=== PATIENT | male | born 1950 | race Caucasian/White ===

== ENCOUNTER 2019-03-16 18:38 | Inpatient (IN) | payer MEDICARE, BC, SELFPAY ==
[2019-03-16 18:40] VITALS: BP 123/69; PULSE 111; RESP 30; TEMP 36.7; O2SAT 93
--- NOTE | 2019-03-16 18:45 | ED_ITS ---
Entered by Genoveva Cancino, acting as scribe for HPI - SOB/Dyspnea General: Chief Complaint: Shortness of Breath/Dyspnea Stated Complaint: SOB Time Seen by Provider: 03/16/19 18:45 Source: patient, family and EMS Mode of arrival: EMS Limitations: no limitations History of Present Illness: MD elicited complaint: shortness of breath Pertinent past history: COPD Onset (ago): hour(s) Timing: constant Severity: moderate Exacerbating factors: exertion and coughing Relieving factors: nothing Associated symptoms: Reports cough and fever(s); Deny abdominal pain, chest pain, nausea, polyuria or vomiting Review of Systems Const: Reports: fever Eyes: Denies: change in vision ENMT: Denies: throat pain or mouth pain Card: Denies: chest pain Resp: Reports: shortness of breath, non-productive cough and wheezing GI: Denies: abdominal pain, nausea, vomiting or diarrhea Musc: Denies: back pain or joint pain Skin/Breast: Denies: rash Neuro: Denies: headache or behavioral changes Psych: Denies: depression Endo: Denies: excessive urination Jonathan/Lymph: Denies: easy bruising All/Imm: Denies: hives Physical Exam Const: COMMON NORMALS: no apparent distress and healthy appearing HENMT: COMMON NORMALS: normocephalic and external nose normal HEAD & SCALP: normocephalic NOSE: external nose normal and no nasal discharge (nasal dischage) Eye: COMMON NORMALS: PERRL PUPIL: Yes PERRL Neck/C-Spine: COMMON NORMALS: full ROM and no lymphadenopathy Chest: COMMONS NORMALS: inspection of chest normal Resp: OTHER: wheezing bilaterally with mild respdistress Cardio: COMMON NORMALS: regular rate and regular rhythm RATE: regular rate RHYTHM: regular rhythm GI: COMMON NORMALS: soft to palpation PALPATION: Yes soft Extremity: COMMON NORMALS: normal to inspection, full ROM and normal capillary refill Psych: COMMON NORMALS: mental status grossly normal and cooperative Skin: COMMON NORMALS: no rashes or lesions noted GENERAL SKIN EXAM: no rashes or lesions noted Course Vital Signs: Vital signs: Vital Signs Temperature 98.1 F 03/16/19 18:40 Pulse Rate 105 H 03/16/19 21:51 Respiratory Rate 16 03/16/19 21:51 Blood Pressure 140/74 03/16/19 21:51 Pulse Oximetry 93 01/08/20 21:51 MDM - SOB/Dyspnea MDM Narrative: Medical decision making narrative: Patient presents here with cough along with wheezing and was found to have pneumonia on his CT of his chest. Patient is requiring oxygen here and I spoke to hospitalist and will giv e antibiotics and admit. Patient has no signs of septic shock and blood pressure here is been normal. Lab Data: Labs: Lab Results 03/16/19 03/16/19 Range/Units 19:20 19:20 WBC 20.5 H (4.0-10.0) 10^3/ uL RBC 5.34 H (4.1-5.3) 10^6/u L Hgb 14.9 (11.7-16.6) g/dL Hct 46.5 (42.0-52.0) % MCV 87.1 (80-94) fL MCH 27.9 L (28.0-34.0) pg MCHC 32.0 (30.0-36.0) g/dL RDW 12.4 (12.1-15.1) % Plt Count 261 (130-400) 10^3/c mm MPV 9.9 (7.4-10.4) fL Neut % (Auto) 78.0 % Lymph % (Auto) 12.3 % [place] % (Auto) 7.8 % Eos % (Auto) 0.7 % Baso % (Auto) 0.6 % Neut # (Auto) 16.0 H (1.8-7.7) 10^3/u L Lymph # (Auto) 2.5 (0.8-4.8) 10^3/u L [place] # (Auto) 1.6 H (0.2-0.9) 10^3/u L Eos # (Auto) 0.2 (0.0-0.8) 10^3/u L Baso # (Auto) 0.1 (0.0-0.1) 10^3/u L Nucleated RBC % (a uto) 0 % Nucleated RBCs # 0.0 /100WBC Sodium 138 (136-145) mmol/L Potassium 3.9 (3.5-5.1) mmol/L Chloride 98 (98-107) mmol/L Carbon Dioxide 26 (22-29) mmol/L Anion Gap 17.9 (5-19) BUN 8 (8-23) mg/dL Creatinine 0.9 (0.7-1.2) mg/dL GFR Calculation 83.4 L (90-130) mL/min Glucose 127 H (74-106) mg/dL Calcium 9.6 (8.8-10.2) mg/Dl Total Bilirubin 0.6 (0.15-1.2) mg/dL AST 20 (0-40) U/L ALT 24 (0-41) U/L Alkaline Phosphata se 110 (40-130) IU/L NT-Pro-B Natriuret Pep 73 (0-125) pg/mL Total Protein 7.8 (6.6-8.7) g/dL Albumin 4.5 (3.5-5.2) g/dL Globulin 3.3 (1.3-4.6) g/dL Imaging Data^: CXR: Radiologist's impression: [place] [address] XRay Report Signed Patient: Cassidy Navarro AMR#: [id number] : 9Acct:[id number] Age/Sex: 78 / FADM Date: 03/16/19 Loc: ER Attending Dr: Ordering Physician: Constantine Cisneros DO Date of Service: 03/16/19 Procedure(s): XR chest 1V portable [id number] Accession Number(s): [id number] Report Number: [id number] WS: [id number] PORTABLE CHEST HISTORY: cough COMPARISON: 02/21/2019 Mild hyperexpansion of the lungs. Opacifications in the lower lung vieira seen on the prior study have slightly improved but not resolved. Persistent interstitial thickening at the medial RIGHT lung base. More focal nodule in the LEFT lower lung field measuring 1.5 cm. This nodule may contain a central cavitation. Overall the opacification in the LEFT lower lung field has slightly improved. No pleural effusion or pneumothorax. Cardiac size: Normal. Mediastinum/Aorta: Mild atherosclerosis aorta. Osteopenia. Prior IVC filter placement. Several vertebroplasties in the lower thoracic vertebral bodies. XR/XR chest 1V portable [id number] IMPRESSION: 1. Slight improvement in opacifications in the lower lung vieira as compared to 02/21/2019. Likely due to improving pneumonia and atelectasis. 2. Appearance of a more focal nodule at the LEFT base measures 1.5 cm. Suggest follow-up chest CT with IV contrast to exclude developing abscess or neoplasm. Dictated By:Florinda Medina DO Signed By:Florinda Medina DOSigned Date/Time:03/16/19 1607 DD/ 1603 EKG Data^: EKG 1: EKG Interpretation Date: 03/16/19 EKG interpretation time: 19:05 Interpretation: sinus tach hr [address] or t wave abnormalities qrs 92 qtc 388 Discharge Plan Discharge Patient Disposition: Admitted As Inpatient Clinical Impression: Acute exacerbation of chronic obstructive airways disease Community acquired pneumonia Qualifiers: Laterality: unspecified laterality Qualified Code(s): J18.9 - Pneumonia, unspecified organism Condition: Stable Coding Level of Care Code ED Rate Supervisor for Chg Fwd Exam Problem Focused The documentation recorded by the Barak martinez Bridget Annette, accurately reflects the service I personally performed and the decisions made by Pat ochoa Korby, MD
--- NOTE | 2019-03-16 18:46 | ECG_ITS ---
Measurements Intervals Wall Rate: 109 P: 68 PA: 157 QRS: 44 QRSD: 92 T: 68 QT: 324 QTc: 438 SINUS TACHYCARDIA ABNORMAL RHYTHM ECG WARNING: DATA QUALITY MAY AFFECT INTERPRETATION No previous ECG available for comparison Electronically Signed On 03-17-2019 13:52:15 GOLD PLATER by Rupal Duenas M.D. [email or web address]
--- NOTE | 2019-03-16 18:46 | XR_ITS ---
WS: [id number] CHEST XRAY TECHNIQUE: Portable chest. CLINICAL INFORMATION: cough COMPARISON: December 09, 2018 FINDINGS: Heart: Normal cardiac silhouette. Lungs: Lungs are clear. No consolidation or pleural effusion. Bones: Normal visualized bony structures. XR/XR chest 1V portable [id number] IMPRESSION: Normal chest
[2019-03-16] MEDS: ipratropium-albuterol 3 mL Neb INHALATION (19:37)
[2019-03-16 19:40] VITALS: PULSE 109; RESP 20; O2SAT 92
[2019-03-16 19:42] VITALS: PULSE 112
[2019-03-16 19:56] LABS: Basophils # 0.1 10^3/uL (0.0-0.1); Basophils % 0.6 %; Eosinophils # 0.2 10^3/uL (0.0-0.8); Eosinophils % 0.7 %; Hematocrit 46.5 % (42.0-52.0); Hemoglobin 14.9 g/dL (11.7-16.6); Lymphocytes # 2.5 10^3/uL (0.8-4.8); Lymphocytes % 12.3 %; Mean Corpuscular Hemoglobin 27.9 pg (28.0-34.0); Mean Corpuscular Volume 87.1 fL (80-94); Mean Platelet Volume 9.9 fL (7.4-10.4); Monocytes # 1.6 10^3/uL (0.2-0.9); Monocytes % 7.8 %; Nucleated Red Blood Cells % 0 %; Platelet Count 261 10^3/cmm (130-400); Red Blood Count 5.34 10^6/uL (4.1-5.3); Red Cell Distribution Width 12.4 % (12.1-15.1); White Blood Count 20.5 10^3/uL (4.0-10.0)
--- NOTE | 2019-03-16 20:03 | CTR_ITS ---
PROCEDURE INFORMATION: Exam: CT Angiography Chest With Contrast Exam date and time: 03/16/2019 8:40 PM Age: 68 years old Clinical indication: Dyspnea TECHNIQUE: Imaging protocol: Computed tomographic angiography of the chest with intravenous contrast. 3D rendering: MIP and/or 3D reconstructed images were created by the technologist. Total DLP: 1181.89 mGy-cm Radiation optimization: All CT scans at this facility use at least one of these dose optimization techniques: automated exposure control; mA and/or kV adjustment per patient size (includes targeted exams where dose is matched to clinical indication); or iterative reconstruction. Contrast material: [id number]; Contrast volume: 95 ml; Contrast route: IV; COMPARISON: CR XR chest 1V portable [id number] 03/16/2019 7:01 PM FINDINGS: Pulmonary arteries: The pulmonary arteries are adequately opacified for evaluation to the subsegmental level. There is no filling defect to suggest embolism. Aorta: There is mild aortic atherosclerotic disease. There is no aortic dissection or aneurysm. Thyroid: mild diffuse enlargement of the thyroid gland. Lungs: There are patchy areas of reticulonodular and tree in bud opacity involving the posterior inferior right upper lobe, and posterior basal segment of the left lower lobe. There is a calcified granuloma in the right lower lobe. Mild scarring in the lingula. Pleural space: Unremarkable. No pneumothorax. No pleural effusion. Heart: There is moderate coronary artery calcification. There is no pericardial effusion. Liver: There is diffuse low-attenuation of the liver relative to the spleen consistent with fatty infiltration. Lymph nodes: There are calcified lymph nodes in the right hilum and subcarinal region. There are no frankly pathologically enlarged lymph nodes. Bones/joints: Unremarkable. No acute fracture. Soft tissues: The extrathoracic soft tissues are unremarkable. CT/CT angio chest PE protcl [id number] IMPRESSION: 1. No pulmonary embolism. 2. Tree in bud opacities in the right upper and left lower lobe suggest infection. 3. Diffuse fatty infiltration of the liver. Radiation Dose CTDIVOL = (mGy): DLP = 1181.89 (mGy-cm)
[2019-03-16 20:28] LABS: Alanine Aminotransferase 24 U/L (0-41); Albumin Level 4.5 g/dL (3.5-5.2); Alkaline Phosphatase 110 IU/L (40-130); Anion Gap 17.9 (5-19); Aspartate Amino Transferase 20 U/L (0-40); Blood Urea Nitrogen 8 mg/dL (8-23); Calcium 9.6 mg/Dl (8.8-10.2); Carbon Dioxide 26 mmol/L (22-29); Chloride 98 mmol/L (98-107); Globulin 3.3 g/dL (1.3-4.6); Glomerular Filtration Rate 83.4 mL/min (90-130); Glucose 127 mg/dL (74-106); NT Pro B Type Natriuretic Pept 73 pg/mL (0-125); Potassium 3.9 mmol/L (3.5-5.1); Sodium 138 mmol/L (136-145); Total Bilirubin 0.6 mg/dL (0.15-1.2); Total Protein 7.8 g/dL (6.6-8.7)
[2019-03-16 20:39] VITALS: BP 106/58; PULSE 115; RESP 18; O2SAT 93
[2019-03-16] MEDS: iohexol 350 mg/mL 100 mL Btl 95 ML IV (20:58)
[2019-03-16] MEDS: cefTRIAXone 1,000 MG in sodium chloride 0.9% (plus) 50 ML 100 MG IV (21:49)
[2019-03-16 21:51] VITALS: BP 140/74; PULSE 105; RESP 16; O2SAT 93
--- NOTE | 2019-03-16 22:32 | PM.HP ---
Providers/Chief Complaint Admitting Physician: Rita Lee MD Primary Care Provider: Cuortney Reich MD Chief Complaint: PNEUMONIA, COPD History of Present Illness CAROL CHE is a 68 year old male who presented to the emergency room with chief complaint of difficulty breathing. Symptoms started a few days ago. The first thing he noticed was not having any energy. He then began to have increasing cough productive of greenish colored sputum. No definite reports of any fevers or chills just general malaise. He denies any hemoptysis. This evening he got up to walk from his couch to the bathroom which was maybe 20 feet and he barely made it. He had to rest quite a bit of time. When he went back to the couch he again barely made it. When his came home told her that he needed to come to the emergency room. He came in by EMS. On arrival here her oxygen saturation was around 92% on increased oxygen flow from baseline. He is usually on 2 L by nasal cannula. Heart rate was in the 110s to 120s and respirations were in the 30s. He received continuous breathing treatment. He initially felt better but breathing has worsened. He was last hospitalized here in December with acute COPD exacerbation. He denies any recent antibiotic or steroid use since then. Chest x-ray showed an infiltrative process. He subsequently had a CTA of the chest. It was negative for evidence of PE but did show tree-in-bud opacities suggestive of an acute infectious process. With increased oxygen requirement and decreased exertional capacity combined with other abnormalities he is being admitted for further care. Review of Systems Const: Reports: fatigue and malaise; Denies: fever or chills Eyes: Denies: change in vision ENMT: Denies: throat pain or dry mouth Card: Reports: palpitations (When trouble breathing) and swelling of feet/ankles (Mild); Denies: chest pain Resp: Reports: shortness of breath, productive cough (Green phlegm), wheezing and chest congestion; Denies: pain on inspiration or coughing up blood GI: Denies: nausea, vomiting, diarrhea or constipation : Reports: urinary frequency, urinary urgency and urinary incontinence Musc: Reports: back pain (chronic) and joint pain (nothing new) Skin/Breast: Denies: rash, itching or sores Neuro: Reports: headache (intermittent) Psych: Denies: anxiety or depression Jonathan/Lymph: Denies: easy bruising or easy bleeding All/Imm: Reports: other (many allergies); Denies: hives, throat swelling, tongue swelling or itchy eyes Medications/Allergies Allergies Allergy/AdvReac Type Severity Reaction Status Date / Time No Known Allergies Allergy Verified 03/16/19 18:51 Additional Medication Information Additional Medication Information: Home medications include breathing treatments, theophylline, inhaled steroids, Flomax, a triptan for migraines when needed and another pill for migraine which will need to be clarified. He gets Xolair injections monthly PFSH Acute PFSH: Statuses (acute, chronic, etc) shown below reflect problem list status as previously entered and may not be historically accurate Medical History (Updated 03/17/19 @ 00:01 by Rita Lee MD) Benign prostatic hyperplasia (Acute) On Flomax, follows with Dr. Torres Chronic low back pain (Acute) Has had nerve ablations and follows at pain clinic in [place] COPD (chronic obstructive pulmonary disease) (Acute) 2 L of oxygen at home, follows with Dr. Putnam in [place] currently, on theophylline Diabetes mellitus type 2, noninsulin dependent (Acute) Januvia History of multiple allergies (Acute) Xolair injections monthly Hx of migraine headaches (Acute) Has a triptan prescription and another medication Peripheral neuropathy (Acute) Primarily involving hands, related to ulnar nerve interventions Surgical History History of cataract surgery (Acute) History of repair of rotator cuff (Acute) Bilateral History of surgery on wrist (Acute) Bilateral ulnar nerve release History of tonsillectomy and adenoidectomy (Acute) Family History Mother Cancer uterine Aneurysm intracranial Father Lung disease asthma with allergies Social History Smoking and tobacco status: current every day smoker cigarettes Number of cigarettes per day: 6-10 Alcohol intake: never Substance/Drug Use: never Household members: spouse Marital status: Vitals/I&O/Wt Last Vital Signs Temp 98.1 F 03/16/19 18:40 Pulse 105 H 03/16/19 21:51 Resp 16 03/16/19 21:51 BP 140/74 03/16/19 21:51 Pulse Ox 93 03/16/19 21:51 Physical Exam Const: COMMON NORMALS: oriented x3 and alert GENERAL APPEARANCE: in distress (mild) NUTRITIONAL APPEARANCE: overweight HENMT: COMMON NORMALS: normocephalic and head/scalp atraumatic NOSE: nasal discharge purulent Purulent nasal discharge laterality: bilateral TEETH & GINGIVA: Yes fair dentition THROAT: posterior oropharynx normal Eye: COMMON NORMALS: PERRL, EOMs intact bilaterally and no scleral icterus Neck/C-Spine: COMMON NORMALS: no lymphadenopathy and supple Resp: EFFORT & INSPECTION: Yes tachypneic, Yes pursed lip breathing and Yes retractions supraclavicular AUSCULTATION: rhonchi left upper and left lower and wheezes throughout Cardio: JUGULAR VENOUS DISTENTION: no JVD RATE: tachycardic RHYTHM: regular rhythm GI: COMMON NORMALS: normal to inspection, nondistended, normoactive bowel sounds, soft to palpation and non-tender Extremity: GENERAL: Yes edema (1-2+ pretibial) Neuro: COMMON NORMALS: moves all extremities, no focal motor deficits and no sensory deficits noted Psych: COMMON NORMALS: cooperative ATTITUDE: Yes calm Skin: COMMON NORMALS: no rashes or lesions noted and no wounds Data Micro: Micro: Microbiology 03/16/19 20:25 Blood Culture - Pr eliminary [place] [facility] [place]16[place]19 20:25 Blood Culture - Pr eliminary [place] [facility] [place]^: CTA Chest: Radiologist's impression: IMPRESSION: 1. No pulmonary embolism. 2. Tree in bud opacities in the right upper and left lower lobe suggest infection. 3. Diffuse fatty infiltration of the liver. Other Data: Other data: Short CBC 03/16/19 03/16/19 Range/Units 19:20 19:20 WBC 20.5 H (4.0-10.0) 10^3/ uL Hgb 14.9 (11.7-16.6) g/dL Hct 46.5 (42.0-52.0) % Plt Count 261 (130-400) 10^3/c mm Neut % (Auto) 78.0 % Sodium 138 (136-145) mmol/L BMP 03/16/19 19:20 Sodium 138 Potassium 3.9 Chloride 98 Carbon Dioxide 26 BUN 8 Creatinine 0.9 Glucose 127 H Calcium 9.6 Liver Function 03/16/19 Range/Units 19:20 Total Bilirubin 0.6 (0.15-1.2) mg/dL AST 20 (0-40) U/L ALT 24 (0-41) U/L Alkaline Phosphata se 110 (40-130) IU/L Albumin 4.5 (3.5-5.2) g/dL A&P Assessment and plan (1) Community acquired pneumonia: Right upper lobe and left lower lobe (multi lobar) in a patient with COPD. Organism currently unknown. Status: Acute Qualifiers: Laterality: unspecified laterality Qualified Code(s): J18.9 - Pneumonia, unspecified organism Code(s): J18.9 - Pneumonia, unspecified organism (2) Acute exacerbation of chronic obstructive airways disease: Secondary to above Status: Acute Code(s): J44.1 - Chronic obstructive pulmonary disease with (acute) exacerbation (3) Diabetes mellitus type 2, noninsulin dependent: On Januvia at home Status: Acute Code(s): E11.9 - Type 2 diabetes mellitus without complications (4) Nicotine dependence, cigarettes, with other nicotine-induced disorders: Educated on the importance of smoking cessation as well as avoiding smoking with oxygen. He recently received a prescription for Chantix and has just started taking this. Has a desire to quit. Status: Acute Code(s): F17.218 - Nicotine dependence, cigarettes, with other nicotine-induced disorders Additional A&P Information Additional A&P Information: Inpatient admission Breathing treatments and inhaled steroids Systemic steroids Antibiotics Continue home theophylline Wean oxygen as able back to baseline 2 L PT evaluate and treat Continue to reinforce smoking cessation Chantix is nonformulary and I am currently holding this but can be resumed at discharge Continue Flomax for BPH Continue Januvia for diabetes, add corrective dose insulin as needed Patient's is bringing medications in so we will be able to confirm medications more specifically Lovenox for DVT prophylaxis Up-to-date on Pneumovax and flu vaccine Supportive care otherwise Full code Plans discussed with patient and his and both were given an opportunity to ask questions Attestations Medical Necessity Statement*: Anticipated stay greater than 2 midnights in a patient with community-acquired pneumonia and associated COPD exacerbation who is requiring higher flow of oxygen and has a white count of 20,000. Coding Level of Care Code Acute Production Officer for Chg Fwd Diagnoses Community acquired pneumonia J18.9 Laterality: unspecified laterality Acute exacerbation of chronic obstructive airways disease J44.1 Diabetes mellitus type 2, noninsulin dependent E11.9 Nicotine dependence, cigarettes, with other nicotine-induced disorders F17.218
[2019-03-16 23:32] VITALS: BP 117/73; PULSE 104; RESP 16; O2SAT 94
[2019-03-17] VITALS (14 sets, daily range): BP systolic 126–149; BP diastolic 65–85; PULSE 84–106; RESP 18–22; TEMP 36.3–36.9; O2SAT 92–97; BMI 36.7
--- NOTE | 2019-03-17 00:20 | PC.NURSE ---
Pt arrived to room via gurney from ER. Introduction of staff and aidet. Assisted to bed, orientation to room, bed, tv and call light systems. Physical assessment at this time.
[2019-03-17] MEDS: sodium chloride 0.9% 1,000 ML 75 ML IV (00:40)
[2019-03-17] MEDS: enoxaparin 40 mg/0.4 mL Syringe SUBCUT (00:47)
[2019-03-17] MEDS: ipratropium-albuterol 3 mL Neb INHALATION ×4 (02:42→20:00)
[2019-03-17] MEDS: azithromycin 500 MG in sodium chloride 0.9% 250 ML 250 MG IV (04:06)
[2019-03-17 07:08] LABS: Glucose Point of Care 172 mg/dL (70-110)
[2019-03-17] MEDS: budesonide 0.5 mg/2 mL Neb INHALATION ×2 (08:03→19:54)
--- NOTE | 2019-03-17 08:51 | PM.PN ---
Subjective Subjective: Interval history: Chart reviewed, labs noted. Had 1430 mL urine output overnight. Patient seen and examined, at bedside, resting in bed, no apparent distress, reports feeling the beginining of a migraine headache and is requesting to have home med resumed for this. Has been working on smoking cessation, down to 3-4 cig/day and using Chantix for this. He is consistently oxygen dependent, 2 L is his baseline requirement. Medications: Reviewed: Yes Medication Review Details: Active Medications Generic Name Dose Route Start Last Admin Trade Name Freq PRN Reason Stop Dose Admin Acetaminophen 650 mg 03/17/19 00:12 Tylenol PO Q6H PRN Mild/Mod Pain Or Temp >/= 101 Albuterol/Ipratrop ium 3 ml 03/17/19 03:00 03/17/19 08:03 Duoneb INHALATION 3 ml Q6H.RESPIRATORY S CH Administration Albuterol/Ipratrop ium 3 ml 03/17/19 00:12 Duoneb INHALATION Q4H PRN SHORTNESS OF NEO TH Azithromycin 250 mg 03/17/19 09:00 Zithromax PO DAILY [facility] Protocol Budesonide 0.5 mg 03/17/19 08:00 03/17/19 08:03 Pulmicort INHALATION 0.5 mg BID.RESPIRATORY S CH Administration Calcium Carbonate 1,000 mg 03/17/19 00:12 Tums PO Q4H PRN DYSPEPSI Docusate Sodium 100 mg 03/17/19 09:00 Colace PO BID [facility] Enoxaparin Sodium 40 mg 03/17/19 00:15 03/17/19 00:47 Lovenox SUBCUT 40 mg Q24H K[facility]IA Administration Sodium Chloride 1,000 mls @ 75 ml s/hr 03/17/19 00:15 03/17/19 04:07 Sodium Chloride 0.9% IV 03/17/19 13:34 0 mls/hr .[id number] K[facility] Infusion Ceftriaxone Sodium 1,000 mg/ 50 mls @ 100 mls/ hr 03/17/19 20:00 Sodium Chloride IV Q24H K[facility] Protocol Ondansetron HCl 4 mg 03/17/19 00:12 Zofran PO Q8H PRN NAUSEA Prednisone 40 mg 03/17/19 09:00 Prednisone PO DAILY [facility] No Known Allergies Allergy (Verified 03/16/19 18:51) Vitals/I&O/Wt Last Vital Signs Temp 98.5 F 03/17/19 07:51 Pulse 87 03/17/19 08:09 Resp 18 03/17/19 08:04 BP 143/72 03/17/19 07:51 Pulse Ox 95 03/17/19 08:04 03/16/19 03/17/19 03/17/19 22:59 06:59 14:59 Intake Total 978.75 / 978.75 240 / 240 Output Total 1430 / 1430 450 / 450 Balance -451.25 / -451.25 -210 / -210 Weight last 48 hrs Weight 112.576 kg Weight 112.945 kg Weight 112.945 kg Physical Exam Const: COMMON NORMALS: no apparent distress and oriented x3 GENERAL APPEARANCE: cooperative and comfortable NUTRITIONAL APPEARANCE: obese morbidly obese ORIENTATION/CONSCIOUSNESS: Yes awake HENMT: COMMON NORMALS: normocephalic, head/scalp atraumatic, hearing grossly normal bilaterally and moist oral mucous membranes HEAD & SCALP: normocephalic and atraumatic Eye: COMMON NORMALS: PERRL, EOMs intact bilaterally and conjunctivae normal CONJUNCTIVA: Yes conjunctivae normal PUPIL: Yes PERRL Neck/C-Spine: COMMON NORMALS: full ROM GENERAL: Yes normal visual inspection and Yes trachea midline Resp: COMMON NORMALS: normal respiratory effort, no retractions and no use of accessory muscles EFFORT & INSPECTION: Yes able to speak in complete sentences, Yes symmetric chest movement and No tachypneic AUSCULTATION: rhonchi throughout, wheezes expiratory wheezes and diminished lung sounds bilateral Cardio: COMMON NORMALS: regular rate, regular rhythm, S1 normal heart sound, S2 normal heart sound and no murmurs RATE: regular rate RHYTHM: regular rhythm HEART SOUNDS: S1 normal and S2 normal GI: COMMON NORMALS: normal to inspection, nondistended, normoactive bowel sounds, soft to palpation and non-tender INSPECTION: Yes central obesity PALPATION: Yes soft Extremity: COMMON NORMALS: normal to inspection, full ROM and no clubbing, cyanosis or edema; negative for no pedal edema Neuro: COMMON NORMALS: oriented x3, moves all extremities, no focal motor deficits, no sensory deficits noted and gait normal Psych: COMMON NORMALS: mental status grossly normal, thought process normal, cooperative, affect normal and speech normal SPEECH: Yes normal speech THOUGHT PROCESS: normal thought process Skin: COMMON NORMALS: no rashes or lesions noted, no jaundice, no petechiae and no mottling GENERAL SKIN EXAM: no rashes or lesions noted Data Micro: Micro: Microbiology 03/16/19 20:25 Blood Culture - Pr eliminary Blood SPECIMEN [facility] 03/16/19 20:25 Blood Culture - Pr eliminary Blood SPECIMEN [facility] A&P Assessment and plan (1) Community acquired pneumonia: -noted evidence of acute infection on CT chest -noted leukocytosis, currently afebrile, normotensive; continue to trend WBC, monitor vital signs -continue to monitor respiratory status -supplemental oxygen as needed, wean to baseline requirement if possible -continue antibiotics Status: Acute Qualifiers: Laterality: unspecified laterality Qualified Code(s): J18.9 - Pneumonia, unspecified organism Code(s): J18.9 - Pneumonia, unspecified organism (2) Acute exacerbation of chronic obstructive airways disease: -has hx of oxygen-dependent COPD, 2 L baseline oxygen requirement, now with acute exacerbation -on empiric antibiotics as noted above -continue Neb treatments, oral steroids -continue to monitor respiratory status -supplemental oxygen as needed, wean to baseline requirement if possible -follows up with lint cleaner Dr. Putnam in [place], on theophylline. Receives monthly Xolair injections for allergies -updated flu and pneumonia vaccines Status: Acute Code(s): J44.1 - Chronic obstructive pulmonary disease with (acute) exacerbation Additional A&P Information Additional A&P Information: -Chronic smoker; smoking cessation encouraged and has been on Chantix for this -Morbid obesity: BMI: 37 kg/m2 -NIDDM type II; on Januvia; with associated peripheral neuropathy. Accuchecks, anticipate increased hyperglycemia with steroid use. Diabetic diet. ISS. A1c at goal (6.6) in 01/2019 -BPH -Depression -migraine headaches -GI ppx with PPI -DVT ppx with Lovenox -encourage ambulation, PT evaluation appreciated -Dispo: home -Code status: FULL code Attestations Medical Necessity Statement*: Patient requires hospitalization for continued management of pneumonia and acute COPD exacerbation, needs continued close monitoring of respiratory status. Time Spent in Patient Care: Greater than 35 minutes (>than 50% of time spent in counselling and/or direct pt care on unit). 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
[2019-03-17] MEDS: docusate sodium 100 mg Capsule PO ×2 (09:01→17:02)
[2019-03-17] MEDS: predniSONE 20 mg Tablet 40 MG PO (09:01)
[2019-03-17] MEDS: azithromycin 250 mg Tablet PO (09:01)
[2019-03-17] MEDS: pantoprazole DR 40 mg Tablet PO (09:04)
[2019-03-17 11:35] LABS: Glucose Point of Care 179 mg/dL (70-110)
[2019-03-17] MEDS: SUMAtriptan 25 mg Tablet 50 MG PO (13:21)
[2019-03-17] MEDS: nicotine 7 mg Patch 1 PATCH TRANSDERMA (13:21)
--- NOTE | 2019-03-17 14:58 | PC.CHAP ---
Pastoral Care Encounter/Spiritual Assessment Type of Contact [] Declined tuckpointer visit [] Patient/Family/Request visit [] Outpatient visit [] Follow-up visit [] Physician referral [] Code/Alert [x] Routine visit [] Staff referral [] Actively dying [] Patient sleeping [] Family support [] [] Out of room [] Palliative care [] [] Receiving care in room [] Pre-surgical visit [] Trauma [] Long length of stay [] ICU visit [] Other: Relational/Emotional Strength [] Patient feels connected with others/family/visitors/staff [] Distress [x] Loneliness/isolation [] Abandonment Spirituality of Patient [x] Person of Julia [x] Attends Church of their Julia [x] Believes in Prayer [x] Reads Bible or Episcopal materials [] There are Spiritual issues to be addressed [employer]ation [employer] Supervisor Interventions [x] Prayer [x] Active listening [x] Non-anxious presence [x] Spiritual/emotional support [] Crisis/trauma care [x] Spiritual counseling [] Bereavement support [] Provided bereavement packet [] Provided Bible/devotional materials [] Provided toy/stuffed animal, coloring book to patient or family member [x] Completed spiritual assessment [] Provided Communion [] Anointing/Hope [] Salvation [] Other: Impact on Illness or Injury [] Angry [] Fearful [] Anxious [] Often cries [] Exhaustion [] Unable to work [] Unable to attend pentecostalism [] Unable to walk/stand [] Unable to read [] Unable to drive [] Unable to eat/drink [] Unable to sleep [] Unable to be with family [] Other: Summary good visit patient loves the Lord. Time spent with patient
[2019-03-17 16:21] LABS: Glucose Point of Care 176 mg/dL (70-110)
[2019-03-17] MEDS: acetaminophen 325 mg Tablet 650 MG PO (17:04)
[2019-03-17 21:21] LABS: Glucose Point of Care 170 mg/dL (70-110)
[2019-03-17] MEDS: cefTRIAXone 1,000 MG in sodium chloride 0.9% (plus) 50 ML 100 MG IV (21:23)
[2019-03-17] MEDS: venlafaxine ER (24HR) 150 mg Capsule PO (21:24)
[2019-03-18] VITALS (15 sets, daily range): BP systolic 121–150; BP diastolic 67–74; PULSE 78–91; RESP 18–28; TEMP 36.4–36.8; O2SAT 92–98
[2019-03-18] MEDS: enoxaparin 40 mg/0.4 mL Syringe SUBCUT (00:33)
[2019-03-18] MEDS: ipratropium-albuterol 3 mL Neb INHALATION ×4 (02:47→21:22)
[2019-03-18 05:22] LABS: Basophils % 0.2 %; Eosinophils % 0.1 %; Hematocrit 43.4 % (42.0-52.0); Hemoglobin 13.6 g/dL (11.7-16.6); Lymphocytes # 2.6 10^3/uL (0.8-4.8); Lymphocytes % 12.5 %; Mean Corpuscular HGB Conc 31.3 g/dL (30.0-36.0); Mean Corpuscular Hemoglobin 27.7 pg (28.0-34.0); Mean Corpuscular Volume 88.4 fL (80-94); Mean Platelet Volume 9.8 fL (7.4-10.4); Monocytes # 1.5 10^3/uL (0.2-0.9); Neutrophils # 16.5 10^3/uL (1.8-7.7); Neutrophils % 79.5 %; Nucleated Red Blood Cells % 0 %; Platelet Count 266 10^3/cmm (130-400); Red Blood Count 4.91 10^6/uL (4.1-5.3); Red Cell Distribution Width 12.7 % (12.1-15.1); White Blood Count 20.7 10^3/uL (4.0-10.0)
[2019-03-18 06:36] LABS: Glucose Point of Care 128 mg/dL (70-110)
[2019-03-18] MEDS: azithromycin 250 mg Tablet PO (08:03)
[2019-03-18] MEDS: predniSONE 20 mg Tablet 40 MG PO (08:26)
[2019-03-18] MEDS: docusate sodium 100 mg Capsule PO ×2 (08:27→17:48)
[2019-03-18] MEDS: pantoprazole DR 40 mg Tablet PO (08:28)
[2019-03-18] MEDS: budesonide 0.5 mg/2 mL Neb INHALATION ×2 (08:35→21:21)
[2019-03-18] MEDS: nicotine 7 mg Patch 1 PATCH TRANSDERMA (11:15)
[2019-03-18 11:47] LABS: Glucose Point of Care 183 mg/dL (70-110)
--- NOTE | 2019-03-18 12:52 | P.PN_ITS ---
Subjective Subjective: Interval history: AM labs noted, patient seen and examined, resting in bed, at bedside, slight improvement in breathing, continues to get quite dyspneic with exertion which at this point is limited to going to/from bathroom. Remains on 2 L NC. Medications: Reviewed: Yes Medication Review Details: Active Medications Generic Name Dose Route Start Last Admin Trade Name Freq PRN Reason Stop Dose Admin Acetaminophen 650 mg 03/17/19 00:12 03/17/19 17:04 Tylenol PO 650 mg Q6H PRN Administration Mild/Mod Pain Or Temp >/= 101 Albuterol/Ipratrop ium 3 ml 03/17/19 03:00 03/18/19 08:35 Duoneb INHALATION 3 ml Q6H.RESPIRATORY S CH Administration Albuterol/Ipratrop ium 3 ml 03/17/19 00:12 Duoneb INHALATION Q4H PRN SHORTNESS OF NEO TH Azithromycin 250 mg 03/17/19 09:00 03/18/19 08:03 Zithromax PO 250 mg DAILY [facility] Administration Protocol Budesonide 0.5 mg 03/17/19 08:00 03/18/19 08:35 Pulmicort INHALATION 0.5 mg BID.RESPIRATORY S CH Administration Calcium Carbonate 1,000 mg 03/17/19 00:12 Tums PO Q4H PRN DYSPEPSI Dextrose 25 ml 03/17/19 08:58 D50w IVP ONCE PRN hypoglycemia prot ocol Protocol Dextrose 50 ml 03/17/19 08:58 D50w IVP PRN PRN hypoglycemia prot ocol Protocol Docusate Sodium 100 mg 03/17/19 09:00 03/18/19 08:27 Colace PO 100 mg BID [facility] Administration Enoxaparin Sodium 40 mg 03/17/19 00:15 03/18/19 00:33 Lovenox SUBCUT 40 mg Q24H [facility] Administration Glucagon 1 mg 03/17/19 08:58 Glucagen IM ONCE PRN Adult Acute Hypog lycemia Prot. Protocol Ceftriaxone Sodium 1,000 mg/ 50 mls @ 100 mls/ hr 03/17/19 20:00 03/17/19 21:23 Sodium Chloride IV 100 mls/hr Q24H [facility] Administration Protocol Dextrose 500 mls @ 100 mls /hr 03/17/19 08:58 D5w IV ONCE PRN Adult Acute Hypog lycemia Prot Protocol Insulin Aspart 0 unit 03/17/19 12:00 03/18/19 12:49 Novolog SUBCUT 4 unit WM&BEDTIME [facility] Administration Protocol Neomycin/Polymyxin /Bacitracin 1 applic 03/18/19 09:00 03/18/19 10:32 Neosporin Oint T ube TOPICAL Not Given DAILY [facility] Nicotine 1 patch 03/17/19 13:15 03/18/19 11:15 Nicoderm 7 Mg Pa tch TRANSDERMA 1 patch DAILY [facility] Administration Ondansetron HCl 4 mg 03/17/19 00:12 Zofran PO Q8H PRN NAUSEA Pantoprazole Sodiu m 40 mg 03/17/19 09:00 03/18/19 08:28 Protonix PO 40 mg DAILY [facility] Administration Prednisone 40 mg 03/17/19 09:00 03/18/19 08:26 Prednisone PO 40 mg DAILY [facility] Administration Venlafaxine HCl 150 mg 03/17/19 21:00 03/17/19 21:24 Effexor Xr PO 150 mg BEDTIME [facility] Administration No Known Allergies Allergy (Verified 03/16/19 18:51) Vitals/I&O/Wt Last Vital Signs Temp 97.8 F 03/18/19 11:05 Pulse 86 03/18/19 11:05 Resp 20 H 03/18/19 11:05 BP 135/70 03/18/19 11:05 Pulse Ox 94 03/18/19 11:05 03/17/19 03/18/19 03/18/19 22:59 06:59 14:59 Intake Total 730 / 1570 236 / 236 Output Total 875 / 1675 Balance -145 / -105 236 / 236 Weight last 48 hrs Weight 117.254 kg Weight 116.346 kg Weight 115.802 kg Weight 112.576 kg Weight 112.945 kg Weight 112.945 kg Physical Exam Const: COMMON NORMALS: no apparent distress and oriented x3 GENERAL APPEARANCE: cooperative and comfortable NUTRITIONAL APPEARANCE: obese morbidly obese ORIENTATION/CONSCIOUSNESS: Yes awake HENMT: COMMON NORMALS: normocephalic, head/scalp atraumatic, hearing grossly normal bilaterally and moist oral mucous membranes HEAD & SCALP: normocephalic and atraumatic Eye: COMMON NORMALS: PERRL, EOMs intact bilaterally and conjunctivae normal CONJUNCTIVA: Yes conjunctivae normal PUPIL: Yes PERRL Neck/C-Spine: COMMON NORMALS: full ROM GENERAL: Yes normal visual inspection and Yes trachea midline Resp: COMMON NORMALS: normal respiratory effort, no retractions and no use of accessory muscles EFFORT & INSPECTION: Yes able to speak in complete sentences, Yes symmetric chest movement and No tachypneic AUSCULTATION: rhonchi throughout, wheezes expiratory wheezes and diminished lung sounds bilateral OTHER: -overall, sounds mildly less congested, less rhonchi and less end-expiratory wheezing appreciated on examination. Cardio: COMMON NORMALS: regular rate, regular rhythm, S1 normal heart sound, S2 normal heart sound and no murmurs RATE: regular rate RHYTHM: regular rhythm HEART SOUNDS: S1 normal and S2 normal GI: COMMON NORMALS: normal to inspection, nondistended, normoactive bowel sounds, soft to palpation and non-tender INSPECTION: Yes central obesity PALPATION: Yes soft Extremity: COMMON NORMALS: normal to inspection, full ROM and no clubbing, cyanosis or edema; negative for no pedal edema Neuro: COMMON NORMALS: oriented x3, moves all extremities, no focal motor deficits, no sensory deficits noted and gait normal Psych: COMMON NORMALS: mental status grossly normal, thought process normal, cooperative, affect normal and speech normal SPEECH: Yes normal speech THOUGHT PROCESS: normal thought process Skin: COMMON NORMALS: no rashes or lesions noted, no jaundice, no petechiae and no mottling GENERAL SKIN EXAM: no rashes or lesions noted Data Micro: Micro: Microbiology 03/16/19 20:25 Blood Culture - Pr eliminary Blood NEGATIVE TO JUVENTINO E 03/16/19 20:25 Blood Culture - Pr eliminary Blood NEGATIVE TO JUVENTINO E A&P Assessment and plan (1) Community acquired pneumonia: -noted evidence of acute infection on CT chest -noted leukocytosis, currently afebrile, normotensive; continue to trend WBC, monitor vital signs -continue to monitor respiratory status -supplemental oxygen as needed, wean to baseline requirement if possible -continue antibiotics Status: Acute Qualifiers: Laterality: unspecified laterality Qualified Code(s): J18.9 - Pneumonia, unspecified organism Code(s): J18.9 - Pneumonia, unspecified organism (2) Acute exacerbation of chronic obstructive airways disease: -has hx of oxygen-dependent COPD, 2 L baseline oxygen requirement, now with acute exacerbation -on empiric antibiotics as noted above -continue Neb treatments, oral steroids -continue to monitor respiratory status -supplemental oxygen as needed, wean to baseline requirement if possible -follows up with javascript engineer Dr. Putnam in [place], on theophylline. Receives monthly Xolair injections for allergies -updated flu and pneumonia vaccines Status: Acute Code(s): J44.1 - Chronic obstructive pulmonary disease with (acute) exacerbation Additional A&P Information Additional A&P Information: -Chronic smoker; smoking cessation encouraged and has been on Chantix for this -Morbid obesity: BMI: 38 kg/m2 -NIDDM type II; on Januvia; with associated peripheral neuropathy. Accuchecks, anticipate increased hyperglycemia with steroid use. Diabetic diet. ISS. A1c at goal (6.6) in 01/2019 -BPH -Depression -Migraine headaches -GI ppx with PPI -DVT ppx with Lovenox -encourage ambulation, PT evaluation appreciated -Dispo: home -Code status: FULL code Attestations Medical Necessity Statement*: Patient requires hospitalization for continued management of acute COPD exacerbation and pneumonia. Time Spent in Patient Care: Greater than 35 minutes (>than 50% of time spent in counselling and/or direct pt care on unit) . 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
--- NOTE | 2019-03-18 13:44 | PC.PT ---
PT goals achieved ;Discharge PT
--- NOTE | 2019-03-18 16:55 | PC.RESP ---
Patient given information on Smoking Cessation and Pulmonary Rehab.
[2019-03-18 17:04] LABS: Glucose Point of Care 150 mg/dL (70-110)
[2019-03-18] MEDS: venlafaxine ER (24HR) 150 mg Capsule PO (20:40)
[2019-03-18] MEDS: cefTRIAXone 1,000 MG in sodium chloride 0.9% (plus) 50 ML 50 MG IV (20:41)
[2019-03-18 21:37] LABS: Glucose Point of Care 349 mg/dL (70-110)
[2019-03-18 21:37] LABS: Glucose Point of Care 154 mg/dL (70-110)
[2019-03-19] VITALS (13 sets, daily range): BP systolic 128–150; BP diastolic 66–92; PULSE 70–94; RESP 16–24; TEMP 36.4–36.9; O2SAT 92–99
[2019-03-19] MEDS: enoxaparin 40 mg/0.4 mL Syringe SUBCUT (00:22)
[2019-03-19] MEDS: ipratropium-albuterol 3 mL Neb INHALATION ×4 (02:29→20:18)
[2019-03-19 06:42] LABS: Glucose Point of Care 81 mg/dL (70-110)
[2019-03-19] MEDS: docusate sodium 100 mg Capsule PO ×2 (08:07→17:05)
[2019-03-19] MEDS: pantoprazole DR 40 mg Tablet PO (08:07)
[2019-03-19] MEDS: azithromycin 250 mg Tablet PO (08:07)
[2019-03-19] MEDS: nicotine 7 mg Patch 1 PATCH TRANSDERMA (08:07)
[2019-03-19] MEDS: acetaminophen 325 mg Tablet 650 MG PO ×2 (08:08→19:31)
[2019-03-19] MEDS: predniSONE 20 mg Tablet 40 MG PO (08:08)
[2019-03-19] MEDS: budesonide 0.5 mg/2 mL Neb INHALATION ×2 (08:14→20:18)
--- NOTE | 2019-03-19 08:36 | P.PN_ITS ---
Subjective Subjective: Interval history: Now requiring 3 L NC. Patient seen and examined, at bedside, complains of migraine headache, bright light is on and TV is quite loud which may be aggravating his headache. Continues to have some sputum production, still able to ambulate to and from the bathroom though with continued dyspnea. Medications: Reviewed: Yes Medication Review Details: Active Medications Generic Name Dose Route Start Last Admin Trade Name Freq PRN Reason Stop Dose Admin Acetaminophen 650 mg 03/17/19 00:12 03/19/19 08:08 Tylenol PO 650 mg Q6H PRN Administration Mild/Mod Pain Or Temp >/= 101 Albuterol/Ipratrop ium 3 ml 03/17/19 03:00 03/19/19 08:14 Duoneb INHALATION 3 ml Q6H.RESPIRATORY S CH Administration Albuterol/Ipratrop ium 3 ml 03/17/19 00:12 Duoneb INHALATION Q4H PRN SHORTNESS OF NEO TH Azithromycin 250 mg 03/17/19 09:00 03/19/19 08:07 Zithromax PO 250 mg DAILY [facility] Administration Protocol Budesonide 0.5 mg 03/17/19 08:00 03/19/19 08:14 Pulmicort INHALATION 0.5 mg BID.RESPIRATORY S CH Administration Calcium Carbonate 1,000 mg 03/17/19 00:12 Tums PO Q4H PRN DYSPEPSI Dextrose 25 ml 03/17/19 08:58 D50w IVP ONCE PRN hypoglycemia prot ocol Protocol Dextrose 50 ml 03/17/19 08:58 D50w IVP PRN PRN hypoglycemia prot ocol Protocol Docusate Sodium 100 mg 03/17/19 09:00 03/19/19 08:07 Colace PO 100 mg BID [facility] Administration Enoxaparin Sodium 40 mg 03/17/19 00:15 03/19/19 00:22 Lovenox SUBCUT 40 mg Q24H [facility] Administration Glucagon 1 mg 03/17/19 08:58 Glucagen IM ONCE PRN Adult Acute Hypog lycemia Prot. Protocol Ceftriaxone Sodium 1,000 mg/ 50 mls @ 100 mls/ hr 03/17/19 20:00 03/19/19 02:32 Sodium Chloride IV Infused Q24H [facility] Infusion Protocol Dextrose 500 mls @ 100 mls /hr 03/17/19 08:58 D5w IV ONCE PRN Adult Acute Hypog lycemia Prot Protocol Insulin Aspart 0 unit 03/17/19 12:00 03/19/19 07:28 Novolog SUBCUT Not Given WM&BEDTIME [facility] Protocol Neomycin/Polymyxin /Bacitracin 1 applic 03/18/19 09:00 03/18/19 10:32 Neosporin Oint T ube TOPICAL Not Given DAILY [facility] Nicotine 1 patch 03/17/19 13:15 03/19/19 08:07 Nicoderm 7 Mg Pa tch TRANSDERMA 1 patch DAILY [facility] Administration Ondansetron HCl 4 mg 03/17/19 00:12 Zofran PO Q8H PRN NAUSEA Pantoprazole Sodiu m 40 mg 03/17/19 09:00 03/19/19 08:07 Protonix PO 40 mg DAILY [facility] Administration Prednisone 40 mg 03/17/19 09:00 03/19/19 08:08 Prednisone PO 40 mg DAILY [facility] Administration Venlafaxine HCl 150 mg 03/17/19 21:00 03/18/19 20:40 Effexor Xr PO 150 mg BEDTIME [facility] Administration No Known Allergies Allergy (Verified 03/16/19 18:51) Vitals/I&O/Wt Last Vital Signs Temp 97.6 F 03/19/19 07:12 Pulse 85 03/19/19 08:23 Resp 20 H 03/19/19 08:23 BP 136/81 03/19/19 07:12 Pulse Ox 98 03/19/19 08:23 03/18/19 03/19/19 03/19/19 22:59 06:59 14:59 Intake Total 530 / 766 800 / 1566 Output Total 350 / 350 Balance 530 / 766 450 / 1216 Weight last 48 hrs Weight 116.619 kg Weight 117.254 kg Weight 116.346 kg Weight 115.802 kg Physical Exam Const: COMMON NORMALS: no apparent distress and oriented x3 GENERAL APPEARANCE: cooperative and comfortable NUTRITIONAL APPEARANCE: obese morbidly obese ORIENTATION/CONSCIOUSNESS: Yes awake HENMT: COMMON NORMALS: normocephalic, head/scalp atraumatic, hearing grossly normal bilaterally and moist oral mucous membranes HEAD & SCALP: normocephalic and atraumatic Eye: COMMON NORMALS: PERRL, EOMs intact bilaterally and conjunctivae normal CONJUNCTIVA: Yes conjunctivae normal PUPIL: Yes PERRL Neck/C-Spine: COMMON NORMALS: full ROM GENERAL: Yes normal visual inspection and Yes trachea midline Resp: COMMON NORMALS: normal respiratory effort, no retractions and no use of accessory muscles EFFORT & INSPECTION: Yes able to speak in complete sentences, Yes symmetric chest movement and No tachypneic AUSCULTATION: rhonchi (Decreased today) throughout, wheezes expiratory wheezes and diminished lung sounds bilateral OTHER: -overall, sounds mildly less congested, less rhonchi and less end-expiratory wheezing appreciated on examination. Cardio: COMMON NORMALS: regular rate, regular rhythm, S1 normal heart sound, S2 normal heart sound and no murmurs RATE: regular rate RHYTHM: regular rhythm HEART SOUNDS: S1 normal and S2 normal GI: COMMON NORMALS: normal to inspection, nondistended, normoactive bowel sounds, soft to palpation and non-tender INSPECTION: Yes central obesity PALPATION: Yes soft Extremity: COMMON NORMALS: normal to inspection, full ROM and no clubbing, cyanosis or edema; negative for no pedal edema Neuro: COMMON NORMALS: oriented x3, moves all extremities, no focal motor deficits, no sensory deficits noted and gait normal Psych: COMMON NORMALS: mental status grossly normal, thought process normal, cooperative, affect normal and speech normal SPEECH: Yes normal speech THOUGHT PROCESS: normal thought process Skin: COMMON NORMALS: no rashes or lesions noted, no jaundice, no petechiae and no mottling GENERAL SKIN EXAM: no rashes or lesions noted A&P Assessment and plan (1) Community acquired pneumonia: -noted evidence of acute infection on CT chest -noted leukocytosis, currently afebrile, normotensive; continue to trend WBC, monitor vital signs -continue to monitor respiratory status -supplemental oxygen as needed, wean to baseline requirement if possible -continue antibiotics Status: Acute Qualifiers: Laterality: unspecified laterality Qualified Code(s): J18.9 - Pneumonia, unspecified organism Code(s): J18.9 - Pneumonia, unspecified organism (2) Acute exacerbation of chronic obstructive airways disease: -has hx of oxygen-dependent COPD, 2 L baseline oxygen requirement, now wit h acute exacerbation -on empiric antibiotics as noted above -continue Neb treatments, oral steroids -continue to monitor respiratory status -supplemental oxygen as needed, wean to baseline requirement if possible -follows up with wrapper selector Dr. Putnam in [place], on theophylline. Receives monthly Xolair injections for allergies -updated flu and pneumonia vaccines Status: Acute Code(s): J44.1 - Chronic obstructive pulmonary disease with (acute) exacerbation Additional A&P Information Additional A&P Information: -Chronic smoker; smoking cessation encouraged and has been on Chantix for this -Morbid obesity: BMI: 38 kg/m2 -NIDDM type II; on Januvia; with associated peripheral neuropathy. Accuchecks, anticipate increased hyperglycemia with steroid use. Diabetic diet. ISS. A1c at goal (6.6) in 01/2019 -BPH -Depression -Migraine headaches: Resumed venlafaxine; add sumatriptan -GI ppx with PPI -DVT ppx with Lovenox -encourage ambulation, PT evaluation appreciated -Dispo: home -Code status: FULL code Attestations Medical Necessity Statement*: Patient requires hospitalization for continued management of pneumonia, acute COPD exacerbation, on higher than baseline oxygen requirement, needs close monitoring of respiratory status. 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
--- NOTE | 2019-03-19 10:04 | PC.NURSE ---
Notified Dr Velasquez at this time R/T patient c/o impending migraine with pain continuing to worsen.
[2019-03-19] MEDS: SUMAtriptan 25 mg Tablet 50 MG PO ×2 (10:16→13:08)
[2019-03-19 12:04] LABS: Glucose Point of Care 149 mg/dL (70-110)
--- NOTE | 2019-03-19 13:10 | PC.NURSE ---
Pt resting in bed with eyes open watching television with at bedside. Pt c/o headache 07/16.
--- NOTE | 2019-03-19 17:01 | PC.SOCIAL ---
Pg 2 IMM Explained to pt Pg 2 IMM. Pt verbally understands & signed. Provided a copy to pt. Signed, dated, & timed, then placed in chart.
[2019-03-19 17:15] LABS: Glucose Point of Care 209 mg/dL (70-110)
[2019-03-19] MEDS: cefTRIAXone 1,000 MG in sodium chloride 0.9% (plus) 50 ML 100 MG IV (19:32)
[2019-03-19 21:42] LABS: Glucose Point of Care 148 mg/dL (70-110)
[2019-03-19] MEDS: venlafaxine ER (24HR) 150 mg Capsule PO (22:09)
[2019-03-20] VITALS (14 sets, daily range): BP systolic 122–158; BP diastolic 58–77; PULSE 67–86; RESP 16–22; TEMP 36.5–37; O2SAT 92–98
[2019-03-20] MEDS: enoxaparin 40 mg/0.4 mL Syringe SUBCUT (00:40)
[2019-03-20] MEDS: ipratropium-albuterol 3 mL Neb INHALATION ×4 (02:34→20:14)
[2019-03-20 07:00] LABS: Glucose Point of Care 92 mg/dL (70-110)
[2019-03-20] MEDS: predniSONE 20 mg Tablet 40 MG PO (08:40)
[2019-03-20] MEDS: azithromycin 250 mg Tablet PO (08:40)
[2019-03-20] MEDS: pantoprazole DR 40 mg Tablet PO (08:40)
[2019-03-20] MEDS: docusate sodium 100 mg Capsule PO ×2 (08:40→17:15)
[2019-03-20] MEDS: nicotine 7 mg Patch 1 PATCH TRANSDERMA (08:43)
[2019-03-20] MEDS: budesonide 0.5 mg/2 mL Neb INHALATION ×2 (08:52→20:14)
--- NOTE | 2019-03-20 11:43 | PM.PN ---
Subjective Subjective: Interval history: Down to baseline oxygen requirement of 2 L NC. Seems to be very gradually improving. Has had some issues with emptying his bladder so is requesting to have his Flomax and finasteride resumed. Repeat chest x-ray done, unremarkable. Seems to be wheezing more and a little bit more short of breath particularly with exertion so we will give a one-time dose of IV steroids. He is also requesting to have an appointment with Dr. Royal arranged prior to discharge. Medications: Reviewed: Yes Medication Review Details: Active Medications Generic Name Dose Route Start Last Admin Trade Name Freq PRN Reason Stop Dose Admin Acetaminophen 650 mg 03/17/19 00:12 03/19/19 19:31 Tylenol PO 650 mg Q6H PRN Administration Mild/Mod Pain Or Temp >/= 101 Albuterol/Ipratrop ium 3 ml 03/17/19 03:00 03/20/19 08:52 Duoneb INHALATION 3 ml Q6H.RESPIRATORY S CH Administration Albuterol/Ipratrop ium 3 ml 03/17/19 00:12 Duoneb INHALATION Q4H PRN SHORTNESS OF NEO TH Azithromycin 250 mg 03/17/19 09:00 03/20/19 08:40 Zithromax PO 250 mg DAILY KALIA Administration Protocol Budesonide 0.5 mg 03/17/19 08:00 03/20/19 08:52 Pulmicort INHALATION 0.5 mg BID.RESPIRATORY S CH Administration Calcium Carbonate 1,000 mg 03/17/19 00:12 Tums PO Q4H PRN DYSPEPSI Dextrose 25 ml 03/17/19 08:58 D50w IVP ONCE PRN hypoglycemia prot ocol Protocol Dextrose 50 ml 03/17/19 08:58 D50w IVP PRN PRN hypoglycemia prot ocol Protocol Docusate Sodium 100 mg 03/17/19 09:00 03/20/19 08:40 Colace PO 100 mg BID KALIA Administration Enoxaparin Sodium 40 mg 03/17/19 00:15 03/20/19 00:40 Lovenox SUBCUT 40 mg Q24H KALIA Administration Glucagon 1 mg 03/17/19 08:58 Glucagen IM ONCE PRN Adult Acute Hypog lycemia Prot. Protocol Ceftriaxone Sodium 1,000 mg/ 50 mls @ 100 mls/ hr 03/17/19 20:00 03/19/19 19:32 Sodium Chloride IV 100 mls/hr Q24H KALIA Administration Protocol Dextrose 500 mls @ 100 mls /hr 03/17/19 08:58 D5w IV ONCE PRN Adult Acute Hypog lycemia Prot Protocol Insulin Aspart 0 unit 03/17/19 12:00 03/20/19 07:46 Novolog SUBCUT Not Given WM&BEDTIME KALIA Protocol Nicotine 1 patch 03/17/19 13:15 03/20/19 08:43 Nicoderm 7 Mg Pa tch TRANSDERMA 1 patch DAILY KALIA Administration Ondansetron HCl 4 mg 03/17/19 00:12 Zofran PO Q8H PRN NAUSEA Pantoprazole Sodiu m 40 mg 03/17/19 09:00 03/20/19 08:40 Protonix PO 40 mg DAILY KALIA Administration Prednisone 40 mg 03/17/19 09:00 03/20/19 08:40 Prednisone PO 40 mg DAILY KALIA Administration Venlafaxine HCl 150 mg 03/17/19 21:00 03/19/19 22:09 Effexor Xr PO 150 mg BEDTIME KALIA Administration No Known Allergies Allergy (Verified 03/16/19 18:51) Vitals/I&O/Wt Last Vital Signs Temp 97.7 F 03/20/19 07:08 Pulse 83 03/20/19 09:02 Resp 18 03/20/19 09:02 BP 144/76 03/20/19 07:08 Pulse Ox 92 03/20/19 09:02 03/19/19 03/20/19 03/20/19 22:59 06:59 14:59 Intake Total 440 / 1156 700 / 1856 360 / 360 Output Total 4 / 4 Balance 440 / 1156 696 / 1852 360 / 360 Weight last 48 hrs Weight 116.687 kg Weight 117.225 kg Weight 116.619 kg Physical Exam Const: COMMON NORMALS: no apparent distress and oriented x3 GENERAL APPEARANCE: cooperative and comfortable NUTRITIONAL APPEARANCE: obese morbidly obese ORIENTATION/CONSCIOUSNESS: Yes awake HENMT: COMMON NORMALS: normocephalic, head/scalp atraumatic, hearing grossly normal bilaterally and moist oral mucous membranes HEAD & SCALP: normocephalic and atraumatic Eye: COMMON NORMALS: PERRL, EOMs intact bilaterally and conjunctivae normal CONJUNCTIVA: Yes conjunctivae normal PUPIL: Yes PERRL Neck/C-Spine: COMMON NORMALS: full ROM GENERAL: Yes normal visual inspection and Yes trachea midline Resp: COMMON NORMALS: normal respiratory effort, no retractions and no use of accessory muscles EFFORT & INSPECTION: Yes able to speak in complete sentences, Yes symmetric chest movement and No tachypneic AUSCULTATION: rhonchi (Decreased today) throughout, wheezes (More evident expiratory wheezing diffusely) expiratory wheezes and diminished lung sounds bilateral Cardio: COMMON NORMALS: regular rate, regular rhythm, S1 normal heart sound, S2 normal heart sound and no murmurs RATE: regular rate RHYTHM: regular rhythm HEART SOUNDS: S1 normal and S2 normal GI: COMMON NORMALS: normal to inspection, nondistended, normoactive bowel sounds, soft to palpation and non-tender INSPECTION: Yes central obesity PALPATION: Yes soft Extremity: COMMON NORMALS: normal to inspection, full ROM and no clubbing, cyanosis or edema; negative for no pedal edema Neuro: COMMON NORMALS: oriented x3, moves all extremities, no focal motor deficits, no sensory deficits noted and gait normal Psych: COMMON NORMALS: mental status grossly normal, thought process normal, cooperative, affect normal and speech normal SPEECH: Yes normal speech THOUGHT PROCESS: normal thought process Skin: COMMON NORMALS: no rashes or lesions noted, no jaundice, no petechiae and no mottling GENERAL SKIN EXAM: no rashes or lesions noted A&P Assessment and plan (1) Community acquired pneumonia: -noted evidence of acute infection on CT chest -noted stable leukocytosis, afebrile, normotensive; continue to monitor vital signs -continue to monitor respiratory status -supplemental oxygen as needed, wean to baseline requirement if possible -continue antibiotics Status: Acute Qualifiers: Laterality: unspecified laterality Qualified Code(s): J18.9 - Pneumonia, unspecified organism Code(s): J18.9 - Pneumonia, unspecified organism (2) Acute exacerbation of chronic obstructive airways disease: -has hx of oxygen-dependent COPD, 2 L baseline oxygen requirement, now with acute exacerbation -on empiric antibiotics as noted above -continue Neb treatments, oral steroids -continue to monitor respiratory status -supplemental oxygen as needed, wean to baseline requirement if possible -follows up with manager of selection and assessment Dr. Putnam in [place], on theophylline. Receives monthly Xolair injections for allergies. He would like to establish care with Dr. Royal locally -updated flu and pneumonia vaccines Status: Acute Code(s): J44.1 - Chronic obstructive pulmonary disease with (acute) exacerbation Additional A&P Information Additional A&P Information: -Chronic smoker; smoking cessation encouraged and has been on Chantix for this -Morbid obesity: BMI: 38 kg/m2 -NIDDM type II; on Januvia; with associated peripheral neuropathy. Accuchecks, anticipate increased hyperglycemia with steroid use. Diabetic diet. ISS. A1c at goal (6.6) in 01/2019 -BPH -Depression -Migraine headaches: Resumed venlafaxine; add sumatriptan -GI ppx with PPI -DVT ppx with Lovenox -encourage ambulation, PT evaluation appreciated -Dispo: home -Code status: FULL code Attestations Medical Necessity Statement*: Patient requires hospitalization for continued management of acute COPD exacerbation, pneumonia, requiring continued close monitoring of his respiratory status, steroids, antibiotics. Coding Level of Care Code Acute Bench Worker Apprentice for Owen Fwronaldo Exam Problem Focused Diagnoses Community acquired pneumonia J18.9 Laterality: unspecified laterality Acute exacerbation of chronic obstructive airways disease J44.1
--- NOTE | 2019-03-20 11:56 | XRR_ITS ---
PROCEDURE INFORMATION: Exam: XR Chest, 1 View Exam date and time: 03/20/2019 12:55 PM Age: 68 years old Clinical indication: Other: Pneumonia; Additional info: Progression of pneumonia TECHNIQUE: Imaging protocol: XR of the chest Views: Frontal portable upright view of the chest. COMPARISON: CR XR chest 1V portable [id number] 03/16/2019 7:01 PM FINDINGS: Lungs: The lungs are clear bilaterally. The pulmonary vasculature is normal. Pleural space: No pleural effusion. No pneumothorax. Heart/Mediastinum: The heart is normal in size and contour. Mediastinum: Stable. Bones/joints: Stable. XR/XR chest 1V portable [id number] IMPRESSION: No acute cardiopulmonary abnormality identified.
[2019-03-20 11:58] LABS: Glucose Point of Care 137 mg/dL (70-110)
[2019-03-20] MEDS: tamsulosin 0.4 mg Capsule 0.8 MG PO (14:18)
[2019-03-20] MEDS: finasteride 5 mg Tablet PO (14:18)
[2019-03-20 16:44] LABS: Glucose Point of Care 224 mg/dL (70-110)
--- NOTE | 2019-03-20 19:11 | PC.NURSE ---
Introduction of staff and report received, aidet.
[2019-03-20] MEDS: cefTRIAXone 1,000 MG in sodium chloride 0.9% (plus) 50 ML 100 MG IV (20:17)
[2019-03-20 22:04] LABS: Glucose Point of Care 170 mg/dL (70-110)
[2019-03-20] MEDS: venlafaxine ER (24HR) 150 mg Capsule PO (22:09)
[2019-03-21] VITALS (11 sets, daily range): BP systolic 113–146; BP diastolic 68–73; PULSE 72–89; RESP 16–20; TEMP 36.3–36.9; O2SAT 88–97
[2019-03-21] MEDS: enoxaparin 40 mg/0.4 mL Syringe SUBCUT (01:56)
[2019-03-21] MEDS: ipratropium-albuterol 3 mL Neb INHALATION ×2 (02:04→08:16)
[2019-03-21 05:19] LABS: Basophils % 0.2 %; Eosinophils % 0.1 %; Hematocrit 44.6 % (42.0-52.0); Hemoglobin 14.4 g/dL (11.7-16.6); Lymphocytes # 2.5 10^3/uL (0.8-4.8); Lymphocytes % 18.4 %; Mean Corpuscular HGB Conc 32.3 g/dL (30.0-36.0); Mean Corpuscular Hemoglobin 28.1 pg (28.0-34.0); Mean Corpuscular Volume 86.9 fL (80-94); Mean Platelet Volume 9.4 fL (7.4-10.4); Monocytes # 0.9 10^3/uL (0.2-0.9); Monocytes % 6.3 %; Neutrophils # 10.2 10^3/uL (1.8-7.7); Neutrophils % 74.4 %; Nucleated Red Blood Cells % 0 %; Platelet Count 300 10^3/cmm (130-400); Red Blood Count 5.13 10^6/uL (4.1-5.3); White Blood Count 13.8 10^3/uL (4.0-10.0)
[2019-03-21 07:08] LABS: Glucose Point of Care 99 mg/dL (70-110)
[2019-03-21] MEDS: budesonide 0.5 mg/2 mL Neb INHALATION (08:16)
[2019-03-21] MEDS: predniSONE 20 mg Tablet 40 MG PO (08:46)
[2019-03-21] MEDS: tamsulosin 0.4 mg Capsule 0.8 MG PO (08:46)
[2019-03-21] MEDS: finasteride 5 mg Tablet PO (08:47)
[2019-03-21] MEDS: pantoprazole DR 40 mg Tablet PO (08:47)
[2019-03-21] MEDS: azithromycin 250 mg Tablet PO (08:47)
[2019-03-21] MEDS: docusate sodium 100 mg Capsule PO (08:47)
[2019-03-21] MEDS: nicotine 7 mg Patch 1 PATCH TRANSDERMA (08:51)
--- NOTE | 2019-03-21 11:27 | P.DS_ITS ---
Discharge Providers Date of Admission: 03/16/19 22:43 Date of Discharge: 03/21/19 Attending Provider at Admission: Rita Lee MD Attending Provider at Discharge: Jace Contreras Diagnoses at Discharge Discharge Diagnosis (1) Community acquired pneumonia: Status: Acute Qualifiers: Laterality: unspecified laterality Qualified Code(s): J18.9 - Pneumonia , unspecified organism (2) Acute exacerbation of chronic obstructive airways disease: Status: Acute Reason for Visit Reason for Visit: Reason For Visit: PNEUMONIA, COPD Hospital Course Hospital Course: 68-year-old gentleman with history of COPD, on chronic 2 L nasal cannula oxygen, 3 L with exertion, was admitted after presenting with difficulty breathing, found to have pneumonia and COPD ulceration. No PE noted on CTA chest. He was treated with antibiotics. He initially received IV steroids, subsequently switched to oral due to diabetes. Blood cultures have been negative. Follow-up chest x-ray 03/20 without acute findings. He has been doing well on 2 L nasal cannula. He is otherwise doing well. He is little bit anxious about returning home fearful that he does not get worse. He is afe brile, with improvement in leukocytosis down to 13.8, although may be expected to have some persistence due to steroids. Without tachycardia. Mild wheezing on examination. We discussed with him that he may appeal his discharge, although he declined. He is agreeable to complete a steroid taper at home, completed course of antibiotic. He says he has a nebulizer and has a sufficient supply of albuterol solution. He has oxygen at home. He is agreeable for predischarge home oxygen evaluation. He follows with a die sinker apprentice in [place], but is requesting to switch to a die sinker apprentice here in [facility]. Discussed with him we will request for him to have an appointment made with Dr. Royal. Physical Exam Const: COMMON NORMALS: no apparent distress and oriented x3 HENMT: COMMON NORMALS: oropharynx normal Neck/C-Spine: COMMON NORMALS: no JVD Resp: COMMON NORMALS: normal respiratory effort AUSCULTATION: no crackles, no rhonchi and wheezes (mild, much of the wheeze coming from upper respiratory tract) Cardio: COMMON NORMALS: no JVD, regular rhythm, S1 normal heart sound, S2 normal heart sound and no murmurs RHYTHM: regular rhythm HEART SOUNDS: S1 normal and S2 normal GI: COMMON NORMALS: normal to inspection, nondistended, normoactive bowel sounds, soft to palpation and non-tender PALPATION: Yes soft Extremity: COMMON NORMALS: no joint enlargement and no pedal edema Neuro: COMMON NORMALS: oriented x3 and moves all extremities Skin: COMMON NORMALS: no rashes or lesions noted GENERAL SKIN EXAM: no rashes or lesions noted Discharge Data Data Completed and Pending: Completed Studies During Hospitalization Category Date Time Status CT angio chest PE protcl [id number] Urge nt Cat Scan 03/16/19 20:03 Completed XR chest 1V nicholas ble [id number] Routine Exams 03/20/19 11:56 Completed XR chest 1V nicholas ble [id number] Urgent Exams 03/16/19 18:46 Completed Pending at discharge Category Date Time Status Blood Culture Sta t Lab 03/16/19 20:25 Results Labs from last 24 hours 03/21/19 03/21/19 03/20/19 07:01 04:34 21:11 WBC 13.8 H RBC 5.13 Hgb 14.4 Hct 44.6 MCV 86.9 MCH 28.1 MCHC 32.3 RDW 12.0 L Plt Count 300 MPV 9.4 Neut % (Auto) 74.4 Lymph % (Auto) 18.4 Dale % (Auto) 6.3 Eos % (Auto) 0.1 Baso % (Auto) 0.2 Neut # (Auto) 10.2 H Lymph # (Auto) 2.5 Dale # (Auto) 0.9 Eos # (Auto) 0.0 Baso # (Auto) 0.0 Nucleated RBC % (a uto) 0 Nucleated RBCs # 0.0 POC Glucose 99 170 03/20/19 03/20/19 16:27 11:02 WBC RBC Hgb Hct MCV MCH MCHC RDW Plt Count MPV Neut % (Auto) Lymph % (Auto) Dale % (Auto) Eos % (Auto) Baso % (Auto) Neut # (Auto) Lymph # (Auto) Dale # (Auto) Eos # (Auto) Baso # (Auto) Nucleated RBC % (a uto) Nucleated RBCs # POC Glucose 224 137 Vitals: Last Vital Signs Temp 97.8 F 03/21/19 11:01 Pulse 78 03/21/19 11:01 Resp 18 03/21/19 11:01 BP 121/68 01/13/20 11:01 Pulse Ox 97 03/21/19 11:01 Discharge Plan Discharge Patient Disposition: Home, Self-Care Condition: Stable Prescriptions: New prednisone 20 mg Tablet 20 mg PO DAILY 12 Days Qty: 20 RF: 0 levofloxacin [Levaquin] 750 mg tablet 750 mg PO DAILY 5 Days Qty: 5 RF: 0 Continued hydrocodone-acetaminophen 5-325 mg Tablet 1 - 2 tab PO Q8H PRN (Reason: Pain) RF: 0 venlafaxine 150 mg Capsule,Extended Release 24hr 150 mg PO QPM RF: 0 Flomax 0.4 mg Capsule 0.8 mg PO DAILY RF: 0 finasteride 5 mg Tablet 5 mg PO DAILY RF: 0 Spiriva with HandiHaler 18 mcg Capsule, W/Inhalation Device 1 cap INHALATION DAILY RF: 0 Chantix 1 mg Tablet 1 mg PO BID RF: 0 Januvia 100 mg Tablet 100 mg PO DAILY RF: 0 Fioricet 50-300-40 mg Capsule 2 cap PO Q4H PRN (Reason: Pain or Headache) RF: 0 Vitamin B-6 100 mg PO DAILY RF: 0 theophylline 300 mg Tablet Extended Release 12 Hr 300 mg PO Q12H RF: 0 Discharge Orders: Discharge Order (Routine); Ordered 03/21/19 Ordered By: Jace Contreras Referrals: [facility] [Outside] - 1-3 days Courtney Reich DO [Physician] - 4-7 days Magalis Royal MD [Physician] - 2 weeks Discharge Diet: Diabetic Discharge Activity: Increase activity as tolerated Activity Restrictions/Additional Instructions: Please stop smoking as continued smoking will negatively affect your breathing. Please never smoke with or around oxygen due to severe fire hazard. Continue oxygen as recommended by home oxygen evaluation. Discharge Attestations Time Spent in Discharge Care*: greater than 30 min Quality Metrics Clinical Quality Measures During this hospital stay, did patient experience: None Coding Level of Care Code Acute Industrial/Organizational Psychologist for Mahig Fwd Diagnoses Community acquired pneumonia J18.9 Laterality: unspecified laterality Acute exacerbation of chronic obstructive airways disease J44.1
[2019-03-21 11:57] LABS: Glucose Point of Care 125 mg/dL (70-110)
--- NOTE | 2019-03-21 12:22 | DCPLANNER ---
Patient received The important message from [employer]. Signed and placed in the chart. Patient now has a copy.
== END 2019-03-21 17:28 | disposition home or self-care (01) | DRG 190 ==
LOC: ER 22:43 → MEDSURG 22:44
PROVIDERS: Family Medicine; Admitting Provider Hospitalist; Emergency Provider Emergency Medicine; Visit Provider Internal Medicine
DX: J44.1 Chronic obstructive pulmonary disease with (acute) exacerbation (principal); J18.1 Lobar pneumonia, unspecified organism; J44.0 Chronic obstructive pulmonary disease with (acute) lower respiratory infection; G89.29 Other chronic pain; M54.5 Low back pain; F32.9 Major depressive disorder, single episode, unspecified; N40.0 Benign prostatic hyperplasia without lower urinary tract symptoms; E11.42 Type 2 diabetes mellitus with diabetic polyneuropathy; F17.210 Nicotine dependence, cigarettes, uncomplicated
CPT/HCPCS: 12345; 36415; 36416; 71045; 71275; 80053; 82962; 83880; 85025; 87040; 93005; 94640; 96372; 96375; 97116; 97161; 97530; 99282; J0456; J0696; J1650; J1815; J2930; J7030; J7050; J7512; J7611; J7626; Q0144; Q9967

== ENCOUNTER → 2019-04-26 07:48 | Outpatient (BNVA) | payer MEDICARE, BC, SELFPAY | PROVIDERS: Family Provider Family Medicine; PCP Family Medicine; Visit Provider Specialist | DX: G43.709 Chronic migraine without aura, not intractable, without status migrainosus (principal); F17.210 Nicotine dependence, cigarettes, uncomplicated | CPT/HCPCS: 99213 ==

== ENCOUNTER 2019-04-27 08:13 | Outpatient (CLI) | payer MEDICARE, BC, SELFPAY ==
--- NOTE | 2019-04-27 08:20 | FL_ITS ---
WS: [id number] FL barium swallow [id number] REASON FOR EXAM: ASPIRATION INTO LOWER RESPIRATORY TRACT FLUOROSCOPY TIME: 1.4 minutes FINDINGS: At fluoroscopy the esophagus was found to be patent no evidence of obstructing lesion no ma sses. The distal esophagus is patent with good flow into the stomach. Thin and thick barium were utilized for the exam. There was no evidence of aspiration changes. The stomach duodenum and small bowel were all normal. FL/FL barium swallow [id number] IMPRESSION: Normal appearance of the esophagus Normal appearance of the stomach duodenum and proximal small bowel.
--- NOTE | 2019-04-27 09:30 | USCV_ITS ---
Hernan Beckman Age: 68 Gender: M : 1950 Exam Date: 04/27/2019 09:01 Ordering Phys: Magalis Royal MD Technologist: KRISHNA JAIN Exam Location: [facility] [place] Indication: BILATERAL LOWER EXTREMITY SWELLING BP: 123 / 66 HR: 91 Rhythm: Sinus Technical Quality: Very technically difficult study MEASUREMENTS (Male / Female) Normal Values 2D ECHO LV Ejection Fraction MOD 2C 31.7 % LV Ejection Fraction 2C AL 33.7 % LA Width 3.1 cm LA Height 4.2 cm RA Width 2.9 cm RA Height 3.8 cm DOPPLER AV Peak Velocity 111.0 cm/s LVOT Peak Velocity 67.0 cm/s MV Area PHT 4.8 cm squared Mitral E to A Ratio 0.7 MV E' Velocity 7.0 cm/s Mitral E to MV E' Ratio 9.7 Mitral E to LV E' Lateral Ratio 8.9 Mitral E to LV E' Septal Ratio 10.5 Right Atrial Pressure 8.0 mmHg FINDINGS Left Ventricle Normal left ventricular cavity size. Mildly decreased left ventricular systolic function. Left ventricular ejection fraction is estimated at 50 %. Grade I/IV diastolic dysfunction (abnormal relaxation filling pattern), normal to mildly elevated filling pressures. Right Ventricle Normal right ventricular size. RVSP could not be calculated due to incomplete tricuspid regurgitation velocity profile. Right Atrium The right atrium is normal in size. Left Atrium The left atrium is normal in size. Mitral Valve Moderately thickened mitral valve. No mitral valve stenosis. No mitral valve regurgitation. Aortic Valve Mild aortic valve calcification. No aortic valve stenosis. No aortic valve regurgitation. Tricuspid Valve Structurally normal tricuspid valve without significant stenosis or regurgitation. Pulmonary artery systolic pressure is normal. Pulmonic Valve Pulmonic valve not well visualized. Pericardium Normal pericardium without effusion. Aorta Normal ascending aorta dimension. CONCLUSIONS Please note that this is a technically difficult study therefore detailed interpretation of study may not be possible. If clinically relevant request for contrast echocardiographic to assess LV function accurately. 1-Normal left ventricular cavity size. Mildly decreased left ventricular systolic function. Left ventricular ejection fraction is estimated at 50 %. Grade I/IV diastolic dysfunction (abnormal relaxation filling pattern), normal to mildly elevated filling pressures. 2-Normal right ventricular size. RVSP could not be calculated due to incomplete tricuspid regurgitation velocity profile. 3-Moderately thickened mitral valve. No mitral valve stenosis. No mitral valve regurgitation. 4-Mild aortic valve calcification. No aortic valve stenosis. No aortic valve regurgitation. 5-Pulmonic valve not well visualized. 6-There is no pericardial effusion. 7-Right atrial pressure is around 5 mm of mercury. 8-There are no prior echocardiogram studies to compare. Shira Osborne MD (Electronically Signed) Final Date: 27 April 2019 20:48 S
== END 2019-04-27 08:14 | disposition home or self-care (01) ==
PROVIDERS: Family Provider Family Medicine; PCP Family Medicine; Visit Provider Internal Medicine Critical Care Medicine
DX: I27.81 Cor pulmonale (chronic) (principal); I05.9 Rheumatic mitral valve disease, unspecified; I70.0 Atherosclerosis of aorta; T17.800A Unspecified foreign body in other parts of respiratory tract causing asphyxiation, initial encounter; X58.XXXA Exposure to other specified factors, initial encounter
CPT/HCPCS: 74220; 93306

== ENCOUNTER 2019-05-05 14:26 | Outpatient (CLI) | payer MEDICARE, BC, SELFPAY ==
--- NOTE | 2019-05-05 15:15 | CT_ITS ---
WS: [id number] CT LUNG CANCER SCREENING DLP: 88.7 mGy-cm. DIvol: 2.8 mGy-cm. CLINICAL INFORMATION SCREENING VISIT: Baseline COMPARISON: 03/16/2019 FINDINGS Diagnostic quality: Satisfactory Comments: None. Lung Nodules: Calcified RIGHT lower lobe granuloma. No solid nodules or groundglass attenuation. Lungs: Mild interstitial thickening at the LEFT lung base. Subsegmental atelectasis at the lingula an d at the lung bases. No pleural effusion. Heart: Heart is normal size. Focal calcifications in the LEFT anterior descending and LEFT circumflex coronaries. Other findings: Mild atherosclerosis aorta. LEFT thyroid extends substernal similar to prior studies. Benign RIGHT hilar calcified lymph nodes. Mild increase in thoracic kyphosis with spondylosis in the thoracic spine. No osteoblastic or osteolytic bone disease. CT/CT lung screening [id number] IMPRESSION: LUNG-RADS: 1-Negative FOLLOW UP: 12 Month: Continue annual screening with LDCT 1. Benign granuloma RIGHT lower lobe. 2. Mild coronary artery atherosclerosis.
== END 2019-05-05 14:27 | disposition home or self-care (01) ==
LOC: CT 14:27
PROVIDERS: Family Provider Family Medicine; PCP Family Medicine; Visit Provider Family Medicine
DX: Z12.2 Encounter for screening for malignant neoplasm of respiratory organs (principal); F17.210 Nicotine dependence, cigarettes, uncomplicated
CPT/HCPCS: G0297

== ENCOUNTER 2019-05-16 09:27 | Outpatient (CLI) | payer MEDICARE, BC, SELFPAY ==
[2019-05-16 10:35] LABS: ABG PCO2 45.4 mmHg (35-45); ABG PH Result 7.41 (7.35-7.45); Alveolar-Arterial Oxygen Gradi 18.4 mmHg (5-10); Arterial Blood Gas Hematocrit 47.6 % (42-52); Base Excess ABG 2.9 mmol/L (-2.0-2.0); Blood Gas Allen Test Pos; Blood Gas Sample Site Radial, right; Blood Gas Sample Type Arterial; Carboxyhemoglobin 2.1 %THgb (0.4-20.1); HCO3 ABG 28.4 mmol/L (22-26); HGB O2 Sat 93.3 % (95-100); Ionized Calcium Level - ABG 1.2 mmol/L (1.1-1.4); Methemoglobin 0.9 % (0.4-1.5); Oxygen Device NC; Oxygen Saturation ABG 96.2; PO2 ABG 75.6 mmHg (80.0-100.0); Potassium Level - ABG 3.9 mmol/L (3.5-5.0); Total Hemoglobin 15.5 g/dL (14-18)
--- NOTE | 2019-05-16 10:57 | PFTS_ITS ---
Date of Study:05/16/2019 Date of Dictation: MECHANICS: Forced vital capacity (FVC) is reduced. Forced expiratory volume in one second (FEV1) is reduced. FEV1/FVC is . FLOW VOLUME LOOP: Reduced flow at all lung volumes with significant scooping. LUNG VOLUMES: Total lung capacity (TLC) is normal. Residual volume (RV) is increased. DIFFUSING CAPACITY FOR CARBON MONOXIDE: Moderately reduced. INTERPRETATION: The pulmonary function tests are consistent with very severe airflow obstruction. There is significant postbronchodilator response evidenced by a 13% change in forced vital capacity. There is evidence of air trapping. Gas exchange (DLCO) is moderately decreased. MTDD
== END 2019-05-16 09:28 | disposition home or self-care (01) ==
LOC: RT 09:28
PROVIDERS: Family Provider Family Medicine; PCP Family Medicine; Visit Provider Internal Medicine Critical Care Medicine
DX: J44.9 Chronic obstructive pulmonary disease, unspecified (principal); F17.210 Nicotine dependence, cigarettes, uncomplicated
CPT/HCPCS: 36600; 80051; 82810; 83986; 94060; 94726; 94729; J7611

== ENCOUNTER → 2019-05-26 07:57 | Outpatient (BNVA) | payer MEDICARE, BC, SELFPAY | PROVIDERS: Family Provider Family Medicine; PCP Family Medicine; Visit Provider Specialist | DX: G43.709 Chronic migraine without aura, not intractable, without status migrainosus (principal); F17.210 Nicotine dependence, cigarettes, uncomplicated | CPT/HCPCS: 64615; J0585 ==

== ENCOUNTER → 2019-06-24 13:55 | Outpatient (BNVA) | payer MEDICARE, BC, SELFPAY | PROVIDERS: Family Provider Family Medicine; PCP Family Medicine; Referring Provider Urology; Visit Provider Urology | DX: Z79.899 Other long term (current) drug therapy (principal) | CPT/HCPCS: 84153 ==

== ENCOUNTER 2019-07-21 08:48 | Day surgery (SDC) | payer MEDICARE, BC, SELFPAY ==
[2019-07-19 14:06] VITALS: BMI 36.9
[2019-07-21 09:25] VITALS: BP 144/76; PULSE 97; RESP 18; TEMP 36.4; O2SAT 93
[2019-07-21] MEDS: sodium chloride 0.9% 1,000 ML 30 ML IV (09:25)
[2019-07-21 09:38] LABS: Glucose Point of Care 118 mg/dL (70-110)
--- NOTE | 2019-07-21 10:04 | ANES.PREANE2 ---
Pre-Anesthetic Assessment Pre-Anesthetic Assessment: Height/Weight: Height 1.75 m Weight 113.398 kg Temp Pulse Resp BP Pulse Ox 97.6 F 97 18 144/76 93 07/21/19 09:25 07/21/19 09:25 07/21/19 09:25 07/21/19 09:25 07/21/19 09:25 Preop Diagnosis: Screening Proposed Procedure: Operation Date: 07/21/19 10:40 Proposed Procedures p Colonoscopy 53786 Z12.11(Not Applicable) - Misha Webb MD Last intake: Intake Last Liquid Date 07/21/19 Last Liquid Time 14:00 Last Solid Date 07/21/19 Last Solid Time 14:00 Social: Social History: Tobacco and No alcohol Exam: Pre-Anes Outpt Exam: alert, oriented x 3, clear to auscultation bilaterally and regular rate & rhythm Airway: Submandibular: WNL Cervical ROM: WNL MP: 2 Dentition: Other (very poor) History/ROS: No significant history except as noted Pulmonary: Pulmonary: COPD and FAUSTIN (O2 dep) CV/HEM: CV/HEM: None reported : : None reported Hepatic: Hepatic: None reported GI: GI: None reported Metabolic: Metabolic: DM and Morbid obesity Musc/skel: Musc/skel: OA/DJD Neuropsych: Neuropsych: Neuropathy (left hand) Anesthetic Plan: ASA status: 3 Anesthesia: Anesthesia Evaluation and MAC Risk of > 500 ml blood loss (7ml/kg in children): No PFSH Anesthesia PFSH: Medical History Benign prostatic hyperplasia On Flomax, follows with Dr. Torres Chronic low back pain Has had nerve ablations and follows at pain clinic in [place] Chronic migraine Controlled diabetes mellitus without long-term current use of insulin COPD (chronic obstructive pulmonary disease) 2 L of oxygen at home, follows with Dr. Putnam in [place] currently, on theophylline Depression, controlled Diabetes mellitus type 2, noninsulin dependent Januvia Elevated prostate specific antigen [PSA] Enrolled in chronic care management History of multiple allergies Xolair injections monthly Hx of migraine headaches Has a triptan prescription and another medication Peripheral neuropathy Primarily involving hands, related to ulnar nerve interventions Surgical History H/O decompression of ulnar nerve bilateral H/O elbow surgery bilateral H/O rotator cuff surgery bilateral H/O total knee replacement right History of cataract surgery History of repair of rotator cuff Bilateral History of surgery on wrist Bilateral ulnar nerve release History of tonsillectomy and adenoidectomy Status post colonoscopy Family History Mother Cancer uterine Aneurysm intracranial Father , at age 76 Lung disease asthma with allergies Asthma Mother , at age 63 Uterine cancer Other CAD (coronary artery disease) Social History Smoking and tobacco status: current every day smoker cigarettes Years cigarettes smoked: 50 [ Other cigarette details: Recently started Chantix as of 03/16/19 ] Quit status (tobacco): considering quitting Smoking risk assessment/counseling performed?: Yes Alcohol intake: never Lives independently: Yes Household members: spouse Marital status: Current occupational status: retired History of recent travel: No Current gender identity: Male Data Anesthesia Other Labs: Laboratory Results - last 48 hr 07/21/19 09:36 POC Glucose 118 Cardiac Studies: No Data to Display
--- NOTE | 2019-07-21 11:12 | P.HP_ITS ---
Same Day Surgery H&P Indication for Procedure/HPI DATE OF PROCEDURE: July 21, 2019 CHIEF COMPLAINT/INDICATIONFOR SURGICAL PROCEDURE: colonoscopy PREOP DIAGNOSIS: Screening PLANNED PROCEDRUE: Operation Date: 07/21/19 10:40 Proposed Procedures p Colonoscopy 88512 Z12.11(Not Applicable) - Misha Webb MD Medications/Allergies* Home Medications Medication Instructions Recorded Confirmed Type Chantix 1 mg PO BID 03/17/19 07/21/19 History Vitamin B-6 100 mg PO DAILY 03/17/19 06/29/19 History hydrocodone-acetaminophen 1 - 2 tab PO Q8H PRN 03/17/19 07/21/19 History theophylline 300 mg PO Q12H 03/17/19 07/21/19 History acetaminophen 500 mg tablet 500 mg PO Q4H PRN 03/24/19 07/21/19 History epinephrine 0.3 mg/0.3 mL 0.3 mg IM ONCE 03/24/19 07/21/19 History injection, auto-injector sumatriptan succinate 4 mg/0.5 mL 4 mg SUBCUT ONCE 03/24/19 07/21/19 History subcutaneous cartridge (refill) albuterol sulfate 2.5 mg INHALATION BID ml 04/05/19 07/21/19 History coenzyme Q10 400 mg capsule 400 mg PO DAILY 06/29/19 07/21/19 History omalizumab 150 mg subcutaneous 150 mg SUBCUT ONCE 06/29/19 07/21/19 History solution onabotulinumtoxinA 200 unit 200 unit SUBCUT ONCE 06/29/19 07/21/19 History solution for injection Allergies/Adverse Reactions Allergy/AdvReac Type Severity Reaction Status Date / Time No Known Allergies Allergy Verified 07/21/19 09:17 Pertinent History/Comorbid Conditions* Medical History (Updated 05/13/19 @ 16:57 by Misha Webb MD) Benign prostatic hyperplasia On Flomax, follows with Dr. Torres Chronic low back pain Has had nerve ablations and follows at pain clinic in [place] Chronic migraine Controlled diabetes mellitus without long-term current use of insulin COPD (chronic obstructive pulmonary disease) 2 L of oxygen at home, follows with Dr. Putnam in [place] currently, on theophylline Depression, controlled Diabetes mellitus type 2, noninsulin dependent Januvia Elevated prostate specific antigen [PSA] Enrolled in chronic care management History of multiple allergies Xolair injections monthly Hx of migraine headaches Has a triptan prescription and another medication Peripheral neuropathy Primarily involving hands, related to ulnar nerve interventions Surgical History (Updated 05/13/19 @ 09:59 by Misha Webb MD) H/O decompression of ulnar nerve bilateral H/O elbow surgery bilateral H/O rotator cuff surgery bilateral H/O total knee replacement right History of cataract surgery History of repair of rotator cuff Bilateral History of surgery on wrist Bilateral ulnar nerve release History of tonsillectomy and adenoidectomy Status post colonoscopy Family History (Updated 04/21/19 @ 09:06 by Bree Christian LPN) Father, at age 76 Mother, at age 63 CAD (coronary artery disease) Aneurysm Mother intracranial Lung disease Father asthma with allergies Cancer Mother uterine Uterine cancer Mother Asthma Father Social History Smoking and tobacco status: current every day smoker cigarettes Years cigarettes smoked: 50 [ Other cigarette details: Recently started Chantix as of 03/16/19 ] Quit status (tobacco): considering quitting Smoking risk assessment/counseling performed?: Yes Alcohol intake: never Lives independently: Yes Household members: spouse Marital status: Current occupational status: retired History of recent travel: No Current gender identity: Male Pertinent Exam Findings alert, oriented x 3 and regular rate & rhythm Recommendations Surgery/Procedure today Coding Level of Care Code Acute 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
[2019-07-21 11:47] VITALS: BP 114/65; PULSE 88; RESP 16; TEMP 36.7; O2SAT 94
== END 2019-07-21 12:19 | disposition home or self-care (01) ==
PROVIDERS: PCP Family Medicine; Visit Provider Surgery
PROC: 0DJD8ZZ Inspection of Lower Intestinal Tract, Via Natural or Artificial Opening Endoscopic (ICD-10-PCS; CPT 45378; principal; 2019-07-21 10:35)
DX: Z12.11 Encounter for screening for malignant neoplasm of colon (principal); N40.0 Benign prostatic hyperplasia without lower urinary tract symptoms; J44.9 Chronic obstructive pulmonary disease, unspecified; Z99.81 Dependence on supplemental oxygen; Z79.4 Long term (current) use of insulin; E11.42 Type 2 diabetes mellitus with diabetic polyneuropathy; Z82.49 Family history of ischemic heart disease and other diseases of the circulatory system; F17.210 Nicotine dependence, cigarettes, uncomplicated; E66.01 Morbid (severe) obesity due to excess calories; Z68.36 Body mass index [BMI] 36.0-36.9, adult
CPT/HCPCS: 12345; 36416; 45378; 82962; G0121; J2704; J7030

== ENCOUNTER → 2019-07-29 10:36 | Outpatient (BNVA) | payer MEDICARE, BC, SELFPAY | PROVIDERS: PCP Family Medicine; Visit Provider Family Medicine | DX: E11.9 Type 2 diabetes mellitus without complications (principal) | CPT/HCPCS: 80053; 83036 ==

== ENCOUNTER → 2019-08-18 07:48 | Outpatient (BNVA) | payer MEDICARE, BC, SELFPAY | PROVIDERS: PCP Family Medicine; Visit Provider Specialist | DX: G43.711 Chronic migraine without aura, intractable, with status migrainosus (principal); Z87.891 Personal history of nicotine dependence | CPT/HCPCS: 64615; J0585 ==

== ENCOUNTER 2019-09-22 08:48 | Outpatient (RCR) | payer MEDICARE, BC, SELFPAY | END 2019-10-07 23:59 | disposition home or self-care (01) | LOC: PULRHB 08:48 | PROVIDERS: PCP Family Medicine; Visit Provider Internal Medicine Critical Care Medicine | DX: J44.9 Chronic obstructive pulmonary disease, unspecified (principal) | CPT/HCPCS: 94618; G0424 ==

== ENCOUNTER 2019-10-08 06:00 | Outpatient (RCR) | payer MEDICARE, BC, SELFPAY | END 2019-11-07 23:59 | disposition home or self-care (01) | LOC: PULRHB 06:00 | PROVIDERS: PCP Family Medicine; Visit Provider Internal Medicine Critical Care Medicine | DX: J44.9 Chronic obstructive pulmonary disease, unspecified (principal) | CPT/HCPCS: G0424 ==

== ENCOUNTER → 2019-11-02 10:09 | Outpatient (BNVA) | payer MEDICARE, BC, SELFPAY | PROVIDERS: PCP Family Medicine; Visit Provider Family Medicine | DX: E11.9 Type 2 diabetes mellitus without complications (principal); N62 Hypertrophy of breast | CPT/HCPCS: 80053; 80061; 83036 ==

== ENCOUNTER 2019-11-29 13:16 | Outpatient (CLI) | payer MEDICARE, BC, SELFPAY ==
--- NOTE | 2019-11-29 14:00 | MM_ITS ---
WS: [id number] BILATERAL DIGITAL DIAGNOSTIC MAMMOGRAM MAMMOGRAPHY WITH CAD CLINICAL INFORMATION: bilateral breast enlargement COMPARISON: None. TECHNIQUE: Bilateral CC, MLO, and ML views. FINDINGS: Fatty replaced breasts bilaterally. Parenchymal tissue deep to the right nipple. This is more promine nt compared to the left. Small 5 mm lymph node right axillary tail. Incidental clustered calcificatio ns left breast. A few punctate calcifications both breasts. ULTRASOUND BREAST LEFT TECHNIQUE: Ultrasound bilateral breast focused area of concern. CLINICAL INFORMATION: bilateral breast enlargement COMPARISON: Bilateral FINDINGS: Ultrasound both breasts with attention to the subareolar region. Shadowing parenchymal tissue deep to the right nipple. Similar-appearing but less prominent shadowing tissue deep to the left nipple. Fin dings are most compatible with gynecomastia right greater than left. No well-circumscribed mass or le blanche to target for biopsy. MM/[place] [id number] IMPRESSION: BI-RADS: 2-Benign FOLLOW UP: See Report Additional management of the palpable abnormality should be based on clinical g rounds.
--- NOTE | 2019-11-29 15:00 | US_ITS ---
WS: [id number] BILATERAL DIGITAL DIAGNOSTIC MAMMOGRAM MAMMOGRAPHY WITH CAD CLINICAL INFORMATION: bilateral breast enlargement COMPARISON: None. TECHNIQUE: Bilateral CC, MLO, and ML views. FINDINGS: Fatty replaced breasts bilaterally. Parenchymal tissue deep to the right nipple. This is more promine nt compared to the left. Small 5 mm lymph node right axillary tail. Incidental clustered calcificatio ns left breast. A few punctate calcifications both breasts. ULTRASOUND BREAST LEFT TECHNIQUE: Ultrasound bilateral breast focused area of concern. CLINICAL INFORMATION: bilateral breast enlargement COMPARISON: Bilateral FINDINGS: Ultrasound both breasts with attention to the subareolar region. Shadowing parenchymal tissue deep to the right nipple. Similar-appearing but less prominent shadowing tissue deep to the left nipple. Fin dings are most compatible with gynecomastia right greater than left. No well-circumscribed mass or le blanche to target for biopsy. US/US breast BI limited* [id number] IMPRESSION: BI-RADS: 2-Benign FOLLOW UP: See Report Additional management of the palpable abnormality should be based on clinical g rounds.
== END 2019-11-29 13:17 | disposition home or self-care (01) ==
LOC: RADSHAW 13:21
PROVIDERS: PCP Family Medicine; Visit Provider Family Medicine
DX: N62 Hypertrophy of breast (principal)
CPT/HCPCS: 76642; 77066

== ENCOUNTER → 2019-12-05 08:12 | Outpatient (BNVA) | payer MEDICARE, BC, SELFPAY | PROVIDERS: PCP Family Medicine; Visit Provider Family Medicine | DX: N62 Hypertrophy of breast (principal) | CPT/HCPCS: 83001; 83002; 84146; 84403; 84450 ==

== ENCOUNTER → 2019-12-14 08:59 | Outpatient (BNVA) | payer MEDICARE, BC, SELFPAY | PROVIDERS: PCP Family Medicine; Referring Provider Family Medicine; Visit Provider Internal Medicine | DX: N62 Hypertrophy of breast (principal); N64.4 Mastodynia; R63.5 Abnormal weight gain | CPT/HCPCS: 99204 ==

== ENCOUNTER 2019-12-19 08:52 | Outpatient (CLI) | payer MEDICARE, BC, SELFPAY ==
[2019-12-19 10:24] LABS: Free T4 Free Thyroxine 1.05 ng/dL (0.82-1.77); Thyroid Stimulating Hormone 1.03 uIU/mL (0.27-4.20)
[2019-12-19 11:14] LABS: HCG Tumor Marker 1 mIU/mL (0-3)
== END 2019-12-19 08:53 | disposition home or self-care (01) ==
LOC: LAB 08:58
PROVIDERS: PCP Family Medicine; Visit Provider Internal Medicine
DX: N62 Hypertrophy of breast (principal); R63.5 Abnormal weight gain
CPT/HCPCS: 36415; 84439; 84443; 84702

== ENCOUNTER → 2020-02-27 08:51 | Outpatient (BNVA) | payer MEDICARE, BC, SELFPAY | PROVIDERS: PCP Family Medicine; Visit Provider Internal Medicine | DX: N62 Hypertrophy of breast (principal); N64.4 Mastodynia; R63.5 Abnormal weight gain | CPT/HCPCS: 99213 ==

== ENCOUNTER 2020-04-06 09:16 | Outpatient (CLI) | payer MEDICARE, BC, SELFPAY ==
--- NOTE | 2020-04-06 09:24 | CT_ITS ---
WS: [id number] LDCT LUNG CANCER SCREENING TECHNIQUE: Noncontrast CT of the chest with coronal and sagittal reformatted images. CLINICAL INFORMATION: NICOTINE DEPENDENCE,CIGARETTES COMPARISON: 2019 DLP: 58.15 mGy.cm DIvol: 1.[address] scans at [facility] use at least one of these dose optimization techniques: automat ed exposure control; mA and/or kV adjustment per patient size (includes targeted exams where dose is matched to clinical indication); or iterative reconstruction. FINDINGS: No acute pulmonary infiltrates. Lungs well aerated. No suspicious pulmonary parenchymal opacities. No mediastinal or hilar lymphadenopathy. Aortic calcification. Coronary calcification. Calcified right hilar and subcarinal lymph nodes. Hypertrophic changes thoracic spine. Tree-in-bud opacities more pro minent left lower lobe likely inflammatory unchanged from previous. CT/CT lung screening [id number] IMPRESSION: LUNG-RADS: 1-Negative FOLLOW UP: 12 Month: Continue annual screening with LDCT
== END 2020-04-06 09:17 | disposition home or self-care (01) ==
LOC: RAD 09:20
PROVIDERS: PCP Family Medicine; Visit Provider Internal Medicine Critical Care Medicine
DX: Z12.2 Encounter for screening for malignant neoplasm of respiratory organs (principal); F17.210 Nicotine dependence, cigarettes, uncomplicated
CPT/HCPCS: 71271

== ENCOUNTER → 2020-05-17 13:07 | Outpatient (BNVA) | payer MEDICARE, BC, SELFPAY | PROVIDERS: PCP Family Medicine; Visit Provider Specialist | DX: G43.711 Chronic migraine without aura, intractable, with status migrainosus (principal); F17.210 Nicotine dependence, cigarettes, uncomplicated | CPT/HCPCS: 64615; J0585 ==

== ENCOUNTER 2020-06-17 17:31 | Emergency (ER) | payer MEDICARE, BC, SELFPAY ==
[2020-06-17 18:01] VITALS: BP 145/74; PULSE 95; RESP 20; TEMP 36.6; O2SAT 93; BMI 36.9
[2020-06-17 19:36] VITALS: BP 152/68; PULSE 94; RESP 20; O2SAT 96
--- NOTE | 2020-06-17 19:45 | XRR_ITS ---
PROCEDURE INFORMATION: Exam: XR Chest Exam date and time: 06/17/2020 7:53 PM Age: 69 years old Clinical indication: Shortness of breath; Patient HX: SOB, weakness, lethargic TECHNIQUE: Imaging protocol: XR of the chest. Views: 1 view. COMPARISON: CR XR chest 1V portable [id number] 03/20/2019 12:44 PM FINDINGS: Lungs: Mild patchy airspace opacities (atelectasis and/or consolidation) at bilateral lung bases, similar to prior study. Pulmonary vasculature within normal limits. Pleural spaces: No visible pneumothorax or pleural effusion. Heart/Mediastinum: Heart size within normal limits. Heart size within normal limits. Bones/joints: No emergent findings identified. XR/XR chest 1V portable [id number] IMPRESSION: 1. Mild patchy airspace opacities (atelectasis and/or consolidation) at bilateral lung bases, similar to prior study.
--- NOTE | 2020-06-17 19:46 | ECG_ITS ---
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 Measurements Intervals [place] Rate: 84 P: 65 UT: 170 QRS: 22 QRSD: 92 T: 69 QT: 359 QTc: 425 Interpretive Statements SINUS RHYTHM WITH SINUS ARRHYTHMIA Compared to ECG 12/10/2018 03:15:05 Sinus tachycardia no longer present Electronically Signed On 06-18-2020 20:12:38 CDT by Scott Huddleston M.D. [email or web address] hospital[facility].[employer]/store/NU/[id number] f
[2020-06-17] MEDS: ipratropium-albuterol 3 mL Neb INHALATION (20:02)
[2020-06-17 20:03] VITALS: PULSE 90; RESP 18; O2SAT 94
[2020-06-17 20:07] VITALS: PULSE 97
[2020-06-17 20:09] VITALS: BP 132/62; PULSE 87; RESP 22; O2SAT 95
[2020-06-17 20:10] LABS: Basophils # 0.1 10^3/uL (0.0-0.1); Eosinophils # 0.5 10^3/uL (0.0-0.8); Eosinophils % 3.8 %; Hematocrit 47.4 % (42.0-52.0); Hemoglobin 14.8 g/dL (11.7-16.6); Lymphocytes # 2.9 10^3/uL (0.8-4.8); Lymphocytes % 21.4 %; Mean Corpuscular HGB Conc 31.2 g/dL (30.0-36.0); Mean Corpuscular Hemoglobin 28.6 pg (28.0-34.0); Mean Corpuscular Volume 91.5 fL (80-94); Mean Platelet Volume 9.1 fL (7.4-10.4); Monocytes # 1.1 10^3/uL (0.2-0.9); Monocytes % 8.1 %; Neutrophils # 8.81 10^3/uL (1.8-7.7); Neutrophils % 65.2 %; Nucleated Red Blood Cells % 0 %; Platelet Count 243 10^3/cmm (130-400); Red Blood Count 5.18 10^6/uL (4.1-5.3); Red Cell Distribution Width 12.1 % (12.1-15.1); White Blood Count 13.5 10^3/uL (4.0-10.0)
[2020-06-17 20:11] LABS: ABG PCO2 54.5 mmHg (35-45); ABG PH Result 7.41 (7.35-7.45); Arterial Blood Gas Hematocrit 45.9 % (42-52); Base Excess ABG 7.7 mmol/L (-2.0-2.0); Blood Gas Allen Test Pos; Blood Gas Sample Site Radial, right; Blood Gas Sample Type Arterial; HCO3 ABG 34.3 mmol/L (22-26); Oxygen Device NC; PO2 ABG 58.2 mmHg (80.0-100.0)
[2020-06-17 20:32] LABS: Lactic Sepsis W/Reflex 0.8 mmol/L (0.5-2.2)
[2020-06-17 20:35] LABS: Troponin(5th) Baseline 14 ng/L (0-15)
[2020-06-17 20:56] LABS: Alanine Aminotransferase 25 U/L (0-41); Albumin Level 3.7 g/dL (3.5-5.2); Alkaline Phosphatase 85 IU/L (40-130); Blood Urea Nitrogen 10 mg/dL (8-23); Calcium 8.4 mg/dL (8.5-10.5); Carbon Dioxide 29 mmol/L (22-29); Chloride 98 mmol/L (98-107); Glucose 109 mg/dL (65-115); NT Pro B Type Natriuretic Pept 133 pg/mL (0-125); Osmolality Calculated 282 mOsm/kg (285-295); Sodium 136 mmol/L (136-145); Total Bilirubin 0.2 mg/dL (0.15-1.2); Total Protein 6.7 g/dL (6.6-8.7)
[2020-06-17 20:57] LABS: Anion Gap 13.4 (5-19); Aspartate Amino Transferase 26 U/L (0-40); Potassium 4.4 mmol/L (3.5-5.1)
--- NOTE | 2020-06-17 21:30 | W.ED.SOB ---
HPI - SOB/Dyspnea General: Chief Complaint: Shortness of Breath/Dyspnea Stated Complaint: SOB, WEAKNESS, LETHARGIC Time Seen by Provider: 06/17/20 19:38 Source: patient and family () Mode of arrival: ambulatory Limitations: no limitations History of Present Illness: HPI Narrative: 69-year-old male with a history of COPD who presents to the emergency department with shortness of breath today. Symptoms started shortly after he was at [facility], had increasing shortness of breath and increase his oxygen to 3 L/min. He normally wears oxygen at 2 L/min. He denies fever, always has cough, denies any chest pain. He is here to be evaluated. MD elicited complaint: shortness of breath Pertinent past history: COPD Onset (ago): hour(s) Timing: constant Severity: severe Exacerbating factors: nothing Relieving factors: nothing Known history of: COPD Associated symptoms: Reports cough; Deny abdominal pain, chest congestion, chest pain, diaphoresis, dizziness, extremity pain, fever(s), hemoptysis, lightheadedness, myalgias, nausea, orthopnea, palpitations, paresthesias, polydipsia, polyuria, rash, sense of impending doom, syncope or vomiting Review of Systems General: Reports: 10 or more systems reviewed and unremarkable except in HPI and below Const: Denies: fever(s) or diaphoresis Card: Denies: chest pain, palpitations, lightheadedness, syncope or orthopnea Resp: Denies: hemoptysis or chest congestion GI: Denies: abdominal pain, nausea or vomiting Musc: Denies: extremity pain Neuro: Denies: dizziness Endo: Denies: polyuria or polydipsia [facility] ED PFSH: Medical History (Reviewed 06/18/20 @ 00:04 by Jessica Malloy [place], [facility] [place] Benign prostatic hyperplasia On Flomax, follows with Dr. Torres Chronic low back pain Has had nerve ablations and follows at pain clinic in [place] Chronic migraine Controlled diabetes mellitus without long-term current use of insulin COPD (chronic obstructive pulmonary disease) 2 L of oxygen at home, follows with Dr. Putnam in [place] currently, on theophylline Depression, controlled Diabetes mellitus type 2, noninsulin dependent Elevated prostate specific antigen [PSA] Enrolled in chronic care management History of multiple allergies Xolair injections monthly Hx of migraine headaches Has a triptan prescription and another medication Peripheral neuropathy Primarily involving hands, related to ulnar nerve interventions Surgical History (Reviewed 06/18/20 @ 00:04 by Jessica Malloy MD, [facility] [place] H/O decompression of ulnar nerve bilateral H/O elbow surgery bilateral H/O rotator cuff surgery bilateral H/O total knee replacement right History of cataract surgery History of repair of rotator cuff Bilateral History of surgery on wrist Bilateral ulnar nerve release History of tonsillectomy and adenoidectomy Status post colonoscopy (07/21/19) normal , poor prep, repeat in 5 years Family History (Reviewed 06/18/20 @ 00:04 by Jessica Malloy MD, [facility] [place] Mother Cancer uterine Aneurysm intracranial Father , at age 76 Lung disease asthma with allergies Asthma Mother , at age 63 Uterine cancer Other CAD (coronary artery disease) Social History (Reviewed 06/18/20 @ 00:04 by Jessica Malloy MD, [facility] [place] Smoking and tobacco status: current every day smoker cigarettes Packs smoked per day: 0.25 Years cigarettes smoked: 60 [ Other cigarette details: Hx of 3PPD x 20 Years ] Smoking risk assessment/counseling performed?: Yes Alcohol intake: never Lives independently: Yes Household members: spouse Marital status: Current occupational status: retired History of recent travel: No Current gender identity: Male Physical Exam Const: COMMON NORMALS: no acute distress, average body habitus, patient oriented x3, no limitations, healthy appearing, alert and well nourished HENMT: COMMON NORMALS: normocephalic, atraumatic and moist oral mucous membranes HEAD & SCALP: normocephalic and atraumatic Neck/C-Spine: COMMON NORMALS: no JVD Resp: COMMON NORMALS: normal respiratory effort, No retractions, No use of accessory muscles and percussion normal AUSCULTATION: wheezes expiratory wheezes and throughout and diminished lung sounds PERCUSSION: percussion normal Cardio: COMMON NORMALS: no JVD, regular rate, regular rhythm, S1 normal heart sound present, S2 normal heart sound present, No gallops present (Cardio), No clicks present (Cardio), No murmurs present (Cardio), No rub (Cardio) and Peripheral pulses 2+ throughout RATE: regular rate RHYTHM: regular rhythm HEART SOUNDS: S1 normal heart sound present and S2 normal heart sound present PERIPHERAL PULSES: Peripheral pulses 2+ throughout GI: COMMON NORMALS: Normal to inspection, nondistended, normoactive bowel sounds present, Soft to palpation, non-tender, No hepatosplenomegaly present, no masses and no bruits PALPATION: Yes Soft to palpation and Yes No hepatosplenomegaly present Extremity: COMMON NORMALS: normal to inspection, full ROM, capillary refill normal, no calf tenderness and no pedal edema Neuro: COMMON NORMALS: patient oriented x3 SENSORIUM/ORIENTATION: Yes alert Course Reevaluation(s): Reevaluation #1: Discussed his lab and imaging findings with him. Explained that I believe he has a COPD exacerbation. He believes the breathing treatment has helped his breathing is much improved. On examination he still has a few expiratory wheezes. Advised hospital admission for pulmonary toilet and other management but the patient declined hospital admission. He states that he wants to go home but will return if he gets any worsening. Time: 21:30 Vital Signs: Vital signs: Vital Signs Temperature 97.9 F 06/17/20 18:01 Pulse Rate 92 06/17/20 21:40 Respiratory Rate 18 06/17/20 21:40 Blood Pressure 148/70 06/17/20 21:40 Pulse Oximetry 95 06/17/20 21:40 MDM - SOB/Dyspnea MDM Narrative: Medical decision making narrative: 69-year-old male with clinical features consistent with a COPD exacerbation. He had diffuse expiratory wheezes that improved following breathing treatments and intravenous corticosteroids. Patient declined hospital admission but is discharged home on oral prednisone and azithromycin. He has albuterol Nebules at home. Medical Records: Attestation: I reviewed the patient's medical records. Lab Data: Attestation: I reviewed the patient's lab results. Labs: Lab Results 06/17/20 06/17/20 06/17/20 Range/Units 20:00 20:01 20:01 WBC 13.5 H (4.0-10.0) 10^3/ uL RBC 5.18 (4.1-5.3) 10^6/u L Hgb 14.8 (11.7-16.6) g/dL Hct 47.4 (42.0-52.0) % MCV 91.5 (80-94) fL MCH 28.6 (28.0-34.0) pg MCHC 31.2 (30.0-36.0) g/dL RDW 12.1 (12.1-15.1) % Plt Count 243 (130-400) 10^3/c mm MPV 9.1 (7.4-10.4) fL Neut % (Auto) 65.2 % Lymph % (Auto) 21.4 % [place] % (Auto) 8.1 % Eos % (Auto) 3.8 % Baso % (Auto) 1.0 % Neut # (Auto) 8.81 H (1.8-7.7) 10^3/u L Lymph # (Auto) 2.9 (0.8-4.8) 10^3/u L [place] # (Auto) 1.1 H (0.2-0.9) 10^3/u L Eos # (Auto) 0.5 (0.0-0.8) 10^3/u L Baso # (Auto) 0.1 (0.0-0.1) 10^3/u L Nucleated RBC % (a uto) 0 % Nucleated RBCs # 0.0 /100WBC Specimen Type Arterial Sample Site Radial, right ABG pH 7.41 (7.35-7.45) ABG pCO2 54.5 H (35-45) mmHg ABG pO2 58.2 L (80.0-100.0) mmH g ABG HCO3 34.3 H (22-26) mmol/L ABG Base Excess 7.7 H (-2.0-2.0) mmol/ L Luis Fernando Test Pos Hematocrit 45.9 (42-52) % O2 Delivery Device Nc O2 Liters/Min 2.0 % Plater Helper ID ellpe Sodium 136 (136-145) mmol/L Potassium 4.4 (3.5-5.1) mmol/L Chloride 98 (98-107) mmol/L Carbon Dioxide 29 (22-29) mmol/L Anion Gap 13.4 (5-19) BUN 10 (8-23) mg/dL Creatinine 0.6 L (0.7-1.2) mg/dL GFR Calculation Not Reportable Glucose 109 (65-115) mg/dL Calculated Osmolal ity 282 L (285-295) mOsm/k g Lactic Acid (0.5-2.2) mmol/L Calcium 8.4 L (8.5-10.5) mg/dL Total Bilirubin 0.2 (0.15-1.2) mg/dL AST 26 (0-40) U/L ALT 25 (0-41) U/L Alkaline Phosphata se 85 (40-130) IU/L Troponin T Baselin e (0-15) ng/L NT-Pro-B Natriuret Pep 133 H (0-125) pg/mL Total Protein 6.7 (6.6-8.7) g/dL Albumin 3.7 (3.5-5.2) g/dL Globulin 3.0 (1.3-4.6) g/dL 06/17/20 06/17/20 Range/Units 20:01 20:01 WBC (4.0-10.0) 10^3/ uL RBC (4.1-5.3) 10^6/u L Hgb (11.7-16.6) g/dL Hct (42.0-52.0) % MCV (80-94) fL MCH (28.0-34.0) pg MCHC (30.0-36.0) g/dL RDW (12.1-15.1) % Plt Count (130-400) 10^3/c mm MPV (7.4-10.4) fL Neut % (Auto) % Lymph % (Auto) % [place] % (Auto) % Eos % (Auto) % Baso % (Auto) % Neut # (Auto) (1.8-7.7) 10^3/u L Lymph # (Auto) (0.8-4.8) 10^3/u L [place] # (Auto) (0.2-0.9) 10^3/u L Eos # (Auto) (0.0-0.8) 10^3/u L Baso # (Auto) (0.0-0.1) 10^3/u L Nucleated RBC % (a uto) % Nucleated RBCs # /100WBC Specimen Type Sample Site ABG pH (7.35-7.45) ABG pCO2 (35-45) mmHg ABG pO2 (80.0-100.0) mmH g ABG HCO3 (22-26) mmol/L ABG Base Excess (-2.0-2.0) mmol/ L Luis Fernando Test Hematocrit (42-52) % O2 Delivery Device O2 Liters/Min % Plater Helper ID Sodium (136-145) mmol/L Potassium (3.5-5.1) mmol/L Chloride (98-107) mmol/L Carbon Dioxide (22-29) mmol/L Anion Gap (5-19) BUN (8-23) mg/dL Creatinine (0.7-1.2) mg/dL GFR Calculation Glucose (65-115) mg/dL Calculated Osmolal ity (285-295) mOsm/k g Lactic Acid 0.8 (0.5-2.2) mmol/L Calcium (8.5-10.5) mg/dL Total Bilirubin (0.15-1.2) mg/dL AST (0-40) U/L ALT (0-41) U/L Alkaline Phosphata se (40-130) IU/L Troponin T Baselin e 14 (0-15) ng/L NT-Pro-B Natriuret Pep (0-125) pg/mL Total Protein (6.6-8.7) g/dL Albumin (3.5-5.2) g/dL Globulin (1.3-4.6) g/dL EKG Data^: EKG 1: Attestation: I personally reviewed and interpreted this EKG as follows: EKG Interpretation Date: 06/17/20 EKG interpretation time: 20:16 Prior EKG tracings: not available for review Interpretation: Sinus rhythm with sinus arrhythmia. Heart rate 84 bpm. Normal axis. No ST changes. Discharge Plan Discharge Patient Disposition: Home Clinical Impression: Acute exacerbation of chronic obstructive airways disease Condition: Stable Prescriptions: New prednisone 20 mg tablet 60 mg PO DAILY Qty: 15 RF: 0 azithromycin 250 mg tablet See Rx Instructions .ROUTE .COMPLEX Qty: 6 RF: 0 Continued acetaminophen [Tylenol Extra Strength] 500 mg tablet 500 mg PO Q4H PRN (Reason: Pain) RF: 0 epinephrine 0.3 mg/0.3 mL auto-injector 0.3 mg IM ONCE RF: 0 (DME) Four wheeled walker with a seat Qty: 1 RF: 0 azithromycin 250 mg tablet 250 mg PO .COMPLEX 90 Days Qty: 45 RF: 1 coenzyme Q10 [Co Q-10] 400 mg capsule 400 mg PO DAILY RF: 0 Botox 200 unit recon soln 200 unit SUBCUT ONCE RF: 0 Xolair 150 mg recon soln 150 mg SUBCUT ONCE RF: 0 albuterol sulfate 2.5 mg /3 mL (0.083 %) solution for nebulization 2.5 mg INHALATION BID RF: 0 Perforomist 20 mcg/2 mL solution for nebulization 2 ml INHALATION Q12H 90 Days Qty: 120 RF: 3 fluticasone propionate [Flonase Allergy Relief] 50 mcg/actuation spray,suspension 1 spray INTRANASAL Q12H 90 Days Qty: 54.6 RF: 3 budesonide [Pulmicort] 0.5 mg/2 mL suspension for nebulization 0.5 mg INHALATION BID Qty: 120 RF: 3 venlafaxine 150 mg capsule,extended release 24hr See Rx Instructions .ROUTE .COMPLEX Qty: 30 RF: 4 finasteride 5 mg tablet 5 mg PO DAILY Qty: 90 RF: 1 Januvia 100 mg tablet 100 mg PO DAILY Qty: 90 RF: 1 revefenacin [Yupelri] 175 mcg/3 mL solution for nebulization See Rx Instructions .ROUTE .COMPLEX Qty: 90 RF: 3 Flomax 0.4 mg capsule 0.8 mg PO DAILY Qty: 60 RF: 0 amitriptyline 25 mg tablet 25 mg PO DAILY 30 Days Qty: 30 RF: 2 albuterol sulfate 90 mcg/actuation HFA aerosol inhaler See Rx Instructions .ROUTE .COMPLEX Qty: 18 RF: 6 hydrocodone-acetaminophen 5-325 mg Tablet 1 - 2 tab PO Q8H PRN (Reason: Pain) RF: 0 theophylline 300 mg Tablet Extended Release 12 Hr 300 mg PO Q12H RF: 0 Discharge Orders: Discharge ED (Routine); Ordered 06/17/20 Ordered By: Jessica Malloy Referrals: Courtney Reich DO [Primary Care Provider] - 1-3 days Patient Instructions: Chronic Obstructive Pulmonary Disease (ED) Activity Restrictions/Additional Instructions: Return for any new or worsening symptoms. Follow-up with your primary care provider within 3 days. Take medications as prescribed. Use your breathing treatments every 4 hours for the next 2 days then as needed thereafter. 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
[2020-06-17 21:40] VITALS: BP 148/70; PULSE 92; RESP 18; O2SAT 95
== END 2020-06-17 21:50 | disposition home or self-care (01) ==
PROVIDERS: Emergency Provider Family Medicine; PCP Family Medicine
DX: J44.1 Chronic obstructive pulmonary disease with (acute) exacerbation (principal); Z99.81 Dependence on supplemental oxygen; E11.42 Type 2 diabetes mellitus with diabetic polyneuropathy; F17.210 Nicotine dependence, cigarettes, uncomplicated
CPT/HCPCS: 36600; 71045; 80053; 82803; 83605; 83880; 84484; 85025; 93005; 94640; 96374; 99284; J2930

== ENCOUNTER → 2020-08-09 10:33 | Outpatient (BNVA) | payer MEDICARE, BC, SELFPAY | PROVIDERS: PCP Family Medicine; Visit Provider Specialist | DX: G43.711 Chronic migraine without aura, intractable, with status migrainosus (principal); Z87.891 Personal history of nicotine dependence | CPT/HCPCS: 64615; J0585 ==

== ENCOUNTER → 2020-08-14 14:23 | Outpatient (BNVA) | payer MEDICARE, BC, SELFPAY | PROVIDERS: PCP Family Medicine; Visit Provider Family Medicine | DX: E11.9 Type 2 diabetes mellitus without complications (principal) | CPT/HCPCS: 80061; 82043; 83036 ==

== ENCOUNTER → 2020-10-03 08:40 | Outpatient (BNVA) | payer MEDICARE, BC, SELFPAY | PROVIDERS: PCP Family Medicine; Visit Provider Urology | DX: Z12.5 Encounter for screening for malignant neoplasm of prostate; R82.81 Pyuria; N40.1 Benign prostatic hyperplasia with lower urinary tract symptoms; R39.15 Urgency of urination; R97.20 Elevated prostate specific antigen [PSA]; R35.8 Other polyuria | CPT/HCPCS: 81003; 87086; G0103 ==

== ENCOUNTER → 2020-11-08 08:38 | Outpatient (BNVA) | payer MEDICARE, BC, SELFPAY | PROVIDERS: PCP Family Medicine; Visit Provider Specialist | DX: G43.709 Chronic migraine without aura, not intractable, without status migrainosus (principal) | CPT/HCPCS: 64615; J0585 ==

== ENCOUNTER → 2021-01-03 08:15 | Outpatient (BNVA) | payer MEDICARE, BC, SELFPAY | PROVIDERS: PCP Family Medicine; Visit Provider Urology | DX: N40.1 Benign prostatic hyperplasia with lower urinary tract symptoms (principal); R97.20 Elevated prostate specific antigen [PSA]; R39.15 Urgency of urination | CPT/HCPCS: 81003 ==

== ENCOUNTER → 2021-02-12 14:18 | Outpatient (BNVA) | payer MEDICARE, BC, SELFPAY | PROVIDERS: PCP Family Medicine; Visit Provider Family Medicine | DX: E11.9 Type 2 diabetes mellitus without complications (principal); N40.0 Benign prostatic hyperplasia without lower urinary tract symptoms | CPT/HCPCS: 80053; 85025 ==

== ENCOUNTER → 2021-02-14 08:48 | Outpatient (BNVA) | payer MEDICARE, BC, SELFPAY | PROVIDERS: PCP Family Medicine; Visit Provider Specialist | DX: G43.709 Chronic migraine without aura, not intractable, without status migrainosus (principal); Z87.891 Personal history of nicotine dependence | CPT/HCPCS: 64615; 96372; J0585; J1885 ==

== ENCOUNTER → 2021-02-15 11:19 | Outpatient (BNVA) | payer MEDICARE, BC, SELFPAY | PROVIDERS: PCP Family Medicine; Referring Provider Family Medicine; Visit Provider Family Medicine | DX: E11.9 Type 2 diabetes mellitus without complications (principal) | CPT/HCPCS: 83036; 85025 ==

== ENCOUNTER 2021-03-14 09:28 | Emergency (ER) | payer MEDICARE, BC, SELFPAY ==
[2021-03-14 09:36] VITALS: BP 124/58; PULSE 100; RESP 20; TEMP 36.8; O2SAT 88; BMI 37.7
--- NOTE | 2021-03-14 09:47 | ECG_ITS ---
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 Measurements Intervals [place] Rate: 88 P: 62 IN: 171 QRS: 33 QRSD: 91 T: 93 QT: 326 QTc: 395 Interpretive Statements SINUS RHYTHM NONSPECIFIC T-WAVE ABNORMALITY Compared to ECG 06/17/2020 20:15:55 T-wave abnormality now present Sinus arrhythmia no longer present Electronically Signed On 03-14-2021 20:29:38 SHORER by Rupal Duenas M.D. [email or web address].[employer]/store/[id number] f
--- NOTE | 2021-03-14 09:47 | XR_ITS ---
WS: [id number] Portable AP upright chest, 03/14/2021 Clinical Data: dyspnea/cough Comparison: Portable chest, 06/17/2020. Findings: No nodules, masses or effusions are seen. The heart is normal. The pulmonary vascularity is not increased. No pneumothorax is seen. There is a patchy opacity in the left lower lobe overlying t he left diaphragm which could represent acute pneumonia and/or atelectasis. There is minimal patchy o pacity overlying the right diaphragm unchanged from before. Monitor leads are on the chest wall. XR/XR chest 1V portable [id number] Impression: 1. Patchy opacity in the left lower lobe which could represent acute pneumonia and/or atelectasis. 2. Minimal opacity in the right lower lobe unchanged from before.
--- NOTE | 2021-03-14 09:57 | ED_ITS ---
HPI - SOB/Dyspnea General: Chief Complaint: Shortness of Breath/Dyspnea Stated Complaint: Weakness and diffculty breathing and hurts Time Seen by Provider: 03/14/21 09:44 History of Present Illness: HPI Narrative: 70-year-old male presents emergency room complaining difficulty breathing and generalized weakness myalgias. Patient has had symptoms for the last several days slight increase in his baseline cough character the sputum has not changed much but the volume has. He has previously been vaccinated for COVID. There is no vomiting or diarrhea. He has not had any anosmia. He denies any chest pain. He does have significant COPD and is chronically on oxygen at home usually uses 2-3 L/min is documented at 2 L/min being 88% when I see the patient he was up to 3 it was normal. MD elicited complaint: shortness of breath and cough Pertinent past history: COPD Onset (ago): day(s) Timing: constant Severity: moderate Exacerbating factors: exertion and coughing Relieving factors: nothing Known history of: COPD Associated symptoms: Reports chest congestion, cough, lightheadedness and myalgias; Deny abdominal pain, chest pain, diaphoresis, dizziness, extremity pain, fever(s), hemoptysis, nausea, orthopnea, palpitations, paresthesias, polydipsia, polyuria, rash, sense of impending doom, syncope or vomiting Treatment prior to arrival: oxygen Review of Systems Const: Denies: fever(s) or diaphoresis Card: Reports: lightheadedness; Denies: chest pain, palpitations, syncope or orthopnea Resp: Reports: chest congestion; Denies: hemoptysis GI: Denies: abdominal pain, nausea or vomiting Musc: Denies: extremity pain Neuro: Denies: dizziness Endo: Denies: polyuria or polydipsia PFS ED PFSH: Medical History BPH loc w urin obs/LUTS Chronic low back pain Has had nerve ablations and follows at pain clinic in [place] Chronic migraine Controlled diabetes mellitus without long-term current use of insulin COPD (chronic obstructive pulmonary disease) 2 L of oxygen at home, follows with Dr. Putnam in [place] currently, on theophylline Depression, controlled Diabetes mellitus type 2, noninsulin dependent Elevated prostate specific antigen [PSA] Enrolled in chronic care management History of multiple allergies Xolair injections monthly Hx of migraine headaches Has a triptan prescription and another medication Peripheral neuropathy Primarily involving hands, related to ulnar nerve interventions Surgical History H/O decompression of ulnar nerve bilateral H/O elbow surgery bilateral H/O rotator cuff surgery bilateral H/O total knee replacement right History of cataract surgery History of repair of rotator cuff Bilateral History of surgery on wrist Bilateral ulnar nerve release History of tonsillectomy and adenoidectomy Status post colonoscopy (07/21/19) normal , poor prep, repeat in 5 years Family History Mother , at age 66 Cancer uterine Aneurysm intracranial Father , at age 76 Lung disease asthma with allergies Asthma Other CAD (coronary artery disease) Social History Second hand smoke exposure: Yes Smoking risk assessment/counseling performed?: Yes Alcohol intake: former Counseling given: No Counseling given: No Lives independently: Yes Household members: spouse Marital status: service: Yes Current occupational status: retired History of recent travel: No Current gender identity: Male Physical Exam Const: GENERAL APPEARANCE: cooperative and comfortable ORIENTATION/CONSCIOUSNESS: Yes awake, Yes oriented to person, Yes oriented to place and Yes oriented to time HENMT: COMMON NORMALS: normocephalic, atraumatic and hearing grossly normal bilaterally HEAD & SCALP: normocephalic and atraumatic Neck/C-Spine: COMMON NORMALS: no JVD Resp: COMMON NORMALS: normal respiratory effort, No retractions and No use of accessory muscles AUSCULTATION: rhonchi and wheezes Cardio: COMMON NORMALS: no JVD, regular rate, regular rhythm and No murmurs present (Cardio) RATE: regular rate RHYTHM: regular rhythm GI: COMMON NORMALS: Soft to palpation and No hepatosplenomegaly present AUSCULTATION: Yes normoactive bowel sounds PALPATION: Yes Soft to palpation, No Tenderness to palpation present (GI), No Guarding due to palpation present (GI) and Yes No hepatosplenomegaly present Extremity: COMMON NORMALS: normal to inspection, capillary refill normal, no clubbing, cyanosis or edema, no calf tenderness and no pedal edema Neuro: SENSORIUM/ORIENTATION: Yes oriented to person, Yes oriented to place and Yes oriented to time Skin: COMMON NORMALS: no rashes or lesions noted GENERAL SKIN EXAM: no rashes or lesions noted Course Vital Signs: Vital signs: Vital Signs Temperature 98.3 F 03/14/21 09:36 Pulse Rate 84 03/14/21 13:42 Respiratory Rate 26 H 03/14/21 13:42 Blood Pressure 164/76 03/14/21 13:42 Pulse Oximetry 95 03/14/21 13:42 MDM - SOB/Dyspnea MDM Narrative: Medical decision making narrative: Labs, imaging and EKG reviewe on the chart. COVID-negative, human pneumo Tony virus was positive. Start a Medrol Dosepak use albuterol aggressively discharged home on his regular oxygen level follow-up as needed Lab Data: Labs: Lab Results 03/14/21 03/14/21 03/14/21 09:45 09:45 09:45 WBC 11.8 10^3/uL H 10 ^3/uL (4.0-10.0) RBC 4.74 10^6/uL 10^6 /uL (4.1-5.3) Hgb 13.7 g/dL g/dL (11.7-16.6) Hct 42.1 % % (42.0-52.0) MCV 88.8 fl fl (80-94) MCH 28.9 pg pg (28.0-34.0) MCHC 32.5 g/dL g/dL (30.0-36.0) RDW 12.1 % % (12.1-15.1) Plt Count 206 10^3/cmm 10^3 /cmm (130-400) MPV 9.3 fL fL (7.4-10.4) Neut % (Auto) 70.1 % % Lymph % (Auto) 16.6 % % [place] % (Auto) 11.7 % % Eos % (Auto) 0.4 % % Baso % (Auto) 0.5 % % Neut # (Auto) 8.30 10^3/uL H 10 ^3/uL (1.8-7.7) Lymph # (Auto) 2.0 10^3/uL 10^3/ uL (0.8-4.8) [place] # (Auto) 1.4 10^3/uL H 10^ 3/uL (0.2-0.9) Eos # (Auto) 0.1 10^3/uL 10^3/ uL (0.0-0.8) Baso # (Auto) 0.1 10^3/uL 10^3/ uL (0.0-0.1) Nucleated RBC % (a uto) 0 % % Nucleated RBCs # 0.0 /100WBC /100W BC Sodium 134 mmol/L L mmol /L (136-145) Potassium 4.4 mmol/L mmol/L (3.5-5.1) Chloride 96 mmol/L L mmol/ L (98-107) Carbon Dioxide 24 mmol/L mmol/L (22-29) Anion Gap 18.4 (5-19) BUN 9 mg/dL mg/dL (8-23) Creatinine 0.6 mg/dL L mg/dL (0.7-1.2) GFR Calculation Not Reportable Glucose 105 mg/dL mg/dL (65-115) Calculated Osmolal ity 277 mOsm/kg L mOs m/kg (285-295) Lactic Acid 1.0 mmol/L mmol/L (0.5-2.2) Calcium 8.7 mg/dL mg/dL (8.5-10.5) Total Bilirubin 0.3 mg/dL mg/dL (0.15-1.2) AST 18 U/L U/L (0-40) ALT 19 U/L U/L (0-41) Alkaline Phosphata se 88 IU/L IU/L (40-130) Troponin T Baselin e Troponin T 120 Min [place] Troponin T Total Protein 6.1 g/dL L g/dL (6.6-8.7) Albumin 3.9 g/dL g/dL (3.5-5.2) Globulin 2.2 g/dL g/dL (1.3-4.6) Coronavirus 229E ( PCR) Human Metapneumovi r PCR Entero/Rhino (PCR) SARS-CoV-2 (PCR) 03/14/21 03/14/21 03/14/21 09:45 10:15 12:01 WBC RBC Hgb Hct MCV MCH MCHC RDW Plt Count MPV Neut % (Auto) Lymph % (Auto) [place] % (Auto) Eos % (Auto) Baso % (Auto) Neut # (Auto) Lymph # (Auto) [place] # (Auto) Eos # (Auto) Baso # (Auto) Nucleated RBC % (a uto) Nucleated RBCs # Sodium Potassium Chloride Carbon Dioxide Anion Gap BUN Creatinine GFR Calculation Glucose Calculated Osmolal ity Lactic Acid Calcium Total Bilirubin AST ALT Alkaline Phosphata se Troponin T Baselin e 13 ng/L ng/L (0-15) Troponin T 120 Min [place] 11.38 ng/L ng/L (0-15) Delta Troponin T -1.62 ABS# L ABS# (0-10) Total Protein Albumin Globulin Coronavirus 229E ( PCR) Not detected (NOT DETECT) Human Metapneumovi r PCR Entero/Rhino (PCR) SARS-CoV-2 (PCR) Not detected (NOT DETECT) 03/14/21 12:28 WBC RBC Hgb Hct MCV MCH MCHC RDW Plt Count MPV Neut % (Auto) Lymph % (Auto) [place] % (Auto) Eos % (Auto) Baso % (Auto) Neut # (Auto) Lymph # (Auto) [place] # (Auto) Eos # (Auto) Baso # (Auto) Nucleated RBC % (a uto) Nucleated RBCs # Sodium Potassium Chloride Carbon Dioxide Anion Gap BUN Creatinine GFR Calculation Glucose Calculated Osmolal ity Lactic Acid Calcium Total Bilirubin AST ALT Alkaline Phosphata se Troponin T Baselin e Troponin T 120 Min [place] Troponin T Total Protein Albumin Globulin Coronavirus 229E ( PCR) Human Metapneumovi r PCR Detected A (NOT DETECT) Entero/Rhino (PCR) Not detected (NOT DETECT) SARS-CoV-2 (PCR) Discharge Plan Discharge Patient Disposition: Home Clinical Impression: Viral pneumonia, Diabetes mellitus type 2, noninsulin dependent, Acute exacerbation of chronic obstructive airways disease Condition: Stable Prescriptions: New Medrol ([place]udwig) 4 mg tablets,dose pack See Rx Instructions .ROUTE .COMPLEX Qty: 21 RF: 0 albuterol sulfate 90 mcg/actuation HFA aerosol inhaler 2 inh INHALATION Q4H PRN (Reason: shortness of breath or wheezing) Qty: 18 RF: 0 No Action acetaminophen [Tylenol Extra Strength] 500 mg tablet 500 mg PO Q4H PRN (Reason: Pain) RF: 0 epinephrine 0.3 mg/0.3 mL auto-injector 0.3 mg IM ONCE RF: 0 (DME) Four wheeled walker with a seat Qty: 1 RF: 0 azithromycin 250 mg tablet 250 mg PO .COMPLEX 90 Days Qty: 45 RF: 3 Botox 200 unit recon soln 200 unit SUBCUT ONCE RF: 0 Xolair 150 mg recon soln 150 mg SUBCUT ONCE RF: 0 albuterol sulfate 2.5 mg /3 mL (0.083 %) solution for nebulization 2.5 mg INHALATION BID RF: 0 Perforomist 20 mcg/2 mL solution for nebulization 2 ml INHALATION Q12H 90 Days Qty: 120 RF: 3 tramadol 50 mg tablet 50 mg PO TID PRNRF: 0 Januvia 100 mg tablet 100 mg PO DAILY Qty: 90 RF: 1 Flomax 0.4 mg capsule 0.8 mg PO DAILY Qty: 180 RF: 1 fluticasone propionate [Flonase Allergy Relief] 50 mcg/actuation spray,suspension 1 spray INTRANASAL Q12H 90 Days Qty: 54.6 RF: 3 budesonide [Pulmicort] 0.5 mg/2 mL suspension for nebulization 0.5 mg INHALATION BID Qty: 120 RF: 3 albuterol sulfate 90 mcg/actuation HFA aerosol inhaler See Rx Instructions .ROUTE .COMPLEX Qty: 18 RF: 6 prednisone 5 mg tablet 5 mg PO DAILY 90 Days Qty: 90 RF: 3 finasteride 5 mg tablet See Rx Instructions .ROUTE .COMPLEX Qty: 90 RF: 3 atorvastatin 20 mg tablet 20 mg PO .QHS Qty: 90 RF: 1 Yupelri 175 mcg/3 mL solution for nebulization See Rx Instructions .ROUTE .COMPLEX Qty: 90 RF: 3 venlafaxine 150 mg capsule,extended release 24hr See Rx Instructions .ROUTE .COMPLEX Qty: 90 RF: 1 amitriptyline 25 mg tablet 25 mg PO DAILY 30 Days Qty: 90 RF: 1 Discharge Orders: Discharge ED (Routine); Ordered 03/14/21 Ordered By: Constantine Cisneros Referrals: Courtney Reich DO [Primary Care Provider] - Discharge Diet: Usual diet Discharge Activity: Resume usual activity Patient Instructions: Opioid Safety Activity Restrictions/Additional Instructions: Use albuterol regularly for shortness of breath and cough. Start prednisone taper you are given today if you have any worsening or change symptoms return follow-up with your primary care doctor within the next 4 days to recheck. Coding Level of Care Code ED Grounds Foreman for Chg Fwd Exam Comprehensive
[2021-03-14 10:07] LABS: Basophils # 0.1 10^3/uL (0.0-0.1); Basophils % 0.5 %; Eosinophils # 0.1 10^3/uL (0.0-0.8); Eosinophils % 0.4 %; Hematocrit 42.1 % (42.0-52.0); Hemoglobin 13.7 g/dL (11.7-16.6); Lymphocytes % 16.6 %; Mean Corpuscular HGB Conc 32.5 g/dL (30.0-36.0); Mean Corpuscular Hemoglobin 28.9 pg (28.0-34.0); Mean Corpuscular Volume 88.8 fl (80-94); Mean Platelet Volume 9.3 fL (7.4-10.4); Monocytes # 1.4 10^3/uL (0.2-0.9); Monocytes % 11.7 %; Neutrophils % 70.1 %; Nucleated Red Blood Cells % 0 %; Platelet Count 206 10^3/cmm (130-400); Red Blood Count 4.74 10^6/uL (4.1-5.3); Red Cell Distribution Width 12.1 % (12.1-15.1); White Blood Count 11.8 10^3/uL (4.0-10.0)
[2021-03-14 10:16] LABS: Alanine Aminotransferase 19 U/L (0-41); Albumin Level 3.9 g/dL (3.5-5.2); Alkaline Phosphatase 88 IU/L (40-130); Anion Gap 18.4 (5-19); Aspartate Amino Transferase 18 U/L (0-40); Blood Urea Nitrogen 9 mg/dL (8-23); Calcium 8.7 mg/dL (8.5-10.5); Carbon Dioxide 24 mmol/L (22-29); Chloride 96 mmol/L (98-107); Globulin 2.2 g/dL (1.3-4.6); Glucose 105 mg/dL (65-115); Osmolality Calculated 277 mOsm/kg (285-295); Potassium 4.4 mmol/L (3.5-5.1); Sodium 134 mmol/L (136-145); Total Bilirubin 0.3 mg/dL (0.15-1.2); Total Protein 6.1 g/dL (6.6-8.7)
[2021-03-14 10:17] LABS: Troponin(5th) Baseline 13 ng/L (0-15)
[2021-03-14 10:29] VITALS: BP 124/58; PULSE 87; PULSE 88; RESP 30; O2SAT 95
[2021-03-14 12:18] LABS: Adenovirus Not Detected (NOT DETECT); Chlamydia Pneumoniae Not Detected (NOT DETECT); Coronavirus 229E,HKU1,NL63,OC4 Not Detected (NOT DETECT); Human Metapneumovirus Detected (NOT DETECT); Human Rhinovirus/Enterovirus Not Detected (NOT DETECT); Influenza A Not Detected (NOT DETECT); Influenza A H1 Not Detected (NOT DETECT); Influenza A H1-2009 Not Detected (NOT DETECT); Influenza A H3 Not Detected (NOT DETECT); Influenza B Not Detected (NOT DETECT); Mycoplasma Pneumoniae Not Detected (NOT DETECT); Parainfluenza Virus Type 1 Not Detected (NOT DETECT); Parainfluenza Virus Type 2 Not Detected (NOT DETECT); Parainfluenza Virus Type 3 Not Detected (NOT DETECT); Parainfluenza Virus Type 4 Not Detected (NOT DETECT); Respiratory Syncytial Virus A Not Detected (NOT DETECT); Respiratory Syncytial Virus B Not Detected (NOT DETECT); SARS-COV-2 Not Detected (NOT DETECT)
[2021-03-14 12:23] LABS: Troponin 5 2HR 11.38 ng/L (0-15)
[2021-03-14 12:28] LABS: Troponin 5 2HR Delta -1.62 ABS# (0-10)
[2021-03-14 12:29] VITALS: BP 164/76; PULSE 84; RESP 26; O2SAT 95
[2021-03-14 12:29] LABS: Human Metapneumovirus Detected (NOT DETECT); Human Rhinovirus/Enterovirus Not Detected (NOT DETECT); Results from Genmark
[2021-03-14 13:42] VITALS: BP 164/76; PULSE 84; RESP 26; O2SAT 95
== END 2021-03-14 13:47 | disposition home or self-care (01) ==
PROVIDERS: Emergency Provider Family Medicine; PCP Family Medicine
DX: J44.0 Chronic obstructive pulmonary disease with (acute) lower respiratory infection (principal); J12.9 Viral pneumonia, unspecified; J44.1 Chronic obstructive pulmonary disease with (acute) exacerbation; E11.9 Type 2 diabetes mellitus without complications; Z99.81 Dependence on supplemental oxygen; Z77.22 Contact with and (suspected) exposure to environmental tobacco smoke (acute) (chronic); Z20.822 Contact with and (suspected) exposure to COVID-19
CPT/HCPCS: 71045; 80053; 83605; 84484; 85025; 87040; 87635; 87801; 93005; 99284

== ENCOUNTER → 2021-05-09 09:54 | Outpatient (BNVA) | payer MEDICARE, BC, SELFPAY | PROVIDERS: PCP Family Medicine; Visit Provider Specialist | DX: G43.711 Chronic migraine without aura, intractable, with status migrainosus (principal); F17.210 Nicotine dependence, cigarettes, uncomplicated | CPT/HCPCS: 64615; J0585 ==

== ENCOUNTER → 2021-06-25 09:44 | Outpatient (BNVA) | payer MEDICARE, BC, SELFPAY | PROVIDERS: PCP Family Medicine; Visit Provider Urology | DX: R97.20 Elevated prostate specific antigen [PSA] (principal); N40.1 Benign prostatic hyperplasia with lower urinary tract symptoms | CPT/HCPCS: 81003; 84153 ==

== ENCOUNTER → 2021-08-01 10:34 | Outpatient (BNVA) | payer MEDICARE, BC, SELFPAY | PROVIDERS: PCP Family Medicine; Visit Provider Specialist | DX: G43.709 Chronic migraine without aura, not intractable, without status migrainosus (principal) | CPT/HCPCS: 64615; J0585 ==

== ENCOUNTER → 2021-08-15 09:42 | Outpatient (BNVA) | payer MEDICARE, BC, SELFPAY | PROVIDERS: PCP Family Medicine; Visit Provider Family Medicine | DX: E11.9 Type 2 diabetes mellitus without complications (principal) | CPT/HCPCS: 80053; 80061; 82043; 83036; 85025 ==

== ENCOUNTER → 2021-10-24 09:52 | Outpatient (BNVA) | payer MEDICARE, BC, SELFPAY | PROVIDERS: PCP Family Medicine; Visit Provider Specialist | DX: G43.711 Chronic migraine without aura, intractable, with status migrainosus (principal) | CPT/HCPCS: 64615 ==

== ENCOUNTER → 2022-02-13 08:37 | Outpatient (BNVA) | payer MEDICARE, BC, SELFPAY | PROVIDERS: PCP Family Medicine; Visit Provider Family Medicine | DX: E11.9 Type 2 diabetes mellitus without complications (principal); Z23 Encounter for immunization; J43.1 Panlobular emphysema; E78.5 Hyperlipidemia, unspecified | CPT/HCPCS: 80053; 83036 ==

== ENCOUNTER → 2022-02-27 09:53 | Outpatient (BNVA) | payer MEDICARE, BC, SELFPAY | PROVIDERS: PCP Family Medicine; Visit Provider Specialist | DX: G43.711 Chronic migraine without aura, intractable, with status migrainosus (principal) | CPT/HCPCS: 64615; 95911; J0585 ==

== ENCOUNTER 2022-03-02 04:07 | Inpatient (IN) | payer MEDICARE, BC, SELFPAY ==
[2022-03-02] VITALS (54 sets, daily range): BP systolic 77–145; BP diastolic 50–89; PULSE 88–120; RESP 12–46; TEMP 36.5–39; O2SAT 91–98; BMI 38.0
--- NOTE | 2022-03-02 04:15 | XRR_ITS ---
PROCEDURE INFORMATION: Exam: XR Chest Exam date and time: 03/02/2022 4:22 AM Age: 71 years old Clinical indication: Shortness of breath; Additional info: SOB TECHNIQUE: Imaging protocol: Radiologic exam of the chest. Views: 1 view. COMPARISON: CR XR chest 1V portable [id number] 03/14/2021 9:59 AM FINDINGS: Lungs: There patchy opacities present in the left lung base similar to those seen on 11/12/2021 possibly representing chronic scarring atelectasis although a left basilar infiltrate and pneumonia cannot be entirely excluded. Pleural spaces: Unremarkable. No pleural effusion. No pneumothorax. Heart/Mediastinum: Unremarkable. No cardiomegaly. Bones/joints: Unremarkable. XR/XR chest 1V portable [id number] IMPRESSION: There are patchy opacity seen in the left lung base similar to that present on 03/14/2021, findings suggesting chronic parenchymal scarring or atelectasis. A recurrent left basilar pneumonia cannot be entirely excluded.
--- NOTE | 2022-03-02 04:16 | ECG_ITS ---
[facility] Test Date: 2022-03-02 Pat Name: Hernan Beckman Department: Room: EDIP Gender: Male Campus Receptionist: : 1950 Requested By: Sam Veliz Order Number: [id number] Xochitl MD: Rupal Duenas M.D. 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 [email or web address] by LED/store/[id number] f
[2022-03-02 04:25] LABS: Basophils # 0.1 10^3/uL (0.0-0.1); Basophils % 0.5 %; Eosinophils % 0.1 %; Hematocrit 43.3 % (42.0-52.0); Hemoglobin 13.9 g/dL (11.7-16.6); Lymphocytes # 6.4 10^3/uL (0.8-4.8); Lymphocytes % 25.3 %; Mean Corpuscular HGB Conc 32.1 g/dL (30.0-36.0); Mean Corpuscular Hemoglobin 28.7 pg (28.0-34.0); Mean Corpuscular Volume 89.5 fl (80-94); Mean Platelet Volume 8.9 fL (7.4-10.4); Monocytes # 2.4 10^3/uL (0.2-0.9); Monocytes % 9.5 %; Neutrophils # 16.23 10^3/uL (1.8-7.7); Neutrophils % 63.9 %; Nucleated Red Blood Cells % 0 %; Platelet Count 233 10^3/cmm (130-400); Red Blood Count 4.84 10^6/uL (4.1-5.3); Red Cell Distribution Width 12.5 % (12.1-15.1); White Blood Count 25.5 10^3/uL (4.0-10.0)
[2022-03-02 04:34] LABS: ABG PCO2 57.8 mmHg (35-45); ABG PH Result 7.37 (7.35-7.45); Arterial Blood Gas Hematocrit 45.2 % (42-52); Base Excess ABG 6.5 mmol/L (-2.0-2.0); Blood Gas Allen Test Pos; Blood Gas Sample Site Radial, right; Blood Gas Sample Type Arterial; Carboxyhemoglobin 1.7 %THgb (0.4-20.1); HCO3 ABG 33.7 mmol/L (22-26); Methemoglobin 0.8 % (0.4-1.5); Oxygen Device BIPAP; PO2 ABG 68.4 mmHg (80.0-100.0); Total Hemoglobin 14.7 g/dL (14-18)
[2022-03-02 04:39] LABS: D Dimer 0.83 ug/mIFEU (0-0.59)
--- NOTE | 2022-03-02 04:40 | ED_ITS ---
HPI - SOB/Dyspnea General: Chief Complaint: Shortness of Breath/Dyspnea Stated Complaint: SOB Time Seen by Provider: 03/02/22 04:10 Source: patient and EMS History of Present Illness: HPI Narrative: 71-year-old male with a history of COPD. He presents with acute onset of shortness of breath. He has had a cough. No significant sputum production. No fever. No leg swelling. No significant chest pain. He wears oxygen at home. He was found by EMS to be hypoxic on his home O2 settings, with respirations over 50. He was placed on oxygen and given a DuoNeb treatment +2 more albuterol treatments in route. The patient's also had 125 mg of Solu-Medrol and 2 g of magnesium sulfate in route. He is still tachypneic and having trouble breathing. MD elicited complaint: shortness of breath and cough Pertinent past history: COPD Onset (ago): hour(s) Timing: constant and progressively worsening Severity: severe Exacerbating factors: lying flat and exertion Known history of: COPD Associated symptoms: Reports cough, diaphoresis, nausea and orthopnea; Deny abdominal pain, chest pain, extremity pain, fever(s) or vomiting Treatment prior to arrival: oxygen, bronchodilator and other (MgSO4 2g) Review of Systems Const: Reports: diaphoresis; Denies: fever(s) ENMT: Denies: throat pain Card: Reports: orthopnea; Denies: chest pain Resp: Reports: dyspnea and non-productive cough GI: Reports: nausea; Denies: abdominal pain or vomiting : Denies: flank pain Musc: Denies: extremity pain Psych: Reports: anxiety PFSH ED PFSH: Medical History BPH loc w urin obs/LUTS Chronic low back pain Has had nerve ablations and follows at pain clinic in [place] Chronic migraine Controlled diabetes mellitus without long-term current use of insulin COPD (chronic obstructive pulmonary disease) 2 L of oxygen at home, follows with Dr. Putnam in [place] currently, on theophylline Depression, controlled Diabetes mellitus type 2, noninsulin dependent Elevated prostate specific antigen [PSA] Enrolled in chronic care management History of multiple allergies Xolair injections monthly Hx of migraine headaches Has a triptan prescription and another medication Peripheral neuropathy Primarily involving hands, related to ulnar nerve interventions Surgical History H/O decompression of ulnar nerve bilateral H/O elbow surgery bilateral H/O rotator cuff surgery bilateral H/O total knee replacement right History of cataract surgery History of repair of rotator cuff Bilateral History of surgery on wrist Bilateral ulnar nerve release History of tonsillectomy and adenoidectomy Status post colonoscopy (07/21/19) normal , poor prep, repeat in 5 years Family History Mother , at age 66 Cancer uterine Aneurysm intracranial Father , at age 76 Lung disease asthma with allergies Asthma Other CAD (coronary artery disease) Social History Smoking and tobacco status: current every day smoker cigarettes Packs smoked per day: 0.5 Years cigarettes smoked: 60 Second hand smoke exposure: Yes Smoking risk assessment/counseling performed?: Yes Alcohol intake: former Counseling given: No Counseling given: No Lives independently: Yes Household members: spouse Marital status: service: Yes Current occupational status: retired History of recent travel: No Current gender identity: Male Physical Exam Const: GENERAL APPEARANCE: cooperative, in distress and ill appearing NUTRITIONAL APPEARANCE: obese ORIENTATION/CONSCIOUSNESS: Yes awake, Yes oriented to person and Yes oriented to place; not oriented to time HENMT: COMMON NORMALS: normocephalic, atraumatic and Normal external nose present HEAD & SCALP: normocephalic and atraumatic FACE & SINUS: normal facial exam NOSE: Normal external nose present Eye: COMMON NORMALS: Equal, round and reactive pupils present and EOMs intact bilaterally PUPIL: Yes Equal, round and reactive pupils present Neck/C-Spine: GENERAL: Yes trachea midline Chest: CHEST: Yes Symmetrical chest wall rise Resp: EFFORT & INSPECTION: No able to speak in complete sentences, Yes tachypneic, Yes respiratory distress and Yes labored AUSCULTATION: wheezes Cardio: COMMON NORMALS: regular rhythm RATE: tachycardic RHYTHM: regular rhythm GI: COMMON NORMALS: Normal to inspection, nondistended, normoactive bowel sounds present, Soft to palpation and non-tender PALPATION: Yes Soft to palpation Extremity: COMMON NORMALS: no pedal edema Neuro: SENSORIUM/ORIENTATION: Yes oriented to person, Yes oriented to place and No oriented to time Psych: COMMON NORMALS: cooperative Course Consultations: Consultation #1: armani Time: 05:12 Vital Signs: Vital signs: Vital Signs Pulse Rate 114 H 03/02/22 05:00 Respiratory Rate 46 H 03/02/22 04:32 Blood Pressure 128/61 03/02/22 05:00 Pulse Oximetry 94 03/02/22 05:00 Oxygen Delivery Me thod 03/02/22 04:25 Oxygen Flow Rate 3 03/02/22 04:10 Fraction of Inspir ed Oxygen 45 03/02/22 04:25 MDM - SOB/Dyspnea Medical Decision Making Patient is placed on BiPAP on arrival. Initial blood gas shows a pH of 7.37 with a PCO2 of 58, and a PO2 of 68 on 40% FiO2. These results reflect status prior to placement of BiPAP, as he had just been placed on the BiPAP when the ABG was drawn. He is awake and talking. His D-dimer is 0.83 which is not significant. He does not seem to have peripheral edema. He is wheezing on exam. Heart rate 115, blood pressure 128/61, saturations 94% on BiPAP. His breathing has calmed to some degree. White blood cell count is 25. Lactic acid is normal. Patient is already received Solu-Medrol and breathing treatments. Will be time for another DuoNeb treatment soon. He also received magnesium sulfate. He will be admitted. Hospitalist is notified Lab Data 03/02/22 04:18 03/02/22 04:18 Labs/Radiology: Radiology Impressions Chest X-Ray 03/02/22 04:15 IMPRESSION: There are patchy opacity seen in the left lung base similar to that present on 03/14/2021, findings suggesting chronic parenchymal scarring or atelectasis. A recurrent left basilar pneumonia cannot be entirely excluded. Laboratory Results WBC 25.5 10^3/uL (4.0-10.0) H 03/02/22 04:18 RBC 4.84 10^6/uL (4.1-5.3) 03/02/22 04:18 Hgb 13.9 g/dL (11.7-16.6) 03/02/22 04:18 Hct 43.3 % (42.0-52.0) 03/02/22 04:18 MCV 89.5 fl (80-94) 03/02/22 04:18 MCH 28.7 pg (28.0-34.0) 03/02/22 04:18 MCHC 32.1 g/dL (30.0-36.0) 03/02/22 04:18 RDW 12.5 % (12.1-15.1) 03/02/22 04:18 Plt Count 233 10^3/cmm (130-400) 03/02/22 04:18 MPV 8.9 fL (7.4-10.4) 03/02/22 04:18 Neut % (Auto) 63.9 % 03/02/22 04:18 Lymph % (Auto) 25.3 % 03/02/22 04:18 [place] % (Auto) 9.5 % 03/02/22 04:18 Eos % (Auto) 0.1 % 03/02/22 04:18 Baso % (Auto) 0.5 % 03/02/22 04:18 Neut # (Auto) 16.23 10^3/uL (1.8-7.7) H 03/02/22 04:18 Lymph # (Auto) 6.4 10^3/uL (0.8-4.8) H 03/02/22 04:18 [place] # (Auto) 2.4 10^3/uL (0.2-0.9) H 03/02/22 04:18 Eos # (Auto) 0.0 10^3/uL (0.0-0.8) 03/02/22 04:18 Baso # (Auto) 0.1 10^3/uL (0.0-0.1) 03/02/22 04:18 Nucleated RBC % (auto) 0 % 03/02/22 04:18 Nucleated RBCs # 0.0 /100WBC 03/02/22 04:18 D-Dimer 0.83 ug/mIFEU (0-0.59) H 03/02/22 04:18 Specimen Type Arterial 03/02/22 04:30 Sample Site Radial, right 03/02/22 04:30 ABG pH 7.37 (7.35-7.45) 03/02/22 04:30 ABG pCO2 57.8 mmHg (35-45) H 03/02/22 04:30 ABG pO2 68.4 mmHg (80.0-100.0) L 03/02/22 04:30 ABG HCO3 33.7 mmol/L (22-26) H 03/02/22 04:30 ABG Base Excess 6.5 mmol/L (-2.0-2.0) H 03/02/22 04:30 Luis Fernando Test Pos 03/02/22 04:30 Hematocrit 45.2 % (42-52) 03/02/22 04:30 Hgb O2 Saturation 93.0 % (95-100) L 03/02/22 04:30 Carboxyhemoglobin 1.7 %THgb (0.4-20.1) 03/02/22 04:30 Methemoglobin 0.8 % (0.4-1.5) 03/02/22 04:30 Total Hemoglobin 14.7 g/dL (14-18) 03/02/22 04:30 O2 Delivery Device Bipap 03/02/22 04:30 FiO2 40.0 % 03/02/22 04:30 Steam And Power Superintendent ID Droch 03/02/22 04:30 Sodium 133 mmol/L (136-145) L 03/02/22 04:18 Potassium 4.5 mmol/L (3.5-5.1) 03/02/22 04:18 Chloride 93 mmol/L (98-107) L 03/02/22 04:18 Carbon Dioxide 30 mmol/L (22-29) H 03/02/22 04:18 Anion Gap 14.5 (5-19) 03/02/22 04:18 BUN 9 mg/dL (8-23) 03/02/22 04:18 Creatinine 0.7 mg/dL (0.7-1.2) 03/02/22 04:18 GFR Calculation Not Reportable 03/02/22 04:18 Glucose 212 mg/dL (65-115) H 03/02/22 04:18 Calculated Osmolality 281 mOsm/kg (285-295) L 03/02/22 04:18 Lactic Acid 1.1 mmol/L (0.5-2.2) 03/02/22 04:18 Calcium 8.6 mg/dL (8.5-10.5) 03/02/22 04:18 Total Bilirubin 0.6 mg/dL (0.15-1.2) 03/02/22 04:18 AST 17 U/L (0-40) 03/02/22 04:18 ALT 18 U/L (0-41) 03/02/22 04:18 Alkaline Phosphatase 86 U/L (40-130) 03/02/22 04:18 Troponin T Baseline 19 ng/L (0-15) H 03/02/22 04:18 NT-Pro-B Natriuret Pep 345 pg/mL (0-125) H 03/02/22 04:18 Total Protein 6.3 g/dL (6.6-8.7) L 03/02/22 04:18 Albumin 3.6 g/dL (3.5-5.2) 03/02/22 04:18 Globulin 2.7 g/dL (1.3-4.6) 03/02/22 04:18 Critical Care Time Critical Care Time: Critical Care Time: Yes Total Critical Care Time: 35 Attestation: This case had a high probability of a clinically significant, sudden, or life t hreatening deterioration of this patient's condition which required my full and direct attention, intervention and personal management. Time is independent of any procedures performed. Discharge Plan Discharge Patient Disposition: Admitted As Inpatient Clinical Impression: Respiratory failure with hypoxia and hypercapnia, Acute exacerbation of chronic obstructive pulmonary disease Condition: Serious Coding Level of Care Code ED Collaborating Supervising Physician for Owen Rico Exam Comprehensive
[2022-03-02 04:41] LABS: Lactic Sepsis W/Reflex 1.1 mmol/L (0.5-2.2)
[2022-03-02 04:44] LABS: Troponin(5th) Baseline 19 ng/L (0-15)
[2022-03-02 04:53] LABS: Alanine Aminotransferase 18 U/L (0-41); Albumin Level 3.6 g/dL (3.5-5.2); Alkaline Phosphatase 86 U/L (40-130); Anion Gap 14.5 (5-19); Aspartate Amino Transferase 17 U/L (0-40); Blood Urea Nitrogen 9 mg/dL (8-23); Calcium 8.6 mg/dL (8.5-10.5); Carbon Dioxide 30 mmol/L (22-29); Chloride 93 mmol/L (98-107); Globulin 2.7 g/dL (1.3-4.6); Glucose 212 mg/dL (65-115); NT Pro B Type Natriuretic Pept 345 pg/mL (0-125); Osmolality Calculated 281 mOsm/kg (285-295); Potassium 4.5 mmol/L (3.5-5.1); Sodium 133 mmol/L (136-145); Total Bilirubin 0.6 mg/dL (0.15-1.2); Total Protein 6.3 g/dL (6.6-8.7)
[2022-03-02 05:01] LABS: Slide Review Slide Review Perform
[2022-03-02] MEDS: cefTRIAXone 1,000 MG in sodium chloride 0.9% (plus) 50 ML 100 MG IV (05:18)
[2022-03-02] MEDS: azithromycin 500 MG in sodium chloride 0.9% 250 ML 250 MG IV (05:18)
[2022-03-02] MEDS: acetaminophen 500 mg Tablet 1000 MG PO (05:43)
--- NOTE | 2022-03-02 06:08 | P.HP_ITS ---
Providers/Chief Complaint Admitting Physician: Shira Jorge MD Primary Care Provider: Courtney Reich DO Chief Complaint: SOB History of Present Illness Hernan Beckman JR is a 71 year old male with history of end-stage COPD, uses 2 L of oxygen along CPAP at night, active smoker, presented with chief complaint of worsening shortness of breath. Patient is stating that he has been experiencing productive cough, green sputum for last 3 to 4 days, he has noticed fever 100.0, last night he woke up around midnight with extreme shortness of breath that prompted his visit to the ER. In the ER he has been diagnosed with sepsis related to pneumonia. I requested a lactic acid, gave him 2 L of bolus, he has received antibiotics, I have requested cultures and CT scan of chest to rule out postobstructive pneumonia because in March he had pneumonia on the same side as well. Patient has been put on BiPAP EMT gave him mag sulfate, albuterol, IV steroids. Patient uses 2 L of oxygen and CPAP at night, smoking half a pack a day. Review of Systems Const: Reports: fever(s), chills, body aches and fatigue Eyes: Denies: change in vision ENMT: Denies: throat pain Card: Reports: dyspnea on exertion Resp: Reports: dyspnea and productive cough GI: Denies: abdominal pain : Denies: flank pain Musc: Denies: neck pain Skin/Breast: Denies: rash Neuro: Denies: headache(s) Psych: Reports: anxiety Endo: Denies: polyuria Jonathan/Lymph: Denies: easy bruising All/Imm: Denies: urticaria Medications/Allergies Home Medications Medication Instructions Recorded Confirmed Last Taken Type Four wheeled walker with a seat #1 ea 03/24/19 02/27/22 Unknown Rx acetaminophen 500 mg tablet 500 mg PO Q4H PRN Pain 03/24/19 02/27/22 07/18/19 History (Tylenol Extra Strength) epinephrine 0.3 mg/0.3 mL 0.3 mg IM ONCE 03/24/19 02/27/22 Unknown History injection, auto-injector albuterol sulfate 2.5 mg/3 mL 2.5 mg inhalation BID 04/05/19 02/27/22 07/21/19 History (0.083 %) solution for nebulization fluticasone propionate 50 1 spray intranasal Q12H 90 days 05/19/19 02/27/22 07/20/19 Rx mcg/actuation nasal #54.6 mL spray,suspension (Flonase Allergy Relief) omalizumab 150 mg subcutaneous 150 mg SUBCUT ONCE 06/29/19 02/27/22 06/20/19 History solution (Xolair) onabotulinumtoxinA 200 unit 200 unit SUBCUT ONCE 06/29/19 02/27/22 05/10/19 History solution for injection (Botox) albuterol sulfate 90 mcg/actuation 2 inh inhalation Q4H PRN shortness 03/14/21 02/27/22 Unknown Rx aerosol inhaler of breath or wheezing #18 grams tramadol 50 mg tablet 50 mg PO TID PRN pain #90 tabs 08/15/21 02/27/22 Unknown Rx amitriptyline 25 mg tablet See Rx Instructions .Route 09/12/21 02/27/22 Unknown Rx .COMPLEX #30 tabs venlafaxine 150 mg See Rx Instructions .Route 09/12/21 02/27/22 Unknown Rx capsule,extended release 24 hr .COMPLEX #30 caps tamsulosin 0.4 mg capsule (Flomax) 0.8 mg PO DAILY #180 caps 11/27/21 02/27/22 Unknown Rx azithromycin 250 mg tablet 250 mg PO .every other day #45 tabs 12/25/21 02/27/22 Unknown Rx albuterol sulfate 90 mcg/actuation 2 inh inhalation Q6H PRN shortness 01/10/22 02/27/22 Unknown Rx aerosol inhaler of breath or wheezing #18 grams budesonide 0.5 mg/2 mL suspension 0.5 mg (2 mL) inhalation BID #120 01/10/22 02/27/22 Unknown Rx for nebulization (Pulmicort) mL formoterol fumarate 20 mcg/2 mL 2 ml inhalation Q12H 90 days #120 01/10/22 02/27/22 Unknown Rx solution for nebulization mL (Perforomist) revefenacin 175 mcg/3 mL solution 175 mcg (3 mL) inhalation DAILY 01/10/22 02/27/22 Unknown Rx for nebulization (Yupelri) #90 mL atorvastatin 20 mg tablet 20 mg PO .QHS #90 tabs 02/13/22 02/27/22 Unknown Rx prednisone 5 mg tablet 5 mg PO DAILY 90 days #90 tabs 02/13/22 02/27/22 Unknown Rx sitagliptin 100 mg tablet (Januvia) 100 mg PO DAILY #90 tabs 02/14/22 02/27/22 Unknown Rx Allergies Allergy/AdvReac Type Severity Reaction Status Date / Time No Known Allergies Allergy Verified 02/27/22 09:56 PFSH Acute PFSH: Medical History BPH loc w urin obs/LUTS Chronic low back pain Has had nerve ablations and follows at pain clinic in [place] Chronic migraine Controlled diabetes mellitus without long-term current use of insulin COPD (chronic obstructive pulmonary disease) 2 L of oxygen at home, follows with Dr. Putnam in [place] currently, on theophylline Depression, controlled Diabetes mellitus type 2, noninsulin dependent Elevated prostate specific antigen [PSA] Enrolled in chronic care management History of multiple allergies Xolair injections monthly Hx of migraine headaches Has a triptan prescription and another medication Peripheral neuropathy Primarily involving hands, related to ulnar nerve interventions Surgical History H/O decompression of ulnar nerve bilateral H/O elbow surgery bilateral H/O rotator cuff surgery bilateral H/O total knee replacement right History of cataract surgery History of repair of rotator cuff Bilateral History of surgery on wrist Bilateral ulnar nerve release History of tonsillectomy and adenoidectomy Status post colonoscopy (07/21/19) normal , poor prep, repeat in 5 years Family History Mother , at age 66 Cancer uterine Aneurysm intracranial Father , at age 76 Lung disease asthma with allergies Asthma Other CAD (coronary artery disease) Social History Smoking and tobacco status: current every day smoker cigarettes Packs smoked per day: 0.5 Years cigarettes smoked: 60 Second hand smoke exposure: Yes Smoking risk assessment/counseling performed?: Yes Alcohol intake: former Counseling given: No Counseling given: No Lives independently: Yes Household members: spouse Marital status: service: Yes Current occupational status: retired History of recent travel: No Current gender identity: Male Vitals/I&O/Wt Last Vital Signs Temp 102.2 F H 03/02/22 05:25 Pulse 114 H 03/02/22 05:30 Resp 35 H 03/02/22 05:30 BP 124/64 03/02/22 05:30 Pulse Ox 93 03/02/22 05:30 O2 Del Method 03/02/22 05:25 O2 Flow Rate 3 03/02/22 04:10 FiO2 45 03/02/22 04:25 03/01/22 03/01/22 03/02/22 14:59 22:59 06:59 Intake Total 50 / 50 Balance 50 / 50 Weight last 48 hrs Weight 113.398 kg Physical Exam Narrative: Morbid obese male Currently on BiPAP FiO2 45% No acute respiratory distress Patient is calm and cooperative No active chest pain S1, S2 Abdomen distended visceral obesity soft Lower extremity no edema Bilateral breath sounds with mild wheezing and rhonchi EOMI, PERRLA Nonfocal neuro exam Data 03/02/22 04:18 03/02/22 04:18 Micro: Microbiology 03/02/22 04:30 Blood Culture - Preliminary Blood SPECIMEN COLLECTED 03/02/22 04:31 Blood Culture - Preliminary Blood SPECIMEN COLLECTED A&P Assessment and plan (1) Respiratory failure with hypoxia and hypercapnia: (2) Acute exacerbation of chronic obstructive pulmonary disease: (3) Sepsis: (4) BPH loc w urin obs/LUTS: (5) Recurrent pneumonia: (6) Diabetes mellitus type 2, noninsulin dependent: (7) Obstructive sleep apnea: (8) Chronic respiratory failure with hypoxia: (9) COPD (chronic obstructive pulmonary disease): Qualifiers: COPD type: emphysema Emphysema type: panlobular Qualified Code(s): J43.1 - Panlobular emphysema Plan Acute COPD exacerbation Patient is an active smoker Recurrent pneumonia with component of end-stage COPD patient has been taking Yupelri, steroids and azithromycin Requested CT chest to rule out postobstructive pneumonia Started on broad-spectrum antibiotics In March he had similar episode with left-sided pneumonia Dr. Royal diagnosed him with class D COPD patient is using 2 L of oxygen at baseline, Smoking half a pack a day Sepsis criteria met with fever tachypnea tachycardia leukocytosis Received broad-spectrum antibiotics and 2 L of bolus, patient carries history of diastolic CHF, judicious use of septic bolus Lactic acid requested along D-dimer Cardiac consistent carb diet Medium dose sliding scale Full code Attestations Medical Necessity Statement*: More than 2 midnights anticipated for sepsis, pneumonia Time Spent in Patient Care: 40 Coding Level of Care Code Acute Coke Handling Supervisor for Chg Fwd Diagnoses Respiratory failure with hypoxia and hypercapnia J96.91; J96.92 Acute exacerbation of chronic obstructive pulmonary disease J44.1 Sepsis A41.9 BPH loc w urin obs/LUTS N40.1 Recurrent pneumonia J18.9 Diabetes mellitus type 2, noninsulin dependent E11.9 Obstructive sleep apnea G47.33 Chronic respiratory failure with hypoxia J96.11 COPD (chronic obstructive pulmonary disease) J43.1 COPD type: emphysema Emphysema type: panlobular
--- NOTE | 2022-03-02 06:16 | ECG_ITS ---
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 Measurements Intervals [place] Rate: 107 P: 60 FL: 163 QRS: 11 QRSD: 91 T: 74 QT: 338 QTc: 452 Interpretive Statements SINUS TACHYCARDIA Compared to ECG 03/02/2022 04:15:11 No significant changes Electronically Signed On 03-02-2022 8:22:26 CPHT by Rupal Duenas M.D. [id number]
[2022-03-02] MEDS: piperacillin-tazobactam 3.375 GM in sodium chloride 0.9% (plus) 50 ML IV ×3 (06:37→21:44)
[2022-03-02] MEDS: enoxaparin 40 mg/0.4 mL Syringe SUBCUT (06:39)
[2022-03-02] MEDS: vancomycin 1,500 MG/300 ML PIGGYBACK 200 MG IV (06:40)
[2022-03-02] MEDS: sodium chloride 0.9% 1,000 ML 999 ML IV ×2 (06:41→08:11)
[2022-03-02 07:09] LABS: Procalcitonin 0.67 ng/mL (0-0.5)
--- NOTE | 2022-03-02 07:14 | CTR_ITS ---
PROCEDURE INFORMATION: Exam: CT Chest Without Contrast; Diagnostic Exam date and time: 03/02/2022 8:49 AM Age: 71 years old Clinical indication: Shortness of breath; Additional info: Sepsis pna TECHNIQUE: Imaging protocol: Diagnostic computed tomography of the chest without contrast. Radiation optimization: All CT scans at this facility use at least one of these dose optimization techniques: automated exposure control; mA and/or kV adjustment per patient size (includes targeted exams where dose is matched to clinical indication); or iterative reconstruction. COMPARISON: CT lung screening [id number] 04/06/2020 9:29 AM RADIATION DOSE METRICS: Total DLP (mGy-cm): 745.55 FINDINGS: Lungs: There is bilateral peribronchial thickening in association with patchy airspace opacities in the lower lungs and tree-in-bud airspace opacities throughout both lungs, consistent with multifocal pneumonia. Pleural spaces: Unremarkable. No pneumothorax. No pleural effusion. Heart: Mildly enlarged heart. Coronary atherosclerotic calcifications seen. No pericardial effusion. Lymph nodes: Calcified lymph nodes noted in the right hilar and subcarinal regions, likely sequela of previous granulomatous disease. Small reactive mediastinal lymph nodes noted, the largest measuring 1.1 cm in transverse dimension. Vasculature: Mild diffuse atherosclerotic disease is present. Liver: The liver is diffusely decreased in density, compatible with hepatic steatosis. No discrete mass lesion identified. Kidneys and ureters: There is a 0.7 cm nonobstructing stone in the left mid kidney. No hydronephrosis. Bones/joints: Degenerative changes of the spine seen. Soft tissues: Unremarkable. CT/CT chest wo con [id number] IMPRESSION: Multifocal pneumonia.
[2022-03-02] MEDS: ipratropium-albuterol 3 mL Neb INHALATION ×2 (07:33→20:52)
[2022-03-02 07:54] LABS: Adenovirus Not Detected (NOT DETECT); Chlamydia Pneumoniae Not Detected (NOT DETECT); Coronavirus 229E,HKU1,NL63,OC4 Not Detected (NOT DETECT); Human Metapneumovirus Not Detected (NOT DETECT); Human Rhinovirus/Enterovirus Not Detected (NOT DETECT); Influenza A Not Detected (NOT DETECT); Influenza A H1 Not Detected (NOT DETECT); Influenza A H1-2009 Not Detected (NOT DETECT); Influenza A H3 Not Detected (NOT DETECT); Influenza B Not Detected (NOT DETECT); Mycoplasma Pneumoniae Not Detected (NOT DETECT); Parainfluenza Virus Type 1 Not Detected (NOT DETECT); Parainfluenza Virus Type 2 Not Detected (NOT DETECT); Parainfluenza Virus Type 3 Not Detected (NOT DETECT); Parainfluenza Virus Type 4 Not Detected (NOT DETECT); Respiratory Syncytial Virus A Not Detected (NOT DETECT); Respiratory Syncytial Virus B Not Detected (NOT DETECT); SARS-COV-2 Not Detected (NOT DETECT)
[2022-03-02] MEDS: sennosides-docusate Tablet 1 TAB PO (09:36)
[2022-03-02] MEDS: tamsulosin 0.4 mg Capsule 0.8 MG PO (09:36)
--- NOTE | 2022-03-02 10:26 | ECG_ITS ---
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 Measurements Intervals [place] Rate: 96 P: 60 CO: 181 QRS: 29 QRSD: 95 T: 78 QT: 357 QTc: 453 Interpretive Statements SINUS RHYTHM Compared to ECG 03/02/2022 06:29:27 Sinus tachycardia no longer present Electronically Signed On 03-03-2022 6:08:17 AITCHBONE BREAKER by Rupal Duenas M.D. [id number]
[2022-03-02 10:46] LABS: Troponin 5 6HR 17.57 ng/L (0-15)
[2022-03-02 10:48] LABS: Troponin 5 6HR Delta -1.43 ng/L (0-12)
[2022-03-02] MEDS: vancomycin 1,500 MG/300 ML PIGGYBACK 300 MG IV (18:04)
--- NOTE | 2022-03-02 19:02 | PM.PN ---
Subjective Subjective: He is feeling slightly better compared to yesterday. He is coughing, coughing up phlegm. He is still wheezing, with significant chest congestion. No nausea vomiting or diarrhea. Vitals/I&O/Wt Last Vital Signs Temp 98.0 F 03/02/22 16:00 Pulse 94 03/02/22 18:10 Resp 18 03/02/22 18:10 BP 111/65 03/02/22 18:10 Pulse Ox 96 03/02/22 18:10 O2 Del Method 03/02/22 18:10 O2 Flow Rate 3 03/02/22 18:10 FiO2 45 03/02/22 07:43 03/02/22 03/02/22 03/02/22 06:59 14:59 22:59 Intake Total 300 / 300 1350 / 1350 240 / 1590 Output Total 600 / 600 750 / 1350 Balance 300 / 300 750 / 750 -510 / 240 Weight last 48 hrs Weight 113.398 kg Data 03/02/22 04:18 03/02/22 04:18 Micro: Microbiology 03/02/22 12:59 Gram Stain - Final Sputum - Expectorated Sputum 03/02/22 10:07 Legionella Urinary Antigen - Final Urine,Voided Bacterial Antigens - Final 03/02/22 04:30 Blood Culture - Preliminary Blood SPECIMEN COLLECTED 03/02/22 04:31 Blood Culture - Preliminary Blood SPECIMEN COLLECTED A&P Assessment and plan (1) Respiratory failure with hypoxia and hypercapnia: Multifocal pneumonia as well as severe COPD exacerbation with dyspnea, cough, purulent phlegm, hypoxia. With mild improvement. Weaned off BiPAP. Down to 4 L nasal cannula. Subjectively feeling slightly better. Still diminished air entry or wheezing, rhonchi. Feels congested. Productive cough, provided a sample. Follow-up sputum culture. Urine bacterial antigens are negative. Follow-up MRSA PCR. Continue ceftriaxone and azithromycin. Continue Solu-Medrol. Continue inhaled budesonide. Add scheduled DuoNebs. Viral respiratory panel negative. (2) Acute exacerbation of chronic obstructive pulmonary disease: (3) Sepsis: (4) BPH loc w urin obs/LUTS: (5) Recurrent pneumonia: (6) Diabetes mellitus type 2, noninsulin dependent: (7) Obstructive sleep apnea: (8) Chronic respiratory failure with hypoxia: (9) COPD (chronic obstructive pulmonary disease): Qualifiers: COPD type: emphysema Emphysema type: panlobular Qualified Code(s): J43.1 - Panlobular emphysema Plan DM: Cardiac consistent carb diet Medium dose sliding scale Attestations Medical Necessity Statement*: Continue admission for assessment management of respiratory failure, multifocal pneumonia, COPD exacerbation. 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
[2022-03-02 20:40] LABS: Glucose Point of Care 213 mg/dL (70-110)
[2022-03-02] MEDS: budesonide 0.5 mg/2 mL Neb INHALATION (20:52)
[2022-03-02] MEDS: insulin lispro 100 unit/1 mL SUBCUT (21:08)
[2022-03-02] MEDS: acetaminophen 500 mg Tablet PO (21:43)
[2022-03-03] VITALS (16 sets, daily range): BP systolic 113–160; BP diastolic 65–86; PULSE 78–104; RESP 16–34; TEMP 36.4–36.9; O2SAT 92–99
[2022-03-03 04:01] LABS: Basophils % 0.1 %; Hematocrit 42.1 % (42.0-52.0); Hemoglobin 13.1 g/dL (11.7-16.6); Lymphocytes # 1.1 10^3/uL (0.8-4.8); Lymphocytes % 4.9 %; Mean Corpuscular HGB Conc 31.1 g/dL (30.0-36.0); Mean Corpuscular Hemoglobin 28.4 pg (28.0-34.0); Mean Corpuscular Volume 91.3 fl (80-94); Mean Platelet Volume 9.6 fL (7.4-10.4); Monocytes # 0.8 10^3/uL (0.2-0.9); Monocytes % 3.5 %; Neutrophils # 20.07 10^3/uL (1.8-7.7); Neutrophils % 90.4 %; Nucleated Red Blood Cells % 0 %; Platelet Count 203 10^3/cmm (130-400); Red Blood Count 4.61 10^6/uL (4.1-5.3); Red Cell Distribution Width 12.6 % (12.1-15.1); White Blood Count 22.2 10^3/uL (4.0-10.0)
[2022-03-03 04:27] LABS: Blood Urea Nitrogen 14 mg/dL (8-23); C Reactive Protein 85.3 mg/L (0.0-4.9); Calcium 8.7 mg/dL (8.5-10.5); Carbon Dioxide 34 mmol/L (22-29); Chloride 99 mmol/L (98-107); Glucose 193 mg/dL (65-115); Magnesium 2.2 mg/dL (1.7-2.3); Osmolality Calculated 294 mOsm/kg (285-295); Phosphorus 2.1 mg/dL (2.5-4.5); Sodium 139 mmol/L (136-145)
[2022-03-03 04:35] LABS: Anion Gap 10.8 (5-19); Potassium 4.8 mmol/L (3.5-5.1)
[2022-03-03] MEDS: vancomycin 1,500 MG/300 ML PIGGYBACK 200 MG IV ×2 (05:15→18:44)
[2022-03-03] MEDS: enoxaparin 40 mg/0.4 mL Syringe SUBCUT (05:22)
[2022-03-03 06:37] LABS: Glucose Point of Care 217 mg/dL (70-110)
[2022-03-03] MEDS: piperacillin-tazobactam 3.375 GM in sodium chloride 0.9% (plus) 50 ML IV ×3 (06:58→22:06)
[2022-03-03] MEDS: tamsulosin 0.4 mg Capsule 0.8 MG PO (08:48)
[2022-03-03] MEDS: insulin lispro 100 unit/1 mL SUBCUT ×4 (08:48→22:07)
[2022-03-03] MEDS: ipratropium-albuterol 3 mL Neb INHALATION ×3 (09:03→22:30)
--- NOTE | 2022-03-03 10:42 | PC.CHAP ---
Pastoral Care Encounter/Spiritual Assessment Type of Contact [] Declined ophthalmic medical technologist visit [] Patient/Family/Request visit [] Outpatient visit [] Follow-up visit [] Physician referral [] Code/Alert [x] Routine visit [] Staff referral [] Actively dying [] Patient sleeping [] Family support [] [] Out of room [] Palliative care [] [] Receiving care in room [] Pre-surgical visit [] Trauma [] Long length of stay [] ICU visit [] Other: Relational/Emotional Strength [x] Patient feels connected with others/family/visitors/staff [] Distress [] Loneliness/isolation [] Abandonment Spirituality of Patient [x] Person of Julia [] Attends Restorationist of their Julia [x] Believes in Prayer [] Reads Bible or Gnosticism materials [] There are Spiritual issues to be addressed Senior Hadoop Developer Interventions [x] Prayer [x] Active listening [x] Non-anxious presence [x] Spiritual/emotional support [] Crisis/trauma care [] Spiritual counseling [] Bereavement support [] Provided bereavement packet [] Provided Bible/devotional materials [] Provided toy/stuffed animal, coloring book to patient or family member [] Provided Communion [] Anointing/Ennice [] Salvation [x] Completed spiritual assessment [] Other: Impact on Illness or Injury [] Angry [] Fearful [] Anxious [] Often cries [] Exhaustion [] Unable to work [] Unable to attend mosque [] Unable to walk/stand [] Unable to read [] Unable to drive [] Unable to eat/drink [] Unable to sleep [] Unable to be with family [] Patient intubated [] Other: Summary Time spent with patient 10 min
[2022-03-03 11:01] LABS: Glucose Point of Care 293 mg/dL (70-110)
[2022-03-03 13:52] LABS: Iron 35 ug/dL (59-158)
[2022-03-03 14:00] LABS: Thyroid Stimulating Hormone 0.12 uIU/mL (0.27-4.20)
[2022-03-03 14:05] LABS: Folate Level 16.8 ng/mL (4.5-32.2)
[2022-03-03 14:09] LABS: Procalcitonin 1.46 ng/mL (0-0.5); Vitamin B12 388 pg/mL (232-1245)
[2022-03-03 14:40] LABS: Percent Saturation 15.3 % (20-50); Total Iron Binding Capacity 228 mcg/dl; Unsaturated Iron Binding 193 ug/dL (112-347)
[2022-03-03] MEDS: FUROsemide 10 mg/mL SDV 4mL 40 MG IVP (15:28)
[2022-03-03 17:12] LABS: Glucose Point of Care 167 mg/dL (70-110)
--- NOTE | 2022-03-03 17:30 | PM.PN ---
Subjective Subjective: Hospital course, labs appreciated. Seen with family at bedside. Currently on 3 L saturating more than 90%. Denies any nausea, vomiting, headache. States feeling a lot better from breathing perspective now. Vitals/I&O/Wt Last Vital Signs Temp 98.5 F 03/03/22 15:39 Pulse 97 03/03/22 15:39 Resp 20 H 03/03/22 15:39 BP 134/69 03/03/22 15:39 Pulse Ox 95 03/03/22 15:39 O2 Del Method 03/03/22 15:39 O2 Flow Rate 2 03/03/22 14:41 FiO2 45 03/02/22 07:43 03/03/22 03/03/22 03/03/22 06:59 14:59 22:59 Intake Total 350 / 3410 650 / 650 Output Total 600 / 2350 450 / 450 1000 / 1450 Balance -250 / 1060 200 / 200 -1000 / -800 Weight last 48 hrs Weight 113.398 kg Physical Exam Narrative: EXAM NARRATIVE: General: No acute distress, AO x3, NC oxygen supplementation HEENT: PERRLA, pupils bilaterally equal and reactive Chest:Bronchial breath sounds b/l ,decreased air entry, equal good air entry bilaterally, no more fine basal crackles CVS: S1-S2 regular, no murmurs, no tachycardia, no gallops, no rubs Abdomen: Soft, nontender, no organomegaly, bowel sounds present, morbidly obese Neuro: No focal deficits, no facial deformity, AO x3, power 5/5 in all limbs Data 03/03/22 02:57 03/03/22 02:57 Micro: Microbiology 03/02/22 10:31 MRSA Culture - Final Nose 03/02/22 12:59 Gram Stain - Final Sputum - Expectorated Sputum Sputum Culture - Preliminary 03/02/22 04:30 Blood Culture - Preliminary Blood NEGATIVE TO DATE 03/02/22 04:31 Blood Culture - Preliminary Blood NEGATIVE TO DATE 03/02/22 10:07 Legionella Urinary Antigen - Final Urine,Voided Bacterial Antigens - Final A&P Assessment and plan (1) Respiratory failure with hypoxia and hypercapnia: Multifocal pneumonia as well as severe Gold class D COPD exacerbation. MRSA swab negative. Urine Legionella bacterial antigen negative. Sputum culture not appropriate. Will ask for repeat sample. COVID-19, flu swab negative. Oxygen supplementation keeping saturation more than 88%. Wean down Solu-Medrol to 40 mg Q8 hourly. For now continue vancomycin and Zosyn. Continue with DuoNebs every 6 hour, budesonide twice daily. IV Lasix 40 mg one-time. Last echocardiogram from 2019 shows an EF 50%, grade 1 diastolic dysfunction. Strict input output charting, daily weights. (2) Acute exacerbation of chronic obstructive pulmonary disease: (3) Sepsis: (4) BPH loc w urin obs/LUTS: (5) Recurrent pneumonia: (6) Diabetes mellitus type 2, noninsulin dependent: (7) Obstructive sleep apnea: (8) Chronic respiratory failure with hypoxia: (9) COPD (chronic obstructive pulmonary disease): Qualifiers: COPD type: emphysema Emphysema type: panlobular Qualified Code(s): J43.1 - Panlobular emphysema Plan DM: Cardiac consistent carb diet Medium dose sliding scale Attestations Medical Necessity Statement*: Requires further hospitalization for management of severe hypoxia secondary to COPD exacerbation in setting of pneumonia Time Spent in Patient Care: Greater than 35 minutes Coding Level of Care Code 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
[2022-03-03 18:32] LABS: Vancomycin Trough 9.7 ug/mL (10-15)
[2022-03-03 20:44] LABS: Glucose Point of Care 241 mg/dL (70-110)
[2022-03-03] MEDS: amitriptyline 25 mg Tablet PO (22:06)
[2022-03-03] MEDS: budesonide 0.5 mg/2 mL Neb INHALATION (22:30)
[2022-03-04] VITALS (11 sets, daily range): BP systolic 128–160; BP diastolic 65–87; PULSE 95–108; RESP 18–32; TEMP 36.6–37; O2SAT 92–99
[2022-03-04] MEDS: ondansetron 2 mg/ML SDV 2 mL 4 MG IVP (01:51)
[2022-03-04 02:04] LABS: Glucose Point of Care 127 mg/dL (70-110)
[2022-03-04] MEDS: ipratropium-albuterol 3 mL Neb INHALATION ×3 (02:45→21:04)
[2022-03-04 03:11] LABS: Basophils % 0.1 %; Hematocrit 39.8 % (42.0-52.0); Hemoglobin 12.6 g/dL (11.7-16.6); Lymphocytes # 0.7 10^3/uL (0.8-4.8); Lymphocytes % 2.4 %; Mean Corpuscular HGB Conc 31.7 g/dL (30.0-36.0); Mean Corpuscular Hemoglobin 28.6 pg (28.0-34.0); Mean Corpuscular Volume 90.5 fl (80-94); Mean Platelet Volume 9.4 fL (7.4-10.4); Monocytes # 1.1 10^3/uL (0.2-0.9); Neutrophils % 92.5 %; Nucleated Red Blood Cells % 0 %; Platelet Count 263 10^3/cmm (130-400); Red Cell Distribution Width 12.7 % (12.1-15.1); White Blood Count 28.9 10^3/uL (4.0-10.0)
[2022-03-04 03:18] LABS: Estmated Average Glucose 140; Hemoglobin A1C 6.5 % (4.0-6.0)
[2022-03-04 03:36] LABS: Alanine Aminotransferase 20 U/L (0-41); Albumin Level 3.2 g/dL (3.5-5.2); Alkaline Phosphatase 67 U/L (40-130); Anion Gap 10.2 (5-19); Aspartate Amino Transferase 20 U/L (0-40); Blood Urea Nitrogen 15 mg/dL (8-23); Calcium 8.3 mg/dL (8.5-10.5); Carbon Dioxide 34 mmol/L (22-29); Chloride 99 mmol/L (98-107); Chol HDL Ratio 2.53 mg/dL (1.0-5.00); Cholesterol 129 mg/dL (0-200); Globulin 3.2 g/dL (1.3-4.6); Glucose 148 mg/dL (65-115); HDL Cholesterol 51 mg/dL (60-100); LDL Cholesterol Calculated 68 mg/dL (50-129); Osmolality Calculated 292 mOsm/kg (285-295); Potassium 4.2 mmol/L (3.5-5.1); Sodium 139 mmol/L (136-145); Total Bilirubin 0.2 mg/dL (0.15-1.2); Total Protein 6.4 g/dL (6.6-8.7); Triglycerides 51 mg/dL (0-150); VLDL Cholestrol Calculation 10 mg/dL (0-30)
[2022-03-04] MEDS: vancomycin 1,500 MG/300 ML PIGGYBACK 200 MG IV (05:45)
[2022-03-04] MEDS: enoxaparin 40 mg/0.4 mL Syringe SUBCUT (05:53)
[2022-03-04] MEDS: piperacillin-tazobactam 3.375 GM in sodium chloride 0.9% (plus) 50 ML IV ×3 (05:53→23:09)
[2022-03-04 06:18] LABS: Glucose Point of Care 215 mg/dL (70-110)
[2022-03-04] MEDS: sennosides-docusate Tablet 1 TAB PO (08:10)
[2022-03-04] MEDS: tamsulosin 0.4 mg Capsule 0.8 MG PO (08:10)
[2022-03-04] MEDS: insulin lispro 100 unit/1 mL SUBCUT ×4 (08:10→21:20)
[2022-03-04] MEDS: acetaminophen 500 mg Tablet PO ×2 (09:34→23:14)
[2022-03-04] MEDS: acetaZOLAMIDE 250 mg Tablet 500 MG PO (09:45)
[2022-03-04] MEDS: budesonide 0.5 mg/2 mL Neb INHALATION ×2 (09:51→21:04)
[2022-03-04 11:37] LABS: Glucose Point of Care 272 mg/dL (70-110)
--- NOTE | 2022-03-04 13:15 | PM.PN ---
Subjective Subjective: No acute events overnight. Today morning on examination patient is on 2 to 3 L saturating more than 90%. Patient states he is feeling better. Denies any nausea, vomiting, headache. Has remained afebrile. Vitals/I&O/Wt Last Vital Signs Temp 98.6 F 03/04/22 11:23 Pulse 100 03/04/22 11:23 Resp 23 H 03/04/22 11:23 BP 136/72 03/04/22 11:23 Pulse Ox 93 03/04/22 11:23 O2 Del Method 03/04/22 11:23 O2 Flow Rate 2 03/04/22 08:00 FiO2 45 03/02/22 07:43 03/03/22 03/04/22 03/04/22 22:59 06:59 14:59 Intake Total 470 / 1120 250 / 1370 830 / 830 Output Total 1875 / 2325 450 / 450 Balance -1405 / -1205 250 / -955 380 / 380 Physical Exam Narrative: EXAM NARRATIVE: General: No acute distress, AO x3, NC oxygen supplementation HEENT: PERRLA, pupils bilaterally equal and reactive Chest:Bronchial breath sounds b/l ,decreased air entry, equal good air entry bilaterally, no more fine basal crackles CVS: S1-S2 regular, no murmurs, no tachycardia, no gallops, no rubs Abdomen: Soft, nontender, no organomegaly, bowel sounds present, morbidly obese Neuro: No focal deficits, no facial deformity, AO x3, power 5/5 in all limbs Data 03/04/22 02:26 03/04/22 02:26 Micro: Microbiology 03/02/22 12:59 Gram Stain - Final Sputum - Expectorated Sputum Sputum Culture - Final 03/02/22 10:31 MRSA Culture - Final Nose A&P Assessment and plan (1) Respiratory failure with hypoxia and hypercapnia: Multifocal pneumonia as well as severe Gold class D COPD exacerbation. MRSA swab negative. Urine Legionella bacterial antigen negative. Sputum culture not appropriate. Will ask for repeat sample. COVID-19, flu swab negative. Oxygen supplementation keeping saturation more than 88%. Wean down Solu-Medrol to 40 mg every 12 hourly. Stop vancomycin as MRSA is negative. Continue with Zosyn. Follow-up sputum culture results. Continue with DuoNebs every 6 hour, budesonide twice daily. Appropriate urine output to Lasix. Start on Diamox 500 mg oral daily for developing contraction alkalosis. Last echocardiogram from 2020 shows an EF 50%, grade 1 diastolic dysfunction. Strict input output charting, daily weights. (2) Acute exacerbation of chronic obstructive pulmonary disease: (3) Sepsis: (4) BPH loc w urin obs/LUTS: (5) Recurrent pneumonia: (6) Diabetes mellitus type 2, noninsulin dependent: (7) Obstructive sleep apnea: (8) Chronic respiratory failure with hypoxia: (9) COPD (chronic obstructive pulmonary disease): Qualifiers: COPD type: emphysema Emphysema type: panlobular Qualified Code(s): J43.1 - Panlobular emphysema Plan DM: Insulin sliding scale at low-dose protocol. Cardiac consistent carb diet Lovenox for DVT prophylaxis Famotidine for PUD prophylaxis Discharge planning: Plan to discharge back home within next 24 hours after home O2 evaluation as steroids are weaned off Attestations Medical Necessity Statement*: Follow hospitalization for management of acute on chronic hypoxic respiratory failure secondary to COPD exacerbation Time Spent in Patient Care: Greater than 35 minutes Coding Level of Care Code Acute Cutting And Splicing Supervisor for Chg Fwd Diagnoses Respiratory failure with hypoxia and hypercapnia J96.91; J96.92 Acute exacerbation of chronic obstructive pulmonary disease J44.1 Sepsis A41.9 BPH loc w urin obs/LUTS N40.1 Recurrent pneumonia J18.9 Diabetes mellitus type 2, noninsulin dependent E11.9 Obstructive sleep apnea G47.33 Chronic respiratory failure with hypoxia J96.11 COPD (chronic obstructive pulmonary disease) J43.1 COPD type: emphysema Emphysema type: panlobular
[2022-03-04 16:12] LABS: Glucose Point of Care 227 mg/dL (70-110)
[2022-03-04 19:43] LABS: Glucose Point of Care 163 mg/dL (70-110)
[2022-03-04] MEDS: amitriptyline 25 mg Tablet PO (21:20)
[2022-03-05] VITALS (15 sets, daily range): BP systolic 119–155; BP diastolic 68–98; PULSE 88–104; RESP 18–39; TEMP 36.6–37.1; O2SAT 88–98
[2022-03-05 02:59] LABS: Basophils # 0.1 10^3/uL (0.0-0.1); Basophils % 0.2 %; Hematocrit 44.7 % (42.0-52.0); Hemoglobin 13.7 g/dL (11.7-16.6); Lymphocytes # 1.1 10^3/uL (0.8-4.8); Lymphocytes % 4.6 %; Mean Corpuscular HGB Conc 30.6 g/dL (30.0-36.0); Mean Corpuscular Hemoglobin 28.5 pg (28.0-34.0); Mean Corpuscular Volume 93.1 fl (80-94); Mean Platelet Volume 9.4 fL (7.4-10.4); Monocytes # 1.2 10^3/uL (0.2-0.9); Monocytes % 5.3 %; Neutrophils # 20.94 10^3/uL (1.8-7.7); Neutrophils % 88.9 %; Nucleated Red Blood Cells % 0 %; Platelet Count 305 10^3/cmm (130-400); Red Cell Distribution Width 12.9 % (12.1-15.1); White Blood Count 23.6 10^3/uL (4.0-10.0)
[2022-03-05 03:28] LABS: Alanine Aminotransferase 39 U/L (0-41); Albumin Level 3.3 g/dL (3.5-5.2); Alkaline Phosphatase 81 U/L (40-130); Anion Gap 10.3 (5-19); Aspartate Amino Transferase 26 U/L (0-40); Blood Urea Nitrogen 18 mg/dL (8-23); Calcium 9.1 mg/dL (8.5-10.5); Carbon Dioxide 33 mmol/L (22-29); Chloride 100 mmol/L (98-107); Globulin 3.4 g/dL (1.3-4.6); Glucose 194 mg/dL (65-115); Osmolality Calculated 295 mOsm/kg (285-295); Potassium 4.3 mmol/L (3.5-5.1); Sodium 139 mmol/L (136-145); Total Bilirubin 0.2 mg/dL (0.15-1.2); Total Protein 6.7 g/dL (6.6-8.7)
[2022-03-05 06:15] LABS: Glucose Point of Care 159 mg/dL (70-110)
[2022-03-05] MEDS: piperacillin-tazobactam 3.375 GM in sodium chloride 0.9% (plus) 50 ML IV ×3 (06:18→20:49)
[2022-03-05] MEDS: enoxaparin 40 mg/0.4 mL Syringe SUBCUT (06:20)
[2022-03-05] MEDS: insulin lispro 100 unit/1 mL SUBCUT ×3 (07:41→20:50)
[2022-03-05] MEDS: budesonide 0.5 mg/2 mL Neb INHALATION ×3 (08:18→21:40)
[2022-03-05] MEDS: ipratropium-albuterol 3 mL Neb INHALATION ×3 (08:18→21:40)
--- NOTE | 2022-03-05 08:40 | P.DS_ITS ---
Discharge Providers Date of Admission: 03/02/22 05:46 Date of Discharge: March 05, 2022 Attending Provider at Admission: Shira Jorge MD Attending Provider at Discharge: Dariusz Palacios MD Primary Care Provider: Courtney Reich DO Diagnoses at Discharge Discharge Diagnosis (1) Respiratory failure with hypoxia and hypercapnia: Status: Acute (2) Acute exacerbation of chronic obstructive pulmonary disease: Status: Acute (3) Sepsis: Status: Acute (4) BPH loc w urin obs/LUTS: Status: Acute (5) Recurrent pneumonia: Status: Acute (6) Diabetes mellitus type 2, noninsulin dependent: Status: Chronic (7) Obstructive sleep apnea: Status: Acute (8) Chronic respiratory failure with hypoxia: Status: Acute (9) COPD (chronic obstructive pulmonary disease): Status: Chronic Qualifiers: COPD type: emphysema Emphysema type: panlobular Qualified Code(s): J43.1 - Panlobular emphysema Reason for Visit Reason for Visit: SOB Physical Exam Narrative: EXAM NARRATIVE: General: No acute distress, AO x3, NC oxygen supplementation HEENT: PERRLA, pupils bilaterally equal and reactive Chest:Bronchial breath sounds b/l ,decreased air entry, equal good air entry bilaterally, no more fine basal crackles CVS: S1-S2 regular, no murmurs, no tachycardia, no gallops, no rubs Abdomen: Soft, nontender, no organomegaly, bowel sounds present, morbidly obese Neuro: No focal deficits, no facial deformity, AO x3, power 5/5 in all limbs Discharge Data Studies Completed and Pending Completed Studies During Hospitalization Category Date Time Status CT chest wo con [id number] Stat Cat Scan 03/02/22 07:14 Completed XR chest 1V portable [id number] Stat Exams 03/02/22 04:15 Completed Pending at discharge Category Date Time Status Blood Culture Stat Lab 03/02/22 04:30 Results Sputum Culture and Gram Stain Stat Lab 03/03/22 13:09 Uncollected Radiology Impressions Chest X-Ray 03/02/22 04:15 IMPRESSION: There are patchy opacity seen in the left lung base similar to that present on 03/14/2021, findings suggesting chronic parenchymal scarring or atelectasis. A recurrent left basilar pneumonia cannot be entirely excluded. Chest CT 03/02/22 07:14 IMPRESSION: Multifocal pneumonia. Microbiology 03/02/22 12:59 Sputum - Expectorated Sputum Gram Stain - Final 03/02/22 12:59 Sputum - Expectorated Sputum Sputum Culture - Final 03/02/22 10:31 Nose MRSA Culture - Final 03/02/22 04:30 Blood Blood Culture - Preliminary NEGATIVE TO DATE 03/02/22 04:31 Blood Blood Culture - Preliminary NEGATIVE TO DATE 03/02/22 10:07 Urine,Voided Legionella Urinary Antigen - Final 03/02/22 10:07 Urine,Voided Bacterial Antigens - Final Laboratory Results WBC 23.6 10^3/uL (4.0-10.0) H 03/05/22 01:39 RBC 4.80 10^6/uL (4.1-5.3) 03/05/22 01:39 Hgb 13.7 g/dL (11.7-16.6) 03/05/22 01:39 Hct 44.7 % (42.0-52.0) 03/05/22 01:39 MCV 93.1 fl (80-94) 03/05/22 01:39 MCH 28.5 pg (28.0-34.0) 03/05/22 01:39 MCHC 30.6 g/dL (30.0-36.0) 03/05/22 01:39 RDW 12.9 % (12.1-15.1) 03/05/22 01:39 Plt Count 305 10^3/cmm (130-400) 03/05/22 01:39 MPV 9.4 fL (7.4-10.4) 03/05/22 01:39 Neut % (Auto) 88.9 % 03/05/22 01:39 Lymph % (Auto) 4.6 % 03/05/22 01:39 Thurston % (Auto) 5.3 % 03/05/22 01:39 Eos % (Auto) 0.0 % 03/05/22 01:39 Baso % (Auto) 0.2 % 03/05/22 01:39 Neut # (Auto) 20.94 10^3/uL (1.8-7.7) H 03/05/22 01:39 Lymph # (Auto) 1.1 10^3/uL (0.8-4.8) 03/05/22 01:39 Thurston # (Auto) 1.2 10^3/uL (0.2-0.9) H 03/05/22 01:39 Eos # (Auto) 0.0 10^3/uL (0.0-0.8) 03/05/22 01:39 Baso # (Auto) 0.1 10^3/uL (0.0-0.1) 03/05/22 01:39 Nucleated RBC % (auto) 0 % 03/05/22 01:39 Nucleated RBCs # 0.0 /100WBC 03/05/22 01:39 D-Dimer 0.83 ug/mIFEU (0-0.59) H 03/02/22 04:18 Specimen Type Arterial 03/02/22 04:30 Sample Site Radial, right 03/02/22 04:30 ABG pH 7.37 (7.35-7.45) 03/02/22 04:30 ABG pCO2 57.8 mmHg (35-45) H 03/02/22 04:30 ABG pO2 68.4 mmHg (80.0-100.0) L 03/02/22 04:30 ABG HCO3 33.7 mmol/L (22-26) H 03/02/22 04:30 ABG Base Excess 6.5 mmol/L (-2.0-2.0) H 03/02/22 04:30 Luis Fernando Test Pos 03/02/22 04:30 Hematocrit 45.2 % (42-52) 03/02/22 04:30 Hgb O2 Saturation 93.0 % (95-100) L 03/02/22 04:30 Carboxyhemoglobin 1.7 %THgb (0.4-20.1) 03/02/22 04:30 Methemoglobin 0.8 % (0.4-1.5) 03/02/22 04:30 Total Hemoglobin 14.7 g/dL (14-18) 03/02/22 04:30 O2 Delivery Device Bipap 03/02/22 04:30 FiO2 40.0 % 03/02/22 04:30 Dice Person ID Droch 03/02/22 04:30 Sodium 139 mmol/L (136-145) 03/05/22 01:39 Potassium 4.3 mmol/L (3.5-5.1) 03/05/22 01:39 Chloride 100 mmol/L (98-107) 03/05/22 01:39 Carbon Dioxide 33 mmol/L (22-29) H 03/05/22 01:39 Anion Gap 10.3 (5-19) 03/05/22 01:39 BUN 18 mg/dL (8-23) 03/05/22 01:39 Creatinine 0.8 mg/dL (0.7-1.2) 03/05/22 01:39 GFR Calculation Not Reportable 03/05/22 01:39 Glucose 194 mg/dL (65-115) H 03/05/22 01:39 POC Glucose 159 mg/dL (70-110) H 03/05/22 06:10 Estimat Average Glucose 140 03/04/22 02:26 Hemoglobin A1c 6.5 % (4.0-6.0) H 03/04/22 02:26 Calculated Osmolality 295 mOsm/kg (285-295) 03/05/22 01:39 Lactic Acid 1.1 mmol/L (0.5-2.2) 03/02/22 04:18 Lactate 1.0 mmol/L (0.5-2.2) 03/02/22 07:08 Calcium 9.1 mg/dL (8.5-10.5) 03/05/22 01:39 Phosphorus 2.1 mg/dL (2.5-4.5) L 03/03/22 02:57 Magnesium 2.2 mg/dL (1.7-2.3) 03/03/22 02:57 Iron 35 ug/dL (59-158) L 03/03/22 02:57 TIBC 228 mcg/dl 03/03/22 02:57 % Saturation 15.3 % (20-50) L 03/03/22 02:57 Unsat Iron Binding 193 ug/dL (112-347) 03/03/22 02:57 Total Bilirubin 0.2 mg/dL (0.15-1.2) 03/05/22 01:39 AST 26 U/L (0-40) 03/05/22 01:39 ALT 39 U/L (0-41) 03/05/22 01:39 Alkaline Phosphatase 81 U/L (40-130) 03/05/22 01:39 Troponin T Baseline 19 ng/L (0-15) H 03/02/22 04:18 Troponin T 120 Minute 25.10 ng/L (0-15) H 03/02/22 06:30 Delta Troponin T 6.10 ABS# (0-10) 03/02/22 06:30 Troponin T Hi Sens 6Hr 17.57 ng/L (0-15) H 03/02/22 10:15 Troponin T Hi Sens 6Hr Delta -1.43 ng/L (0-12) L 03/02/22 10:15 C-Reactive Protein 85.3 mg/L (0.0-4.9) H 03/03/22 02:57 NT-Pro-B Natriuret Pep 345 pg/mL (0-125) H 03/02/22 04:18 Total Protein 6.7 g/dL (6.6-8.7) 03/05/22 01:39 Albumin 3.3 g/dL (3.5-5.2) L 03/05/22 01:39 Globulin 3.4 g/dL (1.3-4.6) 03/05/22 01:39 Triglycerides 51 mg/dL (0-150) 03/04/22 02:26 Cholesterol 129 mg/dL (0-200) 03/04/22 02:26 LDL Cholesterol, Calc 68 mg/dL (50-129) 03/04/22 02:26 Total VLDL Cholesterol 10 mg/dL (0-30) 03/04/22 02:26 HDL Cholesterol 51 mg/dL (60-100) L 03/04/22 02:26 Cholesterol/HDL Ratio 2.53 mg/dL (1.0-5.00) 03/04/22 02:26 Vitamin B12 388 pg/mL (232-1245) 03/03/22 02:57 Folate 16.8 ng/mL (4.5-32.2) 03/02/22 04:18 Procalcitonin 1.46 ng/mL (0-0.5) H 03/03/22 02:57 TSH 0.12 uIU/mL (0.27-4.20) L 03/03/22 02:57 Nasal Influ A H1 2008 PCR Not detected (NOT DETECT) 03/02/22 04:18 Vancomycin Trough 9.7 ug/mL (10-15) L 03/03/22 17:46 Adenovirus (PCR) Not detected (NOT DETECT) 03/02/22 04:18 C. pneumoniae DNA (PCR) Not detected (NOT DETECT) 03/02/22 04:18 Coronavirus 229E (PCR) Not detected (NOT DETECT) 03/02/22 04:18 Human Metapneumovir PCR Not detected (NOT DETECT) 03/02/22 04:18 Influenza A (H1) PCR Not detected (NOT DETECT) 03/02/22 04:18 Influenza A (H3) PCR Not detected (NOT DETECT) 03/02/22 04:18 Influenza Type A (PCR) Not detected (NOT DETECT) 03/02/22 04:18 Influenza Type B (PCR) Not detected (NOT DETECT) 03/02/22 04:18 M. pneumoniae (PCR) Not detected (NOT DETECT) 03/02/22 04:18 Parainfluenza 1 (PCR) Not detected (NOT DETECT) 03/02/22 04:18 Parainfluenza 2 (PCR) Not detected (NOT DETECT) 03/02/22 04:18 Parainfluenza 3 (PCR) Not detected (NOT DETECT) 03/02/22 04:18 Parainfluenza 4 (PCR) Not detected (NOT DETECT) 03/02/22 04:18 RSV Type A (PCR) Not detected (NOT DETECT) 03/02/22 04:18 RSV Type B (PCR) Not detected (NOT DETECT) 03/02/22 04:18 Entero/Rhino (PCR) Not detected (NOT DETECT) 03/02/22 04:18 SARS-CoV-2 (PCR) Not detected (NOT DETECT) 03/02/22 04:18 Vitals Last Vital Signs Temp 98.3 F 03/05/22 07:40 Pulse 104 H 03/05/22 08:21 Resp 22 H 03/05/22 08:21 BP 125/78 03/05/22 07:40 Pulse Ox 95 03/05/22 08:21 O2 Del Method 03/05/22 08:21 O2 Flow Rate 3 03/05/22 08:21 FiO2 45 03/02/22 07:43 Discharge Plan Discharge Patient Disposition: Home Condition: Stable Prescriptions: New amoxicillin-pot clavulanate [Augmentin] 500-125 mg tablet 1 tab PO BID 3 Days Qty: 6 0RF levofloxacin 500 mg tablet 500 mg PO Q24H 3 Days Qty: 3 0RF prednisone 10 mg tablet See Rx Instructions .ROUTE .COMPLEX Qty: 42 0RF Rx Instructions: prednisone 5 mg: take 8 tablets (40 mg) on Day 1; 7 tablets (35 mg) on Day 2; then decrease by 1 tablet every day until finished furosemide [Lasix] 20 mg tablet 20 mg PO DAILY Qty: 30 0RF Continued acetaminophen [Tylenol Extra Strength] 500 mg tablet 500 mg PO Q4H PRN (Reason: Pain) epinephrine 0.3 mg/0.3 mL auto-injector 0.3 mg IM ONCE PRN (Reason: Allergic Reaction) (DME) Four wheeled walker with a seat Qty: 1 0RF Rx Instructions: As directed Xolair 150 mg recon soln 150 mg SUBCUT Q30D albuterol sulfate 2.5 mg /3 mL (0.083 %) solution for nebulization 2.5 mg INHALATION BID PRN (Reason: Shortness Of Breath) tramadol 50 mg tablet 50 mg PO TID PRN (Reason: pain) Qty: 90 0RF atorvastatin 20 mg tablet 20 mg PO .QHS Qty: 90 1RF fluticasone propionate [Flonase Allergy Relief] 50 mcg/actuation spray,suspension 1 spray INTRANASAL Q12H 90 Days Qty: 54.6 3RF amitriptyline 25 mg tablet See Rx Instructions .ROUTE .COMPLEX Qty: 30 0RF Dose Instruction: TAKE 1 TABLET BY MOUTH DAILY Rx Instructions: TAKE 1 TABLET BY MOUTH DAILY venlafaxine 150 mg capsule,extended release 24hr See Rx Instructions .ROUTE .COMPLEX Qty: 30 0RF Dose Instruction: TAKE 1 CAPSULE BY MOUTH EVERY DAY Rx Instructions: TAKE 1 CAPSULE BY MOUTH EVERY DAY Flomax 0.4 mg capsule 0.8 mg PO DAILY Qty: 180 1RF azithromycin 250 mg tablet 250 mg PO .every other day Qty: 45 3RF Rx Instructions: NEEDS APPT PRIOR TO FURTHER REFILLS budesonide [Pulmicort] 0.5 mg/2 mL suspension for nebulization 0.5 mg INHALATION BID Qty: 120 2RF Rx Instructions: NEEDS APPT PRIOR TO FURTHER REFILLS Perforomist 20 mcg/2 mL solution for nebulization 2 ml INHALATION Q12H 90 Days Qty: 120 2RF Rx Instructions: NEEDS APPT PRIOR TO FURTHER REFILLS Yupelri 175 mcg/3 mL solution for nebulization 175 mcg inhalation DAILY Qty: 90 2RF Rx Instructions: NEEDS APPT PRIOR TO FRUTHER REFILLS albuterol sulfate 90 mcg/actuation HFA aerosol inhaler 2 inh inhalation Q6H PRN (Reason: shortness of breath or wheezing) Qty: 18 2RF Januvia 100 mg tablet 100 mg PO DAILY Qty: 90 1RF Rx Instructions: 340 B Held prednisone 5 mg tablet 5 mg PO DAILY 90 Days Qty: 90 0RF Hold Instructions: Resume on 03/26/22. Discharge Orders: Discharge Order (Routine); Ordered 03/05/22 Ordered By: Dariusz Palacios Referrals: Courtney Reich DO [Primary Care Provider] - 7-10 days Discharge Diet: Cardiac and Diabetic Discharge Activity: Resume usual activity and Increase activity as tolerated Patient Instructions: Opioid Safety Discharge Attestations Time Spent in Discharge Care*: greater than 30 min Specific Discharge Activities: educating patient, educating and/or supporting family/caregiver, discussing with pillowcase sewer/social workers/dc planners, documenting/other paperwork and evaluating patient/reviewing data Status at Discharge: Cognitive status at discharge: cognitively intact , Behavioral status at discharge: cooperative , Functional status at discharge: independent ambulation , Overall status at discharge: patient is progressing back to baseline Quality Metrics Clinical Quality Measures [ No reported AMI, CVA or VTE this stay] Coding Level of Care Code Acute Chg FW DC note Diagnoses Respiratory failure with hypoxia and hypercapnia J96.91; J96.92 Acute exacerbation of chronic obstructive pulmonary disease J44.1 Sepsis A41.9 BPH loc w urin obs/LUTS N40.1 Recurrent pneumonia J18.9 Diabetes mellitus type 2, noninsulin dependent E11.9 Obstructive sleep apnea G47.33 Chronic respiratory failure with hypoxia J96.11 COPD (chronic obstructive pulmonary disease) J43.1 COPD type: emphysema Emphysema type: panlobular
[2022-03-05] MEDS: acetaZOLAMIDE 250 mg Tablet 500 MG PO (09:54)
[2022-03-05] MEDS: tamsulosin 0.4 mg Capsule 0.8 MG PO (09:55)
[2022-03-05] MEDS: sennosides-docusate Tablet 1 TAB PO (09:55)
--- NOTE | 2022-03-05 12:18 | PC.SOCIAL ---
Pg 2 IMM Explained to pt Pg 2 IMM. No questions voiced. Provided pt a copy. Initialed, dated, & timed a copy & placed in chart.
--- NOTE | 2022-03-05 15:56 | P.PN_ITS ---
Subjective Subjective: No acute events overnight. Patient has remained hemodynamically stable and afebrile. Patient has remained at baseline oxygen supplementation on 2 L of oxygen supplementation. Patient was to be discharged today but he requested to stay a day longer because he feels weak and he does not want to be a burden to his when he goes home. It is discussed with the patient that we will get physical therapy evaluation to rule out physical deconditioning and then possible discharge in the next 24 h ours to home versus SNF depending on physical therapy evaluation. On discussing this patient became verbally angry and stated there is no matter what he is going to go out of hospital tomorrow back home and if he is not discharged he will leave AMA. Vitals/I&O/Wt Last Vital Signs Temp 98.2 F 03/05/22 12:42 Pulse 96 03/05/22 14:17 Resp 18 03/05/22 14:05 BP 138/84 03/05/22 12:42 Pulse Ox 97 03/05/22 14:05 O2 Del Method 03/05/22 14:05 O2 Flow Rate 2.5 03/05/22 14:05 FiO2 45 03/02/22 07:43 03/05/22 03/05/22 03/05/22 06:59 14:59 22:59 Intake Total 50 / 1890 50 / 50 Output Total 700 / 3475 1415 / 1415 Balance -650 / -1585 -1365 / -1365 Physical Exam Narrative: General: No acute distress, AO x3, NC oxygen supplementation HEENT: PERRLA, pupils bilaterally equal and reactive Chest:Bronchial breath sounds b/l ,decreased air entry, equal good air entry bilaterally, no more fine basal crackles CVS: S1-S2 regular, no murmurs, no tachycardia, no gallops, no rubs Abdomen: Soft, nontender, no organomegaly, bowel sounds present, morbidly obese Neuro: No focal deficits, no facial deformity, AO x3, power 5/5 in all limbs Data 03/05/22 01:39 03/05/22 01:39 Micro: Microbiology 03/02/22 12:59 Gram Stain - Final Sputum - Expectorated Sputum Sputum Culture - Final A&P Assessment and plan (1) Respiratory failure with hypoxia and hypercapnia: Multifocal pneumonia as well as severe Gold class D COPD exacerbation. MRSA swab negative. Urine Legionella bacterial antigen negative. Sputum culture not appropriate. Will ask for repeat sample. COVID-19, flu swab negative. Oxygen supplementation keeping saturation more than 88%. Wean down Solu-Medrol to 40 mg every 12 hourly. Stop vancomycin as MRSA is negative. Continue with Zosyn. Follow-up sputum culture results. Continue with DuoNebs every 6 hour, budesonide twice daily. Appropriate urine output to Lasix. Start on Diamox 500 mg oral daily for developing contraction alkalosis. Last echocardiogram from 2019 shows an EF 50%, grade 1 diastolic dysfunction. Strict input output charting, daily weights. (2) Acute exacerbation of chronic obstructive pulmonary disease: (3) Sepsis: (4) BPH loc w urin obs/LUTS: (5) Recurrent pneumonia: (6) Diabetes mellitus type 2, noninsulin dependent: (7) Obstructive sleep apnea: (8) Chronic respiratory failure with hypoxia: (9) COPD (chronic obstructive pulmonary disease): Qualifiers: COPD type: emphysema Emphysema type: panlobular Qualified Code(s): J43.1 - Panlobular emphysema Plan DM: Insulin sliding scale at low-dose protocol. Cardiac consistent carb diet Lovenox for DVT prophylaxis Famotidine for PUD prophylaxis Plan for the day: Continue with Solu-Medrol daily. Home O2 evaluation. Physical therapy evaluation. Continue with Zosyn. We will plan to switch to oral antibiotics on discharge. Continue her Diamox today. We will switch to oral Lasix on discharge. Attestations Medical Necessity Statement*: Patient requires further hospitalization for management of hypoxia secondary COPD exacerbation, physical therapy evaluation to rule out physical deconditioning prior to discharge Time Spent in Patient Care: Greater than 35 minutes Coding Level of Care Code Acute Flooring Sales Manager for [facility] Fwd Diagnoses Respiratory failure with hypoxia and hypercapnia J96.91; J96.92 Acute exacerbation of chronic obstructive pulmonary disease J44.1 Sepsis A41.9 BPH loc w urin obs/LUTS N40.1 Recurrent pneumonia J18.9 Diabetes mellitus type 2, noninsulin dependent E11.9 Obstructive sleep apnea G47.33 Chronic respiratory failure with hypoxia J96.11 COPD (chronic obstructive pulmonary disease) J43.1 COPD type: emphysema Emphysema type: panlobular
[2022-03-05 16:49] LABS: Glucose Point of Care 248 mg/dL (70-110)
[2022-03-05 16:49] LABS: Glucose Point of Care 243 mg/dL (70-110)
[2022-03-05 20:43] LABS: Glucose Point of Care 157 mg/dL (70-110)
[2022-03-05] MEDS: amitriptyline 25 mg Tablet PO (20:49)
[2022-03-06] VITALS (8 sets, daily range): BP systolic 108–166; BP diastolic 60–77; PULSE 83–102; RESP 18–27; TEMP 36.7; O2SAT 96–99
[2022-03-06] MEDS: piperacillin-tazobactam 3.375 GM in sodium chloride 0.9% (plus) 50 ML IV (05:39)
[2022-03-06 06:48] LABS: Glucose Point of Care 130 mg/dL (70-110)
[2022-03-06] MEDS: budesonide 0.5 mg/2 mL Neb INHALATION (08:44)
[2022-03-06] MEDS: ipratropium-albuterol 3 mL Neb INHALATION (08:44)
--- NOTE | 2022-03-06 09:33 | PM.DCS ---
Discharge Providers Date of Admission: 03/02/22 05:46 Date of Discharge: March 06, 2022 Attending Provider at Admission: Shira Jorge MD Attending Provider at Discharge: Dariusz Palacios MD Primary Care Provider: Courtney Reich DO Diagnoses at Discharge Discharge Diagnosis (1) Respiratory failure with hypoxia and hypercapnia: Status: Acute (2) Acute exacerbation of chronic obstructive pulmonary disease: Status: Acute (3) Sepsis: Status: Acute (4) BPH loc w urin obs/LUTS: Status: Acute (5) Recurrent pneumonia: Status: Acute (6) Diabetes mellitus type 2, noninsulin dependent: Status: Chronic (7) Obstructive sleep apnea: Status: Acute (8) Chronic respiratory failure with hypoxia: Status: Acute (9) COPD (chronic obstructive pulmonary disease): Status: Chronic Qualifiers: COPD type: emphysema Emphysema type: panlobular Qualified Code(s): J43.1 - Panlobular emphysema Reason for Visit Reason for Visit: SOB Brief History: History as per HPI: Admitted on 03/02: Hernan Beckman JR is a 71 year old male with history of end-stage COPD, uses 2 L of oxygen along CPAP at night, active smoker, presented with chief complaint of worsening shortness of breath.? Patient is stating that he has been experiencing productive cough, green sputum for last 3 to 4 days, he has noticed fever 100.0, last night he woke up around midnight with extreme shortness of breath that prompted his visit to the ER.? In the ER he has been diagnosed with sepsis related to pneumonia.? I requested a lactic acid, gave him 2 L of bolus, he has received antibiotics, I have requested cultures and CT scan of chest to rule out postobstructive pneumonia because in March he had pneumonia on the same side as well.? Patient has been put on BiPAP EMT gave him mag sulfate, albuterol, IV steroids.? Patient uses 2 L of oxygen and CPAP at night, smoking half a pack a day. Hospital Course Hospital Course Patient was in the hospital further evaluation and management of hypoxic and hypercapnic respiratory failure secondary COPD exacerbation along with multifocal pneumonia as seen on CT chest. He was started on inhalation treatment, parenteral steroids which were weaned off along with empiric antibiotics. His blood cultures remain negative. He responded well to the treatment and has been on 2 L of oxygen at rest requiring up to 5 L on ambulation as per home O2 evaluation. Safe discharge plan were discussed in detail with the patient and he was seen by physical therapy. Patient has been discharged home on oral antibiotics for next 3 days, steroid taper and oral Lasix 20 mg daily. He is to follow-up with a primary care provider within next 1 week. Physical Exam Narrative: General: No acute distress, AO x3, NC oxygen supplementation HEENT: PERRLA, pupils bilaterally equal and reactive Chest:Bronchial breath sounds b/l ,decreased air entry, equal good air entry bilaterally, no more fine basal crackles CVS: S1-S2 regular, no murmurs, no tachycardia, no gallops, no rubs Abdomen: Soft, nontender, no organomegaly, bowel sounds present, morbidly obese Neuro: No focal deficits, no facial deformity, AO x3, power 5/5 in all limbs Discharge Data Studies Completed and Pending Completed Studies During Hospitalization Category Date Time Status CT chest wo con [id number] Stat Cat Scan 03/02/22 07:14 Completed XR chest 1V portable [id number] Stat Exams 03/02/22 04:15 Completed Pending at discharge Category Date Time Status Blood Culture Stat Lab 03/02/22 04:30 Results Sputum Culture and Gram Stain Stat Lab 03/03/22 13:09 Uncollected Radiology Impressions Chest X-Ray 03/02/22 04:15 IMPRESSION: There are patchy opacity seen in the left lung base similar to that present on 03/14/2021, findings suggesting chronic parenchymal scarring or atelectasis. A recurrent left basilar pneumonia cannot be entirely excluded. Chest CT 03/02/22 07:14 IMPRESSION: Multifocal pneumonia. Microbiology 03/02/22 12:59 Sputum - Expectorated Sputum Gram Stain - Final 03/02/22 12:59 Sputum - Expectorated Sputum Sputum Culture - Final 03/02/22 10:31 Nose MRSA Culture - Final 03/02/22 04:30 Blood Blood Culture - Preliminary NEGATIVE TO DATE 03/02/22 04:31 Blood Blood Culture - Preliminary NEGATIVE TO DATE 03/02/22 10:07 Urine,Voided Legionella Urinary Antigen - Final 03/02/22 10:07 Urine,Voided Bacterial Antigens - Final Laboratory Results WBC 23.6 10^3/uL (4.0-10.0) H 03/05/22 01:39 RBC 4.80 10^6/uL (4.1-5.3) 03/05/22 01:39 Hgb 13.7 g/dL (11.7-16.6) 03/05/22 01:39 Hct 44.7 % (42.0-52.0) 03/05/22 01:39 MCV 93.1 fl (80-94) 03/05/22 01:39 MCH 28.5 pg (28.0-34.0) 03/05/22 01:39 MCHC 30.6 g/dL (30.0-36.0) 03/05/22 01:39 RDW 12.9 % (12.1-15.1) 03/05/22 01:39 Plt Count 305 10^3/cmm (130-400) 03/05/22 01:39 MPV 9.4 fL (7.4-10.4) 03/05/22 01:39 Neut % (Auto) 88.9 % 03/05/22 01:39 Lymph % (Auto) 4.6 % 03/05/22 01:39 [place] % (Auto) 5.3 % 03/05/22 01:39 Eos % (Auto) 0.0 % 03/05/22 01:39 Baso % (Auto) 0.2 % 03/05/22 01:39 Neut # (Auto) 20.94 10^3/uL (1.8-7.7) H 03/05/22 01:39 Lymph # (Auto) 1.1 10^3/uL (0.8-4.8) 03/05/22 01:39 [place] # (Auto) 1.2 10^3/uL (0.2-0.9) H 03/05/22 01:39 Eos # (Auto) 0.0 10^3/uL (0.0-0.8) 03/05/22 01:39 Baso # (Auto) 0.1 10^3/uL (0.0-0.1) 03/05/22 01:39 Nucleated RBC % (auto) 0 % 03/05/22 01:39 Nucleated RBCs # 0.0 /100WBC 03/05/22 01:39 D-Dimer 0.83 ug/mIFEU (0-0.59) H 03/02/22 04:18 Specimen Type Arterial 03/02/22 04:30 Sample Site Radial, right 03/02/22 04:30 ABG pH 7.37 (7.35-7.45) 03/02/22 04:30 ABG pCO2 57.8 mmHg (35-45) H 03/02/22 04:30 ABG pO2 68.4 mmHg (80.0-100.0) L 03/02/22 04:30 ABG HCO3 33.7 mmol/L (22-26) H 03/02/22 04:30 ABG Base Excess 6.5 mmol/L (-2.0-2.0) H 03/02/22 04:30 Luis Fernando Test Pos 03/02/22 04:30 Hematocrit 45.2 % (42-52) 03/02/22 04:30 Hgb O2 Saturation 93.0 % (95-100) L 03/02/22 04:30 Carboxyhemoglobin 1.7 %THgb (0.4-20.1) 03/02/22 04:30 Methemoglobin 0.8 % (0.4-1.5) 03/02/22 04:30 Total Hemoglobin 14.7 g/dL (14-18) 03/02/22 04:30 O2 Delivery Device Bipap 03/02/22 04:30 FiO2 40.0 % 03/02/22 04:30 Multiple Launch Rocket System Crewmember ID Droch 03/02/22 04:30 Sodium 139 mmol/L (136-145) 03/05/22 01:39 Potassium 4.3 mmol/L (3.5-5.1) 03/05/22 01:39 Chloride 100 mmol/L (98-107) 03/05/22 01:39 Carbon Dioxide 33 mmol/L (22-29) H 03/05/22 01:39 Anion Gap 10.3 (5-19) 03/05/22 01:39 BUN 18 mg/dL (8-23) 03/05/22 01:39 Creatinine 0.8 mg/dL (0.7-1.2) 03/05/22 01:39 GFR Calculation Not Reportable 03/05/22 01:39 Glucose 194 mg/dL (65-115) H 03/05/22 01:39 POC Glucose 130 mg/dL (70-110) H 03/06/22 06:23 Estimat Average Glucose 140 12/27/22 02:26 Hemoglobin A1c 6.5 % (4.0-6.0) H 03/04/22 02:26 Calculated Osmolality 295 mOsm/kg (285-295) 03/05/22 01:39 Lactic Acid 1.1 mmol/L (0.5-2.2) 03/02/22 04:18 Lactate 1.0 mmol/L (0.5-2.2) 03/02/22 07:08 Calcium 9.1 mg/dL (8.5-10.5) 03/05/22 01:39 Phosphorus 2.1 mg/dL (2.5-4.5) L 03/03/22 02:57 Magnesium 2.2 mg/dL (1.7-2.3) 03/03/22 02:57 Iron 35 ug/dL (59-158) L 03/03/22 02:57 TIBC 228 mcg/dl 03/03/22 02:57 % Saturation 15.3 % (20-50) L 03/03/22 02:57 Unsat Iron Binding 193 ug/dL (112-347) 03/03/22 02:57 Total Bilirubin 0.2 mg/dL (0.15-1.2) 03/05/22 01:39 AST 26 U/L (0-40) 03/05/22 01:39 ALT 39 U/L (0-41) 03/05/22 01:39 Alkaline Phosphatase 81 U/L (40-130) 03/05/22 01:39 Troponin T Baseline 19 ng/L (0-15) H 03/02/22 04:18 Troponin T 120 Minute 25.10 ng/L (0-15) H 03/02/22 06:30 Delta Troponin T 6.10 ABS# (0-10) 03/02/22 06:30 Troponin T Hi Sens 6Hr 17.57 ng/L (0-15) H 03/02/22 10:15 Troponin T Hi Sens 6Hr Delta -1.43 ng/L (0-12) L 03/02/22 10:15 C-Reactive Protein 85.3 mg/L (0.0-4.9) H 03/03/22 02:57 NT-Pro-B Natriuret Pep 345 pg/mL (0-125) H 03/02/22 04:18 Total Protein 6.7 g/dL (6.6-8.7) 03/05/22 01:39 Albumin 3.3 g/dL (3.5-5.2) L 03/05/22 01:39 Globulin 3.4 g/dL (1.3-4.6) 03/05/22 01:39 Triglycerides 51 mg/dL (0-150) 03/04/22 02:26 Cholesterol 129 mg/dL (0-200) 03/04/22 02:26 LDL Cholesterol, Calc 68 mg/dL (50-129) 03/04/22 02:26 Total VLDL Cholesterol 10 mg/dL (0-30) 03/04/22 02:26 HDL Cholesterol 51 mg/dL (60-100) L 03/04/22 02:26 Cholesterol/HDL Ratio 2.53 mg/dL (1.0-5.00) 03/04/22 02:26 Vitamin B12 388 pg/mL (232-1245) 03/03/22 02:57 Folate 16.8 ng/mL (4.5-32.2) 03/02/22 04:18 Procalcitonin 1.46 ng/mL (0-0.5) H 03/03/22 02:57 TSH 0.12 uIU/mL (0.27-4.20) L 03/03/22 02:57 Nasal Influ A H1 2009 PCR Not detected (NOT DETECT) 03/02/22 04:18 Vancomycin Trough 9.7 ug/mL (10-15) L 03/03/22 17:46 Adenovirus (PCR) Not detected (NOT DETECT) 03/02/22 04:18 C. pneumoniae DNA (PCR) Not detected (NOT DETECT) 03/02/22 04:18 Coronavirus 229E (PCR) Not detected (NOT DETECT) 03/02/22 04:18 Human Metapneumovir PCR Not detected (NOT DETECT) 03/02/22 04:18 Influenza A (H1) PCR Not detected (NOT DETECT) 03/02/22 04:18 Influenza A (H3) PCR Not detected (NOT DETECT) 03/02/22 04:18 Influenza Type A (PCR) Not detected (NOT DETECT) 03/02/22 04:18 Influenza Type B (PCR) Not detected (NOT DETECT) 03/02/22 04:18 M. pneumoniae (PCR) Not detected (NOT DETECT) 03/02/22 04:18 Parainfluenza 1 (PCR) Not detected (NOT DETECT) 03/02/22 04:18 Parainfluenza 2 (PCR) Not detected (NOT DETECT) 03/02/22 04:18 Parainfluenza 3 (PCR) Not detected (NOT DETECT) 03/02/22 04:18 Parainfluenza 4 (PCR) Not detected (NOT DETECT) 03/02/22 04:18 RSV Type A (PCR) Not detected (NOT DETECT) 03/02/22 04:18 RSV Type B (PCR) Not detected (NOT DETECT) 03/02/22 04:18 Entero/Rhino (PCR) Not detected (NOT DETECT) 03/02/22 04:18 SARS-CoV-2 (PCR) Not detected (NOT DETECT) 03/02/22 04:18 Vitals Last Vital Signs Temp 98.8 F 03/05/22 20:00 Pulse 102 H 03/06/22 08:46 Resp 18 03/06/22 08:46 BP 108/67 03/06/22 07:34 Pulse Ox 96 03/06/22 08:46 O2 Del Method 03/06/22 08:46 O2 Flow Rate 3 03/06/22 08:46 FiO2 45 03/02/22 07:43 Discharge Plan Discharge Patient Disposition: Home Condition: Stable Prescriptions: New Augmentin 500-125 mg tablet 1 tab PO BID 3 Days Qty: 6 0RF levofloxacin 500 mg tablet 500 mg PO Q24H 3 Days Qty: 3 0RF prednisone 10 mg tablet See Rx Instructions .ROUTE .COMPLEX Qty: 42 0RF Rx Instructions: prednisone 5 mg: take 8 tablets (40 mg) on Day 1; 7 tablets (35 mg) on Day 2; then decrease by 1 tablet every day until finished Lasix 20 mg tablet 20 mg PO DAILY Qty: 30 0RF Continued acetaminophen [Tylenol Extra Strength] 500 mg tablet 500 mg PO Q4H PRN (Reason: Pain) epinephrine 0.3 mg/0.3 mL auto-injector 0.3 mg IM ONCE PRN (Reason: Allergic Reaction) (DME) Four wheeled walker with a seat Qty: 1 0RF Rx Instructions: As directed Xolair 150 mg recon soln 150 mg SUBCUT Q30D albuterol sulfate 2.5 mg /3 mL (0.083 %) solution for nebulization 2.5 mg INHALATION BID PRN (Reason: Shortness Of Breath) tramadol 50 mg tablet 50 mg PO TID PRN (Reason: pain) Qty: 90 0RF atorvastatin 20 mg tablet 20 mg PO .QHS Qty: 90 1RF fluticasone propionate [Flonase Allergy Relief] 50 mcg/actuation spray,suspension 1 spray INTRANASAL Q12H 90 Days Qty: 54.6 3RF amitriptyline 25 mg tablet See Rx Instructions .ROUTE .COMPLEX Qty: 30 0RF Dose Instruction: TAKE 1 TABLET BY MOUTH DAILY Rx Instructions: TAKE 1 TABLET BY MOUTH DAILY venlafaxine 150 mg capsule,extended release 24hr See Rx Instructions .ROUTE .COMPLEX Qty: 30 0RF Dose Instruction: TAKE 1 CAPSULE BY MOUTH EVERY DAY Rx Instructions: TAKE 1 CAPSULE BY MOUTH EVERY DAY Flomax 0.4 mg capsule 0.8 mg PO DAILY Qty: 180 1RF azithromycin 250 mg tablet 250 mg PO .every other day Qty: 45 3RF Rx Instructions: NEEDS APPT PRIOR TO FURTHER REFILLS budesonide [Pulmicort] 0.5 mg/2 mL suspension for nebulization 0.5 mg INHALATION BID Qty: 120 2RF Rx Instructions: NEEDS APPT PRIOR TO FURTHER REFILLS Perforomist 20 mcg/2 mL solution for nebulization 2 ml INHALATION Q12H 90 Days Qty: 120 2RF Rx Instructions: NEEDS APPT PRIOR TO FURTHER REFILLS Yupelri 175 mcg/3 mL solution for nebulization 175 mcg inhalation DAILY Qty: 90 2RF Rx Instructions: NEEDS APPT PRIOR TO FRUTHER REFILLS albuterol sulfate 90 mcg/actuation HFA aerosol inhaler 2 inh inhalation Q6H PRN (Reason: shortness of breath or wheezing) Qty: 18 2RF Januvia 100 mg tablet 100 mg PO DAILY Qty: 90 1RF Rx Instructions: 340 B Held prednisone 5 mg tablet 5 mg PO DAILY 90 Days Qty: 90 0RF Hold Instructions: Resume on 03/26/22. Discharge Orders: Discharge Order (Routine); Ordered 03/05/22 Ordered By: Dariusz Palacios Other Ambulatory Orders: DME: Oxygen (Order) Location: None Selected Ordered By: Dariusz Palacios Referrals: [facility] [Outside] Courtney Reich DO [Primary Care Provider] - 7-10 days (You have a follow up appointment with Courtney Reich DO on 03/13/22 at 2:30pm.) Discharge Diet: Cardiac and Diabetic Discharge Activity: Resume usual activity and Increase activity as tolerated Patient Instructions: COPD, Furosemide (By mouth) (Lasix), Prednisone (By mouth), Amoxicillin/Clavulanate Potassium (By mouth) (Augmentin, Augmentin..., Levofloxacin (By mouth), Community Acquired Pneumonia (DC), Opioid Safety Activity Restrictions/Additional Instructions: Follow-up with a primary care provider within next 1 week. Continue steroid taper as directed. Once that taper is finished he can go back to your regular dose of prednisone from the next day. Keep him on 2 antibiotics Augmentin and Levaquin for next 3 days. He should be on a water pill which is Lasix 20 mg daily going forward. Fluid restriction up to 2 L/day. Restrict salt intake to less than 2 g a day. Discharge Attestations Time Spent in Discharge Care*: greater than 30 min Specific Discharge Activities: educating patient, discussing with pcp/other providers, discussing with egg caser/social workers/dc planners, documenting/other paperwork and evaluating patient/reviewing data Status at Discharge: Cognitive status at discharge: cognitively intact, Behavioral status at discharge: can be uncooperative and independent in ADL's, Functional status at discharge: independent ambulation, Overall status at discharge: patient is back to baseline Quality Metrics Clinical Quality Measures [ No reported AMI, CVA or VTE this stay] Coding Level of Care Code Acute Chg FW DC note Diagnoses Respiratory failure with hypoxia and hypercapnia J96.91; J96.92 Acute exacerbation of chronic obstructive pulmonary disease J44.1 Sepsis A41.9 BPH loc w urin obs/LUTS N40.1 Recurrent pneumonia J18.9 Diabetes mellitus type 2, noninsulin dependent E11.9 Obstructive sleep apnea G47.33 Chronic respiratory failure with hypoxia J96.11 COPD (chronic obstructive pulmonary disease) J43.1 COPD type: emphysema Emphysema type: panlobular
[2022-03-06] MEDS: tamsulosin 0.4 mg Capsule 0.8 MG PO (09:53)
[2022-03-06] MEDS: acetaZOLAMIDE 250 mg Tablet 500 MG PO (09:53)
[2022-03-06] MEDS: sennosides-docusate Tablet 1 TAB PO (09:53)
[2022-03-06] MEDS: predniSONE 20 mg Tablet 40 MG PO (09:53)
--- NOTE | 2022-03-06 12:19 | PC.NURSE ---
discharge instructions given and explained.pt and cg verb understanding of instructions.discharged via w/c to exit.spouse to drive pt home.
== END 2022-03-06 12:20 | disposition home or self-care (01) | DRG 871 ==
LOC: ER 05:09 → ER IP 08:46 → CSU 14:40
PROVIDERS: Internal Medicine; Admitting Provider Internal Medicine; Emergency Provider Emergency Medicine; PCP Family Medicine; Visit Provider Student in an Organized Health Care Education/Training Program
DX: A41.9 Sepsis, unspecified organism (principal); J18.9 Pneumonia, unspecified organism; J96.22 Acute and chronic respiratory failure with hypercapnia; J96.21 Acute and chronic respiratory failure with hypoxia; N13.8 Other obstructive and reflux uropathy; N40.1 Benign prostatic hyperplasia with lower urinary tract symptoms; E11.42 Type 2 diabetes mellitus with diabetic polyneuropathy; G47.33 Obstructive sleep apnea (adult) (pediatric); J43.1 Panlobular emphysema; Z99.81 Dependence on supplemental oxygen; Z99.89 Dependence on other enabling machines and devices; F17.210 Nicotine dependence, cigarettes, uncomplicated; Z87.01 Personal history of pneumonia (recurrent); Z79.51 Long term (current) use of inhaled steroids
CPT/HCPCS: 36415; 36416; 36600; 64615; 71045; 71250; 80048; 80053; 80061; 80202; 82607; 82746; 82805; 82962; 83036; 83540; 83550; 83605; 83735; 83880; 84100; 84145; 84443; 84484; 85025; 85378; 86140; 86403; 87040; 87070; 87205; 87449; 87486; 87581; 87633; 87641; 93005; 94640; 94660; 94664; 94760; 95911; 96365; 96367; 96372; 97110; 97161; 99285; J0456; J0585; J0696; J1650; J1815; J1940; J2405; J2543; J2920; J2930; J3370; J7030; J7050; J7512; J7626

== ENCOUNTER → 2022-04-17 07:57 | Outpatient (BNVA) | payer MEDICARE, BC, SELFPAY | PROVIDERS: PCP Family Medicine; Visit Provider Internal Medicine Pulmonary Disease | DX: J43.1 Panlobular emphysema (principal); J96.11 Chronic respiratory failure with hypoxia; Z91.89 Other specified personal risk factors, not elsewhere classified; J96.12 Chronic respiratory failure with hypercapnia; Z99.81 Dependence on supplemental oxygen; Z87.891 Personal history of nicotine dependence | CPT/HCPCS: 99214 ==

== ENCOUNTER 2022-05-06 10:47 | Outpatient (CLI) | payer MEDICARE, BC, SELFPAY ==
--- NOTE | 2022-05-06 11:00 | FL_ITS ---
WS: [id number] Barium swallow and esophagram, 05/06/2022 Clinical Data: Dysphagia, choking, pills having in the throat on occasion. Comparison: None. Fluoroscopy time: 1min [id number] # of spot films: 7 Findings: The patient swallowed the thick and thin barium, and it flowed through the hypopharynx without hesita tion. No stricture, mass, polyp or erosion was seen. There was a small Zenker's diverticulum at the C 5-6 level. 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 No aspiration or penetration was seen but there was vallecular pooling which did clear. The barium entered the esophagus and there was normal motility throughout. No hiatal hernia, reflux, stricture, polyp, mass, erosion or ulcer was noted. The barium entered the stomach normally. FL/FL barium swallow [id number] Impression: 1. Minimal vallecular pooling. 2. 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 3. Negative esophagram with no stricture, mass, polyp, erosion, ulceration, hia halima hernia or reflux.
== END 2022-05-06 10:48 | disposition home or self-care (01) ==
PROVIDERS: PCP Family Medicine; Visit Provider Internal Medicine Pulmonary Disease
DX: J96.91 Respiratory failure, unspecified with hypoxia (principal); J96.92 Respiratory failure, unspecified with hypercapnia; R13.10 Dysphagia, unspecified; Z91.89 Other specified personal risk factors, not elsewhere classified; M47.812 Spondylosis without myelopathy or radiculopathy, cervical region; K22.5 Diverticulum of esophagus, acquired
CPT/HCPCS: 74220

== ENCOUNTER 2022-05-23 18:54 | Inpatient (IN) | payer MEDICARE, BC, SELFPAY ==
[2022-05-23] VITALS (8 sets, daily range): BP systolic 145–163; BP diastolic 78–95; PULSE 81–93; RESP 18–20; O2SAT 90–98; BMI 39.5
--- NOTE | 2022-05-23 19:15 | ECG_ITS ---
[facility] Test Date: 2022-05-23 Pat Name: Hernan Beckman Department: Room: Gender: Male Personal Injury Attorney: : 1950 Requested By: Sam Veliz Order Number: [id number] Reading MD: OVIDIO RENEE Measurements Intervals [place] Rate: 87 P: 70 FL: 178 QRS: 46 QRSD: 101 T: 76 QT: 373 QTc: 450 Interpretive Statements SINUS RHYTHM LOW QRS VOLTAGE IN PRECORDIAL LEADS [QRS DEFLECTION < 1.0 mV IN CHEST LEADS] Compared to ECG 03/02/2022 10:26:13 Low QRS voltage now present Electronically Signed On 05-24-2022 23:37:22 CDT by OVIDIO RENEE [email or web address]
--- NOTE | 2022-05-23 19:37 | W.ED.WEAKNES ---
HPI - Weakness General: Chief complaint: Weakness Stated complaint: weakness Time Seen by Provider: 05/23/22 19:37 History of Present Illness: Mr. Beckman is a 71-year-old gentleman with complex past medical history including COPD with chronic hypoxic respiratory failure presenting to the emergency department for shortness of breath and generalized malaise. Reports onset of symptoms mostly today. He endorses profound generalized weakness as well as dyspnea on exertion with decreased exertional capacity. He notes occasionally productive cough. Denies other infectious symptoms. No associated chest pain. No other specific changes in health, exacerbating, or alleviating factors identified. Onset (ago): hour(s) Duration: progressively worsening Location: generalized Severity: moderate Relieving factors: none Exacerbating factors: exertion Associated symptoms: Reports other Review of Systems General: Reports: 10 or more systems reviewed and unremarkable except in HPI and below PFSH ED PFSH: Medical History BPH loc w urin obs/LUTS Chronic low back pain Has had nerve ablations and follows at pain clinic in [place] Chronic migraine Controlled diabetes mellitus without long-term current use of insulin COPD (chronic obstructive pulmonary disease) 2 L of oxygen at home, follows with Dr. Putnam in [place] currently, on theophylline Depression, controlled Diabetes mellitus type 2, noninsulin dependent Elevated prostate specific antigen [PSA] Enrolled in chronic care management History of multiple allergies Xolair injections monthly Hx of migraine headaches Has a triptan prescription and another medication Peripheral neuropathy Primarily involving hands, related to ulnar nerve interventions Surgical History H/O decompression of ulnar nerve bilateral H/O elbow surgery bilateral H/O rotator cuff surgery bilateral H/O total knee replacement right History of cataract surgery History of repair of rotator cuff Bilateral History of surgery on wrist Bilateral ulnar nerve release History of tonsillectomy and adenoidectomy Status post colonoscopy (07/21/19) normal , poor prep, repeat in 5 years Family History Mother , at age 66 Cancer uterine Aneurysm intracranial Father , at age 76 Lung disease asthma with allergies Asthma Other CAD (coronary artery disease) Social History Smoking and tobacco status: former smoker Quit status (tobacco): has quit using tobacco Year quit tobacco: 2021 Former quit date comment: 2ppd X 59 years Second hand smoke exposure: Yes Smoking risk assessment/counseling performed?: Yes Alcohol intake: former Counseling given: No Counseling given: No Lives independently: Yes Household members: spouse Marital status: service: Yes Current occupational status: retired Current gender identity: Male Physical Exam Const: COMMON NORMALS: patient oriented x3 and alert GENERAL APPEARANCE: cooperative and well developed HENMT: COMMON NORMALS: normocephalic and atraumatic HEAD & SCALP: normocephalic and atraumatic THROAT: posterior oropharynx normal Eye: COMMON NORMALS: conjunctivae normal CONJUNCTIVA: Yes conjunctivae normal SCLERA: sclerae normal Neck/C-Spine: COMMON NORMALS: supple GENERAL: Yes trachea midline Resp: EFFORT & INSPECTION: Yes tachypneic AUSCULTATION: diminished lung sounds Cardio: COMMON NORMALS: regular rate and regular rhythm RATE: regular rate RHYTHM: regular rhythm GI: COMMON NORMALS: Soft to palpation PALPATION: Yes Soft to palpation and No Tenderness to palpation present (GI) Extremity: GENERAL: Yes normal exam except as noted and No edema Neuro: COMMON NORMALS: patient oriented x3, CN's II-XII intact bilaterally, moves all extremities, no focal motor deficits and no sensory deficits noted SENSORIUM/ORIENTATION: Yes alert and No Orientation impaired Psych: COMMON NORMALS: mental status grossly normal and Normal thought process present THOUGHT PROCESS: Normal thought process present Course Vital Signs: Vital signs: Vital Signs Temperature 97.9 F 05/27/22 12:00 Pulse Rate 83 05/27/22 12:00 Respiratory Rate 16 05/27/22 12:00 Blood Pressure 173/84 05/27/22 12:00 Pulse Oximetry 98 05/27/22 12:00 Oxygen Delivery Me thod 05/27/22 12:00 Oxygen Flow Rate 2 05/27/22 12:00 MDM - Weakness Medical Decision Making 71-year-old gentleman presenting to the emergency department with generalized illness. Exam as above. Patient is nontoxic though somewhat ill in appearance. No focal neurologic deficits. EKG notable for sinus rhythm with normal axis and intervals, no STEMI. Labs notable for mild leukocytosis, otherwise normal hematologic panel. Metabolic panel without acute abnormality to explain symptoms. Negative range 2-hour delta troponin. Hematuria without evidence of UTI. Viral panel pending. X-ray notable for COPD. During ED course patient treated with small fluid bolus, RT treatment, steroids, antibiotic for COPD exacerbation. On reassessment patient still is marked tachypnea associated with any exertion. Patient requires inpatient management of COPD exacerbation. The results of ED evaluation were discussed with the patient including plan for admission due to requirement for level of care not available if discharged to prevent significant worsening/deterioration. Patient agreeable with plan. Discussed with hospitalist service who was agreeable to admit patient. Medical Records I reviewed the patient's medical records. Lab Data I reviewed the patient's lab results. 05/27/22 05:09 05/27/22 05:09 Radiology Impressions Chest X-Ray 05/23/22 20:02 IMPRESSION: 1. Mildly hyperaerated lungs consistent with deep inspiratory effort vs reactive airway disease vs mild COPD . 2. Mild left basilar atelectasis and/or pneumonia. Laboratory Results WBC 13.5 10^3/uL (4.0-10.0) H 05/23/22 20:15 RBC 4.44 10^6/uL (4.1-5.3) 05/23/22 20:15 Hgb 12.6 g/dL (11.7-16.6) 05/23/22 20:15 Hct 40.3 % (42.0-52.0) L 05/23/22 20:15 MCV 90.8 fl (80-94) 05/23/22 20:15 MCH 28.4 pg (28.0-34.0) 05/23/22 20:15 MCHC 31.3 g/dL (30.0-36.0) 05/23/22 20:15 RDW 12.1 % (12.1-15.1) 05/23/22 20:15 Plt Count 231 10^3/cmm (130-400) 05/23/22 20:15 MPV 8.9 fL (7.4-10.4) 05/23/22 20:15 Neut % (Auto) 65.8 % 05/23/22 20:15 Lymph % (Auto) 20.3 % 05/23/22 20:15 Wright % (Auto) 8.6 % 05/23/22 20:15 Eos % (Auto) 3.6 % 05/23/22 20:15 Baso % (Auto) 1.1 % 05/23/22 20:15 Neut # (Auto) 8.88 10^3/uL (1.8-7.7) H 05/23/22 20:15 Lymph # (Auto) 2.7 10^3/uL (0.8-4.8) 05/23/22 20:15 Wright # (Auto) 1.2 10^3/uL (0.2-0.9) H 05/23/22 20:15 Eos # (Auto) 0.5 10^3/uL (0.0-0.8) 05/23/22 20:15 Baso # (Auto) 0.2 10^3/uL (0.0-0.1) H 05/23/22 20:15 Nucleated RBC % (auto) 0 % 05/23/22 20:15 Nucleated RBCs # 0.0 /100WBC 05/23/22 20:15 Sodium 140 mmol/L (136-145) 05/23/22 20:15 Potassium 4.6 mmol/L (3.5-5.1) 05/23/22 20:15 Chloride 100 mmol/L (98-107) 05/23/22 20:15 Carbon Dioxide 34 mmol/L (22-29) H 05/23/22 20:15 Anion Gap 10.6 (5-19) 05/23/22 20:15 BUN 13 mg/dL (8-23) 05/23/22 20:15 Creatinine 0.8 mg/dL (0.7-1.2) 05/23/22 20:15 GFR Calculation Not Reportable 05/23/22 20:15 Glucose 99 mg/dL (65-115) 05/23/22 20:15 Calculated Osmolality 290 mOsm/kg (285-295) 05/23/22 20:15 Lactic Acid 1.1 mmol/L (0.5-2.2) 05/23/22 20:15 Calcium 9.0 mg/dL (8.5-10.5) 05/23/22 20:15 Total Bilirubin 0.2 mg/dL (0.15-1.2) 05/23/22 20:15 AST 19 U/L (0-40) 05/23/22 20:15 ALT 20 U/L (0-41) 05/23/22 20:15 Alkaline Phosphatase 89 U/L (40-130) 05/23/22 20:15 Troponin T Baseline 17 ng/L (0-15) H 05/23/22 20:15 Troponin T 120 Minute 16.19 ng/L (0-15) H 05/23/22 22:15 Delta Troponin T -0.81 ABS# (0-10) L 05/23/22 22:15 NT-Pro-B Natriuret Pep 307 pg/mL (0-125) H 05/23/22 20:15 Total Protein 6.6 g/dL (6.6-8.7) 05/23/22 20:15 Albumin 4.2 g/dL (3.5-5.2) 05/23/22 20:15 Globulin 2.4 g/dL (1.3-4.6) 05/23/22 20:15 Urine Color Yellow (Yellow) 05/23/22 22:15 Urine Appearance Clear (CLEAR) 05/23/22 22:15 Urine pH 7 (5-7) 05/23/22 22:15 Ur Specific [place] 1.005 (1.005-1.030) 05/23/22 22:15 Urine Protein Neg (Negative) 05/23/22 22:15 Urine Glucose (UA) Norm (Normal) 05/23/22 22:15 Urine Ketones Negative (Negative) 05/23/22 22:15 Urine Blood Trace (Negative) H 05/23/22 22:15 Urine Nitrate Negative (Negative) 05/23/22 22:15 Urine Bilirubin Neg (Negative) 05/23/22 22:15 Urine Urobilinogen Norm mg/dL (Negative) 05/23/22 22:15 Ur Leukocyte Esterase Negative (Negative) 05/23/22 22:15 Urine RBC 5-10 /hpf (0-2) H 05/23/22 22:15 Urine WBC 0-4 /hpf (0-5) H 05/23/22 22:15 Ur Squamous Epith Cells 0-4 /hpf (0-5) H 05/23/22 22:15 Amorphous Sediment Not Reportable 05/23/22 22:15 Urine Bacteria Trace /hpf (NONE) 05/23/22 22:15 Nasal Influ A H1 2008 PCR Not detected (NOT DETECT) 05/23/22 Unknown Adenovirus (PCR) Not detected (NOT DETECT) 05/23/22 Unknown C. pneumoniae DNA (PCR) Not detected (NOT DETECT) 05/23/22 Unknown Coronavirus 229E (PCR) Not detected (NOT DETECT) 05/23/22 Unknown Human Metapneumovir PCR Not detected (NOT DETECT) 05/23/22 Unknown Influenza A (H1) PCR Not detected (NOT DETECT) 05/23/22 Unknown Influenza A (H3) PCR Not detected (NOT DETECT) 05/23/22 Unknown Influenza Type A (PCR) Not detected (NOT DETECT) 05/23/22 Unknown Influenza Type B (PCR) Not detected (NOT DETECT) 05/23/22 Unknown M. pneumoniae (PCR) Not detected (NOT DETECT) 05/23/22 Unknown Parainfluenza 1 (PCR) Not detected (NOT DETECT) 05/23/22 Unknown Parainfluenza 2 (PCR) Not detected (NOT DETECT) 05/23/22 Unknown Parainfluenza 3 (PCR) Not detected (NOT DETECT) 05/23/22 Unknown Parainfluenza 4 (PCR) Not detected (NOT DETECT) 05/23/22 Unknown RSV Type A (PCR) Not detected (NOT DETECT) 05/23/22 Unknown RSV Type B (PCR) Not detected (NOT DETECT) 05/23/22 Unknown Entero/Rhino (PCR) Not detected (NOT DETECT) 05/23/22 Unknown SARS-CoV-2 (PCR) Not detected (NOT DETECT) 05/23/22 Unknown Discharge Plan Discharge Patient Disposition: Admitted As Inpatient Admit Provider: Jace Contreras Clinical Impression: Acute exacerbation of chronic obstructive pulmonary disease Condition: Stable Discharge Diet: Cardiac Discharge Activity: Resume usual activity and Increase activity as tolerated Coding Level of Care Code 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
--- NOTE | 2022-05-23 20:02 | XRR_ITS ---
PROCEDURE INFORMATION: Exam: XR Chest Exam date and time: 05/23/2022 8:06 PM Age: 71 years old Clinical indication: Shortness of breath; Additional info: SOB TECHNIQUE: Imaging protocol: Radiologic exam of the chest. Views: 1 view. COMPARISON: CT chest [facility] [id number] 03/02/2022 8:49 AM FINDINGS: Lungs: Mildly hyperaerated lungs consistent with deep inspiratory effort vs reactive airway disease vs mild COPD . Mild left basilar atelectasis and/or pneumonia. Pleural spaces: Unremarkable. No pleural effusion. No pneumothorax. Heart/Mediastinum: Unremarkable. No cardiomegaly. Bones/joints: Unremarkable. XR/XR chest 1V portable [id number] IMPRESSION: 1. Mildly hyperaerated lungs consistent with deep inspiratory effort vs reactive airway disease vs mild COPD . 2. Mild left basilar atelectasis and/or pneumonia.
[2022-05-23] MEDS: ipratropium-albuterol 3 mL Neb INHALATION (20:21)
[2022-05-23 20:26] LABS: Basophils # 0.2 10^3/uL (0.0-0.1); Basophils % 1.1 %; Eosinophils # 0.5 10^3/uL (0.0-0.8); Eosinophils % 3.6 %; Hematocrit 40.3 % (42.0-52.0); Hemoglobin 12.6 g/dL (11.7-16.6); Lymphocytes # 2.7 10^3/uL (0.8-4.8); Lymphocytes % 20.3 %; Mean Corpuscular HGB Conc 31.3 g/dL (30.0-36.0); Mean Corpuscular Hemoglobin 28.4 pg (28.0-34.0); Mean Corpuscular Volume 90.8 fl (80-94); Mean Platelet Volume 8.9 fL (7.4-10.4); Monocytes # 1.2 10^3/uL (0.2-0.9); Monocytes % 8.6 %; Neutrophils # 8.88 10^3/uL (1.8-7.7); Neutrophils % 65.8 %; Nucleated Red Blood Cells % 0 %; Platelet Count 231 10^3/cmm (130-400); Red Blood Count 4.44 10^6/uL (4.1-5.3); Red Cell Distribution Width 12.1 % (12.1-15.1); White Blood Count 13.5 10^3/uL (4.0-10.0)
[2022-05-23 20:46] LABS: Lactic Sepsis W/Reflex 1.1 mmol/L (0.5-2.2)
[2022-05-23 20:51] LABS: Troponin(5th) Baseline 17 ng/L (0-15)
[2022-05-23 20:59] LABS: Alanine Aminotransferase 20 U/L (0-41); Albumin Level 4.2 g/dL (3.5-5.2); Alkaline Phosphatase 89 U/L (40-130); Anion Gap 10.6 (5-19); Aspartate Amino Transferase 19 U/L (0-40); Blood Urea Nitrogen 13 mg/dL (8-23); Carbon Dioxide 34 mmol/L (22-29); Chloride 100 mmol/L (98-107); Creatinine Clr Calc Pharmacy 102.6096; Globulin 2.4 g/dL (1.3-4.6); Glucose 99 mg/dL (65-115); NT Pro B Type Natriuretic Pept 307 pg/mL (0-125); Osmolality Calculated 290 mOsm/kg (285-295); Potassium 4.6 mmol/L (3.5-5.1); Sodium 140 mmol/L (136-145); Total Bilirubin 0.2 mg/dL (0.15-1.2); Total Protein 6.6 g/dL (6.6-8.7)
--- NOTE | 2022-05-23 22:00 | ECG_ITS ---
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
[2022-05-23 22:34] LABS: Adenovirus Not Detected (NOT DETECT); Chlamydia Pneumoniae Not Detected (NOT DETECT); Coronavirus 229E,HKU1,NL63,OC4 Not Detected (NOT DETECT); Human Metapneumovirus Not Detected (NOT DETECT); Human Rhinovirus/Enterovirus Not Detected (NOT DETECT); Influenza A Not Detected (NOT DETECT); Influenza A H1 Not Detected (NOT DETECT); Influenza A H1-2009 Not Detected (NOT DETECT); Influenza A H3 Not Detected (NOT DETECT); Influenza B Not Detected (NOT DETECT); Mycoplasma Pneumoniae Not Detected (NOT DETECT); Parainfluenza Virus Type 1 Not Detected (NOT DETECT); Parainfluenza Virus Type 2 Not Detected (NOT DETECT); Parainfluenza Virus Type 3 Not Detected (NOT DETECT); Parainfluenza Virus Type 4 Not Detected (NOT DETECT); Respiratory Syncytial Virus A Not Detected (NOT DETECT); Respiratory Syncytial Virus B Not Detected (NOT DETECT); SARS-COV-2 Not Detected (NOT DETECT)
[2022-05-23] MEDS: albuterol 2.5 mg/3 mL Neb INHALATION (22:36)
[2022-05-23 22:50] LABS: Add Urine Culture? No; Add Urine Microscopic? YES; Bacteria Urine TRACE /hpf; Bilirubin Urine Neg (Negative); Blood Urine Trace (Negative); Glucose Urine UA Norm (Normal); Ketones Urine Negative (Negative); Leukocyte Esterase Urine Negative (Negative); Nitrate Urine Negative (Negative); Protein Urine Neg (Negative); Specific Gravity, Urine 1.005 (1.005-1.030); Squamous Epithelial Cell Urine 0-4 /hpf (0-5); Urine Appearance Clear (CLEAR); Urine Color Yellow (Yellow); Urobilinogen Urine Norm (Negative); WBC Urine 0-4 /hpf (0-5); pH Urine 7 (5-7)
[2022-05-23 22:57] LABS: Troponin 5 2HR 16.19 ng/L (0-15)
[2022-05-23 22:58] LABS: Troponin 5 2HR Delta -0.81 ABS# (0-10)
[2022-05-23] MEDS: sodium chloride 0.9% 500 ML 999 ML IV (23:00)
[2022-05-23] MEDS: doxycycline 100 MG in sodium chloride 0.9% (plus) 100 ML IV (23:55)
[2022-05-24] VITALS (20 sets, daily range): BP systolic 139–177; BP diastolic 72–88; PULSE 80–100; RESP 16–19; TEMP 36.1–36.8; O2SAT 92–99
--- NOTE | 2022-05-24 01:21 | PM.HP ---
Providers/Chief Complaint Admitting Physician: Jace Contreras Primary Care Provider: Courtney Reich DO Chief Complaint: weakness History of Present Illness Pleasant 71-year-old gentleman with COPD, normally on 2 L of oxygen, has been progressively more dyspneic, coughing with production of greenish phlegm, had to increase his oxygen to 3 L due to severe dyspnea on exertion getting very dyspneic and tired even walking just from living room to the bathroom in the trailer he lives in. In ER also noted hypertensive, 189/89. States that his blood pressure does rise whenever he gets short of breath. In case of cardiopulmonary arrest would want attempted cardiopulmonary resuscitation, would not want protracted life support if little chance of recovery. Review of Systems Const: Denies: fever(s), chills, body aches or malaise Eyes: Denies: change in vision, eye discomfort or eye redness ENMT: Denies: throat pain, oral sores or ear or mastoid pain Card: Denies: chest pain, edema, pre-syncope or dyspnea on exertion Resp: Reports: dyspnea, productive cough and change in phlegm color; Denies: hemoptysis GI: Denies: abdominal pain, nausea, vomiting, diarrhea, constipation, hematochezia or melena : Denies: flank pain, difficulty urinating, urinary frequency or hematuria Musc: Denies: back pain, joint swelling or joint redness Skin/Breast: Denies: rash or new lesions Neuro: Reports: headache(s); Denies: numbness in extremities, weakness in extremities, dizziness, confusion or seizure-like activity Endo: Denies: polyuria or polydipsia Jonathan/Lymph: Denies: easy bleeding or tender lymph nodes All/Imm: Denies: urticaria or tongue swelling Medications/Allergies Home Medications Medication Instructions Recorded Confirmed Last Taken Type Four wheeled walker with a seat #1 ea 03/24/19 04/24/22 Unknown Rx acetaminophen 500 mg tablet 500 mg PO Q4H PRN Pain 03/24/19 04/24/22 07/18/19 History (Tylenol Extra Strength) epinephrine 0.3 mg/0.3 mL 0.3 mg IM ONCE PRN Allergic 03/24/19 04/24/22 Unknown History injection, auto-injector Reaction albuterol sulfate 2.5 mg/3 mL 2.5 mg inhalation BID PRN 04/05/19 04/24/22 07/21/19 History (0.083 %) solution for nebulization Shortness Of Breath fluticasone propionate 50 1 spray intranasal Q12H 90 days 05/19/19 04/24/22 07/20/19 Rx mcg/actuation nasal #54.6 mL spray,suspension (Flonase Allergy Relief) omalizumab 150 mg subcutaneous 150 mg SUBCUT Q30D 06/29/19 04/24/22 06/20/19 History solution (Xolair) azithromycin 250 mg tablet 250 mg PO .every other day #45 tabs 12/25/21 04/24/22 Unknown Rx albuterol sulfate 90 mcg/actuation 2 inh inhalation Q6H PRN shortness 01/10/22 04/24/22 Unknown Rx aerosol inhaler of breath or wheezing #18 grams budesonide 0.5 mg/2 mL suspension 0.5 mg (2 mL) inhalation BID #120 01/10/22 04/24/22 Unknown Rx for nebulization (Pulmicort) mL formoterol fumarate 20 mcg/2 mL 2 ml inhalation Q12H 90 days #120 01/10/22 04/24/22 Unknown Rx solution for nebulization mL (Perforomist) revefenacin 175 mcg/3 mL solution 175 mcg (3 mL) inhalation DAILY 01/10/22 04/24/22 Unknown Rx for nebulization (Yupelri) #90 mL atorvastatin 20 mg tablet 20 mg PO .QHS #90 tabs 02/13/22 04/24/22 Unknown Rx prednisone 5 mg tablet 5 mg PO DAILY 90 days #90 tabs 02/13/22 04/24/22 Unknown Rx sitagliptin phosphate 100 mg 100 mg PO DAILY #90 tabs 02/14/22 04/24/22 Unknown Rx tablet (Januvia) tramadol 50 mg tablet 50 mg PO TID PRN pain #90 tabs 04/10/22 04/24/22 Unknown Rx furosemide 20 mg tablet See Rx Instructions .Route 04/24/22 04/24/22 Unknown Rx .COMPLEX #90 tabs tamsulosin 0.4 mg capsule (Flomax) 0.8 mg PO DAILY #180 caps 04/24/22 04/24/22 Unknown Rx amitriptyline 25 mg tablet See Rx Instructions .Route 05/22/22 Unknown Rx .COMPLEX #30 tabs venlafaxine 150 mg See Rx Instructions .Route 05/22/22 Unknown Rx capsule,extended release 24 hr .COMPLEX #30 caps Allergies Allergy/AdvReac Type Severity Reaction Status Date / Time No Known Allergies Allergy Verified 03/13/22 14:07 PFSH Acute PFSH: Medical History BPH loc w urin obs/LUTS Chronic low back pain Has had nerve ablations and follows at pain clinic in [place] Chronic migraine Controlled diabetes mellitus without long-term current use of insulin COPD (chronic obstructive pulmonary disease) 2 L of oxygen at home, follows with Dr. Putnam in [place] currently, on theophylline Depression, controlled Diabetes mellitus type 2, noninsulin dependent Elevated prostate specific antigen [PSA] Enrolled in chronic care management History of multiple allergies Xolair injections monthly Hx of migraine headaches Has a triptan prescription and another medication Peripheral neuropathy Primarily involving hands, related to ulnar nerve interventions Surgical History H/O decompression of ulnar nerve bilateral H/O elbow surgery bilateral H/O rotator cuff surgery bilateral H/O total knee replacement right History of cataract surgery History of repair of rotator cuff Bilateral History of surgery on wrist Bilateral ulnar nerve release History of tonsillectomy and adenoidectomy Status post colonoscopy (07/21/19) normal , poor prep, repeat in 5 years Family History Mother , at age 66 Cancer uterine Aneurysm intracranial Father , at age 76 Lung disease asthma with allergies Asthma Other CAD (coronary artery disease) Social History Smoking and tobacco status: former smoker Quit status (tobacco): has quit using tobacco Year quit tobacco: 2021 Former quit date comment: 2ppd X 59 years Second hand smoke exposure: Yes Smoking risk assessment/counseling performed?: Yes Alcohol intake: former Counseling given: No Counseling given: No Lives independently: Yes Household members: spouse Marital status: service: Yes Current occupational status: retired Current gender identity: Male Vitals/I&O/Wt Last Vital Signs Pulse 89 05/23/22 22:43 Resp 18 05/23/22 22:43 BP 150/83 05/23/22 20:10 Pulse Ox 90 05/23/22 22:43 O2 Del Method 05/23/22 22:43 O2 Flow Rate 3 05/23/22 22:43 Weight last 48 hrs Weight 117.934 kg Physical Exam Narrative: Accompanied by his . Const: COMMON NORMALS: patient oriented x3 and alert GENERAL APPEARANCE: cooperative ORIENTATION/CONSCIOUSNESS: Yes awake HENMT: COMMON NORMALS: oropharynx normal Neck/C-Spine: COMMON NORMALS: no JVD Resp: AUSCULTATION: wheezes and diminished lung sounds Cardio: COMMON NORMALS: no JVD, regular rhythm, S1 normal heart sound present, S2 normal heart sound present and No murmurs present (Cardio) RHYTHM: regular rhythm HEART SOUNDS: S1 normal heart sound present and S2 normal heart sound present GI: COMMON NORMALS: Normal to inspection, nondistended, normoactive bowel sounds present, Soft to palpation and non-tender PALPATION: Yes Soft to palpation Extremity: COMMON NORMALS: no joint enlargement and no pedal edema Neuro: COMMON NORMALS: patient oriented x3 and moves all extremities SENSORIUM/ORIENTATION: Yes alert Skin: COMMON NORMALS: no rashes or lesions noted GENERAL SKIN EXAM: no rashes or lesions noted Data 05/23/22 20:15 05/23/22 20:15 Micro: Microbiology 05/23/22 20:10 Blood Culture - Preliminary Blood SPECIMEN COLLECTED 05/23/22 20:15 Blood Culture - Preliminary Blood SPECIMEN COLLECTED A&P Assessment and plan (1) Acute exacerbation of chronic obstructive pulmonary disease: Severe exacerbation of COPD with severe exertional dyspnea, cough, purulent sputum production, worse hypoxia requiring 3 L of oxygen. Sounds diminished on exam, wheezing. Continue IV steroid with Solu-Medrol 40 mg IV every 8 hours. Continue doxycycline. Breathing treatments. RT assess and treat. Oxygen support, wean down as tolerated. Reviewing respiratory viral panel negative, flu PCR negative. Requesting sputum culture, MRSA PCR, urine bacterial antigens. Discussed with ER vision. ER documentation reviewed. Plan PETER: Mild headache, history of migraines, but does not feel quite like his migraine. He states that he takes tramadol at home. Discussed with him we will resume Tylenol, potentially consider NSAID as needed, tramadol as needed. Discouraged long-term opioid use for headache treatment. Follow-up with PCP. For migraines he gets Botox injections. Requested list home medications, please reconcile once available. BPH DM2 MDD Elevated PSA Migraine headaches Peripheral neuropathy Attestations Medical Necessity Statement*: Admission of the right 2 midnights anticipated for assessment management of severe exacerbation of COPD, worsening hypoxia. Diagnoses Acute exacerbation of chronic obstructive pulmonary disease J44.1
--- NOTE | 2022-05-24 02:02 | ECG_ITS ---
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
[2022-05-24 03:05] LABS: Troponin 5 6HR 12.92 ng/L (0-15)
[2022-05-24 03:10] LABS: Troponin 5 6HR Delta -4.08 ng/L (0-12)
--- NOTE | 2022-05-24 03:33 | PC.NURSE ---
Addendum entered by Aleyda Beckman RN 05/24/22 03:35: Patient states he gets Botox injections for migraines. Original Note: Patient states that he uses several different pharmacies. Patient states he does not know all of his home medications. Plan is for to bring home medications tomorrow. Unable to verify med rec at this time.
[2022-05-24] MEDS: heparin 5,000 unit/mL INJ 1 mL 5000 UNIT SUBCUT ×2 (03:56→17:14)
[2022-05-24] MEDS: ipratropium-albuterol 3 mL Neb INHALATION ×6 (05:15→23:40)
[2022-05-24] MEDS: doxycycline 100 MG in sodium chloride 0.9% (plus) 100 ML IV ×2 (10:35→22:30)
--- NOTE | 2022-05-24 13:06 | PM.PN ---
Subjective Subjective: Patient was seen and examined this morning he was still complaining of shortness of breath and chest tightness, shortness of breath is particularly seen with even minimal exertion. Medications: Medication Review Details: Generic Name Dose Route Start Last Admin Trade Name Kanchan PRN Reason Stop Dose Admin Albuterol/Ipratrop ium 3 ml 05/24/22 04:00 05/24/22 11:26 Ipratropium-Albu terol 3 Ml Neb INHALATION 3 ml Q4H.RESPIRATORY S CH Administration Heparin Sodium (Po rcine) 5,000 unit 05/24/22 05:00 05/24/22 03:56 Heparin 5,000 Un it/Ml Inj 1 Ml SUBCUT 5,000 unit Q12H KALIA Administration Doxycycline Hyclat e 100 mg/ 100 mls @ 100 mls /hr 05/24/22 11:00 05/24/22 11:47 Sodium Chloride IV Infused Q12H KALIA Infusion Protocol Methylprednisolone Sodium Succinate 60 mg 05/24/22 09:45 05/24/22 11:44 Methylprednisolo ne Sod Succ 125 Mg /2 Ml Inj IVP 60 mg Q6H KALIA Administration Vitals/I&O/Wt Last Vital Signs Temp 97.8 F 05/24/22 12:00 Pulse 92 05/24/22 12:00 Resp 18 05/24/22 12:00 BP 165/84 05/24/22 12:00 Pulse Ox 96 05/24/22 12:00 O2 Del Method 05/24/22 12:00 O2 Flow Rate 2 05/24/22 11:26 05/23/22 05/24/22 05/24/22 22:59 06:59 14:59 Intake Total 600 / 600 220 / 220 Balance 600 / 600 220 / 220 Weight last 48 hrs Weight 123.15 kg Weight 117.934 kg Physical Exam Const: COMMON NORMALS: patient oriented x3 Resp: COMMON NORMALS: normal respiratory effort OTHER: Bilateral expiratory wheezing present in both the lungs vieira, diminished air entry bilaterally Cardio: COMMON NORMALS: regular rate, regular rhythm, S1 normal heart sound present, S2 normal heart sound present, No gallops present (Cardio), No murmurs present (Cardio), No rub (Cardio) and Peripheral pulses 2+ throughout RATE: regular rate RHYTHM: regular rhythm HEART SOUNDS: S1 normal heart sound present and S2 normal heart sound present PERIPHERAL PULSES: Peripheral pulses 2+ throughout GI: COMMON NORMALS: Normal to inspection, nondistended, normoactive bowel sounds present, Soft to palpation, non-tender, No hepatosplenomegaly present and no masses AUSCULTATION: Yes normoactive bowel sounds PALPATION: Yes Soft to palpation and Yes No hepatosplenomegaly present RECTAL EXAM: Yes deferred Extremity: COMMON NORMALS: no clubbing, cyanosis or edema and no pedal edema Neuro: COMMON NORMALS: patient oriented x3 Data 05/23/22 20:15 05/23/22 20:15 Micro: Microbiology 05/23/22 22:15 Legionella Urinary Antigen - Final Urine,Voided Bacterial Antigens - Final 05/23/22 20:10 Blood Culture - Preliminary Blood SPECIMEN COLLECTED 05/23/22 20:15 Blood Culture - Preliminary Blood SPECIMEN COLLECTED A&P Assessment and plan (1) Acute exacerbation of chronic obstructive pulmonary disease: X-ray chest:Mild left basilar atelectasis and/or pneumonia Urine Legionella antigen negative Urine bacterial antigen panel: Negative Blood culture MRSA PCR Respiratory viral panel negative Continue : Solu-Medrol 60 IV every 6 DuoNebs On IV doxycycline Supplemental oxygen as needed Plan PETER: Mild headache, history of migraines, but does not feel quite like his migraine. He states that he takes tramadol at home. Discussed with him we will resume Tylenol, potentially consider NSAID as needed, tramadol as needed. Discouraged long-term opioid use for headache treatment. Follow-up with PCP. For migraines he gets Botox injections. Requested list home medications, please reconcile once available. BPH DM2 MDD Elevated PSA Migraine headaches Peripheral neuropathy Attestations Medical Necessity Statement*: Patient is in hospital for management of COPD exacerbation Coding Level of Care Code 50875 Diagnoses Acute exacerbation of chronic obstructive pulmonary disease J44.1
[2022-05-25] VITALS (19 sets, daily range): BP systolic 118–156; BP diastolic 67–79; PULSE 79–107; RESP 14–18; TEMP 36.4–36.8; O2SAT 92–97
[2022-05-25] MEDS: ipratropium-albuterol 3 mL Neb INHALATION ×6 (03:08→23:13)
[2022-05-25 05:27] LABS: Basophils % 0.1 %; Hematocrit 37.9 % (42.0-52.0); Hemoglobin 11.9 g/dL (11.7-16.6); Lymphocytes # 1.4 10^3/uL (0.8-4.8); Lymphocytes % 6.6 %; Mean Corpuscular HGB Conc 31.4 g/dL (30.0-36.0); Mean Corpuscular Hemoglobin 28.4 pg (28.0-34.0); Mean Corpuscular Volume 90.5 fl (80-94); Mean Platelet Volume 9.4 fL (7.4-10.4); Monocytes # 0.6 10^3/uL (0.2-0.9); Monocytes % 2.8 %; Neutrophils # 18.49 10^3/uL (1.8-7.7); Neutrophils % 89.7 %; Nucleated Red Blood Cells % 0 %; Platelet Count 248 10^3/cmm (130-400); Red Blood Count 4.19 10^6/uL (4.1-5.3); Red Cell Distribution Width 12.3 % (12.1-15.1); White Blood Count 20.6 10^3/uL (4.0-10.0)
[2022-05-25] MEDS: heparin 5,000 unit/mL INJ 1 mL 5000 UNIT SUBCUT ×2 (05:45→17:34)
[2022-05-25 05:50] LABS: Anion Gap 11.6 (5-19); Blood Urea Nitrogen 15 mg/dL (8-23); Calcium 9.1 mg/dL (8.5-10.5); Carbon Dioxide 30 mmol/L (22-29); Chloride 98 mmol/L (98-107); Glucose 257 mg/dL (65-115); Osmolality Calculated 290 mOsm/kg (285-295); Potassium 4.6 mmol/L (3.5-5.1); Sodium 135 mmol/L (136-145)
[2022-05-25 08:38] LABS: Glucose Point of Care 204 mg/dL (70-110)
[2022-05-25] MEDS: insulin lispro 100 unit/1 mL SUBCUT ×4 (09:59→22:00)
[2022-05-25] MEDS: acetaminophen 325 mg Tablet 650 MG PO (10:20)
[2022-05-25 11:56] LABS: Glucose Point of Care 245 mg/dL (70-110)
--- NOTE | 2022-05-25 12:00 | PM.PN ---
Subjective Subjective: Patient was seen and examined this morning still has significant wheezing, chest tightness, significant shortness of breath. Medications: Medication Review Details: Generic Name Dose Route Start Last Admin Trade Name Kanchan PRN Reason Stop Dose Admin Acetaminophen 650 mg 05/24/22 03:28 05/25/22 10:20 Acetaminophen 32 5 Mg Tablet PO 650 mg Q6H PRN Administration Mild/Mod Pain Or Temp >/= 101 Albuterol/Ipratrop ium 3 ml 05/24/22 04:00 05/25/22 09:30 Ipratropium-Albu terol 3 Ml Neb INHALATION 3 ml Q4H.RESPIRATORY S CH Administration Heparin Sodium (Po rcine) 5,000 unit 05/24/22 05:00 05/25/22 05:45 Heparin 5,000 Un it/Ml Inj 1 Ml SUBCUT 5,000 unit Q12H KALIA Administration Insulin Human Lisp ro 0 unit 05/25/22 10:00 05/25/22 09:59 Insulin Lispro 1 00 Unit/1 Ml SUBCUT 4 unit WM&BEDTIME KALIA Administration Protocol Methylprednisolone Sodium Succinate 60 mg 05/24/22 09:45 05/25/22 09:59 Methylprednisolo ne Sod Succ 125 Mg /2 Ml Inj IVP 60 mg Q6H KALIA Administration Vitals/I&O/Wt Last Vital Signs Temp 98.2 F 05/25/22 08:00 Pulse 80 05/25/22 09:33 Resp 18 05/25/22 09:25 BP 135/77 05/25/22 08:00 Pulse Ox 94 05/25/22 09:25 O2 Del Method 05/25/22 09:25 O2 Flow Rate 2 05/25/22 09:25 05/24/22 05/25/22 05/25/22 22:59 06:59 14:59 Intake Total 240 / 700 100 / 800 120 / 120 Output Total 1575 / 1575 500 / 2075 Balance -1335 / -875 -400 / -1275 120 / 120 Weight last 48 hrs Weight 123.15 kg Weight 117.934 kg Physical Exam Const: COMMON NORMALS: patient oriented x3 Resp: COMMON NORMALS: normal respiratory effort OTHER: Bilateral expiratory wheezing present in both the lungs vieira, diminished air entry bilaterally Cardio: COMMON NORMALS: regular rate, regular rhythm, S1 normal heart sound present, S2 normal heart sound present, No gallops present (Cardio), No murmurs present (Cardio), No rub (Cardio) and Peripheral pulses 2+ throughout RATE: regular rate RHYTHM: regular rhythm HEART SOUNDS: S1 normal heart sound present and S2 normal heart sound present PERIPHERAL PULSES: Peripheral pulses 2+ throughout GI: COMMON NORMALS: Normal to inspection, nondistended, normoactive bowel sounds present, Soft to palpation, non-tender, No hepatosplenomegaly present and no masses AUSCULTATION: Yes normoactive bowel sounds PALPATION: Yes Soft to palpation and Yes No hepatosplenomegaly present RECTAL EXAM: Yes deferred Extremity: COMMON NORMALS: no clubbing, cyanosis or edema and no pedal edema Neuro: COMMON NORMALS: patient oriented x3 Data 05/25/22 04:40 05/25/22 04:40 Micro: Microbiology 05/25/22 07:35 Gram Stain - Final Sputum - Expectorated Sputum 05/23/22 20:10 Blood Culture - Preliminary Blood NEGATIVE TO DATE 05/23/22 20:15 Blood Culture - Preliminary Blood NEGATIVE TO DATE 05/23/22 22:15 Legionella Urinary Antigen - Final Urine,Voided Bacterial Antigens - Final A&P Assessment and plan (1) Acute exacerbation of chronic obstructive pulmonary disease: X-ray chest:Mild left basilar atelectasis and/or pneumonia Urine Legionella antigen negative Urine bacterial antigen panel: Negative Blood culture:NTD MRSA PCR Sputum Gram stain: Moderate GPC in pairs chains and clusters, few gram-positive rods few gram-negative rods Respiratory viral panel negative Continue : Solu-Medrol 60 IV every 6 DuoNebs Was on IV doxycycline, antibiotic coverage has been broadened to levofloxacin. Supplemental oxygen as needed Plan History of diabetes: Currently on Lantus sliding scale insulin, monitor fingerstick glucose. Possible pneumonia: X-ray chest is suggestive of: ? Mild left basilar atelectasis and/or pneumonia., Patient is complaining of productive cough, worsening shortness of breath. For now we will empirically treat with levofloxacin. Attestations Medical Necessity Statement*: Needs to be in hospital for management of COPD exacerbation Coding Level of Care Code 10308 Diagnoses Acute exacerbation of chronic obstructive pulmonary disease J44.1
[2022-05-25] MEDS: benzonatate 100 mg Capsule PO (12:14)
[2022-05-25] MEDS: levofloxacin-dextrose 5 % 750 MG/150 ML PREMIX 100 MG IV (12:16)
[2022-05-25] MEDS: TRAMadol 50 mg Tablet PO (12:51)
[2022-05-25 17:21] LABS: Glucose Point of Care 249 mg/dL (70-110)
--- NOTE | 2022-05-25 18:07 | PC.NURSE ---
SHift SUmmary: Uneventful shift. Patient rested in bed most of the day. Ambulated about 30 feet. Started on low dose insulin. Intially planned to discharge today, but due to continued wheezing, patient has been kept for another day.
[2022-05-25 21:20] LABS: Glucose Point of Care 257 mg/dL (70-110)
[2022-05-25] MEDS: insulin glargine 100 units/1 mL 20 UNIT SUBCUT (22:00)
[2022-05-26] VITALS (15 sets, daily range): BP systolic 129–165; BP diastolic 74–92; PULSE 74–96; RESP 15–20; TEMP 36.4–37.2; O2SAT 94–98
[2022-05-26] MEDS: ipratropium-albuterol 3 mL Neb INHALATION ×5 (02:59→23:06)
[2022-05-26] MEDS: heparin 5,000 unit/mL INJ 1 mL 5000 UNIT SUBCUT ×2 (04:39→18:12)
[2022-05-26 04:42] LABS: Basophils % 0.2 %; Hematocrit 39.5 % (42.0-52.0); Hemoglobin 12.5 g/dL (11.7-16.6); Lymphocytes # 1.2 10^3/uL (0.8-4.8); Lymphocytes % 4.7 %; Mean Corpuscular HGB Conc 31.6 g/dL (30.0-36.0); Mean Corpuscular Hemoglobin 29.1 pg (28.0-34.0); Mean Corpuscular Volume 91.9 fl (80-94); Mean Platelet Volume 9.1 fL (7.4-10.4); Monocytes # 0.7 10^3/uL (0.2-0.9); Monocytes % 2.9 %; Neutrophils # 23.16 10^3/uL (1.8-7.7); Neutrophils % 91.3 %; Nucleated Red Blood Cells % 0 %; Platelet Count 272 10^3/cmm (130-400); Red Cell Distribution Width 12.7 % (12.1-15.1); White Blood Count 25.4 10^3/uL (4.0-10.0)
[2022-05-26 04:56] LABS: Anion Gap 9.8 (5-19); Blood Urea Nitrogen 15 mg/dL (8-23); Calcium 9.1 mg/dL (8.5-10.5); Carbon Dioxide 33 mmol/L (22-29); Chloride 100 mmol/L (98-107); Glucose 229 mg/dL (65-115); Osmolality Calculated 294 mOsm/kg (285-295); Potassium 4.8 mmol/L (3.5-5.1); Sodium 138 mmol/L (136-145)
[2022-05-26 06:33] LABS: Glucose Point of Care 217 mg/dL (70-110)
[2022-05-26] MEDS: insulin lispro 100 unit/1 mL SUBCUT ×4 (09:32→22:00)
--- NOTE | 2022-05-26 10:15 | PC.CHAP ---
Pastoral Care Encounter/Spiritual Assessment Type of Contact [] Declined as400 programmer visit [] Patient/Family/Request visit [] Outpatient visit [] Follow-up visit [] Physician referral [] Code/Alert [x] Routine visit [] Staff referral [] Actively dying [] Patient sleeping [] Family support [] [] Out of room [] Palliative care [] [] Receiving care in room [] Pre-surgical visit [] Trauma [] Long length of stay [] ICU visit [] Other: Relational/Emotional Strength [x] Patient feels connected with others/family/visitors/staff [] Distress [] Loneliness/isolation [] Abandonment Spirituality of Patient [x] Person of Julia [x] Attends Scientologist of their Julia [x] Believes in Prayer [x] Reads Bible or Yazidism materials [] There are Spiritual issues to be addressed Manufacturing Technology Analyst Interventions [x] Prayer [x] Active listening [] Non-anxious presence [x] Spiritual/emotional support [] Crisis/trauma care [] Spiritual counseling [] Bereavement support [] Provided bereavement packet [] Provided Bible/devotional materials [] Provided toy/stuffed animal, coloring book to patient or family member [] Provided Communion [] Anointing/[place] [] Salvation [x] Completed spiritual assessment [] Other: Impact on Illness or Injury [] Angry [] Fearful [] Anxious [] Often cries [] Exhaustion [] Unable to work [] Unable to attend alevism [] Unable to walk/stand [] Unable to read [] Unable to drive [] Unable to eat/drink [] Unable to sleep [] Unable to be with family [] Patient intubated [] Other: Summary Time spent with patient 15 min
[2022-05-26 11:12] LABS: Glucose Point of Care 338 mg/dL (70-110)
--- NOTE | 2022-05-26 12:26 | USCV_ITS ---
Hernan Beckman Age: 71 Gender: M : 1950 Exam Date: 05/26/2022 19:16 Ordering Phys: Dariusz Palaciso MD Technologist: LUKAS Exam Location: [facility] [place] Indication: sob, CHF?, No history of cardiac intervention per patient. BP: 129 / 74 HR: 95 Rhythm: Sinus Technical Quality: suboptimal with OPTISON MEASUREMENTS (Male / Female) Normal Values 2D ECHO RV Chamber Size 4.7 cm LVOT Diameter 2.0 cm LV Ejection Fraction MOD 2C 54.9 % LV Ejection Fraction 2C AL 55.7 % LA Diameter 3.1 cm LA Width 4.2 cm LA Height 4.1 cm RA Width 4.0 cm RA Height 3.7 cm Aorta at Sinotubular Diameter 3.1 cm IVC Diameter 2.1 cm M-MODE Aortic Annulus Diameter 3.3 cm LA Ao Ratio MM 0.9 DOPPLER AV Peak Velocity 113.0 cm/s LVOT Peak Velocity 86.0 cm/s AV Area Cont Eq vti 2.3 cm squared AV Area Cont Eq pk 2.4 cm squared MV Area PHT 5.6 cm squared Mitral E to A Ratio 1.0 MV E' Velocity 69.0 cm/s TV Peak E Velocity 44.0 cm/s FINDINGS Left Ventricle Technically difficult study. (Echo contrast - Optison was used to delineate the endocardium and to estimate the LV ejection fraction). LV ejection fraction estimated to be 60%. No significant wall motion normalities were noted . Right Ventricle Possibly of normal size and ejection fraction. Right Atrium Possibly of normal size Left Atrium Possibly of normal size Mitral Valve No gross abnormalities noted Aortic Valve No gross abnormalities noted Tricuspid Valve Appears to be thickened. the leaflets could not be delineated well Pulmonic Valve Pulmonic valve not well visualized. Pericardium No pericardial effusion. Aorta Aorta not well visualized. IVC CONCLUSIONS Technically very difficult study. (Echo contrast - Optison was used to delineate the endocardium and to estimate the LV ejection fraction). LV ejection fraction estimated to be 60%. No significant wall motion normalities were noted . The tricuspid valve appears to be thickened Possibly normal chamber sizes. No pericardial effusion Consider HEYDI, to better evaluate the valves, if clinically indicated Dr Hardik Betts MD FACC (Electronically Signed) Final Date: 27 May 2022 13:54 S
[2022-05-26] MEDS: FUROsemide 10 mg/mL SDV 4mL 40 MG IVP (13:47)
[2022-05-26] MEDS: amoxicillin-clav 875-125 mg Tablet 1 TAB PO ×2 (13:47→18:08)
[2022-05-26] MEDS: levofloxacin-dextrose 5 % 750 MG/150 ML PREMIX 150 MG IV (13:48)
[2022-05-26] MEDS: venlafaxine ER (24HR) 150 mg Capsule PO (13:48)
--- NOTE | 2022-05-26 16:30 | PM.PN ---
Subjective Subjective: Hospital course, labs appreciated. Examination patient sitting comfortably in bed. States still have difficulty in breathing on exertion but is improving. Patient is back to his baseline oxygen supplementation and is saturating more than 92%. States usually he does not have extensive difficulty in breathing on exertion like he is having right now. Vitals/I&O/Wt Last Vital Signs Temp 98.3 F 05/26/22 16:02 Pulse 88 05/26/22 16:15 Resp 16 05/26/22 16:05 BP 129/74 05/26/22 16:02 Pulse Ox 96 05/26/22 16:05 O2 Del Method 05/26/22 16:05 O2 Flow Rate 2 05/26/22 16:05 05/26/22 05/26/22 05/26/22 06:59 14:59 22:59 Intake Total 240 / 1510 720 / 720 Output Total 600 / 950 450 / 450 Balance -360 / 560 270 / 270 Physical Exam Const: COMMON NORMALS: patient oriented x3 and alert GENERAL APPEARANCE: cooperative ORIENTATION/CONSCIOUSNESS: Yes awake HENMT: COMMON NORMALS: oropharynx normal Neck/C-Spine: COMMON NORMALS: no JVD Resp: COMMON NORMALS: normal respiratory effort AUSCULTATION: wheezes and diminished lung sounds Cardio: COMMON NORMALS: no JVD, regular rate, regular rhythm, S1 normal heart sound present, S2 normal heart sound present, No gallops present (Cardio), No murmurs present (Cardio), No rub (Cardio) and Peripheral pulses 2+ throughout RATE: regular rate RHYTHM: regular rhythm HEART SOUNDS: S1 normal heart sound present and S2 normal heart sound present PERIPHERAL PULSES: Peripheral pulses 2+ throughout GI: COMMON NORMALS: Normal to inspection, nondistended, normoactive bowel sounds present, Soft to palpation, non-tender, No hepatosplenomegaly present and no masses AUSCULTATION: Yes normoactive bowel sounds PALPATION: Yes Soft to palpation and Yes No hepatosplenomegaly present RECTAL EXAM: Yes deferred Extremity: COMMON NORMALS: no joint enlargement, no clubbing, cyanosis or edema and no pedal edema Neuro: COMMON NORMALS: patient oriented x3 and moves all extremities SENSORIUM/ORIENTATION: Yes alert Skin: COMMON NORMALS: no rashes or lesions noted GENERAL SKIN EXAM: no rashes or lesions noted Data 05/26/22 04:05 05/26/22 04:05 Micro: Microbiology 05/25/22 07:35 Gram Stain - Final Sputum - Expectorated Sputum Sputum Culture - Preliminary 05/24/22 09:25 MRSA Culture - Final Nose A&P Assessment and plan (1) Acute exacerbation of chronic obstructive pulmonary disease: Chest x-ray concerning for possible pneumonia. Urine Legionella, bacterial antigen negative. MRSA negative. Blood cultures so far negative. Appreciate sputum culture. Respiratory viral panel negative. Wean down Solu-Medrol 60 mg every 12 hourly. Continue with DuoNebs every 4 hour. Add Pulmicort twice daily. Continue with oral Levaquin for now. Oxygen supplementation keeping saturation over 88%. Plan History of diabetes: Monitor blood sugars. Continue with Lantus 20 units at bedtime. Increase sliding scale to moderate dose protocol. Check TSH. Depression: Discussed in detail with patient. Continue with home dose of amitriptyline, Effexor Full code. Carb consistent cardiac diet. Famotidine for PUD prophylaxis Heparin 5000 every 12 hourly. Attestations Medical Necessity Statement*: Requires further hospitalization for management of COPD exacerbation leading to hypoxia Diagnoses Acute exacerbation of chronic obstructive pulmonary disease J44.1
[2022-05-26 17:31] LABS: Glucose Point of Care 210 mg/dL (70-110)
[2022-05-26] MEDS: atorvastatin 40 mg Tablet 20 MG PO (21:05)
[2022-05-26] MEDS: amitriptyline 25 mg Tablet PO (21:06)
[2022-05-26] MEDS: famotidine 20 mg/2 mL INJ IVP (21:06)
[2022-05-26 21:35] LABS: Glucose Point of Care 164 mg/dL (70-110)
[2022-05-26] MEDS: insulin glargine 100 units/1 mL 20 UNIT SUBCUT (22:00)
[2022-05-26] MEDS: budesonide 0.5 mg/2 mL Neb INHALATION (23:06)
[2022-05-27] VITALS (10 sets, daily range): BP systolic 113–173; BP diastolic 69–86; PULSE 80–88; RESP 14–17; TEMP 36.3–37.2; O2SAT 86–98
[2022-05-27] MEDS: ipratropium-albuterol 3 mL Neb INHALATION ×2 (03:06→08:27)
[2022-05-27] MEDS: heparin 5,000 unit/mL INJ 1 mL 5000 UNIT SUBCUT (04:00)
[2022-05-27 05:48] LABS: Basophils % 0.1 %; Hematocrit 41.4 % (42.0-52.0); Lymphocytes # 1.4 10^3/uL (0.8-4.8); Lymphocytes % 6.5 %; Mean Corpuscular HGB Conc 31.4 g/dL (30.0-36.0); Mean Corpuscular Volume 92.4 fl (80-94); Mean Platelet Volume 9.3 fL (7.4-10.4); Monocytes # 0.8 10^3/uL (0.2-0.9); Neutrophils # 18.71 10^3/uL (1.8-7.7); Neutrophils % 88.2 %; Nucleated Red Blood Cells % 0 %; Platelet Count 270 10^3/cmm (130-400); Red Blood Count 4.48 10^6/uL (4.1-5.3); Red Cell Distribution Width 12.7 % (12.1-15.1); White Blood Count 21.2 10^3/uL (4.0-10.0)
[2022-05-27 06:14] LABS: Alanine Aminotransferase 23 U/L (0-41); Albumin Level 3.7 g/dL (3.5-5.2); Alkaline Phosphatase 60 U/L (40-130); Anion Gap 11.6 (5-19); Aspartate Amino Transferase 16 U/L (0-40); Blood Urea Nitrogen 17 mg/dL (8-23); Calcium 8.9 mg/dL (8.5-10.5); Carbon Dioxide 36 mmol/L (22-29); Chloride 97 mmol/L (98-107); Globulin 2.6 g/dL (1.3-4.6); Glucose 270 mg/dL (65-115); Osmolality Calculated 301 mOsm/kg (285-295); Potassium 4.6 mmol/L (3.5-5.1); Sodium 140 mmol/L (136-145); Total Bilirubin 0.2 mg/dL (0.15-1.2); Total Protein 6.3 g/dL (6.6-8.7)
[2022-05-27 06:20] LABS: Glucose Point of Care 281 mg/dL (70-110)
[2022-05-27] MEDS: perflutren protein-a microsphr 0.22 mg/mL SDV 3 mL IV (07:38)
[2022-05-27] MEDS: budesonide 0.5 mg/2 mL Neb INHALATION (08:27)
--- NOTE | 2022-05-27 09:33 | PC.SOCIAL ---
Imm update Imm updated with patient at bedside. Copy of page 2 provided. Patient verbalized understanding. Copy in chart initialed, dated and timed.
[2022-05-27] MEDS: amoxicillin-clav 875-125 mg Tablet 1 TAB PO (09:58)
[2022-05-27] MEDS: venlafaxine ER (24HR) 150 mg Capsule PO (09:58)
[2022-05-27] MEDS: tamsulosin 0.4 mg Capsule 0.8 MG PO (09:58)
[2022-05-27] MEDS: insulin lispro 100 unit/1 mL SUBCUT (09:59)
[2022-05-27] MEDS: famotidine 20 mg/2 mL INJ IVP (10:06)
[2022-05-27 12:32] LABS: Glucose Point of Care 183 mg/dL (70-110)
--- NOTE | 2022-05-27 13:13 | P.DS_ITS ---
Discharge Providers Date of Admission: 05/24/22 00:00 Date of Discharge: May 27, 2022 Attending Provider at Admission: Jace Contreras Attending Provider at Discharge: Dariusz Palacios MD Primary Care Provider: Courtney Reich DO Diagnoses at Discharge Discharge Diagnosis (1) Acute exacerbation of chronic obstructive pulmonary disease: Status: Acute Reason for Visit Reason for Visit: weakness Brief History: History as per HPI: Pleasant 71-year-old gentleman with COPD, normally on 2-5 L of oxygen, has been progressively more dyspneic, coughing with production of greenish phlegm, had to increase his oxygen to 3 L due to severe dyspnea on exertion getting very dyspneic and tired even walking just from living room to the bathroom in the trailer he lives in. In ER also noted hypertensive, 189/89.? States that his blood pressure does rise whenever he gets short of breath. In case of cardiopulmonary arrest would want attempted cardiopulmonary resuscitation, would not want protracted life support if little chance of recovery. Hospital Course Hospital Course Patient admitted to hospital further evaluation and management of hypoxia in setting of exacerbation of COPD. He was started on IV steroids and nebulization treatment. There were no concerns of pneumonia on the chest imaging but given severe COPD and protracted course he was started on empiric oral antibiotics. He responded well to the treatment and steroids are being weaned down. He has been discharged hemodynamic stable condition after home O2 evaluation on slow steroid taper with continue nebulization. He is to follow-up with his primary care provider within next 1 week. Physical Exam Const: COMMON NORMALS: patient oriented x3 and alert GENERAL APPEARANCE: cooperative ORIENTATION/CONSCIOUSNESS: Yes awake HENMT: COMMON NORMALS: oropharynx normal Neck/C-Spine: COMMON NORMALS: no JVD Resp: COMMON NORMALS: normal respiratory effort AUSCULTATION: wheezes and diminished lung sounds Cardio: COMMON NORMALS: no JVD, regular rate, regular rhythm, S1 normal heart sound present, S2 normal heart sound present, No gallops present (Cardio), No murmurs present (Cardio), No rub (Cardio) and Peripheral pulses 2+ throughout RATE: regular rate RHYTHM: regular rhythm HEART SOUNDS: S1 normal heart sound present and S2 normal heart sound present PERIPHERAL PULSES: Peripheral pulses 2+ throughout GI: COMMON NORMALS: Normal to inspection, nondistended, normoactive bowel sounds present, Soft to palpation, non-tender, No hepatosplenomegaly present and no masses AUSCULTATION: Yes normoactive bowel sounds PALPATION: Yes Soft to palpation and Yes No hepatosplenomegaly present RECTAL EXAM: Yes deferred Extremity: COMMON NORMALS: no joint enlargement, no clubbing, cyanosis or edema and no pedal edema Neuro: COMMON NORMALS: patient oriented x3 and moves all extremities SENSORIUM/ORIENTATION: Yes alert Skin: COMMON NORMALS: no rashes or lesions noted GENERAL SKIN EXAM: no rashes or lesions noted Discharge Data Studies Completed and Pending Completed Studies During Hospitalization Category Date Time Status XR chest 1V portable [id number] Stat Exams 05/23/22 20:02 Completed Pending at discharge Category Date Time Status Blood Culture Stat Lab 05/23/22 20:10 Results Sputum Culture and Gram Stain Routine Lab 05/25/22 07:35 Results CV. echo wo/w contrast [id number] Routine Ultrasound 05/26/22 12:26 Taken Radiology Impressions Chest X-Ray 05/23/22 20:02 IMPRESSION: 1. Mildly hyperaerated lungs consistent with deep inspiratory effort vs reactive airway disease vs mild COPD . 2. Mild left basilar atelectasis and/or pneumonia. Laboratory Results WBC 21.2 10^3/uL (4.0-10.0) H 05/27/22 05:09 RBC 4.48 10^6/uL (4.1-5.3) 05/27/22 05:09 Hgb 13.0 g/dL (11.7-16.6) 05/27/22 05:09 Hct 41.4 % (42.0-52.0) L 05/27/22 05:09 MCV 92.4 fl (80-94) 05/27/22 05:09 MCH 29.0 pg (28.0-34.0) 05/27/22 05:09 MCHC 31.4 g/dL (30.0-36.0) 05/27/22 05:09 RDW 12.7 % (12.1-15.1) 05/27/22 05:09 Plt Count 270 10^3/cmm (130-400) 05/27/22 05:09 MPV 9.3 fL (7.4-10.4) 05/27/22 05:09 Neut % (Auto) 88.2 % 05/27/22 05:09 Lymph % (Auto) 6.5 % 05/27/22 05:09 [place] % (Auto) 4.0 % 05/27/22 05:09 Eos % (Auto) 0.0 % 05/27/22 05:09 Baso % (Auto) 0.1 % 05/27/22 05:09 Neut # (Auto) 18.71 10^3/uL (1.8-7.7) H 05/27/22 05:09 Lymph # (Auto) 1.4 10^3/uL (0.8-4.8) 05/27/22 05:09 [place] # (Auto) 0.8 10^3/uL (0.2-0.9) 05/27/22 05:09 Eos # (Auto) 0.0 10^3/uL (0.0-0.8) 05/27/22 05:09 Baso # (Auto) 0.0 10^3/uL (0.0-0.1) 05/27/22 05:09 Nucleated RBC % (auto) 0 % 05/27/22 05:09 Nucleated RBCs # 0.0 /100WBC 05/27/22 05:09 Sodium 140 mmol/L (136-145) 05/27/22 05:09 Potassium 4.6 mmol/L (3.5-5.1) 05/27/22 05:09 Chloride 97 mmol/L (98-107) L 05/27/22 05:09 Carbon Dioxide 36 mmol/L (22-29) H 05/27/22 05:09 Anion Gap 11.6 (5-19) 05/27/22 05:09 BUN 17 mg/dL (8-23) 05/27/22 05:09 Creatinine 0.9 mg/dL (0.7-1.2) 05/27/22 05:09 GFR Calculation Not Reportable 05/27/22 05:09 Glucose 270 mg/dL (65-115) H 05/27/22 05:09 POC Glucose 183 mg/dL (70-110) H 05/27/22 12:17 Calculated Osmolality 301 mOsm/kg (285-295) H 05/27/22 05:09 Lactic Acid 1.1 mmol/L (0.5-2.2) 05/23/22 20:15 Calcium 8.9 mg/dL (8.5-10.5) 05/27/22 05:09 Total Bilirubin 0.2 mg/dL (0.15-1.2) 05/27/22 05:09 AST 16 U/L (0-40) 05/27/22 05:09 ALT 23 U/L (0-41) 05/27/22 05:09 Alkaline Phosphatase 60 U/L (40-130) 05/27/22 05:09 Troponin T Baseline 17 ng/L (0-15) H 05/23/22 20:15 Troponin T 120 Minute 16.19 ng/L (0-15) H 05/23/22 22:15 Delta Troponin T -0.81 ABS# (0-10) L 05/23/22 22:15 Troponin T Hi Sens 6Hr 12.92 ng/L (0-15) 05/24/22 02:24 Troponin T Hi Sens 6Hr Delta -4.08 ng/L (0-12) L 05/24/22 02:24 NT-Pro-B Natriuret Pep 307 pg/mL (0-125) H 05/23/22 20:15 Total Protein 6.3 g/dL (6.6-8.7) L 05/27/22 05:09 Albumin 3.7 g/dL (3.5-5.2) 05/27/22 05:09 Globulin 2.6 g/dL (1.3-4.6) 05/27/22 05:09 TSH 0.10 uIU/mL (0.27-4.20) L 05/26/22 04:05 Urine Color Yellow (Yellow) 05/23/22 22:15 Urine Appearance Clear (CLEAR) 05/23/22 22:15 Urine pH 7 (5-7) 05/23/22 22:15 Ur Specific [place] 1.005 (1.005-1.030) 05/23/22 22:15 Urine Protein Neg (Negative) 05/23/22 22:15 Urine Glucose (UA) Norm (Normal) 05/23/22 22:15 Urine Ketones Negative (Negative) 05/23/22 22:15 Urine Blood Trace (Negative) H 05/23/22 22:15 Urine Nitrate Negative (Negative) 05/23/22 22:15 Urine Bilirubin Neg (Negative) 05/23/22 22:15 Urine Urobilinogen Norm mg/dL (Negative) 05/23/22 22:15 Ur Leukocyte Esterase Negative (Negative) 05/23/22 22:15 Urine RBC 5-10 /hpf (0-2) H 05/23/22 22:15 Urine WBC 0-4 /hpf (0-5) H 05/23/22 22:15 Ur Squamous Epith Cells 0-4 /hpf (0-5) H 05/23/22 22:15 Amorphous Sediment Not Reportable 05/23/22 22:15 Urine Bacteria Trace /hpf (NONE) 05/23/22 22:15 Nasal Influ A H1 2009 PCR Not detected (NOT DETECT) 05/23/22 Unknown Adenovirus (PCR) Not detected (NOT DETECT) 05/23/22 Unknown C. pneumoniae DNA (PCR) Not detected (NOT DETECT) 05/23/22 Unknown Coronavirus 229E (PCR) Not detected (NOT DETECT) 05/23/22 Unknown Human Metapneumovir PCR Not detected (NOT DETECT) 05/23/22 Unknown Influenza A (H1) PCR Not detected (NOT DETECT) 05/23/22 Unknown Influenza A (H3) PCR Not detected (NOT DETECT) 05/23/22 Unknown Influenza Type A (PCR) Not detected (NOT DETECT) 05/23/22 Unknown Influenza Type B (PCR) Not detected (NOT DETECT) 05/23/22 Unknown M. pneumoniae (PCR) Not detected (NOT DETECT) 05/23/22 Unknown Parainfluenza 1 (PCR) Not detected (NOT DETECT) 05/23/22 Unknown Parainfluenza 2 (PCR) Not detected (NOT DETECT) 05/23/22 Unknown Parainfluenza 3 (PCR) Not detected (NOT DETECT) 05/23/22 Unknown Parainfluenza 4 (PCR) Not detected (NOT DETECT) 05/23/22 Unknown RSV Type A (PCR) Not detected (NOT DETECT) 05/23/22 Unknown RSV Type B (PCR) Not detected (NOT DETECT) 05/23/22 Unknown Entero/Rhino (PCR) Not detected (NOT DETECT) 05/23/22 Unknown SARS-CoV-2 (PCR) Not detected (NOT DETECT) 05/23/22 Unknown Vitals Last Vital Signs Temp 97.9 F 05/27/22 12:00 Pulse 83 05/27/22 12:00 Resp 16 05/27/22 12:00 BP 173/84 05/27/22 12:00 Pulse Ox 98 05/27/22 12:00 O2 Del Method 05/27/22 12:00 O2 Flow Rate 2 05/27/22 12:00 Discharge Plan Discharge Patient Disposition: Home Condition: Stable Prescriptions: New amoxicillin-pot clavulanate 875-125 mg Tablet 1 tab PO BID Qty: 14 0RF levofloxacin 750 mg tablet 750 mg PO Q24H 5 Days Qty: 5 0RF prednisone 10 mg tablet See Taper PO DIRECTED Qty: 105 0RF Taper: predniSONE 60-10 60 mg Daily for 5 Days and 0 Hour 50 mg Daily for 5 Days and 0 Hour 40 mg Daily for 5 Days and 0 Hour 30 mg Daily for 5 Days and 0 Hour 20 mg Daily for 5 Days and 0 Hour 10 mg Daily for 5 Days and 0 Hour Rx Instructions: see taper instructions Continued acetaminophen [Tylenol Extra Strength] 500 mg tablet 500 mg PO Q4H PRN (Reason: Pain) epinephrine 0.3 mg/0.3 mL auto-injector 0.3 mg IM ONCE PRN (Reason: Allergic Reaction) (DME) Four wheeled walker with a seat Qty: 1 0RF Rx Instructions: As directed Xolair 150 mg recon soln 150 mg SUBCUT Q30D albuterol sulfate 2.5 mg /3 mL (0.083 %) solution for nebulization 2.5 mg INHALATION BID PRN (Reason: Shortness Of Breath) prednisone 5 mg tablet 5 mg PO DAILY 90 Days Qty: 90 0RF Hold Instructions: Resume on 03/26/22. Flomax 0.4 mg capsule 0.8 mg PO DAILY Qty: 180 1RF fluticasone propionate [Flonase Allergy Relief] 50 mcg/actuation spray,suspension 1 spray INTRANASAL Q12H 90 Days Qty: 54.6 3RF budesonide [Pulmicort] 0.5 mg/2 mL suspension for nebulization 0.5 mg INHALATION BID Qty: 120 2RF Rx Instructions: NEEDS APPT PRIOR TO FURTHER REFILLS Perforomist 20 mcg/2 mL solution for nebulization 2 ml INHALATION Q12H 90 Days Qty: 120 2RF Rx Instructions: NEEDS APPT PRIOR TO FURTHER REFILLS Yupelri 175 mcg/3 mL solution for nebulization 175 mcg inhalation DAILY Qty: 90 2RF Rx Instructions: NEEDS APPT PRIOR TO FRUTHER REFILLS albuterol sulfate 90 mcg/actuation HFA aerosol inhaler 2 inh inhalation Q6H PRN (Reason: shortness of breath or wheezing) Qty: 18 2RF Januvia 100 mg tablet 100 mg PO DAILY Qty: 90 1RF Rx Instructions: 340 B tramadol 50 mg tablet 50 mg PO TID PRN (Reason: pain) Qty: 90 0RF venlafaxine 150 mg capsule,extended release 24hr See Rx Instructions .ROUTE .COMPLEX Qty: 30 0RF Dose Instruction: TAKE 1 CAPSULE BY MOUTH EVERY DAY Rx Instructions: TAKE 1 CAPSULE BY MOUTH EVERY DAY atorvastatin 20 mg tablet 20 mg PO BEDTIME azithromycin 250 mg tablet 250 mg PO EVERY OTHER DAY Rx Instructions: NEEDS APPT PRIOR TO FURTHER REFILLS amitriptyline 25 mg tablet 25 mg PO BEDTIME Changed furosemide 20 mg tablet 40 mg PO DAILY Qty: 30 0RF Discharge Orders: Discharge Order (Routine); Ordered 05/27/22 Ordered By: Dariusz Palacios Referrals: Courtney Reich DO [Primary Care Provider] - 06/03/22 10:45 am Discharge Diet: Cardiac Discharge Activity: Resume usual activity and Increase activity as tolerated Patient Instructions: COPD, Prednisone (By mouth), Amoxicillin (By mouth), Levofloxacin (By mouth), COPD Stoplight, Opioid Safety Activity Restrictions/Additional Instructions: Please continue to use the nebulizations as before. You will be on antibiotics Augmentin and Levaquin for next 5 days. Please take steroid taper as described. You will be coming down from 60 mg to 10 mg over time from the next 1 month. After completion of steroid taper he can go back to your regular dose of 5 mg of prednisone. Discharge Attestations Time Spent in Discharge Care*: greater than 30 min Specific Discharge Activities: educating patient, discussing with pcp/other providers, discussing with rn field case manager/social workers/dc planners, documenting/other paperwork and evaluating patient/reviewing data Status at Discharge: Cognitive status at discharge: cognitively intact , Behavioral status at discharge: can be uncooperative and independent in ADL's , Functional status at discharge: uses cane/walker , Overall status at discharge: patient is progressing back to baseline Quality Metrics Clinical Quality Measures [ No reported AMI, CVA or VTE this stay] Coding Level of Care Code 79117 Total time (in minutes) for Discharge: 40 Diagnoses Acute exacerbation of chronic obstructive pulmonary disease J44.1
== END 2022-05-27 13:37 | disposition home or self-care (01) | DRG 190 ==
LOC: ER 19:38 → CSU 05-24 01:10 → MEDSURG 05-24 01:12
PROVIDERS: Internal Medicine; Admitting Provider Internal Medicine; Emergency Provider Emergency Medicine; PCP Family Medicine; Visit Provider Student in an Organized Health Care Education/Training Program
DX: J44.1 Chronic obstructive pulmonary disease with (acute) exacerbation (principal); J18.9 Pneumonia, unspecified organism; N13.8 Other obstructive and reflux uropathy; J44.0 Chronic obstructive pulmonary disease with (acute) lower respiratory infection; Z99.81 Dependence on supplemental oxygen; I10 Essential (primary) hypertension; Z79.51 Long term (current) use of inhaled steroids; Z79.891 Long term (current) use of opiate analgesic; Z79.84 Long term (current) use of oral hypoglycemic drugs; N40.1 Benign prostatic hyperplasia with lower urinary tract symptoms; G89.29 Other chronic pain; M54.50 Low back pain, unspecified; E11.42 Type 2 diabetes mellitus with diabetic polyneuropathy; F32.9 Major depressive disorder, single episode, unspecified; Z96.651 Presence of right artificial knee joint; Z87.891 Personal history of nicotine dependence; R97.20 Elevated prostate specific antigen [PSA]; G43.709 Chronic migraine without aura, not intractable, without status migrainosus
CPT/HCPCS: 36415; 36416; 71045; 80048; 80053; 81001; 82962; 83605; 83880; 84443; 84484; 85025; 86403; 87040; 87070; 87205; 87449; 87486; 87581; 87633; 87641; 93005; 94640; 94664; 94760; 96365; 96372; 96375; 99285; C8929; J1644; J1815; J1940; J1956; J2920; J2930; J3490; J7040; J7613; J7626; Q3014; Q9956

== ENCOUNTER → 2022-06-03 11:32 | Outpatient (BNVA) | payer MEDICARE, BC, SELFPAY | PROVIDERS: PCP Family Medicine; Visit Provider Family Medicine | DX: J44.1 Chronic obstructive pulmonary disease with (acute) exacerbation (principal) | CPT/HCPCS: 80048 ==

== ENCOUNTER 2022-06-23 00:35 | Inpatient (IN) | payer MEDICARE, BC, SELFPAY ==
[2022-06-23] VITALS (22 sets, daily range): BP systolic 120–148; BP diastolic 62–78; PULSE 78–120; RESP 16–34; TEMP 36.3–37.5; O2SAT 93–98; BMI 38.0
--- NOTE | 2022-06-23 00:47 | ECG_ITS ---
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 Measurements Intervals [place] Rate: 116 P: 54 NC: 165 QRS: 36 QRSD: 84 T: 70 QT: 316 QTc: 439 Interpretive Statements SINUS TACHYCARDIA WITH OCCASIONAL VENTRICULAR PREMATURE COMPLEXES WITH OCCASIONAL SUPRAVENTRICULAR PREMATURE COMPLEXES Compared to ECG 05/24/2022 02:36:39 Ventricular premature complex(es) now present Sinus rhythm no longer present Electronically Signed On 06-23-2022 17:08:46 CDT by Scott Huddleston M.D. [id number]
--- NOTE | 2022-06-23 00:51 | XRR_ITS ---
PROCEDURE INFORMATION: Exam: XR Chest Exam date and time: 06/23/2022 1:00 AM Age: 71 years old Clinical indication: Shortness of breath; Additional info: SOB TECHNIQUE: Imaging protocol: Radiologic exam of the chest. Views: 1 view. COMPARISON: CR (CHEST, ) 05/23/2022 8:06 PM FINDINGS: Lungs: Patchy bilateral mid to lower lung infiltrates are visualized. Mild COPD. Pleural spaces: No pneumothorax. Heart/Mediastinum: Heart is mildly enlarged with vascular calcification. Bones/joints: Unremarkable. XR/XR chest 1V portable [id number] IMPRESSION: Patchy bilateral mid to lower lung pneumonia should be followed to resolution.
[2022-06-23 01:04] LABS: Basophils # 0.1 10^3/uL (0.0-0.1); Basophils % 0.6 %; Eosinophils # 1.4 10^3/uL (0.0-0.8); Eosinophils % 10.7 %; Hemoglobin 12.5 g/dL (11.7-16.6); Lymphocytes # 2.8 10^3/uL (0.8-4.8); Lymphocytes % 22.4 %; Mean Corpuscular HGB Conc 32.1 g/dL (30.0-36.0); Mean Corpuscular Hemoglobin 29.2 pg (28.0-34.0); Mean Corpuscular Volume 91.1 fl (80-94); Mean Platelet Volume 8.4 fL (7.4-10.4); Monocytes # 1.7 10^3/uL (0.2-0.9); Monocytes % 13.5 %; Neutrophils # 6.52 10^3/uL (1.8-7.7); Neutrophils % 51.6 %; Nucleated Red Blood Cells % 0 %; Platelet Count 246 10^3/cmm (130-400); Red Blood Count 4.28 10^6/uL (4.1-5.3); Red Cell Distribution Width 11.9 % (12.1-15.1); White Blood Count 12.6 10^3/uL (4.0-10.0)
[2022-06-23] MEDS: ipratropium-albuterol 3 mL Neb INHALATION ×6 (01:08→23:43)
[2022-06-23 01:26] LABS: Lactic Sepsis W/Reflex 0.8 mmol/L (0.5-2.2)
[2022-06-23 01:27] LABS: ABG PCO2 67.3 mmHg (35-45); ABG PH Result 7.38 (7.35-7.45); Arterial Blood Gas Hematocrit 38.5 % (42-52); Base Excess ABG 11.6 mmol/L (-2.0-2.0); Blood Gas Allen Test Pos; Blood Gas Sample Site Radial, left; Blood Gas Sample Type Arterial; Carboxyhemoglobin 1.4 %THgb (0.4-20.1); HCO3 ABG 39.5 mmol/L (22-26); HGB O2 Sat 94.4 % (95-100); Methemoglobin 0.3 % (0.4-1.5); Oxygen Device NC; Total Hemoglobin 12.5 g/dL (14-18)
--- NOTE | 2022-06-23 01:31 | ED_ITS ---
HPI - SOB/Dyspnea General: Chief Complaint: Shortness of Breath/Dyspnea Stated Complaint: difficulty breathing Time Seen by Provider: 06/23/22 00:39 Source: patient History of Present Illness: HPI Narrative: 71-year-old male with a history of COPD. He is on 2 to 5 L at home. He presents with progressively worsening shortness of breath over the past couple of days. He has some sputum production with his cough. He complains of fevers on and off for the past day or so as well. No increased leg swelling. Some chest discomfort when he takes a deep breath. MD elicited complaint: shortness of breath, cough and pain with inspiration Pertinent past history: COPD Exacerbating factors: exertion Relieving factors: oxygen and bronchodilators Known history of: COPD Associated symptoms: Reports chest congestion, chest pain, cough and fever(s); Deny abdominal pain, dizziness, hemoptysis, nausea or vomiting Treatment prior to arrival: oxygen and bronchodilator Review of Systems Const: Reports: fever(s) Eyes: Denies: change in vision ENMT: Denies: throat pain Card: Reports: chest pain Resp: Reports: chest congestion; Denies: hemoptysis GI: Denies: abdominal pain, nausea or vomiting Neuro: Denies: dizziness PFSH ED PFSH: Medical History BPH loc w urin obs/LUTS Chronic low back pain Has had nerve ablations and follows at pain clinic in [place] Chronic migraine Controlled diabetes mellitus without long-term current use of insulin COPD (chronic obstructive pulmonary disease) 2 L of oxygen at home, follows with Dr. Putnam in [place] currently, on theophylline Depression, controlled Diabetes mellitus type 2, noninsulin dependent Elevated prostate specific antigen [PSA] Enrolled in chronic care management History of multiple allergies Xolair injections monthly Hx of migraine headaches Has a triptan prescription and another medication Peripheral neuropathy Primarily involving hands, related to ulnar nerve interventions Surgical History H/O decompression of ulnar nerve bilateral H/O elbow surgery bilateral H/O rotator cuff surgery bilateral H/O total knee replacement right History of cataract surgery History of repair of rotator cuff Bilateral History of surgery on wrist Bilateral ulnar nerve release History of tonsillectomy and adenoidectomy Status post colonoscopy (07/21/19) normal , poor prep, repeat in 5 years Family History Mother , at age 66 Cancer uterine Aneurysm intracranial Father , at age 76 Lung disease asthma with allergies Asthma Other CAD (coronary artery disease) Social History Smoking and tobacco status: former smoker Quit status (tobacco): has quit using tobacco Year quit tobacco: 2021 Former quit date comment: 2ppd X 59 years Second hand smoke exposure: Yes Smoking risk assessment/counseling performed?: Yes Alcohol intake: former Counseling given: No Counseling given: No Lives independently: Yes Household members: spouse Marital status: service: Yes Current occupational status: retired Current gender identity: Male Physical Exam Const: COMMON NORMALS: alert GENERAL APPEARANCE: cooperative and ill appearing; not frail appearing HENMT: COMMON NORMALS: normocephalic, atraumatic and Normal external nose present HEAD & SCALP: normocephalic and atraumatic FACE & SINUS: normal facial exam and face symmetric NOSE: Normal external nose present Eye: COMMON NORMALS: Equal, round and reactive pupils present and EOMs intact bilaterally PUPIL: Yes Equal, round and reactive pupils present Neck/C-Spine: GENERAL: Yes trachea midline Chest: CHEST: Yes Symmetrical chest wall rise Resp: EFFORT & INSPECTION: Yes tachypneic AUSCULTATION: rhonchi, wheezes and diminished lung sounds Cardio: COMMON NORMALS: regular rate and regular rhythm RATE: regular rate RHYTHM: regular rhythm GI: COMMON NORMALS: Normal to inspection, nondistended, normoactive bowel sounds present Extremity: COMMON NORMALS: no pedal edema Neuro: BJ COMA SCALE: document GCS findings Bj coma scale eye opening: Spontaneous Bj coma scale verbal response: Orientated Bj coma scale motor response: Obey commands Bj coma scale total score: 15 SENSORIUM/ORIENTATION: Yes alert SENSORY EXAM: Yes extremities (intact) Psych: COMMON NORMALS: speech normal SPEECH: Yes normal speech Skin: COMMON NORMALS: no rashes or lesions noted GENERAL SKIN EXAM: no rashes or lesions noted Course Vital Signs: Vital signs: Vital Signs Temperature 98.6 F 06/23/22 02:52 Pulse Rate 108 H 06/23/22 02:52 Respiratory Rate 24 H 06/23/22 02:52 Blood Pressure 125/62 06/23/22 02:52 Pulse Oximetry 95 06/23/22 02:52 Oxygen Delivery Me thod Nasal Cannula 06/23/22 02:52 Oxygen Flow Rate 4 06/23/22 02:34 MDM - SOB/Dyspnea Medical Decision Making Compensated respiratory acidosis on blood gas testing. WBC is 12.6. Hemoglobin is 12. BMP is not remarkable. Lactic is 0.8. Patient has bilateral infiltrates on chest film. He was recently hospitalized. He is covered with antibiotics after a blood culture. Shortage of culture tubes prevents 2 cultures from being drawn. He has received breathing treatment here Solu- Medrol, antibiotics. Patient is still tachypneic. Recent admissions for COPD exacerbation. He has received IV Zosyn, with Levaquin and vancomycin. Viral panel is negative. Patient's respiratory status warrants admission with continued corticosteroids, antibiotic coverage for the bilateral infiltrates, etc. Hospitalist is aware and has seen the patient in the emergency department. Lab Data 06/23/22 00:45 06/23/22 00:45 Labs/Radiology: Radiology Impressions Chest X-Ray 06/23/22 00:51 IMPRESSION: Patchy bilateral mid to lower lung pneumonia should be followed to resolution. Laboratory Results WBC 12.6 10^3/uL (4.0-10.0) H 06/23/22 00:45 RBC 4.28 10^6/uL (4.1-5.3) 06/23/22 00:45 Hgb 12.5 g/dL (11.7-16.6) 06/23/22 00:45 Hct 39.0 % (42.0-52.0) L 06/23/22 00:45 MCV 91.1 fl (80-94) 06/23/22 00:45 MCH 29.2 pg (28.0-34.0) 06/23/22 00:45 MCHC 32.1 g/dL (30.0-36.0) 06/23/22 00:45 RDW 11.9 % (12.1-15.1) L 06/23/22 00:45 Plt Count 246 10^3/cmm (130-400) 06/23/22 00:45 MPV 8.4 fL (7.4-10.4) 06/23/22 00:45 Neut % (Auto) 51.6 % 06/23/22 00:45 Lymph % (Auto) 22.4 % 06/23/22 00:45 [place] % (Auto) 13.5 % 06/23/22 00:45 Eos % (Auto) 10.7 % 06/23/22 00:45 Baso % (Auto) 0.6 % 06/23/22 00:45 Neut # (Auto) 6.52 10^3/uL (1.8-7.7) 06/23/22 00:45 Lymph # (Auto) 2.8 10^3/uL (0.8-4.8) 06/23/22 00:45 [place] # (Auto) 1.7 10^3/uL (0.2-0.9) H 06/23/22 00:45 Eos # (Auto) 1.4 10^3/uL (0.0-0.8) H 06/23/22 00:45 Baso # (Auto) 0.1 10^3/uL (0.0-0.1) 06/23/22 00:45 Nucleated RBC % (auto) 0 % 06/23/22 00:45 Nucleated RBCs # 0.0 /100WBC 06/23/22 00:45 Specimen Type Arterial 06/23/22 01:15 Sample Site Radial, left 06/23/22 01:15 ABG pH 7.38 (7.35-7.45) 06/23/22 01:15 ABG pCO2 67.3 mmHg (35-45) H* 06/23/22 01:15 ABG pO2 74.0 mmHg (80.0-100.0) L 06/23/22 01:15 ABG HCO3 39.5 mmol/L (22-26) H 06/23/22 01:15 ABG Base Excess 11.6 mmol/L (-2.0-2.0) H 06/23/22 01:15 Luis Fernando Test Pos 06/23/22 01:15 Hematocrit 38.5 % (42-52) L 06/23/22 01:15 Hgb O2 Saturation 94.4 % (95-100) L 06/23/22 01:15 Carboxyhemoglobin 1.4 %THgb (0.4-20.1) 06/23/22 01:15 Methemoglobin 0.3 % (0.4-1.5) L 06/23/22 01:15 Total Hemoglobin 12.5 g/dL (14-18) L 06/23/22 01:15 O2 Delivery Device Nc 06/23/22 01:15 O2 Liters/Min 4.0 % 06/23/22 01:15 FiO2 36.0 % 06/23/22 01:15 Catering Server ID [email or web address] 06/23/22 01:15 Sodium 132 mmol/L (136-145) L 06/23/22 00:45 Potassium 3.8 mmol/L (3.5-5.1) 06/23/22 00:45 Chloride 88 mmol/L (98-107) L 06/23/22 00:45 Carbon Dioxide 36 mmol/L (22-29) H 06/23/22 00:45 Anion Gap 11.8 (5-19) 06/23/22 00:45 BUN 9 mg/dL (8-23) 06/23/22 00:45 Creatinine 0.8 mg/dL (0.7-1.2) 06/23/22 00:45 GFR Calculation Not Reportable 06/23/22 00:45 Glucose 149 mg/dL (65-115) H 06/23/22 00:45 Calculated Osmolality 275 mOsm/kg (285-295) L 06/23/22 00:45 Lactic Acid 0.8 mmol/L (0.5-2.2) 06/23/22 00:45 Calcium 8.6 mg/dL (8.5-10.5) 06/23/22 00:45 Magnesium 1.7 mg/dL (1.7-2.3) 06/23/22 00:45 Total Bilirubin 0.4 mg/dL (0.15-1.2) 06/23/22 00:45 AST 10 U/L (0-40) 06/23/22 00:45 ALT 20 U/L (0-41) 06/23/22 00:45 Alkaline Phosphatase 72 U/L (40-130) 06/23/22 00:45 NT-Pro-B Natriuret Pep 293 pg/mL (0-125) H 06/23/22 00:45 Total Protein 6.2 g/dL (6.6-8.7) L 06/23/22 00:45 Albumin 3.1 g/dL (3.5-5.2) L 06/23/22 00:45 Globulin 3.1 g/dL (1.3-4.6) 06/23/22 00:45 Nasal Influ A H1 2009 PCR Not detected (NOT DETECT) 06/23/22 01:05 Adenovirus (PCR) Not detected (NOT DETECT) 06/23/22 01:05 C. pneumoniae DNA (PCR) Not detected (NOT DETECT) 06/23/22 01:05 Coronavirus 229E (PCR) Not detected (NOT DETECT) 06/23/22 01:05 Human Metapneumovir PCR Not detected (NOT DETECT) 06/23/22 01:05 Influenza A (H1) PCR Not detected (NOT DETECT) 06/23/22 01:05 Influenza A (H3) PCR Not detected (NOT DETECT) 06/23/22 01:05 Influenza Type A (PCR) Not detected (NOT DETECT) 06/23/22 01:05 Influenza Type B (PCR) Not detected (NOT DETECT) 06/23/22 01:05 M. pneumoniae (PCR) Not detected (NOT DETECT) 06/23/22 01:05 Parainfluenza 1 (PCR) Not detected (NOT DETECT) 06/23/22 01:05 Parainfluenza 2 (PCR) Not detected (NOT DETECT) 06/23/22 01:05 Parainfluenza 3 (PCR) Not detected (NOT DETECT) 06/23/22 01:05 Parainfluenza 4 (PCR) Not detected (NOT DETECT) 06/23/22 01:05 RSV Type A (PCR) Not detected (NOT DETECT) 06/23/22 01:05 RSV Type B (PCR) Not detected (NOT DETECT) 06/23/22 01:05 Entero/Rhino (PCR) Not detected (NOT DETECT) 06/23/22 01:05 SARS-CoV-2 (PCR) Not detected (NOT DETECT) 06/23/22 01:05 Discharge Plan Discharge Patient Disposition: Admitted As Inpatient Admit Provider: Mickie Wall Clinical Impression: Respiratory failure with hypoxia and hypercapnia, Bilateral pneumonia Condition: Fair Coding Level of Care Code ED [employer] Aide for minna Rico
[2022-06-23 01:32] LABS: Alanine Aminotransferase 20 U/L (0-41); Albumin Level 3.1 g/dL (3.5-5.2); Alkaline Phosphatase 72 U/L (40-130); Anion Gap 11.8 (5-19); Aspartate Amino Transferase 10 U/L (0-40); Blood Urea Nitrogen 9 mg/dL (8-23); Calcium 8.6 mg/dL (8.5-10.5); Carbon Dioxide 36 mmol/L (22-29); Chloride 88 mmol/L (98-107); Globulin 3.1 g/dL (1.3-4.6); Glucose 149 mg/dL (65-115); Magnesium 1.7 mg/dL (1.7-2.3); NT Pro B Type Natriuretic Pept 293 pg/mL (0-125); Osmolality Calculated 275 mOsm/kg (285-295); Potassium 3.8 mmol/L (3.5-5.1); Sodium 132 mmol/L (136-145); Total Bilirubin 0.4 mg/dL (0.15-1.2); Total Protein 6.2 g/dL (6.6-8.7)
[2022-06-23] MEDS: piperacillin-tazobactam 4.5 GM in sodium chloride 0.9% (plus) 50 ML IV (01:42)
[2022-06-23 02:53] LABS: Adenovirus Not Detected (NOT DETECT); Chlamydia Pneumoniae Not Detected (NOT DETECT); Coronavirus 229E,HKU1,NL63,OC4 Not Detected (NOT DETECT); Human Metapneumovirus Not Detected (NOT DETECT); Human Rhinovirus/Enterovirus Not Detected (NOT DETECT); Influenza A Not Detected (NOT DETECT); Influenza A H1 Not Detected (NOT DETECT); Influenza A H1-2009 Not Detected (NOT DETECT); Influenza A H3 Not Detected (NOT DETECT); Influenza B Not Detected (NOT DETECT); Mycoplasma Pneumoniae Not Detected (NOT DETECT); Parainfluenza Virus Type 1 Not Detected (NOT DETECT); Parainfluenza Virus Type 2 Not Detected (NOT DETECT); Parainfluenza Virus Type 3 Not Detected (NOT DETECT); Parainfluenza Virus Type 4 Not Detected (NOT DETECT); Respiratory Syncytial Virus A Not Detected (NOT DETECT); Respiratory Syncytial Virus B Not Detected (NOT DETECT); SARS-COV-2 Not Detected (NOT DETECT)
--- NOTE | 2022-06-23 02:55 | P.HP_ITS ---
Providers/Chief Complaint Primary Care Provider: Courtney Reich DO Chief Complaint: difficulty breathing History of Present Illness Hernan Beckman JR is a 71 year old male with past medical history of BPH, chronic low back pain, migraine, diabetes mellitus type 2 not insulin-dependent, COPD on 2 L of oxygen at home, depression, peripheral neuropathy presented to the hospital today with complaint of progressively worsening shortness of breath and worsening sputum production which has now changed color to green versus yellow. He states at home he is on 2 L of oxygen but has just been feeling worse and worse and when he came to the hospital today he asked him to bump it up to 4 L. Denies any lower extremity edema at this time. Reports a subjective fever at home. Says that he has been sick with pneumonia multiple times in the past and has pretty bad COPD. He sees pulmonology and the last time he saw them was in April this year. He is a former smoker 2 pack/day for 59 years. He quit in November 2021. He has gold class D COPD and obstructive sleep apnea. He is also been on theophylline in the past from his doctor in [place]. Patient takes triple nebulized therapy and azithromycin along with prednisone 5 mg daily at home. He did have multifocal pneumonia in February 2022. Most recently had a COPD exacerbation and was discharged on May 27, 2021. Denies chest pain, abdominal pain, nausea, vomiting, diarrhea. ED course: 140/65, 110, 99.5, saturating 95% on 4 L nasal cannula, respiratory 30 on arrival. Blood gas obtained, 7.38/67 point 3/74/30 9.5. WBC 12.6, hemoglobin 12, platelets 246, lactic acid 0.8. Chest x-ray shows multifocal bilateral infiltrates on chest film. He was started on IV antibiotics and blood culture was obtained. Patient given Zosyn and Solu-Medrol 125 times once, DuoNeb x1. Medications/Allergies Home Medications Medication Instructions Recorded Confirmed Last Taken Type Four wheeled walker with a seat #1 ea 03/24/19 06/03/22 Unknown Rx acetaminophen 500 mg tablet 500 mg PO Q4H PRN Pain 03/24/19 06/03/22 07/18/19 History (Tylenol Extra Strength) epinephrine 0.3 mg/0.3 mL 0.3 mg IM ONCE PRN Allergic 03/24/19 06/03/22 Unknown History injection, auto-injector Reaction albuterol sulfate 2.5 mg/3 mL 2.5 mg inhalation BID PRN 04/05/19 06/03/22 07/21/19 History (0.083 %) solution for nebulization Shortness Of Breath fluticasone propionate 50 1 spray intranasal Q12H 90 days 05/19/19 06/03/22 07/20/19 Rx mcg/actuation nasal #54.6 mL spray,suspension (Flonase Allergy Relief) omalizumab 150 mg subcutaneous 150 mg SUBCUT Q30D 06/29/19 06/03/22 06/20/19 History solution (Xolair) albuterol sulfate 90 mcg/actuation 2 inh inhalation Q6H PRN shortness 01/10/22 06/03/22 Unknown Rx aerosol inhaler of breath or wheezing #18 grams budesonide 0.5 mg/2 mL suspension 0.5 mg (2 mL) inhalation BID #120 01/10/22 06/03/22 Unknown Rx for nebulization (Pulmicort) mL formoterol fumarate 20 mcg/2 mL 2 ml inhalation Q12H 90 days #120 01/10/22 06/03/22 Unknown Rx solution for nebulization mL (Perforomist) prednisone 5 mg tablet 5 mg PO DAILY 90 days #90 tabs 02/13/22 06/03/22 Unknown Rx sitagliptin phosphate 100 mg 100 mg PO DAILY #90 tabs 02/14/22 06/03/22 Unknown Rx tablet (Januvia) tramadol 50 mg tablet 50 mg PO TID PRN pain #90 tabs 04/10/22 06/03/22 Unknown Rx tamsulosin 0.4 mg capsule (Flomax) 0.8 mg PO DAILY #180 caps 04/24/22 06/03/22 Unknown Rx atorvastatin 20 mg tablet 20 mg PO BEDTIME 05/24/22 06/03/22 Unknown History azithromycin 250 mg tablet 250 mg PO EVERY OTHER DAY 05/24/22 06/03/22 Unknown History furosemide 20 mg tablet 40 mg PO DAILY #30 tabs 05/27/22 06/03/22 Unknown Rx prednisone 10 mg tablet 10 mg PO DIRECTED #105 tabs 05/27/22 06/03/22 Unknown Rx amitriptyline 25 mg tablet See Rx Instructions .Route 05/31/22 06/03/22 Unknown Rx .COMPLEX #30 tabs venlafaxine 150 mg See Rx Instructions .Route 05/31/22 06/03/22 Unknown Rx capsule,extended release 24 hr .COMPLEX #30 caps revefenacin 175 mcg/3 mL solution 175 mcg (3 mL) inhalation DAILY 06/16/22 Unknown Rx for nebulization (Yupelri) #90 mL Allergies Allergy/AdvReac Type Severity Reaction Status Date / Time metformin Allergy ADR-Nausea Verified 06/03/22 10:25 PFSH Acute PFSH: Medical History BPH loc w urin obs/LUTS Chronic low back pain Has had nerve ablations and follows at pain clinic in [place] Chronic migraine Controlled diabetes mellitus without long-term current use of insulin COPD (chronic obstructive pulmonary disease) 2 L of oxygen at home, follows with Dr. Putnam in [place] currently, on theophylline Depression, controlled Diabetes mellitus type 2, noninsulin dependent Elevated prostate specific antigen [PSA] Enrolled in chronic care management History of multiple allergies Xolair injections monthly Hx of migraine headaches Has a triptan prescription and another medication Peripheral neuropathy Primarily involving hands, related to ulnar nerve interventions Surgical History H/O decompression of ulnar nerve bilateral H/O elbow surgery bilateral H/O rotator cuff surgery bilateral H/O total knee replacement right History of cataract surgery History of repair of rotator cuff Bilateral History of surgery on wrist Bilateral ulnar nerve release History of tonsillectomy and adenoidectomy Status post colonoscopy (07/21/19) normal , poor prep, repeat in 5 years Family History Mother , at age 66 Cancer uterine Aneurysm intracranial Father , at age 76 Lung disease asthma with allergies Asthma Other CAD (coronary artery disease) Social History Smoking and tobacco status: former smoker Quit status (tobacco): has quit using tobacco Year quit tobacco: 2021 Former qu it date comment: 2ppd X 59 years Second hand smoke exposure: Yes Smoking risk assessment/counseling performed?: Yes Alcohol intake: former Counseling given: No Counseling given: No Lives independently: Yes Household members: spouse Marital status: service: Yes Current occupational status: retired Current gender identity: Male Vitals/I&O/Wt Last Vital Signs Temp 98.6 F 06/23/22 02:52 Pulse 108 H 06/23/22 02:52 Resp 24 H 06/23/22 02:52 BP 125/62 06/23/22 02:52 Pulse Ox 95 06/23/22 02:52 O2 Del Method Nasal Cannula 06/23/22 02:52 O2 Flow Rate 4 06/23/22 02:34 06/22/22 06/22/22 06/23/22 14:59 22:59 06:59 Intake Total 50 / 50 Balance 50 / 50 Weight last 48 hrs Weight 113.398 kg Physical Exam Narrative: General: Alert oriented x3, patient seen laying in bed appearing comfortable at this time on 4 L nasal cannula. Sounds congested and coughs throughout encounte r. Has a toxic glassy appearing HEENT: Normocephalic, atraumatic, EOMI, no acute respiratory distress Cardio: Regular rate rhythm, normal S1-S2, Respiratory: Rhonchi bilaterally throughout lung vieira, minimal wheezing present at bases. GI: Abdomen soft, nontender, obese rounded, bowel sounds + Extremities: No edema noted at this time. Data 06/23/22 00:45 06/23/22 00:45 Micro: Microbiology 06/23/22 01:40 Blood Culture - Preliminary Blood SPECIMEN COLLECTED 06/23/22 01:10 Blood Culture - Preliminary Blood SPECIMEN COLLECTED A&P Assessment and plan (1) BPH loc w urin obs/LUTS: (2) Recurrent pneumonia: (3) Acute exacerbation of chronic obstructive pulmonary disease: (4) Obstructive sleep apnea: (5) COPD (chronic obstructive pulmonary disease): Qualifiers: COPD type: emphysema Emphysema type: panlobular Qualified Code(s): J43.1 - Panlobular emphysema (6) CAP (community acquired pneumonia): Qualifiers: Laterality: unspecified laterality Qualified Code(s): J18.9 - Pneumonia, unspecified organism (7) Peripheral neuropathy: (8) Depression, controlled: (9) Dyslipidemia: Plan #Multifocal pneumonia #Gold class D COPD, in exacerbation #Diabetes mellitus type 2, [id number] #BPH #Depression #Peripheral neuropathy -DuoNeb every 4 hours scheduled ? Budesonide twice daily inhaled ? Vanco and Zosyn ? Check procalcitonin ? Solu-Medrol 60 every 8 hours IV ? Obtain sputum culture Gram stain, blood cultures ? Sliding scale insulin low-dose intensity ? Tylenol for fever, Zofran for nausea, ? Hold lasix today ? Venlafaxine 150 daily ? Check CBC CMP in a.m. ? Consider pulmonology consultation -BiPAP if needed however patient is saturating well on 4 L nasal cannula at this time. Wean oxygen as able back to home dose. -Chest x-ray reviewed personally. -Check lactic acid ? Check blood gas in a.m. - Check BNP - Echo reviewed: ?Technically? very difficult study.? (Echo contrast - Optison was ?used to delineate the endocardium and to estimate the? LV ?ejection fraction).? LV ejection fraction estimated to be 60%.? ?No significant wall motion normalities were noted . ?The tricuspid valve appears to be thickened ?Possibly normal chamber sizes. ?No pericardial effusion - check antigen bacterial/legionella Full code SCDs, heparin SQ twice daily for DVT prophylaxis Attestations Medical Necessity Statement*: Greater than 2 midnight stay for management of pneumonia. Other Coding Information Focused coding review requested Diagnoses BPH loc w urin obs/LUTS N40.1 Recurrent pneumonia J18.9 Acute exacerbation of chronic obstructive pulmonary disease J44.1 Obstructive sleep apnea G47.33 COPD (chronic obstructive pulmonary disease) J43.1 COPD type: emphysema Emphysema type: panlobular CAP (community acquired pneumonia) J18.9 Laterality: unspecified laterality Peripheral neuropathy G62.9 Depression, controlled F32.9 Dyslipidemia E78.5
[2022-06-23 03:59] LABS: Procalcitonin 0.07 ng/mL (0-0.5)
[2022-06-23] MEDS: heparin 5,000 unit/mL INJ 1 mL 5000 UNIT SUBCUT ×2 (04:49→17:51)
[2022-06-23] MEDS: levofloxacin-dextrose 5 % 750 MG/150 ML PREMIX 100 MG IV (04:49)
[2022-06-23] MEDS: fluticasone nasal spray 16gm Btl 1 SPRAY INTRANASAL (04:49)
[2022-06-23] MEDS: vancomycin 1,250 MG/250 ML PIGGYBACK 250 MG IV (06:00)
[2022-06-23 06:36] LABS: Glucose Point of Care 291 mg/dL (70-110)
[2022-06-23 07:23] LABS: Lactic Sepsis W/Reflex 1.2 mmol/L (0.5-2.2)
[2022-06-23] MEDS: budesonide 0.5 mg/2 mL Neb INHALATION ×2 (08:11→19:51)
[2022-06-23] MEDS: insulin lispro 100 unit/1 mL SUBCUT ×4 (08:45→22:00)
[2022-06-23] MEDS: venlafaxine ER (24HR) 150 mg Capsule PO (08:46)
[2022-06-23] MEDS: piperacillin-tazobactam 3.375 GM in sodium chloride 0.9% (plus) 50 ML IV ×3 (08:46→23:54)
--- NOTE | 2022-06-23 10:23 | PC.CHAP ---
Pastoral Care Encounter/Spiritual Assessment Type of Contact [] Declined glue reel operator visit [] Patient/Family/Request visit [] Outpatient visit [] Follow-up visit [] Physician referral [] Code/Alert [x] Routine visit [] Staff referral [] Actively dying [x] Patient sleeping [] Family support [] [] Out of room [] Palliative care [] [] Receiving care in room [] Pre-surgical visit [] Trauma [] Long length of stay [] ICU visit [] Other: Relational/Emotional Strength [] Patient feels connected with others/family/visitors/staff [] Distress [] Loneliness/isolation [] Abandonment Spirituality of Patient [] Person of Julia [] Attends Restoration of their Julia [] Believes in Prayer [] Reads Bible or Mormonism materials [] There are Spiritual issues to be addressed Shell Molding Roller Blast Operator Interventions [] Prayer [] Active listening [] Non-anxious presence [] Spiritual/emotional support [] Crisis/trauma care [] Spiritual counseling [] Bereavement support [] Provided bereavement packet [] Provided Bible/devotional materials [] Provided toy/stuffed animal, coloring book to patient or family member [] Provided Communion [] Anointing/[place] [] Salvation [] Completed spiritual assessment [] Other: Impact on Illness or Injury [] Angry [] Fearful [] Anxious [] Often cries [] Exhaustion [] Unable to work [] Unable to attend mandaeism [] Unable to walk/stand [] Unable to read [] Unable to drive [] Unable to eat/drink [] Unable to sleep [] Unable to be with family [] Patient intubated [] Other: Summary Time spent with patient
[2022-06-23 11:44] LABS: Glucose Point of Care 406 mg/dL (70-110)
--- NOTE | 2022-06-23 13:36 | PM.PN ---
Subjective Subjective: History and physical was reviewed. Patient reports he feels better than on admission. Less short of breath. Still wheezing. Occasional cough but not really productive. No chest pain. Medications: Reviewed: Yes Vitals/I&O/Wt Last Vital Signs Temp 97.5 F L 06/23/22 11:58 Pulse 81 06/23/22 11:58 Resp 16 06/23/22 11:58 BP 143/76 06/23/22 11:58 Pulse Ox 97 06/23/22 11:58 O2 Del Method Nasal Cannula 06/23/22 11:58 O2 Flow Rate 3 06/23/22 11:24 06/22/22 06/23/22 06/23/22 22:59 06:59 14:59 Intake Total 290 / 290 810 / 810 Output Total 250 / 250 Balance 40 / 40 810 / 810 Weight last 48 hrs Weight 113.398 kg Weight 113.398 kg Physical Exam Narrative: General exam no distress Neck is supple Cardiovascular regular rate and rhythm. Occasional premature beat. No murmur. Lungs bilateral expiratory wheezes Abdomen is soft, positive bowel sounds Extremities no cyanosis clubbing edema Data 06/23/22 00:45 06/23/22 00:45 Micro: Microbiology 06/23/22 04:45 MRSA Culture - Final Nose 06/23/22 06:00 Legionella Urinary Antigen - Final Urine,Voided Bacterial Antigens - Final 06/23/22 01:40 Blood Culture - Preliminary Blood SPECIMEN COLLECTED 06/23/22 01:10 Blood Culture - Preliminary Blood SPECIMEN COLLECTED A&P Assessment and plan (1) Recurrent pneumonia: Continue IV vancomycin and Zosyn Sputum culture, blood culture pending MRSA PCR negative. Discontinue vancomycin Note that procalcitonin was negative, but this may not be valid considering he was on prednisone since his last hospitalization, since tapered down to 20 mg. Repeat CBC and BMP tomorrow COVID and influenza were negative Wean oxygen as tolerated. Normally on 2 L. Has been as high as 4 L. Currently on 3 L. (2) Acute exacerbation of chronic obstructive pulmonary disease: Reduce IV steroids to Solu-Medrol 40 mg every 12 hours Continue budesonide twice daily DuoNeb every 4 hours (3) Diabetes mellitus type 2, noninsulin dependent: Initiate sliding scale insulin Plan Multiple other medical problems as outlined in past medical history Heparin for DVT prophylaxis Attestations Medical Necessity Statement*: Needs continued hospitalization for IV antibiotics secondary to pneumonia Diagnoses Recurrent pneumonia J18.9 Acute exacerbation of chronic obstructive pulmonary disease J44.1 Diabetes mellitus type 2, noninsulin dependent E11.9 Time Spent (min) 31
[2022-06-23] MEDS: atorvastatin 40 mg Tablet 20 MG PO (20:34)
--- NOTE | 2022-06-23 22:36 | PC.NURSE ---
Nighttime POC 303 - gave 12u insulin.
[2022-06-24] VITALS (15 sets, daily range): BP systolic 119–151; BP diastolic 63–88; PULSE 77–99; RESP 16–20; TEMP 36.4–36.6; O2SAT 91–98
[2022-06-24] MEDS: heparin 5,000 unit/mL INJ 1 mL 5000 UNIT SUBCUT ×2 (05:22→15:30)
[2022-06-24] MEDS: fluticasone nasal spray 16gm Btl 1 SPRAY INTRANASAL ×2 (05:23→15:30)
[2022-06-24 07:15] LABS: Basophils # 0.1 10^3/uL (0.0-0.1); Basophils % 0.3 %; Eosinophils % 0.1 %; Hematocrit 36.6 % (42.0-52.0); Hemoglobin 11.6 g/dL (11.7-16.6); Lymphocytes # 1.3 10^3/uL (0.8-4.8); Lymphocytes % 7.5 %; Mean Corpuscular HGB Conc 31.7 g/dL (30.0-36.0); Mean Corpuscular Hemoglobin 28.4 pg (28.0-34.0); Mean Corpuscular Volume 89.5 fl (80-94); Mean Platelet Volume 8.9 fL (7.4-10.4); Monocytes # 0.9 10^3/uL (0.2-0.9); Monocytes % 5.3 %; Neutrophils # 14.97 10^3/uL (1.8-7.7); Neutrophils % 85.8 %; Nucleated Red Blood Cells % 0 %; Platelet Count 299 10^3/cmm (130-400); Red Blood Count 4.09 10^6/uL (4.1-5.3); Red Cell Distribution Width 11.8 % (12.1-15.1); White Blood Count 17.5 10^3/uL (4.0-10.0)
[2022-06-24] MEDS: ipratropium-albuterol 3 mL Neb INHALATION ×4 (07:17→21:01)
[2022-06-24] MEDS: budesonide 0.5 mg/2 mL Neb INHALATION ×2 (07:17→21:01)
[2022-06-24 07:31] LABS: Anion Gap 10.7 (5-19); Blood Urea Nitrogen 13 mg/dL (8-23); Carbon Dioxide 35 mmol/L (22-29); Chloride 93 mmol/L (98-107); Glucose 280 mg/dL (65-115); Magnesium 2.2 mg/dL (1.7-2.3); Osmolality Calculated 288 mOsm/kg (285-295); Potassium 4.7 mmol/L (3.5-5.1); Sodium 134 mmol/L (136-145)
[2022-06-24] MEDS: piperacillin-tazobactam 3.375 GM in sodium chloride 0.9% (plus) 50 ML IV ×2 (08:36→15:30)
[2022-06-24] MEDS: insulin lispro 100 unit/1 mL SUBCUT ×4 (08:36→21:14)
[2022-06-24] MEDS: venlafaxine ER (24HR) 150 mg Capsule PO (08:36)
[2022-06-24] MEDS: cetirizine 10 mg Tablet PO (10:17)
--- NOTE | 2022-06-24 10:25 | PC.CHAP ---
Pastoral Care Encounter/Spiritual Assessment Type of Contact [] Declined novelty twister operator visit [] Patient/Family/Request visit [] Outpatient visit [] Follow-up visit [] Physician referral [] Code/Alert [x] Routine visit [] Staff referral [] Actively dying [] Patient sleeping [] Family support [] [] Out of room [] Palliative care [] [] Receiving care in room [] Pre-surgical visit [] Trauma [] Long length of stay [] ICU visit [] Other: Relational/Emotional Strength [x] Patient feels connected with others/family/visitors/staff [] Distress [] Loneliness/isolation [] Abandonment Spirituality of Patient [x] Person of Julia [x] Attends Confucianist of their Julia [x] Believes in Prayer [x] Reads Bible or Orthodox materials [] There are Spiritual issues to be addressed Dolphin Researcher Interventions [x] Prayer [] Active listening [] Non-anxious presence [x] Spiritual/emotional support [] Crisis/trauma care [] Spiritual counseling [] Bereavement support [] Provided bereavement packet [] Provided Bible/devotional materials [] Provided toy/stuffed animal, coloring book to patient or family member [] Provided Communion [] Anointing/[place] [] Salvation [x] Completed spiritual assessment [] Other: Impact on Illness or Injury [] Angry [] Fearful [] Anxious [] Often cries [] Exhaustion [] Unable to work [] Unable to attend latter-day [] Unable to walk/stand [] Unable to read [] Unable to drive [] Unable to eat/drink [] Unable to sleep [] Unable to be with family [] Patient intubated [] Other: Summary Time spent with patient 10 min
--- NOTE | 2022-06-24 12:32 | PM.PN ---
Subjective Subjective: Hernan reports he feels a little bit better. Still short of breath. Some cough. No vomiting. Still some wheezing. Medications: Reviewed: Yes Vitals/I&O/Wt Last Vital Signs Temp 97.8 F 06/24/22 08:00 Pulse 80 06/24/22 11:35 Resp 18 06/24/22 11:29 BP 125/76 06/24/22 08:00 Pulse Ox 97 06/24/22 11:29 O2 Del Method Nasal Cannula 06/24/22 11:29 O2 Flow Rate 3 06/24/22 11:29 06/23/22 06/24/22 06/24/22 22:59 06:59 14:59 Intake Total 50 / 860 700 / 1560 Output Total 1000 / 1000 Balance -950 / -140 700 / 560 Weight last 48 hrs Weight 113.398 kg Weight 113.398 kg Physical Exam Narrative: General exam no distress Neck is supple Cardiovascular regular rate and rhythm. No murmur. Lungs bilateral expiratory wheezes Abdomen is soft, positive bowel sounds Extremities no cyanosis clubbing edema Data 06/24/22 06:53 06/24/22 06:53 Micro: Microbiology 06/23/22 01:40 Blood Culture - Preliminary Blood NEGATIVE TO DATE 06/23/22 01:10 Blood Culture - Preliminary Blood NEGATIVE TO DATE 06/23/22 04:45 MRSA Culture - Final Nose 06/23/22 06:00 Legionella Urinary Antigen - Final Urine,Voided Bacterial Antigens - Final A&P Assessment and plan (1) Recurrent pneumonia: Continue IV Zosyn Sputum culture, blood culture pending MRSA PCR negative. Note that procalcitonin was negative, but this may not be valid considering he was on prednisone since his last hospitalization, since tapered down to 20 mg. Repeat CBC and BMP tomorrow. White blood cell count increased but likely secondary to steroid use. COVID and influenza were negative Wean oxygen as tolerated. Normally on 2 L. Currently on 3 L. Repeat chest x-ray tomorrow. (2) Acute exacerbation of chronic obstructive pulmonary disease: Discontinue IV steroids. Changed to prednisone Continue budesonide twice daily DuoNeb every 4 hours (3) Diabetes mellitus type 2, noninsulin dependent: Continue sliding scale insulin Plan Multiple other medical problems as outlined in past medical history Heparin for DVT prophylaxis Attestations Medical Necessity Statement*: Needs continued hospital stay for IV antibiotics secondary to pneumonia Diagnoses Recurrent pneumonia J18.9 Acute exacerbation of chronic obstructive pulmonary disease J44.1 Diabetes mellitus type 2, noninsulin dependent E11.9 Time Spent (min) 24
[2022-06-24 20:19] LABS: Glucose Point of Care 241 mg/dL (70-110)
--- NOTE | 2022-06-24 21:08 | PC.NURSE ---
POC 241, gave 8u Humalog
[2022-06-24] MEDS: atorvastatin 40 mg Tablet 20 MG PO (21:12)
[2022-06-24] MEDS: TRAMadol 50 mg Tablet PO (22:32)
[2022-06-25] VITALS (23 sets, daily range): BP systolic 124–160; BP diastolic 65–110; PULSE 81–140; RESP 16–42; TEMP 36.4–37; O2SAT 92–97
[2022-06-25] MEDS: piperacillin-tazobactam 3.375 GM in sodium chloride 0.9% (plus) 50 ML IV ×4 (00:09→23:26)
[2022-06-25] MEDS: ipratropium-albuterol 3 mL Neb INHALATION ×6 (00:27→21:01)
[2022-06-25] MEDS: heparin 5,000 unit/mL INJ 1 mL 5000 UNIT SUBCUT (04:20)
[2022-06-25] MEDS: fluticasone nasal spray 16gm Btl 1 SPRAY INTRANASAL ×2 (04:21→15:18)
[2022-06-25 05:49] LABS: Basophils # 0.1 10^3/uL (0.0-0.1); Basophils % 0.3 %; Eosinophils # 0.5 10^3/uL (0.0-0.8); Eosinophils % 2.6 %; Hematocrit 37.2 % (42.0-52.0); Lymphocytes # 3.1 10^3/uL (0.8-4.8); Lymphocytes % 15.5 %; Mean Corpuscular HGB Conc 32.3 g/dL (30.0-36.0); Mean Corpuscular Volume 89.9 fl (80-94); Mean Platelet Volume 8.8 fL (7.4-10.4); Monocytes # 1.3 10^3/uL (0.2-0.9); Monocytes % 6.6 %; Neutrophils # 14.68 10^3/uL (1.8-7.7); Neutrophils % 73.8 %; Nucleated Red Blood Cells % 0 %; Platelet Count 375 10^3/cmm (130-400); Red Blood Count 4.14 10^6/uL (4.1-5.3); Red Cell Distribution Width 11.9 % (12.1-15.1); White Blood Count 19.9 10^3/uL (4.0-10.0)
[2022-06-25 06:12] LABS: Anion Gap 12.1 (5-19); Blood Urea Nitrogen 15 mg/dL (8-23); Calcium 8.8 mg/dL (8.5-10.5); Carbon Dioxide 35 mmol/L (22-29); Chloride 92 mmol/L (98-107); Glucose 241 mg/dL (65-115); Osmolality Calculated 289 mOsm/kg (285-295); Potassium 4.1 mmol/L (3.5-5.1); Sodium 135 mmol/L (136-145)
--- NOTE | 2022-06-25 07:00 | XR_ITS ---
WS: [id number] Portable AP upright chest, 06/25/2022 Clinical Data: follow up pneumonia Comparison: Portable chest, 06/23/2022 Findings: The patchy bilateral midlung and left lower lobe opacities remain the same. The heart is no rmal. The aortic arch shows mild tortuosity. No nodules, masses or effusions are seen. Monitor leads are on the chest wall. XR/XR chest 1V portable [id number] Impression: No change in patchy bilateral pulmonary opacities.
[2022-06-25 07:05] LABS: Glucose Point of Care 294 mg/dL (70-110)
[2022-06-25 07:06] LABS: Glucose Point of Care 300 mg/dL (70-110)
[2022-06-25 07:06] LABS: Glucose Point of Care 303 mg/dL (70-110)
[2022-06-25 07:06] LABS: Glucose Point of Care 334 mg/dL (70-110)
[2022-06-25 07:06] LABS: Glucose Point of Care 305 mg/dL (70-110)
[2022-06-25 07:06] LABS: Glucose Point of Care 220 mg/dL (70-110)
[2022-06-25] MEDS: insulin lispro 100 unit/1 mL SUBCUT ×3 (08:12→18:03)
[2022-06-25] MEDS: cetirizine 10 mg Tablet PO (08:13)
[2022-06-25] MEDS: venlafaxine ER (24HR) 150 mg Capsule PO (08:13)
--- NOTE | 2022-06-25 09:11 | PM.PN ---
Subjective Subjective: Hernan reports he is doing okay. He is still short of breath but less than on admission. He is not coughing currently. No nausea or vomiting. Had some sweats last night. Worried regarding his readmission, and that it may be too early to go home today. Medications: Reviewed: Yes Vitals/I&O/Wt Last Vital Signs Temp 97.8 F 06/25/22 07:26 Pulse 89 06/25/22 07:49 Resp 16 06/25/22 07:44 BP 124/75 06/25/22 07:26 Pulse Ox 97 06/25/22 07:44 O2 Del Method Nasal Cannula 06/25/22 07:44 O2 Flow Rate 2 06/25/22 07:44 06/24/22 06/25/22 06/25/22 22:59 06:59 14:59 Intake Total 1130 / 1180 980 / 2160 Output Total 400 / 400 300 / 700 Balance 730 / 780 680 / 1460 Physical Exam Narrative: General exam no distress, currently on 2 L of oxygen Neck is supple Cardiovascular regular rate and rhythm. No murmur. Lungs improved aeration but does still have occasional faint expiratory wheezes after coughing Abdomen is soft, positive bowel sounds Extremities no cyanosis clubbing edema Data 06/25/22 05:36 06/25/22 05:36 A&P Assessment and plan (1) Recurrent pneumonia: Continue IV Zosyn Sputum culture not yet able to be obtained. MRSA PCR negative. Blood culture negative to date. Note that procalcitonin was negative, but this may not be valid considering he was on prednisone since his last hospitalization, since tapered down to 20 mg. Repeat CBC and BMP tomorrow. White blood cell count increased but likely secondary to steroid use. This was higher today. Reduce prednisone to 40 mg daily COVID and influenza were negative Wean oxygen as tolerated. Now down to 2 L Repeat chest x-ray reviewed today. Still with multifocal infiltrate. May be slightly improved. (2) Acute exacerbation of chronic obstructive pulmonary disease: Decrease prednisone to 40 mg Continue budesonide twice daily DuoNeb every 4 hours (3) Diabetes mellitus type 2, noninsulin dependent: Continue sliding scale insulin Plan Multiple other medical problems as outlined in past medical history Heparin for DVT prophylaxis Attestations Medical Necessity Statement*: Needs continued hospital stay for IV antibiotics secondary to pneumonia Diagnoses Recurrent pneumonia J18.9 Acute exacerbation of chronic obstructive pulmonary disease J44.1 Diabetes mellitus type 2, noninsulin dependent E11.9 Time Spent (min) 22
[2022-06-25 10:23] LABS: Glucose Point of Care 207 mg/dL (70-110)
[2022-06-25 16:19] LABS: Glucose Point of Care 277 mg/dL (70-110)
--- NOTE | 2022-06-25 19:54 | PC.NURSE ---
Patient stated he felt short of breath. Upon vitals, O2 was low 90s. Oxygen was increased from 2.5 L nasal cannula to 3.5 L nasal cannula. Running sinus tach, not a new finding. Patient resting in bed, high Wilson's, and watching television.
[2022-06-25 20:30] LABS: Glucose Point of Care 92 mg/dL (70-110)
--- NOTE | 2022-06-25 20:36 | ECG_ITS ---
[facility] Test Date: 2022-06-25 Pat Name: Hernan Beckman Department: Room: 258 Gender: Male Physical Therapy Manager: : 1950 Requested By: Lizandro Goncalves Order Number: [id number] Xochitl MD: Hardik Betts M.D. Measurements Intervals [place] Rate: 133 P: 67 ME: 157 QRS: 25 QRSD: 83 T: 73 QT: 285 QTc: 425 Interpretive Statements SINUS TACHYCARDIA ABNORMAL RHYTHM ECG Compared to ECG 06/23/2022 00:47:04 Ventricular premature complex(es) no longer present Electronically Signed On 06-27-2022 1:30:08 CDT by Hardik Betts M.D. [email or web address]
--- NOTE | 2022-06-25 20:42 | PC.NURSE ---
Patient increasingly short of breath and resting HR staying in the 130s-140s. Dr Goncalves was informed, and order given for EKG.
[2022-06-25] MEDS: budesonide 0.5 mg/2 mL Neb INHALATION (21:01)
--- NOTE | 2022-06-25 21:01 | XRR_ITS ---
PROCEDURE INFORMATION: Exam: XR Chest Exam date and time: 06/25/2022 8:07 PM Age: 71 years old Clinical indication: Shortness of breath TECHNIQUE: Imaging protocol: Radiologic exam of the chest. Views: 1 view. COMPARISON: CR (CHEST, ) 06/23/2022 1:00 AM FINDINGS: Lungs: Bilateral upper lobe pneumonic infiltrates. Pleural spaces: Unremarkable. No pleural effusion. No pneumothorax. Heart/Mediastinum: Cardiomegaly and mild pulmonary vascular congestion. Bones/joints: Unremarkable. XR/XR chest 1V portable [id number] IMPRESSION: 1. Bilateral upper lobe pneumonic infiltrates, similar to prior exam. 2. Cardiomegaly and mild pulmonary vascular congestion.
--- NOTE | 2022-06-25 21:22 | CTR_ITS ---
PROCEDURE INFORMATION: Exam: CTA Chest With Contrast Exam date and time: 06/25/2022 10:17 PM Age: 71 years old Clinical indication: Shortness of breath; Patient HX: On bipap during scan; Additional info: SOB TECHNIQUE: Imaging protocol: Computed tomographic angiography of the chest with contrast. 3D rendering (Not supervised by radiologist): MIP and/or 3D reconstructed images were created by the technologist. Radiation optimization: All CT scans at this facility use at least one of these dose optimization techniques: automated exposure control; mA and/or kV adjustment per patient size (includes targeted exams where dose is matched to clinical indication); or iterative reconstruction. Contrast material: OMNI 350; Contrast volume: 100 ml; Contrast route: INTRAVENOUS (IV); REPORTING DATA: Count of CT and Cardiac NM exams in prior 12 months: This patient has received [address] and 0 known cardiac nuclear medicine studies in the 12 months prior to the current study. COMPARISON: CT angio chest PE protcl [id number] 03/16/2019 9:10 PM RADIATION DOSE METRICS: Total DLP (mGy-cm): 515.76 FINDINGS: Pulmonary arteries: Normal. No pulmonary emboli. Aorta: Unremarkable. No aortic aneurysm. No aortic dissection. Lungs: Patchy bilateral largely upper lung field airspace opacities, suggestive of pneumonic infiltrates, short-term 1 month follow-up exam advised to assess for resolution. Emphysematous changes. Pleural spaces: Unremarkable. No pneumothorax. No pleural effusion. Heart: Unremarkable. No cardiomegaly. No pericardial effusion. Lymph nodes: Several prominent subcentimeter short axis nonspecific mediastinal lymph nodes. Adrenal glands: Left adrenal 13 mm nodule suspected, indeterminate, dedicated nonemergent adrenal imaging could further evaluate this nonemergently. Bones/joints: Unremarkable. No acute fracture. Soft tissues: Hepatic steatosis. CT/CT angio chest PE protcl [id number] IMPRESSION: 1. Negative for pulmonary embolus. 2. Patchy bilateral largely upper lung field airspace opacities, suggestive of pneumonic infiltrates, short-term 1 month follow-up exam advised to assess for resolution. 3. Emphysematous changes. 4. Several prominent subcentimeter short axis nonspecific mediastinal lymph nodes. 5. Left adrenal 13 mm nodule suspected, indeterminate, dedicated nonemergent adrenal imaging could further evaluate this nonemergently. 6. Hepatic steatosis. COMMENTS: In the absence of a history or active diagnosis of lung cancer, it is recommended that this patient with emphysema be evaluated for enrollment in a low dose CT lung cancer screening program.
--- NOTE | 2022-06-25 21:37 | P.PNCC_ITS ---
Critical Care Event Note The high probability of a clinically significant, sudden or life threatening deterioration of the patient's [] system(s) required my full and direct attention, intervention and personal management. The critical care time is as shown. This time is in addition to time spent performing any reported procedures but includes the following: [x] Data and vital sign review and interpretation [x] Patient assessment, examination and intervention [x] Documentation [x] Medication orders and management Coding Level of Care Code Acute Code for [facility] Trisha
[2022-06-25] MEDS: iohexol 350 mg/mL 500 mL Btl (per mL) IV (22:07)
--- NOTE | 2022-06-25 22:38 | PC.NURSE ---
Patient and belongings transferred to ICU room 5. Bedside report was given to AZEEM Barajas.
--- NOTE | 2022-06-25 22:40 | PC.PHAR ---
Pharmacokinetic dosing service Date: 06/25/22 Time: 2240 Objective: Patient: Hernan Beckman Floor: 258-1 Age: 71 yo Serum creatinine: 0.8 mg/dL Height: 68.0 Inches Weight (kg): 113.4 Diagnosis: Relevant medical/social history: Cultures and sensitivities: Other labs: Assessment: IBW (kg): 68.40 Dosing wt(kg): 113.4 Estimated Creatinine clearance (ml/min): 79.6 CRCL method: Cockcroft and Gault using ibw(default). Drug selected: Vancomycin Loading dose (mg): 0 Vd (liters): 102.1 (factor used: 0.9 L/kg) Umberto (hr-1): 0.070 Half life (hrs): 9.90 Recommended dose: 1500 mg Interval: 12 hrs Infusion time (hrs): 1.5 Predicted peak (mcg/mL): 24.5 Predicted trough (mcg/mL): 11.75 Total body weight is being used for vancomycin dosing. Renal function is stable [ ] /unstable [ ] Recommendations: Give Vancomycin 1500 mg q 12 hrs with an expected Cpeak of 24.5 mcg/ml and an expected Ctrough of 11.75 mcg/ml Renal dosing of other antibiotics (review renal dosing of other medications and list guidelines here): Thank you for the consult, will continue to follow. Signature: Katalina Mendosa [facility]
--- NOTE | 2022-06-25 22:57 | ECG_ITS ---
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 Measurements Intervals [place] Rate: 132 P: 75 NM: 149 QRS: 46 QRSD: 80 T: 78 QT: 293 QTc: 435 Interpretive Statements SINUS TACHYCARDIA ABNORMAL RHYTHM ECG Compared to ECG 06/25/2022 20:41:46 No significant changes Electronically Signed On 06-27-2022 22:13:07 CDT by Hardik Betts M.D. [id number]
[2022-06-25 23:17] LABS: Basophils # 0.1 10^3/uL (0.0-0.1); Basophils % 0.7 %; Eosinophils # 1.4 10^3/uL (0.0-0.8); Eosinophils % 7.8 %; Hematocrit 41.5 % (42.0-52.0); Hemoglobin 12.8 g/dL (11.7-16.6); Lymphocytes # 2.8 10^3/uL (0.8-4.8); Lymphocytes % 15.1 %; Mean Corpuscular HGB Conc 30.8 g/dL (30.0-36.0); Mean Corpuscular Hemoglobin 28.1 pg (28.0-34.0); Mean Corpuscular Volume 91.2 fl (80-94); Mean Platelet Volume 8.8 fL (7.4-10.4); Monocytes # 1.8 10^3/uL (0.2-0.9); Monocytes % 10.1 %; Neutrophils # 11.78 10^3/uL (1.8-7.7); Neutrophils % 64.6 %; Nucleated Red Blood Cells % 0 %; Platelet Count 425 10^3/cmm (130-400); Red Blood Count 4.55 10^6/uL (4.1-5.3); White Blood Count 18.2 10^3/uL (4.0-10.0)
[2022-06-25] MEDS: vancomycin 1,500 MG/300 ML PIGGYBACK 200 MG IV (23:26)
[2022-06-25] MEDS: FUROsemide 10 mg/mL SDV 4mL 40 MG IVP (23:26)
[2022-06-25 23:32] LABS: D Dimer 0.83 ug/mIFEU (0-0.59)
[2022-06-25 23:34] LABS: Lactic Sepsis W/Reflex 3.1 mmol/L (0.5-2.2)
[2022-06-25 23:37] LABS: Troponin(5th) Baseline 42 ng/L (0-15)
[2022-06-25 23:44] LABS: NT Pro B Type Natriuretic Pept 1474 pg/mL (0-125); Procalcitonin 0.07 ng/mL (0-0.5)
[2022-06-25 23:56] LABS: Alanine Aminotransferase 32 U/L (0-41); Albumin Level 3.4 g/dL (3.5-5.2); Alkaline Phosphatase 71 U/L (40-130); Anion Gap 13.1 (5-19); Aspartate Amino Transferase 20 U/L (0-40); Blood Urea Nitrogen 13 mg/dL (8-23); C Reactive Protein 39.1 mg/L (0.0-4.9); Calcium 9.1 mg/dL (8.5-10.5); Carbon Dioxide 34 mmol/L (22-29); Chloride 91 mmol/L (98-107); Glucose 102 mg/dL (65-115); Magnesium 1.9 mg/dL (1.7-2.3); Osmolality Calculated 278 mOsm/kg (285-295); Potassium 4.1 mmol/L (3.5-5.1); Sodium 134 mmol/L (136-145); Total Bilirubin 0.2 mg/dL (0.15-1.2); Total Protein 6.4 g/dL (6.6-8.7)
[2022-06-26] VITALS (58 sets, daily range): BP systolic 113–166; BP diastolic 50–114; PULSE 85–137; RESP 17–44; TEMP 36.6; O2SAT 87–100
[2022-06-26 00:58] LABS: Reflex Lactate Order REFLEX LACTIC ORDERD
[2022-06-26 01:34] LABS: Troponin 5 2HR 44.86 ng/L (0-15)
[2022-06-26 01:35] LABS: Troponin 5 2HR Delta 2.86 ABS# (0-10)
--- NOTE | 2022-06-26 02:17 | PC.NURSE ---
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 Bedside report was received. Patient's heart rate and O2 requirements had increased. Dr. Goncalves ordered for patient to have CTA to R/O PE and to be transferred to ICU. Shelby catheter insertion was ordered and attempted. Shelby was not able to be placed despite the use of a coude catheter. Patient stated that the last time he had a Shelby, the doctor had to put it in . Dr. Goncalves was notified of this information at 0012. He did not feel that a urology consult was appropriate at this time. Patient was then bladder scanned and there was 151 ml in his bladder. Patient had voided per urinal four times since arrival to ICU, 100ml each time. This was reported to Dr. Goncalves who ordered Q4H bladder scans.
--- NOTE | 2022-06-26 02:54 | ECG_ITS ---
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 Measurements Intervals [place] Rate: 118 P: 56 ME: 154 QRS: 51 QRSD: 82 T: 84 QT: 300 QTc: 421 Interpretive Statements SINUS TACHYCARDIA WITH OCCASIONAL SUPRAVENTRICULAR PREMATURE COMPLEXES ABNORMAL RHYTHM ECG Compared to ECG 06/25/2022 22:57:10 No significant changes Electronically Signed On 06-27-2022 22:14:36 CDT by Hardik Betts M.D. [id number]
[2022-06-26 02:56] LABS: Adenovirus Not Detected (NOT DETECT); Chlamydia Pneumoniae Not Detected (NOT DETECT); Coronavirus 229E,HKU1,NL63,OC4 Not Detected (NOT DETECT); Human Metapneumovirus Not Detected (NOT DETECT); Human Rhinovirus/Enterovirus Not Detected (NOT DETECT); Influenza A Not Detected (NOT DETECT); Influenza A H1 Not Detected (NOT DETECT); Influenza A H1-2009 Not Detected (NOT DETECT); Influenza A H3 Not Detected (NOT DETECT); Influenza B Not Detected (NOT DETECT); Mycoplasma Pneumoniae Not Detected (NOT DETECT); Parainfluenza Virus Type 1 Not Detected (NOT DETECT); Parainfluenza Virus Type 2 Not Detected (NOT DETECT); Parainfluenza Virus Type 3 Not Detected (NOT DETECT); Parainfluenza Virus Type 4 Not Detected (NOT DETECT); Respiratory Syncytial Virus A Not Detected (NOT DETECT); Respiratory Syncytial Virus B Not Detected (NOT DETECT); SARS-COV-2 Not Detected (NOT DETECT)
[2022-06-26] MEDS: ipratropium-albuterol 3 mL Neb INHALATION ×6 (03:50→23:55)
[2022-06-26 04:02] LABS: Lactic Acid level (Lactate) 1.2 mmol/L (0.5-2.2)
[2022-06-26] MEDS: heparin 5,000 unit/mL INJ 1 mL 5000 UNIT SUBCUT ×2 (04:32→17:16)
[2022-06-26] MEDS: fluticasone nasal spray 16gm Btl 1 SPRAY INTRANASAL ×2 (04:32→17:27)
[2022-06-26 04:38] LABS: Basophils # 0.1 10^3/uL (0.0-0.1); Basophils % 0.5 %; Eosinophils # 0.1 10^3/uL (0.0-0.8); Eosinophils % 0.5 %; Hematocrit 40.6 % (42.0-52.0); Lymphocytes # 1.2 10^3/uL (0.8-4.8); Lymphocytes % 8.1 %; Mean Corpuscular Hemoglobin 28.5 pg (28.0-34.0); Mean Platelet Volume 8.6 fL (7.4-10.4); Monocytes # 0.3 10^3/uL (0.2-0.9); Monocytes % 1.8 %; Neutrophils # 12.92 10^3/uL (1.8-7.7); Neutrophils % 87.1 %; Nucleated Red Blood Cells % 0 %; Platelet Count 393 10^3/cmm (130-400); Red Blood Count 4.56 10^6/uL (4.1-5.3); Red Cell Distribution Width 12.1 % (12.1-15.1); White Blood Count 14.9 10^3/uL (4.0-10.0)
[2022-06-26 04:55] LABS: Troponin 5 6HR 37.99 ng/L (0-15)
[2022-06-26 04:57] LABS: Troponin 5 6HR Delta -4.01 ng/L (0-12)
[2022-06-26] MEDS: perflutren protein-a microsphr 0.22 mg/mL SDV 3 mL IV (06:59)
[2022-06-26] MEDS: budesonide 0.5 mg/2 mL Neb INHALATION ×2 (07:33→20:38)
[2022-06-26 07:55] LABS: Glucose Point of Care 365 mg/dL (70-110)
--- NOTE | 2022-06-26 08:05 | P.PN_ITS ---
Subjective Subjective: Patient decompensated last night, evening. From my understanding he became very short of breath. BiPAP was initiated. Blood gas was not done. Multiple lab tests were repeated such as sputum, COVID, MRSA PCR. CTA was ordered as well as venous duplex and echo. He received some Lasix. This morning he reports he feels better on BiPAP. He does not have any chest discomfort currently. He rep orts he did have chest tightness when he was short of breath. Medications: Reviewed: Yes Vitals/I&O/Wt Last Vital Signs Temp 98.6 F 06/25/22 23:30 Pulse 108 H 06/26/22 07:38 Resp 22 H 06/26/22 07:35 BP 133/89 06/26/22 04:30 Pulse Ox 94 06/26/22 07:35 O2 Del Method BiPAP 06/26/22 07:35 O2 Flow Rate 3 06/25/22 20:44 FiO2 30 06/26/22 07:35 06/25/22 06/26/22 06/26/22 22:59 06:59 14:59 Intake Total 50 / 694 350 / 1044 Output Total 400 / 1000 575 / 1575 Balance -350 / -306 -225 / -531 Physical Exam Narrative: General exam no distress HEENT: BiPAP noted Neck supple no lymphadenopathy thyromegaly Cardiovascular slightly tachycardic, occasional premature beat, no murmur Lungs diminished breath sounds bilaterally. Occasional expiratory wheeze Abdomen is soft, positive bowel sounds. No obvious organomegaly exam is deferred Extremities no cyanosis clubbing or edema, cap refill brisk Skin no rash Neuro no obvious focal deficits Data 06/26/22 04:30 06/25/22 22:52 Other Labs: Venous duplex no clot CTA reviewed personally as well. No pulmonary embolism. Patchy bilateral infiltrates noted. Troponins reviewed All of his EKGs were reviewed. Sinus tachycardia, no real acute changes Repeat COVID and flu negative. I did order a Fungitell. A&P Assessment and plan (1) Recurrent pneumonia: Patient decompensated last night. Bilateral upper lobe infiltrates are noted on CTA, no pulmonary embolism. COVID, influenza, antigen panel and all negative MRSA PCR negative, blood culture negative Was on Zosyn. Vancomycin was discontinued after he was MRSA negative. Vancomycin was restarted with his decompensation last night. We will go ahead and discontinue Zosyn, changed to meropenem. Fungitell ordered. Sputum culture not yet able to be obtained. MRSA PCR negative. Blood culture negative to date. CBC, BMP tomorrow Change steroids to 40 mg IV every 12 hours Wean oxygen as tolerated. Wean BiPAP as tolerated Pulmonary consultation (2) Acute exacerbation of chronic obstructive pulmonary disease: Changing Solu-Medrol to 40 mg every 12 hours Continue budesonide twice daily DuoNeb every 4 hours (3) Diabetes mellitus type 2, noninsulin dependent: Continue sliding scale insulin (4) Acute respiratory failure with hypoxia: Decompensated last night and placed on BiPAP. Wean as tolerated. High risk for intubation secondary to decompensation. Question of aspiration could play a role. Speech therapy evaluation will be obtained. He recently had a swallow which showed no overt aspiration. Plan Multiple other medical problems as outlined in past medical history Heparin for DVT prophylaxis Attestations Medical Necessity Statement*: Needs continued hospitalization for IV antibiotics secondary to pneumonia, BiPAP for respiratory failure Coding Level of Care Code Critical Care >/= 30 minutes Diagnoses Recurrent pneumonia J18.9 Acute exacerbation of chronic obstructive pulmonary disease J44.1 Diabetes mellitus type 2, noninsulin dependent E11.9 Acute respiratory failure with hypoxia J96.01 Time Spent (min) 34
[2022-06-26] MEDS: meropenem 1,000 MG in sodium chloride 0.9% (plus) 50 ML 100 MG IV ×2 (08:30→17:16)
[2022-06-26] MEDS: venlafaxine ER (24HR) 150 mg Capsule PO (08:30)
[2022-06-26] MEDS: cetirizine 10 mg Tablet PO (08:30)
[2022-06-26] MEDS: insulin lispro 100 unit/1 mL SUBCUT ×4 (08:30→20:39)
[2022-06-26 11:07] LABS: Glucose Point of Care 438 mg/dL (70-110)
[2022-06-26] MEDS: vancomycin 1,500 MG/300 ML PIGGYBACK 200 MG IV ×2 (11:52→22:44)
--- NOTE | 2022-06-26 15:45 | PC.SOCIAL ---
IMM Update pg 2 of [facility] udpated and reviewed w/ patient and his . Copy provided and copy in chart dated, and initialed.
[2022-06-26 16:40] LABS: Glucose Point of Care 365 mg/dL (70-110)
[2022-06-26 20:30] LABS: Glucose Point of Care 211 mg/dL (70-110)
[2022-06-26] MEDS: atorvastatin 40 mg Tablet 20 MG PO (20:39)
--- NOTE | 2022-06-26 21:23 | USCV_ITS ---
Hernan Beckman Age: 71 Gender: M : 1950 Exam Date: 06/26/2022 02:15 Ordering Phys: Lizandro Goncalves MD Technologist: LUKAS [place] [facility] [place]: dvt - patient on BIPAP, unresponsive, tachycardic 124 bpm, in ICU-5 HISTORY: dvt - patient on BIPAP, unresponsive, tachycardic 124 bpm, in ICU-5 PROCEDURES: Venous duplex imaging was performed in bilateral lower extremities. The following venous structures were evaluated: common femoral vein, profunda vein, proximal portion of the greater saphenous vein, superficial femoral vein, and the popliteal vein. In addition, the posterior tibial veins were evaluated. FINDINGS: Normal 2-D Doppler and augmentation and compressibility throughout the lower extremity venous structures. Additional imaging through the proximal calf veins also reveals no thrombus. Limited evaluation of the greater saphenous vein is patent with no thrombus. CONCLUSIONS No DVT bilateral lower extremities. Dr. Florinda Medina DO (Electronically Signed) Final Date: 26 June 2022 07:36 S
--- NOTE | 2022-06-26 21:23 | USCV_ITS ---
Rk Hernan Age: 71 Gender: M : 1950 Exam Date: 06/26/2022 06:36 Ordering Phys: Lizandro Goncalves MD Technologist: DOMI Exam Location: [facility] [place] Indication: TACHYCARDIA BP: 138 / 99 HR: 105 Rhythm: Sinus Technical Quality: Suboptimal MEASUREMENTS (Male / Female) Normal Values 2D ECHO LVOT Diameter 2.0 cm LV Ejection Fraction MOD 2C 44.0 % LV Ejection Fraction 2C AL 43.2 % LA Diameter 2.4 cm LA Width 2.8 cm LA Height 3.5 cm RA Width 2.6 cm RA Height 3.8 cm Aorta at Sinotubular Diameter 2.1 cm IVC Diameter 2.4 cm M-MODE MV E Point Septal Separation 1.1 cm DOPPLER Right Atrial Pressure 15.0 mmHg FINDINGS Left Ventricle (Echo contrast - Optison was used to delineate the endocardium and to estimate the LV ejection fraction). Normal LV size with a diminished ejection fraction of 46%. Mild diffuse hypokinesia of the left ventricle. Right Ventricle Right ventricle not well visualized. Right Atrium Left Atrium Possibly of normal size Mitral Valve No gross abnormalities noted Aortic Valve Could not be delineated well Tricuspid Valve Tricuspid valve not well visualized. Pulmonic Valve Pulmonic valve not well visualized. Pericardium No pericardial effusion. Aorta Aorta not well visualized. IVC Inferior vena cava not visualized. CONCLUSIONS (Echo contrast - Optison was used to delineate the endocardium and to estimate the LV ejection fraction). Normal LV size with a diminished ejection fraction of 46%. Mild diffuse hypokinesia of the left ventricle. No pericardial effusion. Further interpretation is not possible Dr Hardik Betts MD [facility] (Electronically Signed) Final Date: 27 June 2022 01:11 S
--- NOTE | 2022-06-26 22:25 | PM.CONSULT ---
Providers/Reason For Consult Consulting Physician/Specialty*: Lonyn Varela MD/ Pulmonary critical Care Reason for Consult*: Hypoxic respiratory failure inpatient with suspected aspiration pneumonia Requesting Physician: Manuel Walters MD Attending Physician: Manuel Walters MD Primary Care Provider: Courtney Reich DO History of Present Illness History of Present Illness Hernan Beckman JR is a 71 year old male with past medical history of BPH, chronic low back pain, migraine, diabetes type 2, COPD 2 L of oxygen at home, depression, peripheral neuropathy-presented to ED on 06/23/2022 for worsening shortness of breath associated with sputum production. He had several hospital admissions for COPD exacerbation associated with recurrent pneumonia. I have seen patient in clinic in April 2022 2 months ago for the first time. Previously used to follow Dr. Royal as outpatient for COPD Patient is a former smoker with 2 pack/day for 59 years and quit November 2021. He has gold class D COPD with severe airflow obstruction FEV1 29%. He has chronic hypercapnic and hypoxic respiratory failure requiring baseline 2 L supplemental oxygen. He was using triple nebulization with revefenacin, formoterol and budesonide nebulizer. He also receives azithromycin every other day and takes 5 mg prednisone daily all to prevent recurrent exacerbations. He had suffered COPD exacerbation in February [address] chest during February admission showed patchy airspace opacities in lower lungs and tree-in-bud infiltrates throughout both lungs. He did mention that he choke occasionally and so I obtained a barium swallow as outpatient in April 2022 reported small Zenker's diverticulum with negative esophagogram. Minimal vallecular pooling. Unfortunately suffered another exacerbation and was admitted in the hospital for 3 days in May 2022. Discharged with levofloxacin Augmentin and tapering dose of prednisone. This will be his third admission in the last 5 months since February 2022 for COPD exacerbation-his oxygen requirement went up to 4 L, started on vancomycin and Zosyn, scheduled nebulizations, IV Solu-Medrol 60 every 8. Echo showed technically very difficult study with LVEF estimated to be 60%. The patient approved with shortness of breath improving over the next 3 days. However yesterday night patient decompensated and was placed on BiPAP. A CTA was ordered as well as venous duplex and echocardiogram. Lasix was also given. Zosyn was stopped and meropenem was added to his vancomycin. Pulmonary consulted for this episode of decompensation and-yesterday night. Today morning patient reported that his breathing has improved after being placed on BiPAP at night. Reports that he does not remember what happened yesterday evening. His CTA ruled out PE. Showed patchy bilateral largely upper lung field airspace opacities. With background emphysema Venous Doppler negative for DVT. MRSA nares negative. Urine Legionella negative. Procalcitonin 0.07. No fever spikes. Improving WBC count Other labs and imaging reviewed. Review of Systems General: Reports: 10 or more systems reviewed and unremarkable except in HPI and below Medications/Allergies Home Medications Medication Instructions Recorded Confirmed Last Taken Type Four wheeled walker with a seat #1 ea 03/24/19 06/23/22 Unknown Rx acetaminophen 500 mg tablet 500 mg PO Q4H PRN Pain 03/24/19 06/23/22 07/18/19 History (Tylenol Extra Strength) epinephrine 0.3 mg/0.3 mL 0.3 mg IM ONCE PRN Allergic 03/24/19 06/23/22 Unknown History injection, auto-injector Reaction albuterol sulfate 2.5 mg/3 mL 2.5 mg inhalation BID PRN 04/05/19 06/23/22 07/21/19 History (0.083 %) solution for nebulization Shortness Of Breath fluticasone propionate 50 1 spray intranasal Q12H 90 days 05/19/19 06/23/22 07/20/19 Rx mcg/actuation nasal #54.6 mL spray,suspension (Flonase Allergy Relief) albuterol sulfate 90 mcg/actuation 2 inh inhalation Q6H PRN shortness 01/10/22 06/23/22 Unknown Rx aerosol inhaler of breath or wheezing #18 grams budesonide 0.5 mg/2 mL suspension 0.5 mg (2 mL) inhalation BID #120 01/10/22 06/23/22 Unknown Rx for nebulization (Pulmicort) mL formoterol fumarate 20 mcg/2 mL 2 ml inhalation Q12H 90 days #120 01/10/22 06/23/22 Unknown Rx solution for nebulization mL (Perforomist) prednisone 5 mg tablet 5 mg PO DAILY 90 days #90 tabs 02/13/22 06/23/22 Unknown Rx sitagliptin phosphate 100 mg 100 mg PO DAILY #90 tabs 02/14/22 06/23/22 Unknown Rx tablet (Januvia) tramadol 50 mg tablet 50 mg PO TID PRN pain #90 tabs 04/10/22 06/23/22 Unknown Rx tamsulosin 0.4 mg capsule (Flomax) 0.8 mg PO DAILY #180 caps 04/24/22 06/23/22 Unknown Rx atorvastatin 20 mg tablet 20 mg PO BEDTIME 05/24/22 06/23/22 Unknown History azithromycin 250 mg tablet 250 mg PO EVERY OTHER DAY 05/24/22 06/23/22 Unknown History furosemide 20 mg tablet 40 mg PO DAILY #30 tabs 05/27/22 06/23/22 Unknown Rx venlafaxine 150 mg See Rx Instructions .Route 05/31/22 06/23/22 Unknown Rx capsule,extended release 24 hr .COMPLEX #30 caps revefenacin 175 mcg/3 mL solution 175 mcg (3 mL) inhalation DAILY 06/16/22 06/23/22 Unknown Rx for nebulization (Yupelri) #90 mL amitriptyline 25 mg tablet 25 mg PO BEDTIME 06/23/22 06/23/22 Unknown History Allergies Allergy/AdvReac Type Severity Reaction Status Date / Time metformin Allergy ADR-Nausea Verified 06/03/22 10:25 Current Medications Generic Name Dose Route Start Last Admin Trade Name Freq PRN Reason Stop Dose Admin Albuterol/Ipratropium 3 ml 06/23/22 16:00 06/26/22 20:38 Ipratropium-Albuterol 3 Ml Neb INHALATION 3 ml Q4H.RESPIRATORY KALIA Administration Atorvastatin Calcium 20 mg 06/23/22 21:00 06/26/22 20:39 Atorvastatin 40 Mg Tablet PO 20 mg BEDTIME KALIA Administration Budesonide 0.5 mg 06/23/22 20:00 06/26/22 20:38 Budesonide 0.5 Mg/2 Ml Neb INHALATION 0.5 mg BID.RESPIRATORY KALIA Administration Cetirizine HCl 10 mg 06/24/22 09:40 06/26/22 08:30 Cetirizine 10 Mg Tablet PO 10 mg DAILY AKLIA Administration Fluticasone Propionate 1 spray 06/23/22 04:30 06/26/22 17:27 Fluticasone Nasal [place] 16gm Btl INTRANASAL 1 spray Q12H KALIA Administration Heparin Sodium (Porcine) 5,000 unit 06/23/22 03:15 06/26/22 17:16 Heparin 5,000 Unit/Ml Inj 1 Ml SUBCUT 5,000 unit Q12H KALIA Administration Vancomycin/PEG/NADA/Lysine/Water 1,500 mg in 300 mls @ 200 mls/hr 06/25/22 23:00 06/26/22 17:37 Vancocin IV Infused Q12H KALIA Infusion Meropenem 1,000 mg/ Sodium 50 mls @ 100 mls/hr 06/26/22 08:00 06/26/22 17:16 Chloride IV 100 mls/hr Q8H KALIA Administration Protocol Insulin Human Lispro 0 unit 06/23/22 08:42 06/26/22 20:39 Insulin Lispro 100 Unit/1 Ml SUBCUT 6 unit WM&BEDTIME KALIA Administration Protocol Methylprednisolone Sodium Succinate 40 mg 06/26/22 18:30 06/26/22 17:15 Methylprednisolone Sod Succ 40 Mg/Ml Inj IVP 40 mg Q12H KALIA Administration Tramadol HCl 50 mg 06/24/22 21:42 06/24/22 22:32 Tramadol 50 Mg Tablet PO 50 mg Q8H PRN Administration MODERATE PAIN Venlafaxine HCl 150 mg 06/23/22 09:00 06/26/22 08:30 Venlafaxine Er (24hr) 150 Mg Capsule PO 150 mg DAILY KALIA Administration PFSH Acute PFSH: Medical History BPH loc w urin obs/LUTS Chronic low back pain Has had nerve ablations and follows at pain clinic in [place] Chronic migraine Controlled diabetes mellitus without long-term current use of insulin COPD (chronic obstructive pulmonary disease) 2 L of oxygen at home, follows with Dr. Putnam in [place] currently, on theophylline Depression, controlled Diabetes mellitus type 2, noninsulin dependent Elevated prostate specific antigen [PSA] Enrolled in chronic care management History of multiple allergies Xolair injections monthly Hx of migraine headaches Has a triptan prescription and another medication Peripheral neuropathy Primarily involving hands, related to ulnar nerve interventions Surgical History H/O decompression of ulnar nerve bilateral H/O elbow surgery bilateral H/O rotator cuff surgery bilateral H/O total knee replacement right History of cataract surgery History of repair of rotator cuff Bilateral History of surgery on wrist Bilateral ulnar nerve release History of tonsillectomy and adenoidectomy Status post colonoscopy (07/21/19) normal , poor prep, repeat in 5 years Family History Mother , at age 66 Cancer uterine Aneurysm intracranial Father , at age 76 Lung disease asthma with allergies Asthma Other CAD (coronary artery disease) Social History Smoking and tobacco status: former smoker Quit status (tobacco): has quit using tobacco Year quit tobacco: 2021 Former quit date comment: 2ppd X 59 years Second hand smoke exposure: Yes Smoking risk assessment/counseling performed?: Yes Alcohol intake: former Counseling given: No Substance/Drug Use: never Counseling given: No Lives independently: Yes Household members: spouse Marital status: service: Yes Current occupational status: retired Current gender identity: Male Vitals/I&O/Wt Last Vital Signs Temp 97.8 F 06/26/22 07:30 Pulse 93 06/26/22 20:40 Resp 22 H 06/26/22 20:40 BP 155/88 06/26/22 11:30 Pulse Ox 100 06/26/22 20:40 O2 Del Method Nasal Cannula 06/26/22 20:40 O2 Flow Rate 3 06/26/22 15:28 FiO2 2 06/26/22 20:40 06/26/22 06/26/22 06/26/22 06:59 14:59 22:59 Intake Total 350 / 1044 650 / 650 540 / 1190 Output Total 575 / 1575 1325 / 1325 350 / 1675 Balance -225 / -531 -675 / -675 190 / -485 Physical Exam Narrative: General: alert, NAD HEENT: conj clear, EOMI, PERRL, mmm, Neck: supple, no meningismus Heme: no cervical LAP Respiratory: Inspection: No visible deformity of the chest wall Palpation: Trachea is mildly deviated to the right, bilateral symmetric expansion Percussion: Bilateral tympanic percussion note both anterior and posteriorly Auscultation: Diffuse coarse crackles Cardiovascular: rrr, nl s1s2, no mrg Abdomen: soft, nt, nd, no r/g, bs+ Extremities: pulses +, no edema, no c/c : no CVA tenderness Skin: intact, no rash MSK: no back or neck pain Neurologic: grossly intact Data 06/26/22 04:30 06/25/22 22:52 Other Labs: Radiology Impressions Chest X-Ray 06/25/22 21:01 IMPRESSION: 1. Bilateral upper lobe pneumonic infiltrates, similar to prior exam. 2. Cardiomegaly and mild pulmonary vascular congestion. Chest CTA 06/25/22 21:22 IMPRESSION: 1. Negative for pulmonary embolus. 2. Patchy bilateral largely upper lung field airspace opacities, suggestive of pneumonic infiltrates, short-term 1 month follow-up exam advised to assess for resolution. 3. Emphysematous changes. 4. Several prominent subcentimeter short axis nonspecific mediastinal lymph nodes. 5. Left adrenal 13 mm nodule suspected, indeterminate, dedicated nonemergent adrenal imaging could further evaluate this nonemergently. 6. Hepatic steatosis. COMMENTS: In the absence of a history or active diagnosis of lung cancer, it is recommended that this patient with emphysema be evaluated for enrollment in a low dose CT lung cancer screening program. Laboratory Results WBC 14.9 10^3/uL (4.0-10.0) H 06/26/22 04:30 RBC 4.56 10^6/uL (4.1-5.3) 06/26/22 04:30 Hgb 13.0 g/dL (11.7-16.6) 06/26/22 04:30 Hct 40.6 % (42.0-52.0) L 06/26/22 04:30 MCV 89.0 fl (80-94) 06/26/22 04:30 MCH 28.5 pg (28.0-34.0) 06/26/22 04:30 MCHC 32.0 g/dL (30.0-36.0) 06/26/22 04:30 RDW 12.1 % (12.1-15.1) 06/26/22 04:30 Plt Count 393 10^3/cmm (130-400) 06/26/22 04:30 MPV 8.6 fL (7.4-10.4) 06/26/22 04:30 Neut % (Auto) 87.1 % 06/26/22 04:30 Lymph % (Auto) 8.1 % 06/26/22 04:30 Mcdowell % (Auto) 1.8 % 06/26/22 04:30 Eos % (Auto) 0.5 % 06/26/22 04:30 Baso % (Auto) 0.5 % 06/26/22 04:30 Neut # (Auto) 12.92 10^3/uL (1.8-7.7) H 06/26/22 04:30 Lymph # (Auto) 1.2 10^3/uL (0.8-4.8) 06/26/22 04:30 Mcdowell # (Auto) 0.3 10^3/uL (0.2-0.9) 06/26/22 04:30 Eos # (Auto) 0.1 10^3/uL (0.0-0.8) 06/26/22 04:30 Baso # (Auto) 0.1 10^3/uL (0.0-0.1) 06/26/22 04:30 Nucleated RBC % (auto) 0 % 06/26/22 04:30 Nucleated RBCs # 0.0 /100WBC 06/26/22 04:30 D-Dimer 0.83 ug/mIFEU (0-0.59) H 06/25/22 22:52 Specimen Type Arterial 06/23/22 01:15 Sample Site Radial, left 06/23/22 01:15 ABG pH 7.38 (7.35-7.45) 06/23/22 01:15 ABG pCO2 67.3 mmHg (35-45) H* 06/23/22 01:15 ABG pO2 74.0 mmHg (80.0-100.0) L 06/23/22 01:15 ABG HCO3 39.5 mmol/L (22-26) H 06/23/22 01:15 ABG Base Excess 11.6 mmol/L (-2.0-2.0) H 06/23/22 01:15 Luis Fernando Test Pos 06/23/22 01:15 Hematocrit 38.5 % (42-52) L 06/23/22 01:15 Hgb O2 Saturation 94.4 % (95-100) L 06/23/22 01:15 Carboxyhemoglobin 1.4 %THgb (0.4-20.1) 06/23/22 01:15 Methemoglobin 0.3 % (0.4-1.5) L 06/23/22 01:15 Total Hemoglobin 12.5 g/dL (14-18) L 06/23/22 01:15 O2 Delivery Device Nc 06/23/22 01:15 O2 Liters/Min 4.0 % 06/23/22 01:15 FiO2 36.0 % 06/23/22 01:15 Revenue Audit Clerk ID Alewe 06/23/22 01:15 Sodium 134 mmol/L (136-145) L 06/25/22 22:52 Potassium 4.1 mmol/L (3.5-5.1) 06/25/22 22:52 Chloride 91 mmol/L (98-107) L 06/25/22 22:52 Carbon Dioxide 34 mmol/L (22-29) H 06/25/22 22:52 Anion Gap 13.1 (5-19) 06/25/22 22:52 BUN 13 mg/dL (8-23) 06/25/22 22:52 Creatinine 0.8 mg/dL (0.7-1.2) 06/25/22 22:52 GFR Calculation Not Reportable 06/25/22 22:52 Glucose 102 mg/dL (65-115) 06/25/22 22:52 POC Glucose 211 mg/dL (70-110) H 06/26/22 20:27 Calculated Osmolality 278 mOsm/kg (285-295) L 06/25/22 22:52 Lactic Acid 3.1 mmol/L (0.5-2.2) H 06/25/22 22:52 Lactic Acid (Sepsis) 1.2 mmol/L (0.5-2.2) 06/26/22 02:47 Calcium 9.1 mg/dL (8.5-10.5) 06/25/22 22:52 Magnesium 1.9 mg/dL (1.7-2.3) 06/25/22 22:52 Total Bilirubin 0.2 mg/dL (0.15-1.2) 06/25/22 22:52 AST 20 U/L (0-40) 06/25/22 22:52 ALT 32 U/L (0-41) 06/25/22 22:52 Alkaline Phosphatase 71 U/L (40-130) 06/25/22 22:52 Troponin T Baseline 42 ng/L (0-15) H 06/25/22 22:52 Troponin T 120 Minute 44.86 ng/L (0-15) H 06/26/22 01:04 Delta Troponin T 2.86 ABS# (0-10) 06/26/22 01:04 Troponin T Hi Sens 6Hr 37.99 ng/L (0-15) H 06/26/22 04:30 Troponin T Hi Sens 6Hr Delta -4.01 ng/L (0-12) L 06/26/22 04:30 C-Reactive Protein 39.1 mg/L (0.0-4.9) H 06/25/22 22:52 NT-Pro-B Natriuret Pep 1474 pg/mL (0-125) H 06/25/22 22:52 Total Protein 6.4 g/dL (6.6-8.7) L 06/25/22 22:52 Albumin 3.4 g/dL (3.5-5.2) L 06/25/22 22:52 Globulin 3.0 g/dL (1.3-4.6) 06/25/22 22:52 Procalcitonin 0.07 ng/mL (0-0.5) 06/25/22 22:52 Nasal Influ A H1 2008 PCR Not detected (NOT DETECT) 06/26/22 00:50 Adenovirus (PCR) Not detected (NOT DETECT) 06/26/22 00:50 C. pneumoniae DNA (PCR) Not detected (NOT DETECT) 06/26/22 00:50 Coronavirus 229E (PCR) Not detected (NOT DETECT) 06/26/22 00:50 Human Metapneumovir PCR Not detected (NOT DETECT) 06/26/22 00:50 Influenza A (H1) PCR Not detected (NOT DETECT) 06/26/22 00:50 Influenza A (H3) PCR Not detected (NOT DETECT) 06/26/22 00:50 Influenza Type A (PCR) Not detected (NOT DETECT) 06/26/22 00:50 Influenza Type B (PCR) Not detected (NOT DETECT) 06/26/22 00:50 M. pneumoniae (PCR) Not detected (NOT DETECT) 06/26/22 00:50 Parainfluenza 1 (PCR) Not detected (NOT DETECT) 06/26/22 00:50 Parainfluenza 2 (PCR) Not detected (NOT DETECT) 06/26/22 00:50 Parainfluenza 3 (PCR) Not detected (NOT DETECT) 06/26/22 00:50 Parainfluenza 4 (PCR) Not detected (NOT DETECT) 06/26/22 00:50 RSV Type A (PCR) Not detected (NOT DETECT) 06/26/22 00:50 RSV Type B (PCR) Not detected (NOT DETECT) 06/26/22 00:50 Entero/Rhino (PCR) Not detected (NOT DETECT) 06/26/22 00:50 SARS-CoV-2 (PCR) Not detected (NOT DETECT) 06/26/22 00:50 Micro: Microbiology 06/26/22 00:50 MRSA Culture - Final Nose A&P Assessment and plan (1) Acute respiratory failure with hypoxia: 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 prednisone 5 Mg daily, azithromycin 3 times weekly Requiring continuous supplemental oxygen 2 L and currently in hospital requiring 4 L initially-had episode of decompensation yesterday evening requiring BiPAP Is at high risk for aspiration-there is patchy opacities in bilateral lungs suspicious for multifocal pneumonia He is covered with vancomycin and meropenem so far cultures are negative however would recommend to continue treatment for total 7 days. Outpatient barium swallow test in April 2022 did not show any significant evidence of difficulty swallowing-however speech therapy to do bedside swallow evaluation CTA ruled out PE and venous Doppler ruled out DVT This patient received a extended course of steroids during last hospitalization-we will send for Fungitell/Aspergillus antigen/PCP PCR induced sputum Most recent echocardiogram in last month in May 2022-was poorly visualized due to technically difficult study however estimated LVEF of 60%. Yesterday BNP was 1400-patient Lasix 40 Mg daily (2) At risk for aspiration: Speech to evaluate patient today (3) Acute exacerbation of chronic obstructive pulmonary disease: Continue scheduled nebulizations Taper down steroids based on clinical response to his baseline p.o. prednisone 5 Mg daily Continue antibiotic for total of 7 days Consult Attestations Medical Necessity Statement: Acute hypoxic respiratory failure secondary to recurrent pneumonia in patient with underlying end-stage COPD and multiple exacerbations Time Spent in Patient Care: Greater than 35 minutes (>than 50% of time spent in counselling and/or direct pt care on unit). Critical Care Time: The high probability of a clinically significant, sudden or life threatening deterioration of the patient's [pulmonary] system(s) required my full and direct attention, intervention and personal management. The critical care time is as shown. This time is in addition to time spent performing any reported procedures but includes the following: [x] Data and vital sign review and interpretation [x] Patient assessment, examination and intervention [x] Documentation [x] Medication orders and management Critical Care Time (min): 84 Coding Level of Care Code Critical Care >/= 30 minutes Diagnoses Acute respiratory failure with hypoxia J96.01 At risk for aspiration Z91.89 Acute exacerbation of chronic obstructive pulmonary disease J44.1 Time Spent (min) 84
[2022-06-27] VITALS (35 sets, daily range): BP systolic 118–171; BP diastolic 60–108; PULSE 71–141; RESP 16–18; TEMP 36.4–36.9; O2SAT 90–100
[2022-06-27] MEDS: meropenem 1,000 MG in sodium chloride 0.9% (plus) 50 ML 100 MG IV ×3 (00:05→16:19)
[2022-06-27] MEDS: heparin 5,000 unit/mL INJ 1 mL 5000 UNIT SUBCUT ×2 (03:56→16:19)
[2022-06-27] MEDS: ipratropium-albuterol 3 mL Neb INHALATION ×4 (04:04→20:10)
[2022-06-27] MEDS: fluticasone nasal spray 16gm Btl 1 SPRAY INTRANASAL ×2 (04:39→16:22)
[2022-06-27 04:48] LABS: Basophils % 0.2 %; Hematocrit 39.3 % (42.0-52.0); Hemoglobin 12.1 g/dL (11.7-16.6); Lymphocytes # 1.5 10^3/uL (0.8-4.8); Lymphocytes % 7.5 %; Mean Corpuscular HGB Conc 30.8 g/dL (30.0-36.0); Mean Corpuscular Hemoglobin 28.2 pg (28.0-34.0); Mean Corpuscular Volume 91.6 fl (80-94); Neutrophils # 16.59 10^3/uL (1.8-7.7); Nucleated Red Blood Cells % 0 %; Platelet Count 383 10^3/cmm (130-400); Red Blood Count 4.29 10^6/uL (4.1-5.3); Red Cell Distribution Width 12.1 % (12.1-15.1); White Blood Count 19.5 10^3/uL (4.0-10.0)
[2022-06-27 05:09] LABS: Alanine Aminotransferase 23 U/L (0-41); Albumin Level 3.1 g/dL (3.5-5.2); Alkaline Phosphatase 73 U/L (40-130); Anion Gap 14.1 (5-19); Aspartate Amino Transferase 10 U/L (0-40); Blood Urea Nitrogen 14 mg/dL (8-23); Calcium 8.8 mg/dL (8.5-10.5); Carbon Dioxide 35 mmol/L (22-29); Chloride 93 mmol/L (98-107); Globulin 3.1 g/dL (1.3-4.6); Glucose 274 mg/dL (65-115); Osmolality Calculated 296 mOsm/kg (285-295); Potassium 4.1 mmol/L (3.5-5.1); Sodium 138 mmol/L (136-145); Total Bilirubin 0.2 mg/dL (0.15-1.2); Total Protein 6.2 g/dL (6.6-8.7)
[2022-06-27 07:53] LABS: Glucose Point of Care 288 mg/dL (70-110)
[2022-06-27] MEDS: cetirizine 10 mg Tablet PO (08:37)
[2022-06-27] MEDS: venlafaxine ER (24HR) 150 mg Capsule PO (08:37)
[2022-06-27] MEDS: aspirin 81 mg EC Tablet PO (08:37)
[2022-06-27] MEDS: FUROsemide 20 mg Tablet 40 MG PO (08:37)
[2022-06-27] MEDS: insulin lispro 100 unit/1 mL SUBCUT ×4 (08:38→21:39)
[2022-06-27 10:03] LABS: Vancomycin Trough 12.1 ug/mL (10-15)
--- NOTE | 2022-06-27 11:08 | PM.PN ---
Subjective Subjective: Hernan reports he is feeling okay. Does feel weak. No chest pain. Shortness of breath is improved. Medications: Reviewed: Yes Vitals/I&O/Wt Last Vital Signs Temp 98.5 F 06/27/22 07:00 Pulse 86 06/27/22 08:55 Resp 16 06/27/22 08:55 BP 127/62 06/27/22 08:00 Pulse Ox 95 06/27/22 08:55 O2 Del Method Nasal Cannula 06/27/22 08:55 O2 Flow Rate 3 06/26/22 19:00 FiO2 3 06/27/22 08:55 06/26/22 06/27/22 06/27/22 22:59 06:59 14:59 Intake Total 590 / 1240 350 / 1590 Output Total 650 / 1975 Balance -60 / -735 350 / -385 Physical Exam Narrative: General exam no distress Back on 2 L of oxygen Neck supple no lymphadenopathy thyromegaly Cardiovascular slightly tachycardic, occasional premature beat, no murmur Lungs diminished breath sounds bilaterally. Occasional expiratory wheeze Abdomen is soft, positive bowel sounds. No obvious organomegaly Extremities no cyanosis clubbing or edema, cap refill brisk Data 06/27/22 04:19 06/27/22 04:19 Micro: Microbiology 06/26/22 00:50 MRSA Culture - Final Nose A&P Assessment and plan (1) Recurrent pneumonia: Patient decompensated last night. Bilateral upper lobe infiltrates are noted on CTA, no pulmonary embolism. COVID, influenza, antigen panel and all negative MRSA PCR negative, blood culture negative Was on Zosyn. Vancomycin was discontinued after he was MRSA negative. Vancomycin was restarted with his decompensation during his hospital stay.. At this point continue vancomycin. Zosyn had previously been changed to meropenem on June 26. Fungitell ordered. Appreciate pulmonary consult. Aspergillosis, pneumocystis PCR entered Sputum culture not yet able to be obtained. MRSA PCR negative. Blood culture negative to date. CBC, BMP tomorrow Reduce steroids to 40 mg IV every 24 hours Start Lasix 40 mg daily, BMP tomorrow (2) Acute exacerbation of chronic obstructive pulmonary disease: Changing Solu-Medrol to 40 mg every 24 hours Continue budesonide twice daily DuoNeb every 4 hours (3) Diabetes mellitus type 2, noninsulin dependent: Continue sliding scale insulin (4) Acute respiratory failure with hypoxia: Improved. Now off BiPAP Question of aspiration could play a role. Speech therapy evaluation appreciated. He recently had a swallow which showed no overt aspiration. Advance diet Plan Echocardiogram demonstrates cardiomyopathy, with ejection fraction approximately 45%. Aspirin added. Continue statin. Global hypokinesis noted. May warrant inpatient or outpatient nuclear stress testing Multiple other medical problems as outlined in past medical history Heparin for DVT prophylaxis Physical therapy evaluation for weakness Transfer out of ICU Attestations Medical Necessity Statement*: Will need continued hospitalization for IV antibiotics for pneumonia, close monitoring Diagnoses Recurrent pneumonia J18.9 Acute exacerbation of chronic obstructive pulmonary disease J44.1 Diabetes mellitus type 2, noninsulin dependent E11.9 Acute respiratory failure with hypoxia J96.01 Time Spent (min) 34
[2022-06-27 11:17] LABS: Glucose Point of Care 397 mg/dL (70-110)
[2022-06-27] MEDS: vancomycin 1,500 MG/300 ML PIGGYBACK 200 MG IV ×2 (11:46→22:50)
[2022-06-27 16:26] LABS: Glucose Point of Care 363 mg/dL (70-110)
--- NOTE | 2022-06-27 16:48 | PC.NURSE ---
Pt taken to [facility] at 1630 via wheelchair with all belongings. 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
[2022-06-27] MEDS: budesonide 0.5 mg/2 mL Neb INHALATION (20:10)
[2022-06-27 21:15] LABS: Glucose Point of Care 361 mg/dL (70-110)
[2022-06-27] MEDS: atorvastatin 40 mg Tablet 20 MG PO (21:39)
--- NOTE | 2022-06-27 22:49 | ECG_ITS ---
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 Measurements Intervals [place] Rate: 88 P: 35 MO: 163 QRS: 30 QRSD: 88 T: 108 QT: 339 QTc: 412 Interpretive Statements SINUS RHYTHM WITH FREQUENT SUPRAVENTRICULAR PREMATURE COMPLEXES NONSPECIFIC T-WAVE ABNORMALITY Compared to ECG 06/26/2022 02:54:47 T-wave abnormality now present Sinus tachycardia no longer present Electronically Signed On 06-28-2022 10:04:32 CDT by Rick Beverly M.D. [email or web address]
[2022-06-28] VITALS (16 sets, daily range): BP systolic 123–161; BP diastolic 62–77; PULSE 68–109; RESP 14–22; TEMP 36.6–36.8; O2SAT 92–100
[2022-06-28] MEDS: ipratropium-albuterol 3 mL Neb INHALATION ×7 (00:23→23:10)
[2022-06-28] MEDS: meropenem 1,000 MG in sodium chloride 0.9% (plus) 50 ML 100 MG IV ×4 (00:27→23:59)
[2022-06-28] MEDS: fluticasone nasal spray 16gm Btl 1 SPRAY INTRANASAL ×2 (04:05→16:05)
[2022-06-28] MEDS: heparin 5,000 unit/mL INJ 1 mL 5000 UNIT SUBCUT ×2 (04:05→15:19)
[2022-06-28 06:03] LABS: Glucose Point of Care 135 mg/dL (70-110)
[2022-06-28 06:25] LABS: Basophils # 0.1 10^3/uL (0.0-0.1); Basophils % 0.3 %; Eosinophils # 0.4 10^3/uL (0.0-0.8); Eosinophils % 1.5 %; Hemoglobin 12.6 g/dL (11.7-16.6); Lymphocytes % 12.6 %; Mean Corpuscular HGB Conc 31.5 g/dL (30.0-36.0); Mean Corpuscular Hemoglobin 29.2 pg (28.0-34.0); Mean Corpuscular Volume 92.6 fl (80-94); Mean Platelet Volume 8.8 fL (7.4-10.4); Monocytes # 1.6 10^3/uL (0.2-0.9); Monocytes % 6.7 %; Neutrophils # 18.01 10^3/uL (1.8-7.7); Neutrophils % 75.4 %; Nucleated Red Blood Cells % 0 %; Platelet Count 408 10^3/cmm (130-400); Red Blood Count 4.32 10^6/uL (4.1-5.3); Red Cell Distribution Width 12.2 % (12.1-15.1); White Blood Count 23.9 10^3/uL (4.0-10.0)
[2022-06-28 06:48] LABS: Alanine Aminotransferase 24 U/L (0-41); Albumin Level 3.1 g/dL (3.5-5.2); Alkaline Phosphatase 68 U/L (40-130); Anion Gap 11.4 (5-19); Aspartate Amino Transferase 12 U/L (0-40); Blood Urea Nitrogen 18 mg/dL (8-23); Carbon Dioxide 35 mmol/L (22-29); Chloride 96 mmol/L (98-107); Glucose 123 mg/dL (65-115); Magnesium 2.2 mg/dL (1.7-2.3); Osmolality Calculated 289 mOsm/kg (285-295); Potassium 4.4 mmol/L (3.5-5.1); Sodium 138 mmol/L (136-145); Total Bilirubin 0.2 mg/dL (0.15-1.2); Total Protein 6.1 g/dL (6.6-8.7)
[2022-06-28] MEDS: budesonide 0.5 mg/2 mL Neb INHALATION ×2 (07:56→19:35)
[2022-06-28] MEDS: venlafaxine ER (24HR) 150 mg Capsule PO (08:23)
[2022-06-28] MEDS: cetirizine 10 mg Tablet PO (08:23)
[2022-06-28] MEDS: FUROsemide 20 mg Tablet 40 MG PO (08:23)
[2022-06-28] MEDS: aspirin 81 mg EC Tablet PO (08:23)
--- NOTE | 2022-06-28 09:27 | P.PN_ITS ---
Subjective Subjective: Patient moved to medical floor yesterday -Currently requiring 2 to 3 L supplemental oxygen -With the help of physical therapy was able to walk 60 feet and was sitting out of bed to chair -Reports that his breathing is better but he still feeling weak -Other labs reviewed-MRSA nares negative-discontinue vancomycin-continue meropenem for total 7 days -Patient needs aggressive physical therapy Medications: Reviewed: Yes Vitals/I&O/Wt Last Vital Signs Temp 97.8 F 06/28/22 08:00 Pulse 68 06/28/22 08:12 Resp 18 06/28/22 08:00 BP 138/65 06/28/22 08:00 Pulse Ox 98 06/28/22 08:00 O2 Del Method Nasal Cannula 06/28/22 08:00 O2 Flow Rate 3 06/28/22 07:57 FiO2 3 06/27/22 08:55 06/27/22 06/28/22 06/28/22 22:59 06:59 14:59 Intake Total 350 / 1120 350 / 1470 50 / 50 Output Total 300 / 1150 800 / 1950 Balance 50 / -30 -450 / -480 50 / 50 Physical Exam Narrative: General: alert, NAD HEENT: conj clear, EOMI, PERRL, mmm, Neck: supple, no meningismus Heme: no cervical LAP Respiratory: Inspection: No visible deformity of the chest wall Palpation: Trachea is mildly deviated to the right, bilateral symmetric expansion Percussion: Bilateral tympanic percussion note both anterior and posteriorly Auscultation: Diffuse coarse crackles Cardiovascular: rrr, nl s1s2, no mrg Abdomen: soft, nt, nd, no r/g, bs+ Extremities: pulses +, no edema, no c/c : no CVA tenderness Skin: intact, no rash MSK: no back or neck pain Neurologic: grossly intact Data 06/28/22 06:11 06/28/22 06:11 Other Labs: Radiology Impressions Chest X-Ray 06/25/22 21:01 IMPRESSION: 1. Bilateral upper lobe pneumonic infiltrates, similar to prior exam. 2. Cardiomegaly and mild pulmonary vascular congestion. Chest CTA 06/25/22 21:22 IMPRESSION: 1. Negative for pulmonary embolus. 2. Patchy bilateral largely upper lung field airspace opacities, suggestive of pneumonic infiltrates, short-term 1 month follow-up exam advised to assess for resolution. 3. Emphysematous changes. 4. Several prominent subcentimeter short axis nonspecific mediastinal lymph nodes. 5. Left adrenal 13 mm nodule suspected, indeterminate, dedicated nonemergent adrenal imaging could further evaluate this nonemergently. 6. Hepatic steatosis. COMMENTS: In the absence of a history or active diagnosis of lung cancer, it is recommended that this patient with emphysema be evaluated for enrollment in a low dose CT lung cancer screening program. Laboratory Results WBC 23.9 10^3/uL (4.0-10.0) H 06/28/22 06:11 RBC 4.32 10^6/uL (4.1-5.3) 06/28/22 06:11 Hgb 12.6 g/dL (11.7-16.6) 06/28/22 06:11 Hct 40.0 % (42.0-52.0) L 06/28/22 06:11 MCV 92.6 fl (80-94) 06/28/22 06:11 MCH 29.2 pg (28.0-34.0) 06/28/22 06:11 MCHC 31.5 g/dL (30.0-36.0) 06/28/22 06:11 RDW 12.2 % (12.1-15.1) 06/28/22 06:11 Plt Count 408 10^3/cmm (130-400) H 06/28/22 06:11 MPV 8.8 fL (7.4-10.4) 06/28/22 06:11 Neut % (Auto) 75.4 % 06/28/22 06:11 Lymph % (Auto) 12.6 % 06/28/22 06:11 [place] % (Auto) 6.7 % 06/28/22 06:11 Eos % (Auto) 1.5 % 06/28/22 06:11 Baso % (Auto) 0.3 % 06/28/22 06:11 Neut # (Auto) 18.01 10^3/uL (1.8-7.7) H 06/28/22 06:11 Lymph # (Auto) 3.0 10^3/uL (0.8-4.8) 06/28/22 06:11 [place] # (Auto) 1.6 10^3/uL (0.2-0.9) H 06/28/22 06:11 Eos # (Auto) 0.4 10^3/uL (0.0-0.8) 06/28/22 06:11 Baso # (Auto) 0.1 10^3/uL (0.0-0.1) 06/28/22 06:11 Nucleated RBC % (auto) 0 % 06/28/22 06:11 Nucleated RBCs # 0.0 /100WBC 06/28/22 06:11 D-Dimer 0.83 ug/mIFEU (0-0.59) H 06/25/22 22:52 Specimen Type Arterial 06/23/22 01:15 Sample Site Radial, left 06/23/22 01:15 ABG pH 7.38 (7.35-7.45) 06/23/22 01:15 ABG pCO2 67.3 mmHg (35-45) H* 06/23/22 01:15 ABG pO2 74.0 mmHg (80.0-100.0) L 06/23/22 01:15 ABG HCO3 39.5 mmol/L (22-26) H 06/23/22 01:15 ABG Base Excess 11.6 mmol/L (-2.0-2.0) H 06/23/22 01:15 Luis Fernando Test Pos 06/23/22 01:15 Hematocrit 38.5 % (42-52) L 06/23/22 01:15 Hgb O2 Saturation 94.4 % (95-100) L 06/23/22 01:15 Carboxyhemoglobin 1.4 %THgb (0.4-20.1) 06/23/22 01:15 Methemoglobin 0.3 % (0.4-1.5) L 06/23/22 01:15 Total Hemoglobin 12.5 g/dL (14-18) L 06/23/22 01:15 O2 Delivery Device Nc 06/23/22 01:15 O2 Liters/Min 4.0 % 06/23/22 01:15 FiO2 36.0 % 06/23/22 01:15 Equipment Engineer ID Alewe 06/23/22 01:15 Sodium 138 mmol/L (136-145) 06/28/22 06:11 Potassium 4.4 mmol/L (3.5-5.1) 06/28/22 06:11 Chloride 96 mmol/L (98-107) L 06/28/22 06:11 Carbon Dioxide 35 mmol/L (22-29) H 06/28/22 06:11 Anion Gap 11.4 (5-19) 06/28/22 06:11 BUN 18 mg/dL (8-23) 06/28/22 06:11 Creatinine 0.7 mg/dL (0.7-1.2) 06/28/22 06:11 GFR Calculation Not Reportable 06/28/22 06:11 Glucose 123 mg/dL (65-115) H 06/28/22 06:11 POC Glucose 333 mg/dL (70-110) H 06/28/22 11:07 Calculated Osmolality 289 mOsm/kg (285-295) 06/28/22 06:11 Lactic Acid 3.1 mmol/L (0.5-2.2) H 06/25/22 22:52 Lactic Acid (Sepsis) 1.2 mmol/L (0.5-2.2) 06/26/22 02:47 Calcium 9.0 mg/dL (8.5-10.5) 06/28/22 06:11 Magnesium 2.2 mg/dL (1.7-2.3) 06/28/22 06:11 Total Bilirubin 0.2 mg/dL (0.15-1.2) 06/28/22 06:11 AST 12 U/L (0-40) 06/28/22 06:11 ALT 24 U/L (0-41) 06/28/22 06:11 Alkaline Phosphatase 68 U/L (40-130) 06/28/22 06:11 Troponin T Baseline 42 ng/L (0-15) H 06/25/22 22:52 Troponin T 120 Minute 44.86 ng/L (0-15) H 06/26/22 01:04 Delta Troponin T 2.86 ABS# (0-10) 06/26/22 01:04 Troponin T Hi Sens 6Hr 37.99 ng/L (0-15) H 06/26/22 04:30 Troponin T Hi Sens 6Hr Delta -4.01 ng/L (0-12) L 06/26/22 04:30 C-Reactive Protein 39.1 mg/L (0.0-4.9) H 06/25/22 22:52 NT-Pro-B Natriuret Pep 1474 pg/mL (0-125) H 06/25/22 22:52 Total Protein 6.1 g/dL (6.6-8.7) L 06/28/22 06:11 Albumin 3.1 g/dL (3.5-5.2) L 06/28/22 06:11 Globulin 3.0 g/dL (1.3-4.6) 06/28/22 06:11 Procalcitonin 0.07 ng/mL (0-0.5) 06/25/22 22:52 Nasal Influ A H1 2009 PCR Not detected (NOT DETECT) 06/26/22 00:50 Vancomycin Trough 12.1 ug/mL (10-15) 06/27/22 09:30 Adenovirus (PCR) Not detected (NOT DETECT) 06/26/22 00:50 C. pneumoniae DNA (PCR) Not detected (NOT DETECT) 06/26/22 00:50 Coronavirus 229E (PCR) Not detected (NOT DETECT) 06/26/22 00:50 Human Metapneumovir PCR Not detected (NOT DETECT) 06/26/22 00:50 Influenza A (H1) PCR Not detected (NOT DETECT) 06/26/22 00:50 Influenza A (H3) PCR Not detected (NOT DETECT) 06/26/22 00:50 Influenza Type A (PCR) Not detected (NOT DETECT) 06/26/22 00:50 Influenza Type B (PCR) Not detected (NOT DETECT) 06/26/22 00:50 M. pneumoniae (PCR) Not detected (NOT DETECT) 06/26/22 00:50 Parainfluenza 1 (PCR) Not detected (NOT DETECT) 06/26/22 00:50 Parainfluenza 2 (PCR) Not detected (NOT DETECT) 06/26/22 00:50 Parainfluenza 3 (PCR) Not detected (NOT DETECT) 06/26/22 00:50 Parainfluenza 4 (PCR) Not detected (NOT DETECT) 06/26/22 00:50 RSV Type A (PCR) Not detected (NOT DETECT) 06/26/22 00:50 RSV Type B (PCR) Not detected (NOT DETECT) 06/26/22 00:50 Entero/Rhino (PCR) Not detected (NOT DETECT) 06/26/22 00:50 SARS-CoV-2 (PCR) Not detected (NOT DETECT) 06/26/22 00:50 Micro: Microbiology 06/23/22 01:40 Blood Culture - Final Blood NO GROWTH AFTER 5 DAYS 06/23/22 01:10 Blood Culture - Final Blood NO GROWTH AFTER 5 DAYS A&P Assessment and plan (1) Acute respiratory failure with hypoxia: Clinically improving 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 prednisone 5 Mg daily, azithromycin 3 times weekly Is at high risk for aspiration-there is patchy opacities in bilateral lungs suspicious for multifocal pneumonia He is covered with vancomycin and meropenem so far cultures are negative, MRSA negative-we can discontinue vancomycin and continue meropenem for total 7 days. CTA ruled out PE and venous Doppler ruled out DVT This patient received a extended course of steroids during last hospitalization- we will send for Fungitell/Aspergillus antigen/PCP PCR induced sputum Most recent echocardiogram in last month in May 2022-was poorly visualized due to technically difficult study however estimated LVEF of 60%. Yesterday BNP was 1400-patient Lasix 40 Mg daily Continue bedside physical therapy and respiratory care with incentive spirometry (2) At risk for aspiration: Speech evaluation on 06/26/2022-reported no episodes of difficulty swallowing and recommended to advance to a regular consistency diet with regular liquids they are recommended to do modified barium swallow if silent aspiration is dictated There is recurrent multifocal pneumonias-we should get modified barium swallow study (3) Acute exacerbation of chronic obstructive pulmonary disease: Continue scheduled nebulizations Taper down steroids based on clinical response to his baseline p.o. prednisone 5 Mg daily Continue antibiotic for total of 7 days Attestations Medical Necessity Statement*: Needed at least 24 to 48 hours of hospitalization for bedside physical therapy and IV antibiotics for suspected aspiration pneumonia Time Spent in Patient Care: Greater than 35 minutes (>than 50% of time spent in counselling and/or direct pt care on unit) . Coding Level of Care Code 30277 Diagnoses Acute respiratory failure with hypoxia J96.01 At risk for aspiration Z91.89 Acute exacerbation of chronic obstructive pulmonary disease J44.1 Time Spent (min) 43
[2022-06-28] MEDS: vancomycin 1,500 MG/300 ML PIGGYBACK 200 MG IV (11:02)
[2022-06-28 11:11] LABS: Glucose Point of Care 333 mg/dL (70-110)
--- NOTE | 2022-06-28 11:37 | PC.SOCIAL ---
Imm update Imm updated with patient. copy of page 2 provided. Copy in chart initialed, dated and timed.
[2022-06-28] MEDS: insulin lispro 100 unit/1 mL SUBCUT ×3 (12:14→21:00)
--- NOTE | 2022-06-28 16:15 | P.PN_ITS ---
Subjective Subjective: Hospital course, labs appreciated. On examination sitting comfortably in bed on 2 L nasal cannula saturating more than 90%. Seen with spouse at bedside. Just before examination patient worked with physical therapy and walked down the diop without any difficulty but is deconditioned and desaturated to high 80s. Otherwise states has no new complaints. Medications: Reviewed: Yes Vitals/I&O/Wt Last Vital Signs Temp 98.1 F 06/28/22 12:00 Pulse 108 H 06/28/22 15:32 Resp 18 06/28/22 15:32 BP 133/62 06/28/22 12:00 Pulse Ox 95 06/28/22 15:32 O2 Del Method Nasal Cannula 06/28/22 15:32 O2 Flow Rate 3 06/28/22 15:32 FiO2 3 06/27/22 08:55 06/28/22 06/28/22 06/28/22 06:59 14:59 22:59 Intake Total 350 / 1470 1430 / 1430 Output Total 800 / 1950 600 / 600 700 / 1300 Balance -450 / -480 830 / 830 -700 / 130 Physical Exam Narrative: General exam no distress Back on 2 L of oxygen Neck supple no lymphadenopathy thyromegaly Cardiovascular slightly tachycardic, occasional premature beat, no murmur Lungs diminished breath sounds bilaterally. Occasional expiratory wheeze Abdomen is soft, positive bowel sounds. No obvious organomegaly Extremities no cyanosis clubbing or edema, cap refill brisk Data 06/28/22 06:11 06/28/22 06:11 Micro: Microbiology 06/23/22 01:40 Blood Culture - Final Blood NO GROWTH AFTER 5 DAYS 06/23/22 01:10 Blood Culture - Final Blood NO GROWTH AFTER 5 DAYS A&P Assessment and plan (1) Recurrent pneumonia: Most likely recurrent aspiration pneumonia. Respiratory viral panel negative, urine Legionella, bacterial antigen negative. MRSA negative. Has been on vancomycin and Zosyn earlier in admission which have transitioned o radha to meropenem on 06/26. Vancomycin was discontinued and restarted. MRSA rechecked and negative. Stop vancomycin continue with meropenem. CTA negative for pulmonary embolism. Most likely COPD exacerbation in setting of recurrent aspiration events. Continue with meropenem to finish a 5 to 7-day course. Follow-up Aspergillus, pneumocystis PCR. Appreciate pulmonary recommendation. Aggressive pulmonary toilet with I-S and Acapella. Check modified barium swallow. Follow-up speech therapy evaluation. Aspiration precautions. (2) Acute exacerbation of chronic obstructive pulmonary disease: Continue Solu-Medrol 40 mg IV daily. Will transition to oral prednisone in next 24 hours if remains stable. DuoNebs every 4 hour, budesonide twice daily. Oxygen supplementation keeping saturation over 88%. (3) Diabetes mellitus type 2, noninsulin dependent: Continue sliding scale insulin (4) Acute respiratory failure with hypoxia: Improved. Now off BiPAP Question of aspiration could play a role. Speech therapy evaluation appreciated. He recently had a swallow which showed no overt aspiration. Advance diet (5) Systolic congestive heart failure: (6) Left ventricular systolic dysfunction (LVSD): Plan Echocardiogram demonstrates cardiomyopathy, with ejection fraction approximately 45% with regional wall motion abnormality. No history of CAD in past. Continue with aspirin, statin. Appreciate recent A1c and lipid panel. Most likely patient will need further ACS work-up. We will plan to do as an outpatient as currently patient has no active chest pain. Continue with oral Lasix 40 mg daily. Strict input output charting, daily weights. Carb consistent diet. Famotidine for PUD prophylaxis Heparin for DVT prophylaxis Physical therapy evaluation for weakness Attestations Medical Necessity Statement*: Requires further hospitalization for management of hypoxic respiratory failure in setting of COPD exacerbation from recurrent aspiration pneumonias, new diagnosis of congestive heart failure Diagnoses Recurrent pneumonia J18.9 Acute exacerbation of chronic obstructive pulmonary disease J44.1 Diabetes mellitus type 2, noninsulin dependent E11.9 Acute respiratory failure with hypoxia J96.01 Systolic congestive heart failure I50.20 Left ventricular systolic dysfunction (LVSD) I51.9
[2022-06-28 17:29] LABS: Glucose Point of Care 296 mg/dL (70-110)
[2022-06-28 20:56] LABS: Glucose Point of Care 283 mg/dL (70-110)
[2022-06-28] MEDS: atorvastatin 40 mg Tablet 20 MG PO (21:00)
[2022-06-29] VITALS (17 sets, daily range): BP systolic 111–161; BP diastolic 63–81; PULSE 52–106; RESP 15–18; TEMP 36.4–36.8; O2SAT 90–98
[2022-06-29] MEDS: heparin 5,000 unit/mL INJ 1 mL 5000 UNIT SUBCUT ×2 (04:01→15:32)
[2022-06-29 05:37] LABS: Basophils # 0.1 10^3/uL (0.0-0.1); Basophils % 0.4 %; Eosinophils # 0.5 10^3/uL (0.0-0.8); Eosinophils % 2.7 %; Hematocrit 39.9 % (42.0-52.0); Hemoglobin 12.4 g/dL (11.7-16.6); Lymphocytes # 2.9 10^3/uL (0.8-4.8); Mean Corpuscular HGB Conc 31.1 g/dL (30.0-36.0); Mean Corpuscular Hemoglobin 28.6 pg (28.0-34.0); Mean Corpuscular Volume 92.1 fl (80-94); Mean Platelet Volume 8.5 fL (7.4-10.4); Monocytes # 1.4 10^3/uL (0.2-0.9); Monocytes % 7.4 %; Neutrophils # 13.61 10^3/uL (1.8-7.7); Neutrophils % 70.2 %; Nucleated Red Blood Cells % 0 %; Platelet Count 384 10^3/cmm (130-400); Red Blood Count 4.33 10^6/uL (4.1-5.3); White Blood Count 19.4 10^3/uL (4.0-10.0)
[2022-06-29 06:07] LABS: Alanine Aminotransferase 30 U/L (0-41); Albumin Level 3.2 g/dL (3.5-5.2); Alkaline Phosphatase 69 U/L (40-130); Anion Gap 10.2 (5-19); Aspartate Amino Transferase 15 U/L (0-40); Blood Urea Nitrogen 17 mg/dL (8-23); Calcium 8.6 mg/dL (8.5-10.5); Carbon Dioxide 38 mmol/L (22-29); Chloride 96 mmol/L (98-107); Globulin 2.6 g/dL (1.3-4.6); Glucose 134 mg/dL (65-115); Osmolality Calculated 294 mOsm/kg (285-295); Potassium 4.2 mmol/L (3.5-5.1); Sodium 140 mmol/L (136-145); Total Bilirubin 0.3 mg/dL (0.15-1.2); Total Protein 5.8 g/dL (6.6-8.7)
[2022-06-29 06:48] LABS: Glucose Point of Care 138 mg/dL (70-110)
[2022-06-29] MEDS: ipratropium-albuterol 3 mL Neb INHALATION ×5 (07:59→23:09)
[2022-06-29] MEDS: meropenem 1,000 MG in sodium chloride 0.9% (plus) 50 ML 100 MG IV ×2 (08:14→15:32)
[2022-06-29] MEDS: cetirizine 10 mg Tablet PO (08:15)
[2022-06-29] MEDS: aspirin 81 mg EC Tablet PO (08:15)
[2022-06-29] MEDS: venlafaxine ER (24HR) 150 mg Capsule PO (08:15)
[2022-06-29] MEDS: FUROsemide 20 mg Tablet 40 MG PO (08:15)
[2022-06-29] MEDS: TRAMadol 50 mg Tablet PO (10:26)
[2022-06-29 11:37] LABS: Glucose Point of Care 385 mg/dL (70-110)
--- NOTE | 2022-06-29 11:40 | P.PN_ITS ---
Subjective Subjective: No overnight events Patient currently requiring 2 L supplemental oxygen and appears comfortable not in distress -He is able to walk with his cane and work with physical therapy today morning Barium swallow did not show any significant aspiration however due to high clinical suspicion we will obtain modified barium swallow which will be done tomorrow.-This is to identify any silent aspiration as he is at risk of recurrent admissions -Otherwise stable Medications: Reviewed: Yes Vitals/I&O/Wt Last Vital Signs Temp 98.0 F 06/29/22 04:00 Pulse 102 H 06/29/22 11:26 Resp 16 06/29/22 11:26 BP 111/68 06/29/22 08:00 Pulse Ox 93 06/29/22 11:26 O2 Del Method Nasal Cannula 06/29/22 08:00 O2 Flow Rate 3 06/29/22 11:26 FiO2 3 06/27/22 08:55 06/28/22 06/29/22 06/29/22 22:59 06:59 14:59 Intake Total 890 / 2320 550 / 2870 530 / 530 Output Total 1050 / 1650 1750 / 3400 Balance -160 / 670 -1200 / -530 530 / 530 Physical Exam Narrative: General: alert, NAD HEENT: conj clear, EOMI, PERRL, mmm, Neck: supple, no meningismus Heme: no cervical LAP Respiratory: Inspection: No visible deformity of the chest wall Palpation: Trachea is mildly deviated to the right, bilateral symmetric expansion Percussion: Bilateral tympanic percussion note both anterior and posteriorly Auscultation: Diffuse coarse crackles Cardiovascular: rrr, nl s1s2, no mrg Abdomen: soft, nt, nd, no r/g, bs+ Extremities: pulses +, no edema, no c/c : no CVA tenderness Skin: intact, no rash MSK: no back or neck pain Neurologic: grossly intact Data 06/29/22 05:21 06/29/22 05:21 A&P Assessment and plan (1) Acute respiratory failure with hypoxia: Clinically improving 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 prednisone 5 Mg daily, azithromycin 3 times weekly Is at high risk for aspiration-there is patchy opacities in bilateral lungs suspicious for multifocal pneumonia He is covered with vancomycin and meropenem so far cultures are negative, MRSA negative-we can discontinue vancomycin and continue meropenem for total 7 days. CTA ruled out PE and venous Doppler ruled out DVT This patient received a extended course of steroids during last hospitalization- we will send for Fungitell/Aspergillus antigen/PCP PCR induced sputum Most recent echocardiogram in last month in May 2022-was poorly visualized due to technically difficult study however estimated LVEF of 60%. We will taper down his Lasix to 20 Mg daily Continue bedside physical therapy and respiratory care with incentive spirometry (2) At risk for aspiration: Speech evaluation on 06/26/2022-reported no episodes of difficulty swallowing and recommended to advance to a regular consistency diet with regular liquids There is recurrent multifocal pneumonias-due to high suspicion for silent aspiration-we will obtain modified barium swallow study-which will be performed tomorrow Thursday (3) Acute exacerbation of chronic obstructive pulmonary disease: Continue scheduled nebulizations Taper down steroids based on clinical response to his baseline p.o. prednisone 5 Mg daily Continue antibiotic for total of 7 days Attestations Medical Necessity Statement*: Needed at least 24 to 48 hours of hospitalization for bedside physical therapy and IV antibiotics for suspected aspiration pneumonia Time Spent in Patient Care: Greater than 35 minutes (>than 50% of time spent in counselling and/or direct pt care on unit) . Coding Level of Care Code 75347 Diagnoses Acute respiratory failure with hypoxia J96.01 At risk for aspiration Z91.89 Acute exacerbation of chronic obstructive pulmonary disease J44.1 Time Spent (min) 37
[2022-06-29] MEDS: insulin lispro 100 unit/1 mL SUBCUT ×3 (11:57→21:07)
--- NOTE | 2022-06-29 16:02 | P.PN_ITS ---
Subjective Subjective: No acute events overnight. Denies any nausea, vomiting, headache. Remains on stable oxygen supplementation saturating more than 95%. Blood pressure slightly elevated. Seen with spouse at bedside. Medications: Reviewed: Yes Vitals/I&O/Wt Last Vital Signs Temp 98.0 F 06/29/22 15:36 Pulse 52 L 06/29/22 15:36 Resp 16 06/29/22 15:36 BP 160/65 06/29/22 15:36 Pulse Ox 97 06/29/22 15:36 O2 Del Method Nasal Cannula 06/29/22 15:36 O2 Flow Rate 3 06/29/22 15:14 FiO2 3 06/27/22 08:55 06/29/22 06/29/22 06/29/22 06:59 14:59 22:59 Intake Total 550 / 2870 1010 / 1010 Output Total 1750 / 3400 Balance -1200 / -530 1010 / 1010 Physical Exam Narrative: General exam no distress Back on 2 L of oxygen Neck supple no lymphadenopathy thyromegaly Cardiovascular slightly tachycardic, occasional premature beat, no murmur Lungs diminished breath sounds bilaterally. Occasional expiratory wheeze Abdomen is soft, positive bowel sounds. No obvious organomegaly Extremities no cyanosis clubbing or edema, cap refill brisk Data 06/29/22 05:21 06/29/22 05:21 A&P Assessment and plan (1) Recurrent pneumonia: Most likely recurrent aspiration pneumonia. Respiratory viral panel negative, urine Legionella, bacterial antigen negative. MRSA negative. Has been on vancomycin and Zosyn earlier in admission which have transitioned over to meropenem on 06/26. Vancomycin was discontinued and restarted. MRSA rechecked and negative. Stop vancomycin continue with meropenem. CTA negative for pulmonary embolism. Most likely COPD exacerbation in setting of recurrent aspiration events. Continue with meropenem to finish a 5 to 7-day course. Follow-up Aspergillus, pneumocystis PCR. Appreciate pulmonary recommendation. Aggressive pulmonary toilet with I-S and Acapella. Check modified barium swallow. Follow-up speech therapy evaluation. Aspiration precautions. (2) Acute exacerbation of chronic obstructive pulmonary disease: Continue Solu-Medrol 40 mg IV daily. Will transition to oral prednisone in next 24 hours if remains stable. DuoNebs every 4 hour, budesonide twice daily. Oxygen supplementation keeping saturation over 88%. (3) Diabetes mellitus type 2, noninsulin dependent: Continue sliding scale insulin (4) Acute respiratory failure with hypoxia: Improved. Now off BiPAP Question of aspiration could play a role. Speech therapy evaluation appreciated. He recently had a swallow which showed no overt aspiration. Advance diet (5) Systolic congestive heart failure: (6) Left ventricular systolic dysfunction (LVSD): Plan Echocardiogram demonstrates cardiomyopathy, with ejection fraction approximately 45% with regional wall motion abnormality. No history of CAD in past. Continue with aspirin, statin. Appreciate recent A1c and lipid panel. Most likely patient will need further ACS work-up. We will plan to do as an outpatient as currently patient has no active chest pain. Continue with oral Lasix 20 mg daily. Strict input output charting, daily weights. Plan for the day: Continue IV antibiotics with meropenem to finish course of antibiotics on 07/01. Aggressive pulmonary toilet with I-S and Acapella. Modified barium swallow as per pulmonary recommendations for further evaluation of aspiration. Continue with aspiration precaution. Continue Lasix 20 mg oral daily. Goal blood pressure less than 140/90 mmHg. Start on losartan 25 mg oral daily. Will uptitrate as per goal blood pressures. NPO with meds after midnight for Lexiscan stress test in a.m. for further work- up of new low EF. Discharge planning: Plan to discharge the next 24 to 48 hours after modified barium swallow and Lexiscan stress test depending on the results. Carb consistent diet. Famotidine for PUD prophylaxis Heparin for DVT prophylaxis Physical therapy evaluation for weakness Attestations Medical Necessity Statement*: Requires further hospitalization for management of hypoxia in setting of recurrent aspiration pneumonia failing to COPD exacerbation, new low EF with congestive heart failure while ACS is ruled out Diagnoses Recurrent pneumonia J18.9 Acute exacerbation of chronic obstructive pulmonary disease J44.1 Diabetes mellitus type 2, noninsulin dependent E11.9 Acute respiratory failure with hypoxia J96.01 Systolic congestive heart failure I50.20 Left ventricular systolic dysfunction (LVSD) I51.9
--- NOTE | 2022-06-29 16:03 | ECG_ITS ---
[facility] Test Date: 2022-06-30 Pat Name: Hernan Beckman Department: Room: 257 Gender: Male Software Quality Tester: : [id number] Requested By: Dariusz Palacios Order Number: [id number] Xochitl MD: Hardik Betts M.D. Interpretive Statements NAME OF STUDY: LEXISCAN SESTAMIBI STRESS TEST INDICATION: Chest Pain PROCEDURE: At the baseline, the EKG revealed sinus tachycardia with a diffuse nonspecific T wave changes. The baseline heart was 107 bpm with a blood pressue of 101/58 mm of Hg Lexiscan was infused over a period of 20 seconds. A total of 0.4 milligrams of Lexiscan was infused. The stress phase was continued for a total of 5 minutes. Heart rate at the end of the stress phase was 110 bpm with a blood pressure 97/76 mm of Hg. The EKG at the peak infusion revealed no significant changes. Sestamibi was injected 20 seconds after the Lexiscan infusion. Heart rate at the end of the recovery phase was 112 bpm with a blood pressure of 110/73 mm of Hg. CONCLUSION: 1. No significant EKG changes with the LexiScan infusion 2. No LexiScan induced chest pain or cardiac arrhythmia 3. Normal blood pressure and heart rate response 4. Sestamibi/sestamibi perfusion scan pending; see separate report. Electronically Signed On 07-05-2022 19:43:57 CDT by Hardik Betts M.D. [email or web address]
[2022-06-29 17:08] LABS: Glucose Point of Care 267 mg/dL (70-110)
[2022-06-29] MEDS: losartan 50 mg Tablet 25 MG PO (17:21)
[2022-06-29] MEDS: fluticasone nasal spray 16gm Btl 1 SPRAY INTRANASAL (17:22)
[2022-06-29] MEDS: atorvastatin 40 mg Tablet 20 MG PO (20:28)
[2022-06-29 20:51] LABS: Glucose Point of Care 178 mg/dL (70-110)
[2022-06-30] VITALS (10 sets, daily range): BP systolic 110–122; BP diastolic 54–70; PULSE 87–112; RESP 15–16; TEMP 36.2–36.8; O2SAT 79–99
[2022-06-30] MEDS: meropenem 1,000 MG in sodium chloride 0.9% (plus) 50 ML 100 MG IV ×3 (00:08→16:33)
[2022-06-30] MEDS: ipratropium-albuterol 3 mL Neb INHALATION ×2 (03:02→11:13)
[2022-06-30] MEDS: heparin 5,000 unit/mL INJ 1 mL 5000 UNIT SUBCUT (04:18)
[2022-06-30 06:44] LABS: Glucose Point of Care 136 mg/dL (70-110)
[2022-06-30] MEDS: regadenoson 0.4 Mg/5 ml Syringe IVP ×2 (07:48→08:18)
--- NOTE | 2022-06-30 07:56 | SUR.PREOP ---
INTRA STRESS NOTE Patient received intra stress injection of Lexiscan dose. During injection of Sestamibe the J loop of the IV seperated from the hub of IV catheter underneath the veniguard. Patient did not receive injection of MIBI d/t this. Stress portion of test to be repeated d/t this IV malfunction. IV catheter removed and cared for by gi tech. Patient informed of the need for repeat injection of lexiscan. He understands why test must be redone.
--- NOTE | 2022-06-30 07:56 | PC.NURSE ---
This nurse went to do patient's assessment and give morning meds, however, patient is off the floor getting a MBS performed.
--- NOTE | 2022-06-30 08:00 | NMCV_ITS ---
NM bjorn perf SPECT r/s* [id number] Hernan Beckman Age: 71 Gender: M : 1950 Exam Date: 06/30/2022 06:44 Ordering Phys: Dariusz Palacios MD Technologist: MANDY Zaragoza Exam Location: [facility] Indications: CHEST PAIN STRESS TEST Please see separate stress test report in [facility] for full findings IMAGE PROTOCOL Rest/Stress 1 Lexiscan Day Radiopharmaceutical Dose (mCi) Administration Site Administered by Rest: Tc-99m 11.0 IV MANDY Olsen Sestamibi Stress:Tc-99m 33.0 IV MANDY Olsen Sestamibi Rest: 30-Jun-2022 60 Discovery 630 Stress: 30-Jun-2022 30 Discovery 630 0.4mg Lexiscan. Supine position only as patient was unable to lay prone. SPECT RESULTS Technical Quality: Excellent Raw Data Analysis: Normal Image Corrections: No attenuation or motion correction applied Summed Stress Score: 8 Summed Rest Score: 7 Summed Difference Score: 2 PERFUSION FINDINGS Small to moderate area of moderately decreased tracer uptake in the apical anterior, apical lateral, apical inferior and LV apex. Some reversibility was noted in the apical anterior region. FUNCTIONAL RESULTS (calculated via Gated SPECT) Stress Image LV EF (%): 30 Stress EDV (mL):168 TID: 0.93 Stress ESV (mL):118 FUNCTIONAL FINDINGS: Segmental wall motion analysis revealed diffuse hypokinesia of the left ventricle IMPRESSIONS 1. Myocardial perfusion imaging revealing moderate area of moderately decreased tracer uptake involving all the apical segments and the LV apex with a very small area of reversibility in the apical anterior region suggesting myocardial scarring in the distribution of all the 3 coronary arteries with a very small area of ischemia in the distribution of the distal left and descending artery. 2. Moderately diminished LV ejection fraction of 30%. 3. Diffuse hypokinesia of the left ventricle. 4. Moderately dilated LV cavity with an end-systolic volume of 118 normal No similar previous studies are available for comparison Dr Hardik Betts MD [facility] (Electronically Signed) Final Date: 30 June 2022 16:27 S
[2022-06-30] MEDS: FUROsemide 20 mg Tablet PO (09:41)
[2022-06-30] MEDS: fluticasone nasal spray 16gm Btl 1 SPRAY INTRANASAL (09:41)
[2022-06-30] MEDS: aspirin 81 mg EC Tablet PO (09:41)
[2022-06-30] MEDS: venlafaxine ER (24HR) 150 mg Capsule PO (09:42)
[2022-06-30] MEDS: cetirizine 10 mg Tablet PO (09:42)
[2022-06-30] MEDS: predniSONE 20 mg Tablet 40 MG PO (09:42)
[2022-06-30] MEDS: losartan 50 mg Tablet 25 MG PO (09:42)
[2022-06-30 11:30] LABS: Glucose Point of Care 232 mg/dL (70-110)
--- NOTE | 2022-06-30 12:18 | PC.SOCIAL ---
IMM Update pg 2 of IMM updated and reviewed w/ patient and his . Copy provided and Copy in chart dated, and initialed.
[2022-06-30] MEDS: insulin lispro 100 unit/1 mL SUBCUT (12:39)
[2022-06-30 13:53] LABS: Basophils # 0.1 10^3/uL (0.0-0.1); Basophils % 0.5 %; Eosinophils # 0.6 10^3/uL (0.0-0.8); Hematocrit 42.2 % (42.0-52.0); Hemoglobin 13.2 g/dL (11.7-16.6); Lymphocytes # 1.3 10^3/uL (0.8-4.8); Lymphocytes % 6.5 %; Mean Corpuscular HGB Conc 31.3 g/dL (30.0-36.0); Mean Corpuscular Hemoglobin 28.4 pg (28.0-34.0); Mean Corpuscular Volume 90.8 fl (80-94); Mean Platelet Volume 8.8 fL (7.4-10.4); Monocytes # 0.9 10^3/uL (0.2-0.9); Monocytes % 4.5 %; Neutrophils # 16.11 10^3/uL (1.8-7.7); Neutrophils % 79.8 %; Nucleated Red Blood Cells % 0 %; Platelet Count 443 10^3/cmm (130-400); Red Blood Count 4.65 10^6/uL (4.1-5.3); White Blood Count 20.2 10^3/uL (4.0-10.0)
[2022-06-30 14:07] LABS: Alanine Aminotransferase 37 U/L (0-41); Albumin Level 3.4 g/dL (3.5-5.2); Alkaline Phosphatase 85 U/L (40-130); Anion Gap 8.4 (5-19); Aspartate Amino Transferase 20 U/L (0-40); Blood Urea Nitrogen 16 mg/dL (8-23); Calcium 8.5 mg/dL (8.5-10.5); Carbon Dioxide 39 mmol/L (22-29); Chloride 88 mmol/L (98-107); Globulin 2.9 g/dL (1.3-4.6); Glucose 276 mg/dL (65-115); Osmolality Calculated 283 mOsm/kg (285-295); Potassium 4.4 mmol/L (3.5-5.1); Sodium 131 mmol/L (136-145); Total Bilirubin 0.5 mg/dL (0.15-1.2); Total Protein 6.3 g/dL (6.6-8.7)
[2022-06-30 14:27] LABS: Slide Review Slide Review Perform
--- NOTE | 2022-06-30 16:17 | FL_ITS ---
WS: [id number] Modified barium swallow was performed in conjunction with the speech therapy service. Exam: FL barium swallow modifd [id number] Date/Time of Exam: 06/30/2022 10:50 AM Reason For Exam: Pharyngeal dysphagia Fluoroscopy time: 3min [id number] minutes # of spot films: 1 The patient tolerated thin liquid, nectar consistency, pudding consistency and solid barium mixture f oodstuffs without aspiration or penetration. The patient swallowed a barium tablet without difficulty . FL/FL barium swallow modifd [id number] IMPRESSION: 1. No sign of aspiration or penetration. A separate report with recommendations will also follow from the speech therapy service.
--- NOTE | 2022-06-30 17:10 | PM.DCS ---
Discharge Providers Date of Admission: 06/23/22 03:34 Date of Discharge: June 30, 2022 Attending Provider at Admission: Mickie Wall MD Attending Provider at Discharge: Rita Lee MD Primary Care Provider: Courtney Reich DO Diagnoses at Discharge Discharge Diagnosis (1) Recurrent pneumonia: Details from hospital stay: S/P treatment with zosyn and merrem Clinically felt to aspirate, but modified barium swallow without evidence of such, he does tilt his head back with eating/drinking which may contribute, speech reviewed with him to keep his chin tucked Status: Acute (2) Acute respiratory failure with hypoxia: Details from hospital stay: Secondary to above Status: Resolved (3) Acute exacerbation of chronic obstructive pulmonary disease: Details from hospital stay: Secondary to above Status: Resolved (4) Systolic congestive heart failure: Details from hospital stay: new diagnosis this admission, EF 46%, pro BNP was elevated Status: Acute (5) Abnormal finding on cardiovascular stress test: Details from hospital stay: Small area of reversibility in LAD distribution, no complaints of chest pain, no significant delta troponin, only difficulty breathing, will follow up with cardiology for further evaluation, told to return to ED for chest pain or recurrent acute difficulty breathing Status: Acute (6) Diabetes mellitus type 2, noninsulin dependent: Status: Chronic Reason for Visit Reason for Visit: difficulty breathing Brief History: Per Dr Wall: Hernan Beckman JR is a 71 year old male with past medical history of BPH, chronic low back pain, migraine, diabetes mellitus type 2 not insulin-dependent, COPD on 2 L of oxygen at home, depression, peripheral neuropathy presented to the hospital today with complaint of progressively worsening shortness of breath and worsening sputum production which has now changed color to green versus yellow.? He states at home he is on 2 L of oxygen but has just been feeling worse and worse and when he came to the hospital today he asked him to bump it up to 4 L.? Denies any lower extremity edema at this time.? Reports a subjective fever at home.? Says that he has been sick with pneumonia multiple times in the past and has pretty bad COPD.? He sees pulmonology and the last time he saw them was in April this year.? He is a former smoker 2 pack/day for 59 years.? He quit in November 2021.? He has gold class D COPD and obstructive sleep apnea.? He is also been on theophylline in the past from his doctor in [place].? Patient takes triple nebulized therapy and azithromycin along with prednisone 5 mg daily at home.? He did have multifocal pneumonia in February 2022.? Most recently had a COPD exacerbation and was discharged on May 27, 2021.? Denies chest pain, abdominal pain, nausea, vomiting, diarrhea. ED course: 140/65, 110, 99.5, saturating 95% on 4 L nasal cannula, respiratory 30 on arrival.? Blood gas obtained, 7.38/67 point /30 9.5.? WBC 12.6, hemoglobin 12, platelets 246, lactic acid 0.8.? Chest x-ray shows multifocal bilateral infiltrates on chest film.? He was started on IV antibiotics and blood culture was obtained.? Patient given Zosyn and Solu-Medrol 125 times once, DuoNeb x1. Hospital Course Hospital Course Mr. Beckman was admitted to a medical bed. He was started on Zosyn initially for what was felt to be likely aspiration pneumonia, in addition to vancomycin. A couple of days after admission he had acute decompensation and was transferred to the ICU and placed on BiPAP. Antibiotics were escalated to Merrem. Pulmonology was consulted. CTA did not show any evidence of PE. Venous Doppler of the lower extremities was also negative for DVT. MRSA was negative, urine Legionella antigen was negative, viral respiratory panel was unrevealing and procalcitonin was 0.07. Blood cultures have also remained negative. With time he has had decrease in oxygen need and was able to be transferred back to the floor and remained stable. He underwent a modified barium swallow as he continues to have findings concerning for aspiration. This study did not show hema aspiration but it was noted by speech therapy that he often tilts his head back with drinking and eating and that may be a contributing factor. He was educated to keep his chin tucked when eating and drinking. He was treated with steroids while here and will transition back to home prednisone. He did have a repeat echocardiogram that showed an ejection fraction of 46% which is down from previous values that were technically difficult but estimated ejection fraction at 60% earlier this year. Because of the decrease in ejection fraction he underwent nuclear stress testing. This showed a very small area of reversibility in the LAD distribution. Patient denied any chest pain at any point in time prior to or during admission. Serial troponins previously done did not show significant delta. After talking with him and cardiology, decision was made for outpatient follow-up. I did start patient on aspirin therapy. At the time of discharge he had coarse breath sounds, regular rhythm and was alert and oriented. Him and his were given an opportunity to ask questions. Discharge Data Studies Completed and Pending Completed Studies During Hospitalization Category Date Time Status CT angio chest PE protcl [id number] Stat Cat Scan 06/25/22 21:22 Completed FL barium swallow modifd [id number] Routine Exams 06/30/22 16:17 Completed Sestamibi Stress Test Request Routine Exams 06/29/22 16:03 Draft XR chest 1V portable [id number] Routine Exams 06/25/22 07:00 Completed XR chest 1V portable [id number] Stat Exams 06/23/22 00:51 Completed XR chest 1V portable [id number] Stat Exams 06/25/22 21:01 Completed NM bjorn perf SPECT r/s* [id number] Routine Nuc Med 06/30/22 08:00 [place] [id number] Routine Ultrasound 06/26/22 21:23 Completed CV. echo lmt w/w contras [id number] Routine Ultrasound 06/26/22 21:23 Completed Pending at discharge Category Date Time Status Aspergillus AG,EIA,Serum Routine Lab 06/26/22 04:30 Received Aspergillus DNA Qualitativ PCR Routine Lab 06/26/22 08:29 Ordered Fungitell Glucan Assay (Blood) Routine Lab 06/26/22 04:30 Received Fungitell Glucan Assay (Blood) Routine Lab 06/26/22 08:29 Ordered Pneumocystis PCP [Pneumocystis jiroveci Qual PCR] Lab 06/26/22 08:29 Ordered Routine Sputum Culture and Gram Stain Stat Lab 06/23/22 03:08 Uncollected Radiology Impressions Chest X-Ray 06/25/22 21:01 IMPRESSION: 1. Bilateral upper lobe pneumonic infiltrates, similar to prior exam. 2. Cardiomegaly and mild pulmonary vascular congestion. Chest CTA 06/25/22 21:22 IMPRESSION: 1. Negative for pulmonary embolus. 2. Patchy bilateral largely upper lung field airspace opacities, suggestive of pneumonic infiltrates, short-term 1 month follow-up exam advised to assess for resolution. 3. Emphysematous changes. 4. Several prominent subcentimeter short axis nonspecific mediastinal lymph nodes. 5. Left adrenal 13 mm nodule suspected, indeterminate, dedicated nonemergent adrenal imaging could further evaluate this nonemergently. 6. Hepatic steatosis. COMMENTS: In the absence of a history or active diagnosis of lung cancer, it is recommended that this patient with emphysema be evaluated for enrollment in a low dose CT lung cancer screening program. Modified Barium Swallow 06/30/22 16:17 IMPRESSION: 1. No sign of aspiration or penetration. A separate report with recommendations will also follow from the speech therapy service. Laboratory Results WBC 20.2 10^3/uL (4.0-10.0) H 06/30/22 13:33 Corrected WBC Cancelled 06/30/22 04:52 RBC 4.65 10^6/uL (4.1-5.3) 06/30/22 13:33 Hgb 13.2 g/dL (11.7-16.6) 06/30/22 13:33 Hct 42.2 % (42.0-52.0) 06/30/22 13:33 MCV 90.8 fl (80-94) 06/30/22 13:33 MCH 28.4 pg (28.0-34.0) 06/30/22 13:33 MCHC 31.3 g/dL (30.0-36.0) 06/30/22 13:33 RDW 12.0 % (12.1-15.1) L 06/30/22 13:33 Plt Count 443 10^3/cmm (130-400) H 06/30/22 13:33 MPV 8.8 fL (7.4-10.4) 06/30/22 13:33 Gran % Cancelled 06/30/22 04:52 Neut % (Auto) 79.8 % 06/30/22 13:33 Lymph % (Auto) 6.5 % 06/30/22 13:33 [place] % (Auto) 4.5 % 06/30/22 13:33 Eos % (Auto) 3.0 % 06/30/22 13:33 Baso % (Auto) 0.5 % 06/30/22 13:33 Neut # (Auto) 16.11 10^3/uL (1.8-7.7) H 06/30/22 13:33 Lymph # (Auto) 1.3 10^3/uL (0.8-4.8) 06/30/22 13:33 [place] # (Auto) 0.9 10^3/uL (0.2-0.9) 06/30/22 13:33 Eos # (Auto) 0.6 10^3/uL (0.0-0.8) 06/30/22 13:33 Baso # (Auto) 0.1 10^3/uL (0.0-0.1) 06/30/22 13:33 Absolute Gran (auto) Cancelled 06/30/22 04:52 Nucleated RBC % (auto) 0 % 06/30/22 13:33 Nucleated RBCs # 0.0 /100WBC 06/30/22 13:33 D-Dimer 0.83 ug/mIFEU (0-0.59) H 06/25/22 22:52 Specimen Type Arterial 06/23/22 01:15 Sample Site Radial, left 06/23/22 01:15 ABG pH 7.38 (7.35-7.45) 06/23/22 01:15 ABG pCO2 67.3 mmHg (35-45) H* 06/23/22 01:15 ABG pO2 74.0 mmHg (80.0-100.0) L 06/23/22 01:15 ABG HCO3 39.5 mmol/L (22-26) H 06/23/22 01:15 ABG Base Excess 11.6 mmol/L (-2.0-2.0) H 06/23/22 01:15 Luis Fernando Test Pos 06/23/22 01:15 Hematocrit 38.5 % (42-52) L 06/23/22 01:15 Hgb O2 Saturation 94.4 % (95-100) L 06/23/22 01:15 Carboxyhemoglobin 1.4 %THgb (0.4-20.1) 06/23/22 01:15 Methemoglobin 0.3 % (0.4-1.5) L 06/23/22 01:15 Total Hemoglobin 12.5 g/dL (14-18) L 06/23/22 01:15 O2 Delivery Device Nc 06/23/22 01:15 O2 Liters/Min 4.0 % 06/23/22 01:15 FiO2 36.0 % 06/23/22 01:15 [employer] Shop [employer] ID Alewe 06/23/22 01:15 Sodium 131 mmol/L (136-145) L 06/30/22 13:33 Potassium 4.4 mmol/L (3.5-5.1) 06/30/22 13:33 Chloride 88 mmol/L (98-107) L 06/30/22 13:33 Carbon Dioxide 39 mmol/L (22-29) H 06/30/22 13:33 Anion Gap 8.4 (5-19) 06/30/22 13:33 BUN 16 mg/dL (8-23) 06/30/22 13:33 Creatinine 0.7 mg/dL (0.7-1.2) 06/30/22 13:33 GFR Calculation Not Reportable 06/30/22 13:33 Glucose 276 mg/dL (65-115) H 06/30/22 13:33 POC Glucose 232 mg/dL (70-110) H 06/30/22 11:25 Calculated Osmolality 283 mOsm/kg (285-295) L 06/30/22 13:33 Lactic Acid 3.1 mmol/L (0.5-2.2) H 06/25/22 22:52 Lactic Acid (Sepsis) 1.2 mmol/L (0.5-2.2) 06/26/22 02:47 Calcium 8.5 mg/dL (8.5-10.5) 06/30/22 13:33 Magnesium 2.2 mg/dL (1.7-2.3) 06/28/22 06:11 Total Bilirubin 0.5 mg/dL (0.15-1.2) 06/30/22 13:33 AST 20 U/L (0-40) 06/30/22 13:33 ALT 37 U/L (0-41) 06/30/22 13:33 Alkaline Phosphatase 85 U/L (40-130) 06/30/22 13:33 Troponin T Baseline 42 ng/L (0-15) H 06/25/22 22:52 Troponin T 120 Minute 44.86 ng/L (0-15) H 06/26/22 01:04 Delta Troponin T 2.86 ABS# (0-10) 06/26/22 01:04 Troponin T Hi Sens 6Hr 37.99 ng/L (0-15) H 06/26/22 04:30 Troponin T Hi Sens 6Hr Delta -4.01 ng/L (0-12) L 06/26/22 04:30 C-Reactive Protein 39.1 mg/L (0.0-4.9) H 06/25/22 22:52 NT-Pro-B Natriuret Pep 1474 pg/mL (0-125) H 06/25/22 22:52 Total Protein 6.3 g/dL (6.6-8.7) L 06/30/22 13:33 Albumin 3.4 g/dL (3.5-5.2) L 06/30/22 13:33 Globulin 2.9 g/dL (1.3-4.6) 06/30/22 13:33 Procalcitonin 0.07 ng/mL (0-0.5) 06/25/22 22:52 Nasal Influ A H1 2009 PCR Not detected (NOT DETECT) 06/26/22 00:50 Vancomycin Trough 12.1 ug/mL (10-15) 06/27/22 09:30 Adenovirus (PCR) Not detected (NOT DETECT) 06/26/22 00:50 C. pneumoniae DNA (PCR) Not detected (NOT DETECT) 06/26/22 00:50 Coronavirus 229E (PCR) Not detected (NOT DETECT) 06/26/22 00:50 Human Metapneumovir PCR Not detected (NOT DETECT) 06/26/22 00:50 Influenza A (H1) PCR Not detected (NOT DETECT) 06/26/22 00:50 Influenza A (H3) PCR Not detected (NOT DETECT) 06/26/22 00:50 Influenza Type A (PCR) Not detected (NOT DETECT) 06/26/22 00:50 Influenza Type B (PCR) Not detected (NOT DETECT) 06/26/22 00:50 M. pneumoniae (PCR) Not detected (NOT DETECT) 06/26/22 00:50 Parainfluenza 1 (PCR) Not detected (NOT DETECT) 06/26/22 00:50 Parainfluenza 2 (PCR) Not detected (NOT DETECT) 06/26/22 00:50 Parainfluenza 3 (PCR) Not detected (NOT DETECT) 06/26/22 00:50 Parainfluenza 4 (PCR) Not detected (NOT DETECT) 06/26/22 00:50 RSV Type A (PCR) Not detected (NOT DETECT) 06/26/22 00:50 RSV Type B (PCR) Not detected (NOT DETECT) 06/26/22 00:50 Entero/Rhino (PCR) Not detected (NOT DETECT) 06/26/22 00:50 SARS-CoV-2 (PCR) Not detected (NOT DETECT) 06/26/22 00:50 Vitals Last Vital Signs Temp 98.0 F 06/30/22 15:47 Pulse 102 H 06/30/22 15:47 Resp 15 06/30/22 15:47 BP 115/54 06/30/22 15:47 Pulse Ox 96 06/30/22 15:47 O2 Del Method Nasal Cannula 06/30/22 15:52 O2 Flow Rate 2 06/30/22 15:52 FiO2 3 06/27/22 08:55 Discharge Plan Discharge Patient Disposition: Home Condition: Fair Prescriptions: New aspirin 81 mg tablet,delayed release (DR/EC) 81 mg PO DAILY Qty: 30 0RF Continued acetaminophen [Tylenol Extra Strength] 500 mg tablet 500 mg PO Q4H PRN (Reason: Pain) epinephrine 0.3 mg/0.3 mL auto-injector 0.3 mg IM ONCE PRN (Reason: Allergic Reaction) (DME) Four wheeled walker with a seat Qty: 1 0RF Rx Instructions: As directed albuterol sulfate 2.5 mg /3 mL (0.083 %) solution for nebulization 2.5 mg INHALATION BID PRN (Reason: Shortness Of Breath) prednisone 5 mg tablet 5 mg PO DAILY 90 Days Qty: 90 0RF Hold Instructions: Resume on 03/26/22. Flomax 0.4 mg capsule 0.8 mg PO DAILY Qty: 180 1RF fluticasone propionate [Flonase Allergy Relief] 50 mcg/actuation spray,suspension 1 spray INTRANASAL Q12H 90 Days Qty: 54.6 3RF budesonide [Pulmicort] 0.5 mg/2 mL suspension for nebulization 0.5 mg INHALATION BID Qty: 120 2RF Rx Instructions: NEEDS APPT PRIOR TO FURTHER REFILLS Perforomist 20 mcg/2 mL solution for nebulization 2 ml INHALATION Q12H 90 Days Qty: 120 2RF Rx Instructions: NEEDS APPT PRIOR TO FURTHER REFILLS albuterol sulfate 90 mcg/actuation HFA aerosol inhaler 2 inh inhalation Q6H PRN (Reason: shortness of breath or wheezing) Qty: 18 2RF Januvia 100 mg tablet 100 mg PO DAILY Qty: 90 1RF Rx Instructions: 340 B tramadol 50 mg tablet 50 mg PO TID PRN (Reason: pain) Qty: 90 0RF venlafaxine 150 mg capsule,extended release 24hr See Rx Instructions .ROUTE .COMPLEX Qty: 30 3RF Dose Instruction: TAKE 1 CAPSULE BY MOUTH EVERY DAY Rx Instructions: TAKE 1 CAPSULE BY MOUTH EVERY DAY Yupelri 175 mcg/3 mL solution for nebulization 175 mcg inhalation DAILY Qty: 90 2RF Rx Instructions: NEEDS APPT PRIOR TO FRUTHER REFILLS amitriptyline 25 mg tablet 25 mg PO BEDTIME atorvastatin 20 mg tablet 20 mg PO BEDTIME Changed furosemide 20 mg tablet 20 mg PO DAILY Qty: 30 0RF Discontinued azithromycin 250 mg tablet 250 mg PO EVERY OTHER DAY Rx Instructions: NEEDS APPT PRIOR TO FURTHER REFILLS Discharge Orders: Discharge Order (Routine); Ordered 06/30/22 Ordered By: Rita Lee Referrals: Lonny Varela MD [Physician] - 07/11/22 10:45 am ( ) Hardik Betts MD [Physician] - 2 weeks (Per Dr Betts, 1st available new patient appointment (any provider), stress test with small reversible defect in LAD distribution, EF 46%, no chest pain, fixed defects other vessels) Courtney Reich DO [Primary Care Provider] - 07/01/22 1:00 pm (APPOINTMENT WITH DR REAVES) Discharge Diet: Advance as tolerated Discharge Activity: Increase activity as tolerated Patient Instructions: Heart Failure (DC), Aspiration Pneumonia (DC), CHF Stoplight, Opioid Safety Activity Restrictions/Additional Instructions: You received treatment for aspiration pneumonia and completed course of antibiotics. Follow-up with Dr. Varela as noted on July 11. You are found to have evidence of some heart failure with a ejection fraction at 46%. Subsequent stress test showed a very small area of reversibility which can be an indication of ischemia in the distribution of the LAD artery. You have been referred to cardiology for further cardiac evaluation. Should you have any chest pain, sudden onset of acute difficulty breathing or other concerning symptoms represent to the emergency room or call 911. You may require further cardiac testing at a later date. As we discussed the Lasix dosing of 20 mg a day is what you were previously taking so not an actual change in dosage. I have started you on a daily 81 mg aspirin. Discharge Attestations Time Spent in Discharge Care*: greater than 30 min Status at Discharge: Cognitive status at discharge: cognitively intact, Behavioral status at discharge: can be uncooperative and independent in ADL's, Quality Metrics Clinical Quality Measures [ No reported AMI, CVA or VTE this stay] Coding Level of Care Code 93997 Diagnoses Recurrent pneumonia J18.9 Acute respiratory failure with hypoxia J96.01 Acute exacerbation of chronic obstructive pulmonary disease J44.1 Systolic congestive heart failure I50.20 Abnormal finding on cardiovascular stress test R94.39 Diabetes mellitus type 2, noninsulin dependent E11.9
--- NOTE | 2022-06-30 19:30 | P.PN_ITS ---
Subjective Subjective: Seen patient at bedside today afternoon He went to stress test today morning and modified barium swallow Modified barium swallow did not show any sign of aspiration or penetration however speech thinks that patient tilts his head backwards and that may be the cause of aspiration -Myocardial perfusion scan showed moderate area of moderately decreased tracer uptake in the apical segments of LV apex with small area of reversibility in apical anterior region suggesting myocardial scarring. There is diffuse hypokinesia of the left ventricle. Moderately diminished LVEF 30%. Patient to follow-up with cardiology as outpatient Medications: Reviewed: Yes Vitals/I&O/Wt Last Vital Signs Temp 98.0 F 06/30/22 15:47 Pulse 102 H 06/30/22 15:47 Resp 15 06/30/22 15:47 BP 115/54 06/30/22 15:47 Pulse Ox 96 06/30/22 15:47 O2 Del Method Nasal Cannula 06/30/22 15:52 O2 Flow Rate 2 06/30/22 15:52 FiO2 3 06/27/22 08:55 06/30/22 06/30/22 06/30/22 06:59 14:59 22:59 Intake Total 530 / 2070 290 / 290 290 / 580 Output Total 200 / 200 650 / 650 Balance 330 / 1870 -360 / -360 290 / -70 Physical Exam Narrative: General: alert, NAD HEENT: conj clear, EOMI, PERRL, mmm, Neck: supple, no meningismus Heme: no cervical LAP Respiratory: Inspection: No visible deformity of the chest wall Palpation: Trachea is mildly deviated to the right, bilateral symmetric expansion Percussion: Bilateral tympanic percussion note both anterior and posteriorly Auscultation: Diffuse coarse crackles Cardiovascular: rrr, nl s1s2, no mrg Abdomen: soft, nt, nd, no r/g, bs+ Extremities: pulses +, no edema, no c/c : no CVA tenderness Skin: intact, no rash MSK: no back or neck pain Neurologic: grossly intact Data 06/30/22 13:33 06/30/22 13:33 Other Labs: Radiology Impressions Chest X-Ray 06/25/22 21:01 IMPRESSION: 1. Bilateral upper lobe pneumonic infiltrates, similar to prior exam. 2. Cardiomegaly and mild pulmonary vascular congestion. Chest CTA 06/25/22 21:22 IMPRESSION: 1. Negative for pulmonary embolus. 2. Patchy bilateral largely upper lung field airspace opacities, suggestive of pneumonic infiltrates, short-term 1 month follow-up exam advised to assess for resolution. 3. Emphysematous changes. 4. Several prominent subcentimeter short axis nonspecific mediastinal lymph nodes. 5. Left adrenal 13 mm nodule suspected, indeterminate, dedicated nonemergent adrenal imaging could further evaluate this nonemergently. 6. Hepatic steatosis. COMMENTS: In the absence of a history or active diagnosis of lung cancer, it is recommended that this patient with emphysema be evaluated for enrollment in a low dose CT lung cancer screening program. Modified Barium Swallow 06/30/22 16:17 IMPRESSION: 1. No sign of aspiration or penetration. A separate report with recommendations will also follow from the speech therapy service. Laboratory Results WBC 20.2 10^3/uL (4.0-10.0) H 06/30/22 13:33 Corrected WBC Cancelled 06/30/22 04:52 RBC 4.65 10^6/uL (4.1-5.3) 06/30/22 13:33 Hgb 13.2 g/dL (11.7-16.6) 06/30/22 13:33 Hct 42.2 % (42.0-52.0) 06/30/22 13:33 MCV 90.8 fl (80-94) 06/30/22 13:33 MCH 28.4 pg (28.0-34.0) 06/30/22 13:33 MCHC 31.3 g/dL (30.0-36.0) 06/30/22 13:33 RDW 12.0 % (12.1-15.1) L 06/30/22 13:33 Plt Count 443 10^3/cmm (130-400) H 06/30/22 13:33 MPV 8.8 fL (7.4-10.4) 06/30/22 13:33 Gran % Cancelled 06/30/22 04:52 Neut % (Auto) 79.8 % 06/30/22 13:33 Lymph % (Auto) 6.5 % 06/30/22 13:33 Terry % (Auto) 4.5 % 06/30/22 13:33 Eos % (Auto) 3.0 % 06/30/22 13:33 Baso % (Auto) 0.5 % 06/30/22 13:33 Neut # (Auto) 16.11 10^3/uL (1.8-7.7) H 06/30/22 13:33 Lymph # (Auto) 1.3 10^3/uL (0.8-4.8) 06/30/22 13:33 [place] # (Auto) 0.9 10^3/uL (0.2-0.9) 06/30/22 13:33 Eos # (Auto) 0.6 10^3/uL (0.0-0.8) 06/30/22 13:33 Baso # (Auto) 0.1 10^3/uL (0.0-0.1) 06/30/22 13:33 Absolute Gran (auto) Cancelled 06/30/22 04:52 Nucleated RBC % (auto) 0 % 06/30/22 13:33 Nucleated RBCs # 0.0 /100WBC 06/30/22 13:33 D-Dimer 0.83 ug/mIFEU (0-0.59) H 06/25/22 22:52 Specimen Type Arterial 06/23/22 01:15 Sample Site Radial, left 06/23/22 01:15 ABG pH 7.38 (7.35-7.45) 06/23/22 01:15 ABG pCO2 67.3 mmHg (35-45) H* 06/23/22 01:15 ABG pO2 74.0 mmHg (80.0-100.0) L 06/23/22 01:15 ABG HCO3 39.5 mmol/L (22-26) H 06/23/22 01:15 ABG Base Excess 11.6 mmol/L (-2.0-2.0) H 06/23/22 01:15 Luis Fernando Test Pos 06/23/22 01:15 Hematocrit 38.5 % (42-52) L 06/23/22 01:15 Hgb O2 Saturation 94.4 % (95-100) L 06/23/22 01:15 Carboxyhemoglobin 1.4 %THgb (0.4-20.1) 06/23/22 01:15 Methemoglobin 0.3 % (0.4-1.5) L 06/23/22 01:15 Total Hemoglobin 12.5 g/dL (14-18) L 06/23/22 01:15 O2 Delivery Device Nc 06/23/22 01:15 O2 Liters/Min 4.0 % 06/23/22 01:15 FiO2 36.0 % 06/23/22 01:15 Recovery Room Nurse ID Sriram 06/23/22 01:15 Sodium 131 mmol/L (136-145) L 06/30/22 13:33 Potassium 4.4 mmol/L (3.5-5.1) 06/30/22 13:33 Chloride 88 mmol/L (98-107) L 06/30/22 13:33 Carbon Dioxide 39 mmol/L (22-29) H 06/30/22 13:33 Anion Gap 8.4 (5-19) 06/30/22 13:33 BUN 16 mg/dL (8-23) 06/30/22 13:33 Creatinine 0.7 mg/dL (0.7-1.2) 06/30/22 13:33 GFR Calculation Not Reportable 06/30/22 13:33 Glucose 276 mg/dL (65-115) H 06/30/22 13:33 POC Glucose 232 mg/dL (70-110) H 06/30/22 11:25 Calculated Osmolality 283 mOsm/kg (285-295) L 06/30/22 13:33 Lactic Acid 3.1 mmol/L (0.5-2.2) H 06/25/22 22:52 Lactic Acid (Sepsis) 1.2 mmol/L (0.5-2.2) 06/26/22 02:47 Calcium 8.5 mg/dL (8.5-10.5) 06/30/22 13:33 Magnesium 2.2 mg/dL (1.7-2.3) 06/28/22 06:11 Total Bilirubin 0.5 mg/dL (0.15-1.2) 06/30/22 13:33 AST 20 U/L (0-40) 06/30/22 13:33 ALT 37 U/L (0-41) 06/30/22 13:33 Alkaline Phosphatase 85 U/L (40-130) 06/30/22 13:33 Troponin T Baseline 42 ng/L (0-15) H 06/25/22 22:52 Troponin T 120 Minute 44.86 ng/L (0-15) H 06/26/22 01:04 Delta Troponin T 2.86 ABS# (0-10) 06/26/22 01:04 Troponin T Hi Sens 6Hr 37.99 ng/L (0-15) H 06/26/22 04:30 Troponin T Hi Sens 6Hr Delta -4.01 ng/L (0-12) L 06/26/22 04:30 C-Reactive Protein 39.1 mg/L (0.0-4.9) H 06/25/22 22:52 NT-Pro-B Natriuret Pep 1474 pg/mL (0-125) H 06/25/22 22:52 Total Protein 6.3 g/dL (6.6-8.7) L 06/30/22 13:33 Albumin 3.4 g/dL (3.5-5.2) L 06/30/22 13:33 Globulin 2.9 g/dL (1.3-4.6) 06/30/22 13:33 Procalcitonin 0.07 ng/mL (0-0.5) 06/25/22 22:52 Nasal Influ A H1 2009 PCR Not detected (NOT DETECT) 06/26/22 00:50 Vancomycin Trough 12.1 ug/mL (10-15) 06/27/22 09:30 Adenovirus (PCR) Not detected (NOT DETECT) 06/26/22 00:50 C. pneumoniae DNA (PCR) Not detected (NOT DETECT) 06/26/22 00:50 Coronavirus 229E (PCR) Not detected (NOT DETECT) 06/26/22 00:50 Human Metapneumovir PCR Not detected (NOT DETECT) 06/26/22 00:50 Influenza A (H1) PCR Not detected (NOT DETECT) 06/26/22 00:50 Influenza A (H3) PCR Not detected (NOT DETECT) 06/26/22 00:50 Influenza Type A (PCR) Not detected (NOT DETECT) 06/26/22 00:50 Influenza Type B (PCR) Not detected (NOT DETECT) 06/26/22 00:50 M. pneumoniae (PCR) Not detected (NOT DETECT) 06/26/22 00:50 Parainfluenza 1 (PCR) Not detected (NOT DETECT) 06/26/22 00:50 Parainfluenza 2 (PCR) Not detected (NOT DETECT) 06/26/22 00:50 Parainfluenza 3 (PCR) Not detected (NOT DETECT) 06/26/22 00:50 Parainfluenza 4 (PCR) Not detected (NOT DETECT) 06/26/22 00:50 RSV Type A (PCR) Not detected (NOT DETECT) 06/26/22 00:50 RSV Type B (PCR) Not detected (NOT DETECT) 06/26/22 00:50 Entero/Rhino (PCR) Not detected (NOT DETECT) 06/26/22 00:50 SARS-CoV-2 (PCR) Not detected (NOT DETECT) 06/26/22 00:50 A&P Assessment and plan (1) Acute respiratory failure with hypoxia: Clinically improving 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 prednisone 5 Mg daily, azithromycin 3 times weekly Is at high risk for aspiration-there is patchy opacities in bilateral lungs suspicious for multifocal pneumonia He is covered with vancomycin and meropenem so far cultures are negative, MRSA negative-patient had adequate anaerobic coverage for almost 10 days. CTA ruled out PE and venous Doppler ruled out DVT This patient received a extended course of steroids during last hospitalization- we will send for Fungitell/Aspergillus antigen/PCP PCR induced sputum-pending results Most recent echocardiogram in last month in May 2022-was poorly visualized due to technically difficult study however estimated LVEF of 60%. Today underwent a myocardial perfusion scan-cardiology to follow-up We will taper down his Lasix to 20 Mg daily Continue physical therapy and respiratory care with incentive spirometry (2) At risk for aspiration: Speech evaluation on 06/26/2022-reported no episodes of difficulty swallowing and recommended to advance to a regular consistency diet with regular liquids There is recurrent multifocal pneumonias-due to high suspicion for silent aspiration-a modified barium swallow was performed which did not show any risk of aspiration. However speech therapy noticed that patient tilts his head backwards which may be because of aspiration-recommended him to chin tuck while drinking and eating (3) Acute exacerbation of chronic obstructive pulmonary disease: Continue scheduled nebulizations Taper down steroids based on clinical response to his baseline p.o. prednisone 5 Mg daily He completed almost 9 days of anaerobic coverage. Attestations Medical Necessity Statement*: Okay to discharge from pulmonary standpoint and I will follow-up clinic Time Spent in Patient Care: Greater than 35 minutes (>than 50% of time spent in counselling and/or direct pt care on unit) . Coding Level of Care Code 48671 Diagnoses Acute respiratory failure with hypoxia J96.01 At risk for aspiration Z91.89 Acute exacerbation of chronic obstructive pulmonary disease J44.1
[2022-07-01 19:43] LABS: Fungitell 1-3-B Glucan Assay 76 pg/mL; Interpretation INDETERMINATE
[2022-07-02 17:15] LABS: Aspergillus AG,EIA,Serum NOT DETECTED; Aspergillus Galactomannan Inde <0.50
== END 2022-06-30 17:55 | disposition home health service (06) | DRG 177 ==
LOC: ER 03:29 → MEDSURG 03:34 → ICU 06-25 22:38 → MEDSURG 06-27 16:37
PROVIDERS: Family Medicine; Internal Medicine; Internal Medicine Pulmonary Disease; Student in an Organized Health Care Education/Training Program; Admitting Provider Internal Medicine; Emergency Provider Emergency Medicine; PCP Family Medicine; Visit Provider Hospitalist
DX: J69.0 Pneumonitis due to inhalation of food and vomit (principal); J96.01 Acute respiratory failure with hypoxia; N13.8 Other obstructive and reflux uropathy; I50.22 Chronic systolic (congestive) heart failure; Z79.51 Long term (current) use of inhaled steroids; Z79.52 Long term (current) use of systemic steroids; Z79.84 Long term (current) use of oral hypoglycemic drugs; Z79.891 Long term (current) use of opiate analgesic; N40.1 Benign prostatic hyperplasia with lower urinary tract symptoms; G89.29 Other chronic pain; M54.50 Low back pain, unspecified; E11.42 Type 2 diabetes mellitus with diabetic polyneuropathy; J43.1 Panlobular emphysema; Z99.81 Dependence on supplemental oxygen; F32.A Depression, unspecified; Z87.891 Personal history of nicotine dependence; G47.33 Obstructive sleep apnea (adult) (pediatric)
CPT/HCPCS: 36415; 36416; 36600; 71045; 71250; 71275; 74230; 78452; 80048; 80053; 80069; 80202; 82803; 82805; 82962; 83036; 83605; 83735; 83880; 84145; 84484; 85007; 85025; 85378; 85730; 86140; 86403; 87040; 87070; 87205; 87305; 87385; 87449; 87486; 87581; 87633; 87641; 87798; 92523; 92610; 92611; 93005; 93017; 93458; 93970; 94640; 94660; 94664; 96365; 96372; 96374; 96375; 96376; 97110; 97116; 97162; 97530; 99152; 99153; 99285; A9500; C1769; C1887; C1894; C8924; J1644; J1815; J1940; J1956; J2185; J2250; J2543; J2785; J2920; J2930; J3010; J3370; J3490; J7030; J7512; J7613; J7626; Q0163; Q9956; Q9967

== ENCOUNTER 2022-07-01 14:26 | Inpatient (IN) | payer MEDICARE, BC, SELFPAY ==
[2022-07-01] VITALS (34 sets, daily range): BP systolic 97–200; BP diastolic 55–173; PULSE 62–115; RESP 16–36; TEMP 36.7–36.9; O2SAT 89–100
--- NOTE | 2022-07-01 15:36 | XRR_ITS ---
PROCEDURE INFORMATION: Exam: XR Chest Exam date and time: 07/01/2022 3:56 PM Age: 71 years old Clinical indication: Shortness of breath; Additional info: SOB TECHNIQUE: Imaging protocol: Radiologic exam of the chest. Views: 1 view. COMPARISON: CR (CHEST, ) 06/25/2022 8:07 PM FINDINGS: Lungs: Bilateral perihilar parenchymal density showing decreased conspicuity since prior study. These findings correspond to resolving bilateral pneumonia Pleural spaces: Unremarkable. No pleural effusion. No pneumothorax. Heart/Mediastinum: Unremarkable. No cardiomegaly. Bones/joints: Unremarkable. XR/XR chest 1V portable 80230 IMPRESSION: 1. Resolving bilateral perihilar pneumonia. 2. Otherwise negative examination
--- NOTE | 2022-07-01 15:50 | PC.NURSE ---
PT PLACED ON 4 L VIA NC ON PORTABLE O2 TANK. NO ROOM AVAILABLE WILL CONTINUE TO MONITOR PT.
--- NOTE | 2022-07-01 16:07 | ED_ITS ---
HPI - SOB/Dyspnea General: Chief Complaint: Shortness of Breath/Dyspnea Stated Complaint: SOB Time Seen by Provider: 07/01/22 16:05 History of Present Illness: HPI Narrative: Mr. Beckman is a 71-year-old gentleman with history of COPD with chronic hypoxic respiratory failure presenting to the emergency department for shortness of breath. He was just discharged from the hospital yesterday and felt okay upon discharge however throughout the day today has had increasing shortness of breath. He was hypoxemic on 3 L via nasal cannula as well as tachycardic. He does note associated generalized malaise however no other specific symptoms. No other specific changes in health, exacerbating, or alleviating factors identified. Onset (ago): hour(s) Context: recent illness Severity: severe Exacerbating factors: exertion Relieving factors: oxygen Associated symptoms: Reports no associated symptoms Review of Systems General: Reports: 10 or more systems reviewed and unremarkable except in HPI and below PFSH ED PFSH: Medical History Atherosclerosis of coronary artery 60-70% prox 1st OM stenosis 07/03/22 BPH loc w urin obs/LUTS Chronic low back pain Has had nerve ablations and follows at pain clinic in [place] Chronic migraine Controlled diabetes mellitus without long-term current use of insulin COPD (chronic obstructive pulmonary disease) Depression, controlled Dyslipidemia Elevated prostate specific antigen [PSA] Enrolled in chronic care management History of multiple allergies Xolair injections monthly Hx of migraine headaches Has a triptan prescription and another medication Obstructive sleep apnea Peripheral neuropathy Primarily involving hands, related to ulnar nerve interventions Respiratory failure with hypoxia and hypercapnia Systolic congestive heart failure Surgical History H/O decompression of ulnar nerve bilateral H/O elbow surgery bilateral H/O rotator cuff surgery bilateral H/O total knee replacement right History of cataract surgery History of repair of rotator cuff Bilateral History of surgery on wrist Bilateral ulnar nerve release History of tonsillectomy and adenoidectomy Status post colonoscopy (07/21/19) normal , poor prep, repeat in 5 years Family History Mother , at age 66 Cancer uterine Aneurysm intracranial Father , at age 76 Lung disease asthma with allergies Asthma Other CAD (coronary artery disease) Social History Smoking and tobacco status: former smoker Quit status (tobacco): has quit using tobacco Year quit tobacco: 2021 Former quit date comment: 2ppd X 59 years Second hand smoke exposure: Yes Smoking risk assessment/counseling performed?: Yes Alcohol intake: former Counseling given: No Substance/Drug Use: never Counseling given: No Lives independently: Yes Household members: spouse Marital status: service: Yes Current occupational status: retired Do you think of yourself as: Straight/Heterosexual Current gender identity: Male Physical Exam Const: COMMON NORMALS: alert GENERAL APPEARANCE: cooperative and well developed HENMT: COMMON NORMALS: normocephalic and atraumatic HEAD & SCALP: normocephalic and atraumatic Eye: COMMON NORMALS: conjunctivae normal CONJUNCTIVA: Yes conjunctivae normal SCLERA: sclerae normal Neck/C-Spine: COMMON NORMALS: supple GENERAL: Yes trachea midline Resp: EFFORT & INSPECTION: Yes tachypneic and Yes labored AUSCULTATION: diminished lung sounds Cardio: COMMON NORMALS: regular rhythm RATE: tachycardic RHYTHM: regular rhythm GI: COMMON NORMALS: Soft to palpation PALPATION: Yes Soft to palpation and No Tenderness to palpation present (GI) Extremity: GENERAL: Yes normal exam except as noted and No edema Neuro: COMMON NORMALS: moves all extremities SENSORIUM/ORIENTATION: Yes alert and No Orientation impaired Psych: COMMON NORMALS: mental status grossly normal and Normal thought process present THOUGHT PROCESS: Normal thought process present Course Vital Signs: Vital signs: Vital Signs Temperature 98.0 F 07/12/22 14:50 Pulse Rate 100 07/12/22 14:50 Respiratory Rate 15 07/12/22 14:50 Blood Pressure 148/68 07/12/22 14:50 Pulse Oximetry 95 07/12/22 14:50 Oxygen Delivery Me thod Nasal Cannula 07/12/22 12:00 Oxygen Flow Rate 2 07/12/22 11:20 MDM - SOB/Dyspnea Medical Decision Making 71-year-old gentleman with recent hospitalization presenting with increased respiratory distress. Exam as above. Patient is nontoxic. EKG demonstrates sinus tachycardia, normal axis and intervals, no STEMI, mildly limited interpretation secondary to baseline wander. Labs notable for leukocytosis, normal hemoglobin and platelet count. ABG with compensated pH and hypercapnia which is mild. Metabolic panel with mild dehydration. Negative range 2-hour delta troponin. BNP is not significantly elevated. Chest x-ray with improving pneumonia. Patient treated with RT treatment, steroids, repeat RT treatment, antibiotics. He appears clinically improved however still not at baseline and requires inpatient management of respiratory distress. The results of ED evaluation were discussed with the patient including plan for admission due to requirement for level of care not available if discharged to prevent significant worsening/deterioration. Patient agreeable with plan. Discussed with hospitalist service who was agreeable to admit patient. Medical Records I reviewed the patient's medical records. Lab Data I reviewed the patient's lab results. 07/10/22 06:29 07/11/22 05:07 Labs/Radiology: Radiology Impressions Chest CT 07/02/22 06:42 IMPRESSION: 1. Improving bilateral pulmonary infiltrates compared to June 25, 2022. 2. Chronic emphysematous changes. 3. No pleural fluid. 4. Vascular calcification including coronary. 5. No other significant interval changes. Chest X-Ray 07/07/22 16:12 IMPRESSION: Continued interval improvement in the chest from 07/01/2022 exam suggesting interval improvement in pneumonia with minimal residual linear type opacity mid lateral right lung and left lung base which could indicate minimal residual and/or scarring. Laboratory Results WBC 19.9 10^3/uL (4.0-10.0) H 07/01/22 16:31 RBC 4.53 10^6/uL (4.1-5.3) 07/01/22 16:31 Hgb 13.0 g/dL (11.7-16.6) 07/01/22 16:31 Hct 41.5 % (42.0-52.0) L 07/01/22 16:31 MCV 91.6 fl (80-94) 07/01/22 16:31 MCH 28.7 pg (28.0-34.0) 07/01/22 16:31 MCHC 31.3 g/dL (30.0-36.0) 07/01/22 16:31 RDW 12.0 % (12.1-15.1) L 07/01/22 16:31 Plt Count 350 10^3/cmm (130-400) 07/01/22 16:31 MPV 8.8 fL (7.4-10.4) 07/01/22 16:31 Lymph % (Auto) Not Reportable 07/01/22 16:31 [place] % (Auto) Not Reportable 07/01/22 16:31 Lymph # (Auto) Not Reportable 07/01/22 16:31 [place] # (Auto) Not Reportable 07/01/22 16:31 Total Counted 100 (0-100) 07/01/22 16:31 Atypical Lymphs % 0.0 % (0-5) 07/01/22 16:31 Absolute Neutrophils 12.3 10^3/cmm (1.4-6.5) H 07/01/22 16:31 Segmented Neutrophils 62 % 07/01/22 16:31 Abs Segm Neuts (Man) 12.3 10/cmm (1.6-7.1) H 07/01/22 16:31 Band Neutrophils 0.0 % 07/01/22 16: Abs Band Neuts (Man) 0.0 10^3/cmm (0.0-1.2) 07/01/22 16:31 Absolute Lymphocytes 3.6 10^3/cmm (1.2-3.4) H 07/01/22 16:31 Lymphocytes (Manual) 18 % 07/01/22 16:31 Monocytes (Manual) 11.0 % 07/01/22 16: Absolute Monocytes 2.2 10^3/cmm (0.1-0.6) H 07/01/22 16:31 Eosinophils (Manual) 6 % 07/01/22 16:31 Absolute Eosinophils 1.1 10^3/cmm (0.0-0.7) H 07/01/22 16:31 Basophils (Manual) 0.0 % 07/01/22 16: Absolute Basophils 0.0 10^3/cmm (0.0-0.2) 07/01/22 16:31 Metamyelocytes 1.0 % 07/01/22 16: Myelocytes 2.0 % 07/01/22 16:31 Platelet Estimate Normal (Normal) 07/01/22 16:31 Specimen Type Arterial 07/01/22 16:20 Sample Site Radial, left 07/01/22 16:20 ABG pH 7.44 (7.35-7.45) 07/01/22 16:20 ABG pCO2 58.5 mmHg (35-45) H 07/01/22 16:20 ABG pO2 85.6 mmHg (80.0-100.0) 07/01/22 16:20 ABG HCO3 40.1 mmol/L (22-26) H 07/01/22 16:20 ABG Base Excess 13.4 mmol/L (-2.0-2.0) H 07/01/22 16:20 Luis Fernando Test Pos 07/01/22 16:20 Hematocrit 40.8 % (42-52) L 07/01/22 16:20 O2 Delivery Device Nc 07/01/22 16:20 O2 Liters/Min 3.0 % 07/01/22 16:20 Director Call Center Sales ID [place] 07/01/22 16:20 Sodium 131 mmol/L (136-145) L 07/01/22 16:31 Potassium 4.1 mmol/L (3.5-5.1) 07/01/22 16:31 Chloride 88 mmol/L (98-107) L 07/01/22 16:31 Carbon Dioxide 34 mmol/L (22-29) H 07/01/22 16:31 Anion Gap 13.1 (5-19) 07/01/22 16:31 BUN 22 mg/dL (8-23) 07/01/22 16:31 Creatinine 0.8 mg/dL (0.7-1.2) 07/01/22 16:31 GFR Calculation Not Reportable 07/01/22 16:31 Glucose 159 mg/dL (65-115) H 07/01/22 16:31 Calculated Osmolality 279 mOsm/kg (285-295) L 07/01/22 16:31 Calcium 9.0 mg/dL (8.5-10.5) 07/01/22 16:31 Total Bilirubin 0.4 mg/dL (0.15-1.2) 07/01/22 16:31 AST 14 U/L (0-40) 07/01/22 16:31 ALT 33 U/L (0-41) 07/01/22 16:31 Alkaline Phosphatase 70 U/L (40-130) 07/01/22 16:31 Troponin T Baseline 28 ng/L (0-15) H 07/01/22 16:31 Troponin T 120 Minute 27.11 ng/L (0-15) H 07/01/22 18:06 Delta Troponin T -0.89 ABS# (0-10) L 07/01/22 18:06 NT-Pro-B Natriuret Pep 260 pg/mL (0-125) H 07/01/22 16:31 Total Protein 6.1 g/dL (6.6-8.7) L 07/01/22 16:31 Albumin 3.3 g/dL (3.5-5.2) L 07/01/22 16:31 Globulin 2.8 g/dL (1.3-4.6) 07/01/22 16:31 Procalcitonin 0.08 ng/mL (0-0.5) 07/01/22 16:31 Critical Care Time Critical Care Time: Critical Care Time: Yes Total Critical Care Time: 35 Attestation: Due to a high probability of clinically significant, possibly life threatening deterioration, the patient required my highest level of attention and preparedn ess to intervene emergently and I personally spent this critical care time directly and personally managing the patient. This critical care time included obtaining a history; examining the patient; pulse oximetry; ordering and review of laboratory and imaging studies; arranging urgent treatment with development of a management plan; evaluation of patient's response to treatment; frequent reassessment; and, discussions with other providers as applicable. It was exclusive of separately billable procedures. Primary system involved is pulmonary Discharge Plan Discharge Patient Disposition: Admitted As Inpatient Admit Provider: Mickie Wall Clinical Impression: Acute respiratory distress, COPD (chronic obstructive pulmonary disease), Pneumonia Condition: Stable Discharge Diet: Usual diet Discharge Activity: Resume usual activity Coding Level of Care Code ED Dye Range Tender for Owen Rico
[2022-07-01 16:31] LABS: ABG PCO2 58.5 mmHg (35-45); ABG PH Result 7.44 (7.35-7.45); Arterial Blood Gas Hematocrit 40.8 % (42-52); Base Excess ABG 13.4 mmol/L (-2.0-2.0); Blood Gas Allen Test Pos; Blood Gas Operator Identificat WALCI; Blood Gas Sample Site Radial, left; Blood Gas Sample Type Arterial; HCO3 ABG 40.1 mmol/L (22-26); Oxygen Device NC; PO2 ABG 85.6 mmHg (80.0-100.0)
[2022-07-01] MEDS: ipratropium-albuterol 3 mL Neb INHALATION (16:36)
[2022-07-01 16:47] LABS: Hematocrit 41.5 % (42.0-52.0); Mean Corpuscular HGB Conc 31.3 g/dL (30.0-36.0); Mean Corpuscular Hemoglobin 28.7 pg (28.0-34.0); Mean Corpuscular Volume 91.6 fl (80-94); Mean Platelet Volume 8.8 fL (7.4-10.4); Platelet Count 350 10^3/cmm (130-400); Red Blood Count 4.53 10^6/uL (4.1-5.3); White Blood Count 19.9 10^3/uL (4.0-10.0)
--- NOTE | 2022-07-01 16:58 | ECG_ITS ---
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 Measurements Intervals [place] Rate: 112 P: 45 LA: 165 QRS: 48 QRSD: 85 T: 83 QT: 295 QTc: 403 Interpretive Statements SINUS TACHYCARDIA WITH OCCASIONAL VENTRICULAR PREMATURE COMPLEXES WITH FREQUENT SUPRAVENTRICULAR PREMATURE COMPLEXES NONSPECIFIC T-WAVE ABNORMALITY Compared to ECG 06/28/2022 00:36:14 Ventricular premature complex(es) now present Sinus rhythm no longer present T-wave abnormality still present Electronically Signed On 07-01-2022 20:38:03 CDT by Scott Huddleston M.D. [email or web address]
[2022-07-01 17:15] LABS: Slide Review Slide Review Perform
[2022-07-01 17:16] LABS: Absolute Eosinophils 1.1 10^3/cmm (0.0-0.7); Absolute Neutrophil 12.3 10^3/cmm (1.4-6.5); Absolute Segmented Neutrophil 12.3 10/cmm (1.6-7.1); Eosinophils 6 %; Lymphocytes 18 %; Lymphocytes Absolute 3.6 10^3/cmm (1.2-3.4); Monocytes Absolute 2.2 10^3/cmm (0.1-0.6); Platelet Estimate Normal (Normal); Segmented Neutrophils 62 %; Total Cells Counted 100 (0-100)
[2022-07-01 17:22] LABS: Troponin(5th) Baseline 28 ng/L (0-15)
[2022-07-01 17:33] LABS: Alanine Aminotransferase 33 U/L (0-41); Albumin Level 3.3 g/dL (3.5-5.2); Alkaline Phosphatase 70 U/L (40-130); Anion Gap 13.1 (5-19); Aspartate Amino Transferase 14 U/L (0-40); Blood Urea Nitrogen 22 mg/dL (8-23); Carbon Dioxide 34 mmol/L (22-29); Chloride 88 mmol/L (98-107); Creatinine Clr Calc Pharmacy 96.2781; Globulin 2.8 g/dL (1.3-4.6); Glucose 159 mg/dL (65-115); NT Pro B Type Natriuretic Pept 260 pg/mL (0-125); Osmolality Calculated 279 mOsm/kg (285-295); Potassium 4.1 mmol/L (3.5-5.1); Sodium 131 mmol/L (136-145); Total Bilirubin 0.4 mg/dL (0.15-1.2); Total Protein 6.1 g/dL (6.6-8.7)
[2022-07-01] MEDS: albuterol 2.5 mg/3 mL Neb INHALATION ×4 (17:54→19:45)
[2022-07-01 18:43] LABS: Troponin 5 2HR 27.11 ng/L (0-15)
[2022-07-01 18:44] LABS: Troponin 5 2HR Delta -0.89 ABS# (0-10)
--- NOTE | 2022-07-01 19:00 | PC.NURSE ---
Pt lying in bed, pt does not appear to be in apparent distress. Pt denies needs at this time.
[2022-07-01] MEDS: levofloxacin-dextrose 5 % 750 MG/150 ML PREMIX 100 MG IV (20:18)
--- NOTE | 2022-07-01 20:40 | PM.HP ---
Providers/Chief Complaint Admitting Physician: Mickie Wall MD Primary Care Provider: Courtney Reich DO Chief Complaint: SOB History of Present Illness Hernan Beckman JR is a 71 year old male with past medical history of BPH, chronic low back pain, migraine, diabetes mellitus type 2 not insulin-dependent, COPD on 2 L of oxygen at home, depression, peripheral neuropathy presented to the hospital today with complaint of progressively worsening shortness of breath.He states at home he is on 2 L of oxygen but has just been feeling worse and worse and when he came to the hospital today. He was discharged home yesterday however states he lives in a trailer and just from walking from the living room area to the bedroom he became very short of breath that he had to sit for 45 minutes before getting up again. He states he has dyspnea from the slightest movement possible. When talking to me he stated that he was feeling short of breath while talking as well. He states he just does not have the strength to go any further. He has tried pulmonary rehab in the past and willing to try again if needed. However he states that the shortness of breath is causing him a lot of issues. He is at baseline 3 L of oxygen however feels that he cannot get enough air in. On arrival to ER BP 200/173, respiratory 20, tachycardic 113, temperature 98.4, saturating 94% on 4 L nasal cannula. Chest x-ray shows resolving bilateral perihilar pneumonia. Medications/Allergies Home Medications Medication Instructions Recorded Confirmed Last Taken Type Four wheeled walker with a seat #1 ea 03/24/19 07/01/22 Unknown Rx acetaminophen 500 mg tablet 500 mg PO Q4H PRN Pain 03/24/19 07/01/22 07/18/19 History (Tylenol Extra Strength) epinephrine 0.3 mg/0.3 mL 0.3 mg IM ONCE PRN Allergic 03/24/19 07/01/22 Unknown History injection, auto-injector Reaction albuterol sulfate 2.5 mg/3 mL 2.5 mg inhalation BID PRN 04/05/19 07/01/22 07/21/19 History (0.083 %) solution for nebulization Shortness Of Breath fluticasone propionate 50 1 spray intranasal Q12H 90 days 05/19/19 07/01/22 07/20/19 Rx mcg/actuation nasal #54.6 mL spray,suspension (Flonase Allergy Relief) albuterol sulfate 90 mcg/actuation 2 inh inhalation Q6H PRN shortness 01/10/22 07/01/22 Unknown Rx aerosol inhaler of breath or wheezing #18 grams budesonide 0.5 mg/2 mL suspension 0.5 mg (2 mL) inhalation BID #120 01/10/22 07/01/22 Unknown Rx for nebulization (Pulmicort) mL formoterol fumarate 20 mcg/2 mL 2 ml inhalation Q12H 90 days #120 01/10/22 07/01/22 Unknown Rx solution for nebulization mL (Perforomist) prednisone 5 mg tablet 5 mg PO DAILY 90 days #90 tabs 02/13/22 07/01/22 Unknown Rx sitagliptin phosphate 100 mg 100 mg PO DAILY #90 tabs 02/14/22 07/01/22 Unknown Rx tablet (Januvia) tramadol 50 mg tablet 50 mg PO TID PRN pain #90 tabs 04/10/22 07/01/22 Unknown Rx tamsulosin 0.4 mg capsule (Flomax) 0.8 mg PO DAILY #180 caps 04/24/22 07/01/22 Unknown Rx atorvastatin 20 mg tablet 20 mg PO BEDTIME 05/24/22 07/01/22 Unknown History venlafaxine 150 mg See Rx Instructions .Route 05/31/22 07/01/22 Unknown Rx capsule,extended release 24 hr .COMPLEX #30 caps revefenacin 175 mcg/3 mL solution 175 mcg (3 mL) inhalation DAILY 06/16/22 07/01/22 Unknown Rx for nebulization (Yupelri) #90 mL amitriptyline 25 mg tablet 25 mg PO BEDTIME 06/23/22 07/01/22 Unknown History aspirin 81 mg tablet,delayed 81 mg PO DAILY #30 tabs 06/30/22 07/01/22 Unknown Rx release furosemide 20 mg tablet 20 mg PO DAILY #30 tabs 06/30/22 07/01/22 Unknown Rx Allergies Allergy/AdvReac Type Severity Reaction Status Date / Time metformin Allergy ADR-Nausea Verified 07/01/22 13:06 PFSH Acute PFSH: Medical History (Updated 06/30/22 @ 17:17 by Rita Lee MD) BPH loc w urin obs/LUTS Chronic low back pain Has had nerve ablations and follows at pain clinic in [place] Chronic migraine Controlled diabetes mellitus without long-term current use of insulin COPD (chronic obstructive pulmonary disease) Depression, controlled Dyslipidemia Elevated prostate specific antigen [PSA] Enrolled in chronic care management History of multiple allergies Xolair injections monthly Hx of migraine headaches Has a triptan prescription and another medication Obstructive sleep apnea Peripheral neuropathy Primarily involving hands, related to ulnar nerve interventions Respiratory failure with hypoxia and hypercapnia Systolic congestive heart failure Surgical History H/O decompression of ulnar nerve bilateral H/O elbow surgery bilateral H/O rotator cuff surgery bilateral H/O total knee replacement right History of cataract surgery History of repair of rotator cuff Bilateral History of surgery on wrist Bilateral ulnar nerve release History of tonsillectomy and adenoidectomy Status post colonoscopy (07/21/19) normal , poor prep, repeat in 5 years Family History Mother , at age 66 Cancer uterine Aneurysm intracranial Father , at age 76 Lung disease asthma with allergies Asthma Other CAD (coronary artery disease) Social History Smoking and tobacco status: former smoker Quit status (tobacco): has quit using tobacco Year quit tobacco: 2021 Former quit date comment: 2ppd X 59 years Second hand smoke exposure: Yes Smoking risk assessment/counseling performed?: Yes Alcohol intake: former Counseling given: No Substance/Drug Use: never Counseling given: No Lives independently: Yes Household members: spouse Marital status: service: Yes Current occupational status: retired Do you think of yourself as: Straight/Heterosexual Current gender identity: Male Vitals/I&O/Wt Last Vital Signs Temp 98.4 F 07/01/22 15:48 Pulse 107 H 07/01/22 19:46 Resp 20 H 07/01/22 19:46 BP 136/60 07/01/22 18:45 Pulse Ox 92 07/01/22 19:46 O2 Del Method Nasal Cannula 07/01/22 19:46 O2 Flow Rate 3 07/01/22 19:46 Weight last 48 hrs Weight 104.326 kg Physical Exam Narrative: General: Alert oriented x3, patient seen laying in bed appearing comfortable at this time on 4 L nasal cannula.? HEENT: Normocephalic, atraumatic, EOMI, no acute respiratory distress Cardio: Regular rate rhythm, normal S1-S2, Respiratory: Rhonchi bilaterally throughout lung vieira, minimal wheezing present at bases. GI: Abdomen soft, nontender, obese rounded, bowel sounds + Extremities: No edema noted at this time. Data 07/01/22 16:31 07/01/22 16:31 A&P Assessment and plan (1) COPD (chronic obstructive pulmonary disease): Qualifiers: COPD type: emphysema Emphysema type: panlobular Qualified Code(s): J43.1 - Panlobular emphysema (2) Depression, controlled: (3) Chronic low back pain: Qualifiers: Back pain laterality: midline Sciatica presence: without sciatica Qualified Code(s): M54.5 - Low back pain; G89.29 - Other chronic pain (4) Peripheral neuropathy: (5) Diabetes mellitus type 2, noninsulin dependent: (6) Dyslipidemia: (7) Respiratory failure with hypoxia and hypercapnia: Qualifiers: Chronicity: acute on chronic Qualified Code(s): J96.21 - Acute and chronic respiratory failure with hypoxia; J96.22 - Acute and chronic respiratory failure with hypercapnia; J96.22 - Acute and chronic respiratory failure with hypercapnia Plan #Shortness of breath on exertion, possibly secondary to underlying COPD with component of deconditioning #Gold class D COPD, in exacerbation #Diabetes mellitus type 2, [id number] #BPH #Depression #Peripheral neuropathy #Possible PCP pneumonia versus aspergillosis -DuoNeb every 4 hours scheduled ? Budesonide twice daily inhaled ?Check procalcitonin ? Start Solu-Medrol 40 every 12 hours x5 days then 20 mg daily for 11 days. ? Obtain sputum Gram stain culture, blood cultures ? Obtain induced sputum for PCP pneumonia ? Beta D glucan indeterminant, positive at 76. Galactomannan still pending. Suspicion of aspergillosis? We will hold off on voriconazole till result is back. ? Concern for PCP pneumonia given steroid use recently. Will start on oral Bactrim 3 times daily. Discussed dosing with pharmacy. ? Discussed the above plan with Dr. Varela over the phone who agreed. Consider official pulmonology consultation if required upon reassessment of patient. ? Patient receiving pulmonary rehab at discharge ? At discharge he will require Yupelri, Perforomist, budesonide nebulized inhalation therapy. ? Continue venlafaxine, tamsulosin, aspirin, amitriptyline ? Encourage physical therapy ? ABG reviewed. Discussed with pulmonology ? Patient has completed 9 days of IV antibiotics. We will hold off on further antibiotic usage at this time. Reviewed chest x-ray. It appears slightly improved than previous admission. We will follow to resolution. ? Patient did have a left shift on labs today. Follow CBC in a.m. He did receive Levaquin 750 one-time dose in ER. May consider the addition of antibiotics pending clinical course. ? Will need to follow-up with pulmonology as an outpatient after discharge ? Continue to hospitalize patient for at least until galactomannan results are back. ? Check LDH serum ? Consider discussing with pulmonology prior to discharge. -Hold oral antihyperglycemics. Sliding scale insulin low-dose intensity. Full code SCDs, heparin SQ twice daily Attestations Medical Necessity Statement*: Greater than 2 midnight stay for management of possible PCP pneumonia, shortness of breath. Other Coding Information Focused coding review requested Diagnoses COPD (chronic obstructive pulmonary disease) J43.1 COPD type: emphysema Emphysema type: panlobular Depression, controlled F32.9 Chronic low back pain M54.5; G89.29 Back pain laterality: midline Sciatica presence: without sciatica Peripheral neuropathy G62.9 Diabetes mellitus type 2, noninsulin dependent E11.9 Dyslipidemia E78.5 Respiratory failure with hypoxia and hypercapnia J96.21; J96.22; J96.22 Chronicity: acute on chronic
[2022-07-01] MEDS: sulfamethoxazole-trimeth DS 160-800 mg Tablet 1 TAB PO (21:53)
[2022-07-01] MEDS: atorvastatin 40 mg Tablet 20 MG PO (21:53)
[2022-07-01 22:49] LABS: Troponin 5 6HR 21.15 ng/L (0-15)
[2022-07-01 22:50] LABS: Troponin 5 6HR Delta -6.85 ng/L (0-12)
--- NOTE | 2022-07-01 22:50 | ECG_ITS ---
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 Measurements Intervals [place] Rate: 104 P: 40 NV: 170 QRS: 47 QRSD: 88 T: 129 QT: 336 QTc: 443 Interpretive Statements SINUS TACHYCARDIA WITH FREQUENT SUPRAVENTRICULAR PREMATURE COMPLEXES NONSPECIFIC T-WAVE ABNORMALITY Compared to ECG 07/01/2022 16:58:39 Ventricular premature complex(es) no longer present T-wave abnormality still present Electronically Signed On 07-02-2022 11:04:57 CDT by Scott Huddleston M.D. [id number]
[2022-07-01 22:55] LABS: Procalcitonin 0.08 ng/mL (0-0.5)
[2022-07-02] VITALS (11 sets, daily range): BP systolic 119–163; BP diastolic 62–72; PULSE 59–100; RESP 15–18; TEMP 36.4–36.8; O2SAT 94–98
--- NOTE | 2022-07-02 00:32 | ECG_ITS ---
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 Measurements Intervals [place] Rate: 97 P: 55 [place]: 159 QRS: 36 QRSD: 92 T: 104 QT: 384 QTc: 488 Interpretive Statements SINUS RHYTHM WITH FREQUENT SUPRAVENTRICULAR PREMATURE COMPLEXES NONSPECIFIC ST & T-WAVE ABNORMALITY Compared to ECG 07/01/2022 22:50:42 Sinus tachycardia no longer present T-wave abnormality still present Electronically Signed On 07-02-2022 11:04:00 CDT by Scott Huddleston M.D. [id number]
--- NOTE | 2022-07-02 04:32 | ECG_ITS ---
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 Measurements Intervals [place] Rate: 81 P: 58 HI: 164 QRS: 34 QRSD: 89 T: 116 QT: 370 QTc: 430 Interpretive Statements SINUS RHYTHM WITH MARKED SINUS ARRHYTHMIA NONSPECIFIC T-WAVE ABNORMALITY Compared to ECG 07/02/2022 00:32:58 No significant changes Electronically Signed On 07-02-2022 11:03:08 CDT by Scott Huddleston M.D. [id number]
[2022-07-02] MEDS: sulfamethoxazole-trimeth DS 160-800 mg Tablet 1 TAB PO ×3 (05:32→21:47)
[2022-07-02 06:04] LABS: Basophils # 0.1 10^3/uL (0.0-0.1); Basophils % 0.4 %; Eosinophils % 0.1 %; Hematocrit 38.2 % (42.0-52.0); Hemoglobin 12.2 g/dL (11.7-16.6); Lymphocytes # 1.4 10^3/uL (0.8-4.8); Lymphocytes % 9.5 %; Mean Corpuscular HGB Conc 31.9 g/dL (30.0-36.0); Mean Corpuscular Hemoglobin 28.4 pg (28.0-34.0); Mean Platelet Volume 8.7 fL (7.4-10.4); Monocytes # 0.4 10^3/uL (0.2-0.9); Monocytes % 2.5 %; Neutrophils # 12.14 10^3/uL (1.8-7.7); Neutrophils % 81.3 %; Nucleated Red Blood Cells % 0 %; Platelet Count 350 10^3/cmm (130-400); Red Blood Count 4.29 10^6/uL (4.1-5.3); Red Cell Distribution Width 11.9 % (12.1-15.1); White Blood Count 14.9 10^3/uL (4.0-10.0)
[2022-07-02 06:24] LABS: Blood Urea Nitrogen 19 mg/dL (8-23); Calcium 8.7 mg/dL (8.5-10.5); Carbon Dioxide 35 mmol/L (22-29); Chloride 92 mmol/L (98-107); Glucose 288 mg/dL (65-115); Osmolality Calculated 289 mOsm/kg (285-295); Sodium 133 mmol/L (136-145)
[2022-07-02 06:27] LABS: Creatinine Clr Calc Pharmacy 96.2781
[2022-07-02 06:41] LABS: Glucose Point of Care 303 mg/dL (70-110)
--- NOTE | 2022-07-02 06:42 | CT_ITS ---
WS: [id number] CT CHEST TECHNIQUE: Noncontrast CT of the chest with coronal and sagittal reformatted images. CLINICAL INFORMATION: shortness of breath COMPARISON: June 25, 2022 DLP: 825.[address] scans at [facility] use at least one of these dose optimization techniques: automated e xposure control; mA and/or kV adjustment per patient size (includes targeted exams where dose is matc hed to clinical indication); or iterative reconstruction. FINDINGS:Previous described patchy bilateral airspace infiltrates have improved compared to June 25, 2022. Residual patchy infiltrates in the upper lobes and LEFT lower lobe. Findings compatible with r esponse to therapy. Moderate chronic emphysematous changes. Nodular thyroid. Normal caliber thoracic aorta. Aortic calcif ication. Coronary calcification. No mediastinal or hilar lymphadenopathy. No axillary lymphadenopathy . Calcified subcarinal and RIGHT hilar lymph nodes. Tiny LEFT adrenal nodule likely adenoma. Diffuse fatty infiltration liver. Normal GE junction. Small RIGHT renal cyst. Hypertrophic changes thoracic spine with endplate Schmorl's nodes. CT/CT chest wo con [id number] IMPRESSION: 1. Improving bilateral pulmonary infiltrates compared to June 25, 2022. 2. Chronic emphysematous changes. 3. No pleural fluid. 4. Vascular calcification including coronary. 5. No other significant interval changes.
[2022-07-02 07:06] LABS: Slide Review Slide Review Perform
[2022-07-02] MEDS: ipratropium-albuterol 3 mL Neb INHALATION ×4 (07:33→20:40)
[2022-07-02] MEDS: budesonide 0.5 mg/2 mL Neb INHALATION ×2 (07:33→20:40)
[2022-07-02] MEDS: aspirin 81 mg EC Tablet PO (08:52)
[2022-07-02] MEDS: tamsulosin 0.4 mg Capsule 0.8 MG PO (08:52)
[2022-07-02] MEDS: insulin lispro 100 unit/1 mL SUBCUT ×4 (08:52→21:48)
[2022-07-02 11:59] LABS: Glucose Point of Care 210 mg/dL (70-110)
--- NOTE | 2022-07-02 13:22 | P.CONIM_ITS ---
Providers/Reason For Consult Consulting Physician/Specialty*: Cardiovascular medicine Reason for Consult*: Cardiomyopathy Requesting Physician: Hospitalist Attending Physician: Jose Alfredo Jackson MD Primary Care Provider: Courtney Reich DO History of Present Illness History of Present Illness Hernan Beckman JR is a 71 year old male who I was asked to see because of a reduction in his left ventricular function. He was hospitalized here for a week having gone home 2 days ago with recurrent pneumonia, chronic respiratory failure, COPD, heart failure and elevation in his blood sugar. During that hospitalization he had an echocardiogram which revealed his ejection fraction had decreased from 60% down to 40%. His sestamibi examination did not reveal any ischemia and showed a small reversible defect in the LAD. He has not had any chest pain. His troponins were negative. He came back 1 day after discharge, being readmitted yesterday because of shortness of breath. His chest x-ray is improved. Chest CT is also improved. His EKG shows sinus tachycardia with PACs and nonspecific T wave changes which a re unchanged. His white blood cell count is 14.9. He is chronically hypercarbic with a PCO2 of 60. His creatinine is normal. His troponins are - 28, 27 and 21. His BNP is 260. He is being treated with a statin and aspirin. When I walked in the room and introduced myself he was very aggressively upset by being placed on a cardiac diet. He said that he was not going to tolerate dietary restrictions of any kind including the absence of coffee. I told him that that was not my purview and he would have to talk to someone else about that. After we got past that he wanted to talk mostly about his 's medical problems and her longstanding illness prior to her . He has a history of chronic pain, diabetes, prostatic hypertrophy, oxygen dependent COPD, dyslipidemia, chronic headaches, chronic respiratory failure and very significant history of tobacco abuse. He has a [id number] history. He is thought to have had congestive heart failure to some degree during his last hospital stay. He was not particularly interested in talking to me about his present illness. It appears as though the production control specialist feels like his shortness of breath is cardiac in nature. Review of Systems Narrative: Review of systems is positive in most distributions. He is primarily short of breath with a chronic cough Medications/Allergies Home Medications Medication Instructions Recorded Confirmed Last Taken Type Four wheeled walker with a seat #1 ea 03/24/19 07/02/22 Unknown Rx acetaminophen 500 mg tablet 500 mg PO Q4H PRN Pain 03/24/19 07/02/22 07/18/19 History (Tylenol Extra Strength) epinephrine 0.3 mg/0.3 mL 0.3 mg IM ONCE PRN Allergic 03/24/19 07/02/22 Unknown History injection, auto-injector Reaction albuterol sulfate 2.5 mg/3 mL 2.5 mg inhalation BID PRN 04/05/19 07/02/22 07/21/19 History (0.083 %) solution for nebulization Shortness Of Breath albuterol sulfate 90 mcg/actuation 2 inh inhalation Q6H PRN shortness 01/10/22 07/02/22 Unknown Rx aerosol inhaler of breath or wheezing #18 grams budesonide 0.5 mg/2 mL suspension 0.5 mg (2 mL) inhalation BID #120 01/10/22 07/02/22 Unknown Rx for nebulization (Pulmicort) mL formoterol fumarate 20 mcg/2 mL 2 ml inhalation Q12H 90 days #120 01/10/22 07/02/22 Unknown Rx solution for nebulization mL (Perforomist) prednisone 5 mg tablet 5 mg PO DAILY 90 days #90 tabs 02/13/22 07/02/22 Unknown Rx sitagliptin phosphate 100 mg 100 mg PO DAILY #90 tabs 02/14/22 07/02/22 Unknown Rx tablet (Januvia) tramadol 50 mg tablet 50 mg PO TID PRN pain #90 tabs 04/10/22 07/02/22 Unknown Rx tamsulosin 0.4 mg capsule (Flomax) 0.8 mg PO DAILY #180 caps 04/24/22 07/02/22 Unknown Rx atorvastatin 20 mg tablet 20 mg PO BEDTIME 05/24/22 07/02/22 Unknown History venlafaxine 150 mg See Rx Instructions .Route 05/31/22 07/02/22 Unknown Rx capsule,extended release 24 hr .COMPLEX #30 caps revefenacin 175 mcg/3 mL solution 175 mcg (3 mL) inhalation DAILY 06/16/22 07/02/22 Unknown Rx for nebulization (Yupelri) #90 mL amitriptyline 25 mg tablet 25 mg PO BEDTIME 06/23/22 07/02/22 Unknown History aspirin 81 mg tablet,delayed 81 mg PO DAILY #30 tabs 06/30/22 07/02/22 Unknown Rx release furosemide 20 mg tablet 20 mg PO DAILY #30 tabs 06/30/22 07/02/22 Unknown Rx azithromycin 250 mg tablet 250 mg PO EVERY OTHER DAY 07/02/22 07/02/22 Unknown History multivitamin with minerals-folic 1 tab PO DAILY 07/02/22 07/02/22 Unknown History acid 200 mcg chewable tablet (Men's Daily Gummies) Allergies Allergy/AdvReac Type Severity Reaction Status Date / Time metformin Allergy ADR-Nausea Verified 07/02/22 10:08 Current Medications Generic Name Dose Route Start Last Admin Trade Name Freq PRN Reason Stop Dose Admin Albuterol/Ipratropium 3 ml 07/02/22 08:00 07/02/22 11:13 Ipratropium-Albuterol 3 Ml Neb INHALATION 3 ml QID.RESPIRATORY KALIA Administration Aspirin 81 mg 07/02/22 09:00 07/02/22 08:52 Aspirin 81 Mg Ec Tablet PO 81 mg DAILY KALIA Administration Atorvastatin Calcium 20 mg 07/01/22 21:30 07/01/22 21:53 Atorvastatin 40 Mg Tablet PO 20 mg BEDTIME KALIA Administration Budesonide 0.5 mg 07/02/22 08:00 07/02/22 07:33 Budesonide 0.5 Mg/2 Ml Neb INHALATION 0.5 mg BID.RESPIRATORY KALIA Administration Insulin Human Lispro 0 unit 07/02/22 08:00 07/02/22 12:19 Insulin Lispro 100 Unit/1 Ml SUBCUT 4 unit WM&BEDTIME KALIA Administration Protocol Methylprednisolone Sodium Succinate 40 mg 07/01/22 21:30 07/02/22 10:21 Methylprednisolone Sod Succ 40 Mg/Ml Inj IVP 07/06/22 21:29 Not Given Q12H KALIA Tamsulosin HCl 0.8 mg 07/02/22 09:00 07/02/22 08:52 Tamsulosin 0.4 Mg Capsule PO 0.8 mg DAILY KALIA Administration Trimethoprim/Sulfamethoxazole 1 tab 07/01/22 22:00 07/02/22 05:32 Sulfamethoxazole-Trimeth Ds 160-800 Mg Tablet PO 1 tab Q8H KALIA Administration PFSH Acute PFSH: Medical History (Updated 06/30/22 @ 17:17 by Rita Lee MD) BPH loc w urin obs/LUTS Chronic low back pain Has had nerve ablations and follows at pain clinic in [place] Chronic migraine Controlled diabetes mellitus without long-term current use of insulin COPD (chronic obstructive pulmonary disease) Depression, controlled Dyslipidemia Elevated prostate specific antigen [PSA] Enrolled in chronic care management History of multiple allergies Xolair injections monthly Hx of migraine headaches Has a triptan prescription and another medication Obstructive sleep apnea Peripheral neuropathy Primarily involving hands, related to ulnar nerve interventions Respiratory failure with hypoxia and hypercapnia Systolic congestive heart failure Surgical History H/O decompression of ulnar nerve bilateral H/O elbow surgery bilateral H/O rotator cuff surgery bilateral H/O total knee replacement right History of cataract surgery History of repair of rotator cuff Bilateral History of surgery on wrist Bilateral ulnar nerve release History of tonsillectomy and adenoidectomy Status post colonoscopy (07/21/19) normal , poor prep, repeat in 5 years Family History Mother , at age 66 Cancer uterine Aneurysm intracranial Father , at age 76 Lung disease asthma with allergies Asthma Other CAD (coronary artery disease) Social History Smoking and tobacco status: former smoker Quit status (tobacco): has quit using tobacco Year quit tobacco: 2021 Former quit date comment: 2ppd X 59 years Second hand smoke exposure: Yes Smoking risk assessment/counseling performed?: Yes Alcohol intake: former Counseling given: No Substance/Drug Use: never Counseling given: No Lives independently: Yes Household members: spouse Marital status: service: Yes Current occupational status: retired Do you think of yourself as: Straight/Heterosexual Current gender identity: Male Vitals/I&O/Wt Last Vital Signs Temp 98.2 F 07/02/22 04:00 Pulse 85 07/02/22 11:30 Resp 18 07/02/22 11:30 BP 136/71 07/02/22 11:30 Pulse Ox 96 07/02/22 11:30 O2 Del Method Nasal Cannula 07/02/22 11:30 O2 Flow Rate 3 07/02/22 11:17 07/01/22 07/02/22 07/02/22 22:59 06:59 14:59 Intake Total 150 / 150 Output Total 500 / 500 1000 / 1500 Balance -350 / -350 -1000 / -1350 Weight last 48 hrs Weight 230 lb Physical Exam Narrative: GENERAL: Ornery, somewhat cantankerous and demanding with mild shortness of breath and cough at rest HEENT: Exam within normal limits. NECK: Supple without jugular vein distention. The carotid upstroke is normal without bruits. BACK: Exam normal. LUNGS: Creased breath sounds, wheezes, expiratory phase longer than the inspiratory phase HEART: Regular rate and rhythm. ABDOMEN: Benign without organomegaly or tenderness. EXTREMITIES: No edema. NEUROLOGIC: Exam normal. SKIN: Unremarkable. Data 07/02/22 05:50 07/02/22 05:50 Micro: Microbiology 07/01/22 22:17 Blood Culture - Preliminary Blood SPECIMEN COLLECTED 07/01/22 22:13 Blood Culture - Preliminary Blood SPECIMEN COLLECTED A&P Assessment and plan (1) COPD (chronic obstructive pulmonary disease): Qualifiers: COPD type: emphysema Emphysema type: panlobular Qualified Code(s): J43.1 - Panlobular emphysema (2) Diabetes mellitus type 2, noninsulin dependent: (3) Chronic migraine without aura, intractable, with status migrainosus: (4) Obstructive sleep apnea: (5) Former smoker: (6) Dyslipidemia: (7) Respiratory failure with hypoxia and hypercapnia: Qualifiers: Chronicity: acute on chronic Qualified Code(s): J96.21 - Acute and chronic respiratory failure with hypoxia; J96.22 - Acute and chronic respiratory failure with hypercapnia; J96.22 - Acute and chronic respiratory failure with hypercapnia (8) Recurrent pneumonia: (9) Systolic congestive heart failure: (10) Abnormal finding on cardiovascular stress test: Plan My suspicion is that the majority of this is pulmonary in nature however coronary angiography is indicated to rule out coronary disease as a cause of his left ventricular dysfunction. I will probably perform left ventriculography to ensure that the echo information is correct. The study was a poor quality study due to his lung disease. If he does have left ventricular dysfunction then he will need an afterload reducing agent and probably a aldosterone antagonist. I would not start him on a beta-gary because of the severity of his underlying pulmonary disease. We will do this in the morning. Consult Attestations Medical Necessity Statement: Hospitalization for lung related illnesses. and High Time for a total of 55 minutes, includes reviewing past or interval history, examining/interviewing patient, placing orders, counseling patient/family/other support, updating patient/family/other support, discussing plan of care with staff, communicating with other healthcare providers, documenting encounter and coordinating care Diagnoses COPD (chronic obstructive pulmonary disease) J43.1 COPD type: emphysema Emphysema type: panlobular Diabetes mellitus type 2, noninsulin dependent E11.9 Chronic migraine without aura, intractable, with status migrainosus G43.711 Obstructive sleep apnea G47.33 Former smoker Z87.891 Dyslipidemia E78.5 Respiratory failure with hypoxia and hypercapnia J96.21; J96.22; J96.22 Chronicity: acute on chronic Recurrent pneumonia J18.9 Systolic congestive heart failure I50.20 Abnormal finding on cardiovascular stress test R94.39
[2022-07-02] MEDS: TRAMadol 50 mg Tablet PO (14:17)
[2022-07-02 15:09] LABS: Anion Gap 12.7 (5-19); Blood Urea Nitrogen 17 mg/dL (8-23); Calcium 8.9 mg/dL (8.5-10.5); Carbon Dioxide 34 mmol/L (22-29); Chloride 94 mmol/L (98-107); Creatinine Clr Calc Pharmacy 85.5805; Glucose 283 mg/dL (65-115); Osmolality Calculated 294 mOsm/kg (285-295); Potassium 4.7 mmol/L (3.5-5.1); Sodium 136 mmol/L (136-145)
[2022-07-02 16:46] LABS: Glucose Point of Care 240 mg/dL (70-110)
--- NOTE | 2022-07-02 16:49 | P.PN_ITS ---
Subjective Subjective: Patient endorses persistent shortness of breath. Endorses cough. Endorses generalized malaise and fatigue. He also inquires whether or not he be able to talk to somebody about caregiver stress. Medications: Reviewed: Yes Vitals/I&O/Wt Last Vital Signs Temp 97.9 F 07/02/22 15:31 Pulse 91 07/02/22 15:31 Resp 18 07/02/22 15:31 BP 163/71 07/02/22 15:31 Pulse Ox 97 07/02/22 15:31 O2 Del Method Nasal Cannula 07/02/22 15:31 O2 Flow Rate 3 07/02/22 15:03 07/02/22 07/02/22 07/02/22 06:59 14:59 22:59 Intake Total 360 / 360 Output Total 1000 / 1500 Balance -1000 / -1350 360 / 360 Weight last 48 hrs Weight 104.326 kg Physical Exam Narrative: General: Patient is awake and alert. Ill-appearing. Slightly diaphoretic. Head: Normocephalic. Atraumatic. EOM intact. Neck: No JVD. Cardiovascular: No gallops. No murmurs. Lungs: Faint end expiratory wheezing. Breath sounds are diminished bilateral bases. Speaks in short sentences. On nasal cannula support. Skin: No jaundice. No rashes. Abdomen: Normal bowel sounds, abdomen soft and nontender. Genito Urinary: Genital exam not performed since complaints not related. Rectal: Rectal exam not performed since no symptoms indicated blood loss. Extremities: No cyanosis or clubbing. Musculoskeletal: No swollen or erythematous joints. Neurological: Moves all 4 extremities. No myoclonus. Data 07/02/22 05:50 07/02/22 14:30 Micro: Microbiology 07/01/22 22:26 MRSA Culture - Final Nose 07/01/22 22:17 Blood Culture - Preliminary Blood SPECIMEN COLLECTED 07/01/22 22:13 Blood Culture - Preliminary Blood SPECIMEN COLLECTED A&P Assessment and plan (1) COPD (chronic obstructive pulmonary disease): Acute COPD exacerbation Multiple recurrent admissions Patient discussed with pulmonary medicine Sputum cultures ordered Follow-up galactomannan Follow-up PCP PCR Continue Pulmicort Continue DuoNebs Continue Solu-Medrol Continue Bactrim Qualifiers: COPD type: emphysema Emphysema type: panlobular Qualified Code(s): J43.1 - Panlobular emphysema (2) Respiratory failure with hypoxia and hypercapnia: Pulmonary consulted Management as above Qualifiers: Chronicity: acute on chronic Qualified Code(s): J96.21 - Acute and chronic respiratory failure with hypoxia; J96.22 - Acute and chronic respiratory failure with hypercapnia; J96.22 - Acute and chronic respiratory failure with hypercapnia (3) Cardiomyopathy: Echocardiogram reviewed Recent stress test reviewed Patient discussed with cardiology who agreed to consult (4) Depression, controlled: Continue Elavil Continue venlafaxine (5) Chronic low back pain: Tramadol as needed Qualifiers: Back pain laterality: midline Sciatica presence: without sciatica Qualified Code(s): M54.5 - Low back pain; G89.29 - Other chronic pain (6) Peripheral neuropathy: Continue to monitor (7) Diabetes mellitus type 2, noninsulin dependent: Sliding-scale insulin correction (8) Dyslipidemia: Continue statin Plan DVT prophylaxis: SCD CODE STATUS: Full code Attestations Medical Necessity Statement*: Patient requires ongoing hospitalization for IV steroids, pulmonary work-up, fungal labs, supplemental oxygen support, nebulizing treatments, and supportive care. Coding Level of Care Code Acute Code for [facility] Diagnoses COPD (chronic obstructive pulmonary disease) J43.1 COPD type: emphysema Emphysema type: panlobular Respiratory failure with hypoxia and hypercapnia J96.21; J96.22; J96.22 Chronicity: acute on chronic Cardiomyopathy I42.9 Depression, controlled F32.9 Chronic low back pain M54.5; G89.29 Back pain laterality: midline Sciatica presence: without sciatica Peripheral neuropathy G62.9 Diabetes mellitus type 2, noninsulin dependent E11.9 Dyslipidemia E78.5
[2022-07-02 20:46] LABS: Glucose Point of Care 223 mg/dL (70-110)
[2022-07-02] MEDS: atorvastatin 40 mg Tablet 20 MG PO (21:47)
[2022-07-02] MEDS: amitriptyline 25 mg Tablet PO (21:48)
[2022-07-03] VITALS (9 sets, daily range): BP systolic 114–138; BP diastolic 68–82; PULSE 77–108; RESP 16–22; TEMP 36.3–36.6; O2SAT 96–99
[2022-07-03] MEDS: sulfamethoxazole-trimeth DS 160-800 mg Tablet 1 TAB PO ×3 (05:08→21:58)
[2022-07-03] MEDS: diphenhydrAMINE 50 mg Capsule PO (05:08)
[2022-07-03] MEDS: sodium chloride 0.9% 1,000 ML 50 ML IV (05:09)
--- NOTE | 2022-07-03 06:00 | XACV_ITS ---
Exam Room: [facility] Ht: 173 cm Wt: 104 kg BSA: 2.28 m2 Gender: Male : 1950 Exam Priority: Routine Procedure(s): Procedure Description: Diagnostic procedure Procedure Description: Left Heart Catheterization Procedure Description: Left ventriculography Procedure Description: Coronary Angiography Siria MCDONALD; Diagnostic Cath Status: Elective Diagnostic Findings * Patient has known sestamibi examination about 10 days ago revealed a small fixed defect in the distribution of the LAD at the apex but no ischemia elsewhere. Patient has recurrent admission for shortness of breath and mild heart failure but primarily pulmonary disease. Ejection fraction by echo is about 40%. * Coronary angiography reveals left coronary artery dominance. The left main coronary artery is normal. The LAD contains mild diffuse disease but has no obstructions. The circumflex is a large vessel with 3 obtuse marginal branches. There is a 60 to 70% stenosis in the proximal first obtuse marginal branch. The right coronary artery is a small nondominant vessel and is normal. Conclusions 1. Cardiomyopathy out of proportion to the degree of coronary artery disease. There is a backorder on IFR wires. There was no ischemia in the distribution of the circumflex so I chose to treat the patient medically. Additionally he has no chest pain, and has had no troponin elevation in the last 3 admissions. His symptoms of congestive heart failure, though mild are related to the global cardiomyopathy. Recommendations * Medical treatment. Interventional RX Recommendation: medical therapy and/or counseling Diagnostic RX Recommendation: medical therapy and/or counseling Anticoagulation: Heparin Ventriculography Ejection Fraction: 45.0 % Left Ventriculography Findings: * The mid inferior wall is more hypokinetic than the remainder of the left ventricle. Pressures Phase:Rest AO : 107 / 61 ( 81 ) @ 7:26:00 AM 113 / 50 ( 75 ) @ 7:37:00 AM 115 / 48 ( 75 ) @ 7:37:00 AM 103 / 53 ( 75 ) @ 7:41:00 AM LV : 113 / -9 / 7 @ 7:35:00 AM 115 / -7 / 11 @ 7:37:00 AM 115 / -7 / 11 @ 7:37:00 AM Valves Phase:DefaultPhase AV : 0.0 @ 6:49:52 AM AV Mean Gradient: 0.0 @ 6:49:52 AM 0.0 @ 6:49:52 AM Clinical Evaluation EBL: 5mL-10mL Procedural Details Procedure Consent Obtained. Admit Source: In Patient. Pre-Procedure Time Out. Identified patient by full name and date of as verbalized by the patient/guarantor. Does the consent match the physician's order: Yes. Accurate & Complete Informed Consent: Yes. Inpatient/Outpatient History & Physical on Chart: Yes. If H&P is completed, is and addenduem needed: No; If yes, is the addendum complete: N/A. Visualize and Verify Site with Patient/Guarantor: N/A. Relevant Radiology Images available: N/A. Pre-op teaching completed and patient verbalized understanding. The risks, benefits, and alternatives of sedation and/or procedure were discussed by physician. The patient agrees to continue. Procedure started. [facility] Clinical Fraility Score: 7: Severely Frail. 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 Chest Pain Symptom Assessment: Atypical Angina. Correct patient, site and procedure confirmed by cath team. Current diagnosis: Chest Pain, Abnormal Stress Test. PERRLA. Strong, equal hand sand cutter bilaterally. Lungs clear x 5 lobes. IV Site on Arrival: 20 gauge in the left anticubital. IV Fluids: 0.9% NaCl at KVO. 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 Pre Procedural Pulses: right radial was 2+. Pre Procedural Pulses: bilateral dorsalis pedis was 1+. Oxygen started at 3liters/min via nasal canula. right groin was prepped with chloroprep then draped in the usual sterile fashion. right radial was prepped with chloroprep then draped in the usual sterile fashion. Physician notified. Baseline sample Acquired. HR: 87 BPM. Physician arrived. Physician scrubbed in. Immediate Pre-Procedure Time Out. Correct Patient: Yes; Correct Procedure: Yes; Correct Site: Yes; Correct Patient Position: Yes; Correct Supplies: Yes; Dried Flammable Prep: Yes; Blood Products Available: N/A;. Lidocaine 1% infiltrated to the right radial. Arterial access obtained. A 6 malian TIG catheter in over wire. Exchange wire out. Glidewire inserted. Wire and catheter out. Radial access aborted d/t tortuosity. R groin prepped. Lidocaine 1% infiltrated to the right groin. Arterial access obtained. A 6 malian JL4 catheter in over wire. Multiple views taken of left coronary artery. Catheter removed over the standard wire. A 6 malian JR4 catheter in over wire. Multiple views taken of right coronary artery. A 6 malian Angled Pig catheter in over wire. EDP Sample taken: LV 113/-10,7; HR: 86 BPM; SpO2: 96%. LV gram performed in MCGUIRE @ 10 mL/second for a total of 30 mL. EDP Sample taken: LV 115/-8,11; HR: 86 BPM; SpO2: 96%. Pullback taken: LV 115/-8,11; AO 113/50(75); Mean: 0mmHg, Peak to Peak: 0mmHg, SEP: 18sec/min; HR: 86 BPM; SpO2: 96%. Physician review of cine films. A 6 malian JL4 catheter in over wire. A TR Band was successful obtaining hemostatsis at the Right Radial artery insertion site. Catheter out. Physician scrubbed out. A Suture was successful obtaining hemostatsis at the Right Femoral artery insertion site. Sheath(s) sutured into position with 2-0 silk and sterile 4x4's and Op-site applied over the site. No oozing or signs and symptoms of hematoma noted. Post Procedure: Pulses reassessed and unchanged. PERRLA. Strong, equal hand sand cutter bilaterally. No VTE prophylaxis required. Medication's Wasted: Heparin = 2000 u. Medication's Wasted: Other = Fentanyl 25 mcg. Medication's Wasted: Nitro = 49.8 mg. Total IV fluids: 55 mL. Post-op diagnosis: Non Obstructive CAD. Complications: none. Estimated blood loss: 5mL-10mL. Responsiveness - Normal response to verbal stimuli; alert and oriented, PERRLA. Airway - Unaffected, no intervention required; spontaneous ventilation. Circulation: W/N/L, pulses unchanged. Nausea/Vomiting: No. Procedure completed. Patient transferred by bed to 1st floor. Vital chart was stopped. Access Site Site: Right Radial artery Sheath Size: 6 Fr Hemostasis Method: TR Band Hemostasis Success: Successful Site: Right Femoral artery Sheath Size: 6 Fr Hemostasis Method: Suture Hemostasis Success: Successful Procedure Medications Start: 6:02 AM Stop: 6:02 AM Medication: Versed Amount: 1 mg Route: I.V. Start: 6:02 AM Stop: 6:02 AM Medication: Fentanyl Amount: 50 mcg Route: I.V. Start: 6:44 AM Stop: 6:44 AM Medication: Heparin Amount: 2000 units Route: I.V. Start: 6:08 AM Stop: 6:08 AM Medication: Nitrogylcerin Amount: 200 mcg Route: I.A. Start: 6:25 AM Stop: 6:25 AM Medication: Versed Amount: 1 mg Route: I.V. I, the attending physician, have reviewed and verified all procedure medications. Yes, all medications given per verbal order History/Risk Factors Hypertension: No Dyslipidemia: Yes Peripheral Arterial Disease (PAD): No Myocardial Infarction (GA): No Obesity: No Renal Disease: No Tobacco Use: Former Prior Interventions PCI: No CABG: No Valve Surgery: No Report Signatures Finalized by Dr. Rick Beverly MD on 07/03/2022 07:09 AM
[2022-07-03 06:33] LABS: Basophils # 0.1 10^3/uL (0.0-0.1); Basophils % 0.2 %; Eosinophils % 0.1 %; Hematocrit 36.5 % (42.0-52.0); Hemoglobin 11.7 g/dL (11.7-16.6); Lymphocytes # 1.1 10^3/uL (0.8-4.8); Lymphocytes % 5.5 %; Mean Corpuscular HGB Conc 32.1 g/dL (30.0-36.0); Mean Corpuscular Hemoglobin 29.2 pg (28.0-34.0); Mean Platelet Volume 8.8 fL (7.4-10.4); Monocytes # 0.6 10^3/uL (0.2-0.9); Neutrophils # 18.02 10^3/uL (1.8-7.7); Neutrophils % 87.6 %; Nucleated Red Blood Cells % 0 %; Platelet Count 299 10^3/cmm (130-400); Red Blood Count 4.01 10^6/uL (4.1-5.3); Red Cell Distribution Width 12.1 % (12.1-15.1); White Blood Count 20.6 10^3/uL (4.0-10.0)
[2022-07-03 06:53] LABS: Albumin Level 3.1 g/dL (3.5-5.2); Anion Gap 9.9 (5-19); Blood Urea Nitrogen 18 mg/dL (8-23); Calcium 8.6 mg/dL (8.5-10.5); Carbon Dioxide 33 mmol/L (22-29); Chloride 93 mmol/L (98-107); Creatinine Clr Calc Pharmacy 96.2781; Glucose 269 mg/dL (65-115); Magnesium 1.9 mg/dL (1.7-2.3); Phosphorus 3.7 mg/dL (2.5-4.5); Potassium 4.9 mmol/L (3.5-5.1); Sodium 131 mmol/L (136-145)
[2022-07-03] MEDS: insulin lispro 100 unit/1 mL SUBCUT ×4 (07:54→22:24)
[2022-07-03] MEDS: tamsulosin 0.4 mg Capsule 0.8 MG PO (07:55)
[2022-07-03] MEDS: aspirin 81 mg EC Tablet PO (07:55)
[2022-07-03] MEDS: venlafaxine ER (24HR) 150 mg Capsule PO (07:55)
[2022-07-03] MEDS: ipratropium-albuterol 3 mL Neb INHALATION ×3 (08:46→15:35)
[2022-07-03] MEDS: budesonide 0.5 mg/2 mL Neb INHALATION (08:47)
[2022-07-03] MEDS: TRAMadol 50 mg Tablet PO ×2 (09:00→16:46)
[2022-07-03 10:01] LABS: Partial Thromboplastin Time 24.3 SECONDS (23.9-36.7)
--- NOTE | 2022-07-03 10:09 | PC.NURSE ---
Patient arrived from [facility] at 0730 via bed. Patient has TR band intact and sheath in place. Nurse has educated patient regarding activity restrictions. Patient is oriented to room and call teague. Nurse will continue to monitor Q15m.
[2022-07-03 11:55] LABS: Glucose Point of Care 268 mg/dL (70-110)
--- NOTE | 2022-07-03 12:00 | PC.NURSE ---
Sheath pulled at 11:30. No hematoma present. TR band removed no hematoma. Both radial and femoral have dressings in place. No oozing. Nurse will continue to monitor.
--- NOTE | 2022-07-03 13:21 | PM.PN ---
Subjective Subjective: Patient underwent cardiac catheterization this morning. He is evaluated post procedure. He endorses shortness of breath. He is also very upset about his 30 degree restriction. Denies chest pain, nausea or emesis. Reports he is having trouble eating because he is at 30 degrees. Support given. Otherwise denies other complaints. His Medications: Reviewed: Yes Vitals/I&O/Wt Last Vital Signs Temp 97.4 F L 07/03/22 07:16 Pulse 93 07/03/22 11:43 Resp 18 07/03/22 11:43 BP 134/75 07/03/22 07:16 Pulse Ox 96 07/03/22 11:43 O2 Del Method Nasal Cannula 07/03/22 11:43 O2 Flow Rate 3 07/03/22 11:43 07/02/22 07/03/22 07/03/22 22:59 06:59 14:59 Intake Total 800 / 1160 240 / 240 Output Total 350 / 350 Balance 800 / 1160 -350 / 810 240 / 240 Weight last 48 hrs Weight 104.326 kg Physical Exam Narrative: General: Patient is awake. Slightly agitated. Head: Normocephalic. Atraumatic. EOM intact. Neck: No JVD. Cardiovascular: No gallops. No murmurs. Lungs: End expiratory wheezing. Breath sounds are diminished bilateral bases. On nasal cannula support. Skin: No jaundice. No rashes. Abdomen: Normal bowel sounds, abdomen soft and nontender. Genito Urinary: Genital exam not performed since complaints not related. Rectal: Rectal exam not performed since no symptoms indicated blood loss. Extremities: No cyanosis or clubbing. Musculoskeletal: No swollen or erythematous joints. Neurological: Moves all 4 extremities. No myoclonus. Data 07/03/22 06:26 07/03/22 06:26 Micro: Microbiology 07/01/22 22:17 Blood Culture - Preliminary Blood NEGATIVE TO DATE 07/01/22 22:13 Blood Culture - Preliminary Blood NEGATIVE TO DATE 07/01/22 22:26 MRSA Culture - Final Nose A&P Assessment and plan (1) COPD (chronic obstructive pulmonary disease): Acute COPD exacerbation Multiple recurrent admissions Pulmonary following, appreciate recommendations Sputum cultures ordered Follow-up galactomannan Follow-up PCP PCR Continue Pulmicort Continue DuoNebs Continue Solu-Medrol Continue Bactrim Qualifiers: COPD type: emphysema Emphysema type: panlobular Qualified Code(s): J43.1 - Panlobular emphysema (2) Respiratory failure with hypoxia and hypercapnia: Management as above Qualifiers: Chronicity: acute on chronic Qualified Code(s): J96.21 - Acute and chronic respiratory failure with hypoxia; J96.22 - Acute and chronic respiratory failure with hypercapnia; J96.22 - Acute and chronic respiratory failure with hypercapnia (3) Cardiomyopathy: Status post cardiac cath on 07/03 Discussed w/ cardiology, cath w/ non-obstructive CAD Started on ACEI (4) Depression, controlled: Continue Elavil Continue venlafaxine (5) Chronic low back pain: Tramadol as needed Qualifiers: Back pain laterality: midline Sciatica presence: without sciatica Qualified Code(s): M54.5 - Low back pain; G89.29 - Other chronic pain (6) Peripheral neuropathy: Continue to monitor (7) Diabetes mellitus type 2, noninsulin dependent: Sliding-scale insulin correction (8) Dyslipidemia: Continue statin Plan DVT prophylaxis: SCD CODE STATUS: Full code Attestations Medical Necessity Statement*: Patient requires ongoing hospitalization of IV steroids, nebulizing therapies, pulmonary evaluation, and supportive care. Coding Level of Care Code Acute Code for [facility] Diagnoses COPD (chronic obstructive pulmonary disease) J43.1 COPD type: emphysema Emphysema type: panlobular Respiratory failure with hypoxia and hypercapnia J96.21; J96.22; J96.22 Chronicity: acute on chronic Cardiomyopathy I42.9 Depression, controlled F32.9 Chronic low back pain M54.5; G89.29 Back pain laterality: midline Sciatica presence: without sciatica Peripheral neuropathy G62.9 Diabetes mellitus type 2, noninsulin dependent E11.9 Dyslipidemia E78.5
--- NOTE | 2022-07-03 14:57 | PM.MISC ---
Miscellaneous Note Note: I went by the patient's room this afternoon to explain the results of the angiogram. He immediately became angry with me stating that I did not tell him he had to lay flat on his back after the angiogram. I discussed the possibility that the procedure may need to be done through the leg with him yesterday. Indeed, I was able to place a sheath in his right wrist however he had an obstruction at his elbow. I finished the procedure through his right groin. He became visibly angry when I entered the room. I simply explained the results of the procedure to him in detail. After a very tense and rather uncomfortable interaction with him, we both agreed to terminate our relationship. Therefore, I will sign off. If he needs another sewer hand it must be someone else of his choosing. I gave him the options of the other cardiologists in this office. This attitude comes on the heels of him becoming angry with me immediately yesterday about his dietary restrictions.
[2022-07-03 16:48] LABS: Glucose Point of Care 287 mg/dL (70-110)
[2022-07-03 19:32] LABS: Glucose Point of Care 295 mg/dL (70-110)
[2022-07-03] MEDS: atorvastatin 40 mg Tablet 20 MG PO (21:58)
[2022-07-03] MEDS: amitriptyline 25 mg Tablet PO (21:58)
[2022-07-03 22:32] LABS: Glucose Point of Care 243 mg/dL (70-110)
[2022-07-04] VITALS (116 sets, daily range): BP systolic 120–152; BP diastolic 59–84; PULSE 76–126; RESP 14–38; TEMP 36.3–36.9; O2SAT 82–98
[2022-07-04] MEDS: sulfamethoxazole-trimeth DS 160-800 mg Tablet 1 TAB PO ×3 (05:52→21:42)
[2022-07-04 06:02] LABS: Glucose Point of Care 255 mg/dL (70-110)
[2022-07-04 06:23] LABS: Glucose Point of Care 234 mg/dL (70-110)
[2022-07-04] MEDS: ipratropium-albuterol 3 mL Neb INHALATION ×4 (07:28→20:42)
[2022-07-04] MEDS: budesonide 0.5 mg/2 mL Neb INHALATION ×2 (07:28→20:42)
[2022-07-04] MEDS: aspirin 81 mg EC Tablet PO (08:07)
[2022-07-04] MEDS: lisinopril 2.5 mg Tablet PO (08:07)
[2022-07-04] MEDS: tamsulosin 0.4 mg Capsule 0.8 MG PO (08:07)
[2022-07-04] MEDS: insulin lispro 100 unit/1 mL SUBCUT ×4 (08:07→22:36)
[2022-07-04 11:25] LABS: Glucose Point of Care 216 mg/dL (70-110)
--- NOTE | 2022-07-04 11:30 | PC.SOCIAL ---
Pg 2 IMM Explained to pt Pg 2 IMM. No questions voiced. Provided pt a copy. Initialed, dated, & timed a copy & placed in chart.
--- NOTE | 2022-07-04 13:53 | PM.PN ---
Subjective Subjective: Patient reports he feels better today. Still endorsing shortness of breath and cough. Reports continued weakness. Denies fever, nausea, or headache. Medications: Reviewed: Yes Vitals/I&O/Wt Last Vital Signs Temp 97.6 F 07/04/22 04:57 Pulse 100 07/04/22 11:26 Resp 20 H 07/04/22 11:26 BP 152/76 07/04/22 08:35 Pulse Ox 95 07/04/22 11:26 O2 Del Method Nasal Cannula 07/04/22 11:26 O2 Flow Rate 3 07/04/22 11:26 07/03/22 07/04/22 07/04/22 22:59 06:59 14:59 Intake Total 940 / 1420 1300 / 2720 360 / 360 Output Total 1150 / 1150 1300 / 2450 Balance -210 / 270 0 / 270 360 / 360 Physical Exam Narrative: General: Patient is awake. Alert. Head: Normocephalic. Atraumatic. EOM intact. Neck: No JVD. Cardiovascular: No gallops. No murmurs. Lungs: Faint end expiratory wheezing. Breath sounds are diminished bilateral bases. On nasal cannula support. Skin: No jaundice. No rashes. Abdomen: Normal bowel sounds, abdomen soft and nontender. Genito Urinary: Genital exam not performed since complaints not related. Rectal: Rectal exam not performed since no symptoms indicated blood loss. Extremities: No cyanosis or clubbing. Musculoskeletal: No swollen or erythematous joints. Neurological: Moves all 4 extremities. No myoclonus. Data 07/03/22 06:26 07/03/22 06:26 A&P Assessment and plan (1) COPD (chronic obstructive pulmonary disease): Acute COPD exacerbation Multiple recurrent admissions Pulmonary following, appreciate recommendations Sputum cultures ordered Follow-up galactomannan Follow-up PCP PCR Continue Pulmicort Continue DuoNebs Continue Solu-Medrol Continue Bactrim Qualifiers: COPD type: emphysema Emphysema type: panlobular Qualified Code(s): J43.1 - Panlobular emphysema (2) Respiratory failure with hypoxia and hypercapnia: Management as above Qualifiers: Chronicity: acute on chronic Qualified Code(s): J96.21 - Acute and chronic respiratory failure with hypoxia; J96.22 - Acute and chronic respiratory failure with hypercapnia; J96.22 - Acute and chronic respiratory failure with hypercapnia (3) Cardiomyopathy: Status post cardiac cath on 07/03 Continue lisinopril (4) Depression, controlled: Continue Elavil Continue venlafaxine (5) Chronic low back pain: Tramadol as needed Qualifiers: Back pain laterality: midline Sciatica presence: without sciatica Qualified Code(s): M54.5 - Low back pain; G89.29 - Other chronic pain (6) Peripheral neuropathy: Continue to monitor (7) Diabetes mellitus type 2, noninsulin dependent: Sliding-scale insulin correction (8) Dyslipidemia: Continue statin Plan DVT prophylaxis: SCD CODE STATUS: Full code Attestations Medical Necessity Statement*: Patient requires ongoing hospitalization of IV steroids, nebulizing therapies, pulmonary evaluation, and supportive care. Coding Level of Care Code Acute Code for [facility] Diagnoses COPD (chronic obstructive pulmonary disease) J43.1 COPD type: emphysema Emphysema type: panlobular Respiratory failure with hypoxia and hypercapnia J96.21; J96.22; J96.22 Chronicity: acute on chronic Cardiomyopathy I42.9 Depression, controlled F32.9 Chronic low back pain M54.5; G89.29 Back pain laterality: midline Sciatica presence: without sciatica Peripheral neuropathy G62.9 Diabetes mellitus type 2, noninsulin dependent E11.9 Dyslipidemia E78.5
[2022-07-04 17:05] LABS: Glucose Point of Care 328 mg/dL (70-110)
[2022-07-04 21:36] LABS: Glucose Point of Care 193 mg/dL (70-110)
[2022-07-04] MEDS: atorvastatin 40 mg Tablet 20 MG PO (21:42)
[2022-07-04] MEDS: amitriptyline 25 mg Tablet PO (21:43)
[2022-07-05] VITALS (24 sets, daily range): BP systolic 105–163; BP diastolic 66–75; PULSE 82–121; RESP 12–32; TEMP 36.4–36.7; O2SAT 90–97
[2022-07-05 03:40] LABS: Basophils % 0.2 %; Hematocrit 37.9 % (42.0-52.0); Lymphocytes # 1.2 10^3/uL (0.8-4.8); Lymphocytes % 5.8 %; Mean Corpuscular HGB Conc 31.7 g/dL (30.0-36.0); Mean Corpuscular Volume 91.5 fl (80-94); Mean Platelet Volume 8.9 fL (7.4-10.4); Monocytes # 0.4 10^3/uL (0.2-0.9); Monocytes % 2.1 %; Neutrophils # 18.95 10^3/uL (1.8-7.7); Neutrophils % 88.8 %; Nucleated Red Blood Cells % 0 %; Platelet Count 323 10^3/cmm (130-400); Red Blood Count 4.14 10^6/uL (4.1-5.3); Red Cell Distribution Width 12.2 % (12.1-15.1); White Blood Count 21.3 10^3/uL (4.0-10.0)
[2022-07-05 03:56] LABS: Magnesium 2.1 mg/dL (1.7-2.3)
[2022-07-05 03:58] LABS: Albumin Level 3.4 g/dL (3.5-5.2); Anion Gap 14.2 (5-19); Blood Urea Nitrogen 15 mg/dL (8-23); Calcium 8.9 mg/dL (8.5-10.5); Carbon Dioxide 32 mmol/L (22-29); Chloride 95 mmol/L (98-107); Creatinine Clr Calc Pharmacy 96.2781; Glucose 252 mg/dL (65-115); Phosphorus 3.5 mg/dL (2.5-4.5); Potassium 5.2 mmol/L (3.5-5.1); Sodium 136 mmol/L (136-145)
[2022-07-05] MEDS: sulfamethoxazole-trimeth DS 160-800 mg Tablet 1 TAB PO ×3 (05:12→21:16)
[2022-07-05 06:25] LABS: Glucose Point of Care 315 mg/dL (70-110)
[2022-07-05] MEDS: ipratropium-albuterol 3 mL Neb INHALATION ×4 (07:50→20:29)
[2022-07-05] MEDS: budesonide 0.5 mg/2 mL Neb INHALATION ×2 (07:50→20:29)
[2022-07-05 08:53] LABS: Glucose Point of Care 343 mg/dL (70-110)
[2022-07-05] MEDS: venlafaxine ER (24HR) 150 mg Capsule PO (09:00)
[2022-07-05] MEDS: insulin lispro 100 unit/1 mL SUBCUT ×4 (09:00→21:17)
[2022-07-05] MEDS: tamsulosin 0.4 mg Capsule 0.8 MG PO (09:01)
[2022-07-05] MEDS: aspirin 81 mg EC Tablet PO (09:01)
[2022-07-05] MEDS: lisinopril 2.5 mg Tablet PO (09:02)
[2022-07-05 12:03] LABS: Glucose Point of Care 251 mg/dL (70-110)
--- NOTE | 2022-07-05 12:23 | P.PN_ITS ---
Subjective Subjective: Patient states he slept alright. Endorses continued shortness of breath and cough. Reports he ambulated in his room but not outside of his room yesterday. Denies chest pain, fevers or chills. Medications: Reviewed: Yes Vitals/I&O/Wt Last Vital Signs Temp 97.5 F L 07/05/22 04:00 Pulse 103 H 07/05/22 11:37 Resp 21 H 07/05/22 11:37 BP 142/74 07/05/22 11:37 Pulse Ox 91 07/05/22 11:37 O2 Del Method Nasal Cannula 07/05/22 11:37 O2 Flow Rate 2 07/05/22 11:22 07/04/22 07/05/22 07/05/22 22:59 06:59 14:59 Intake Total 1760 / 2120 280 / 2400 480 / 480 Output Total 5000 / 5650 Balance 1760 / 1470 -4720 / -3250 480 / 480 Physical Exam Narrative: General: Patient is awake. Alert. Lying in bed. Head: Normocephalic. Atraumatic. EOM intact. Neck: No JVD. Cardiovascular: No gallops. No murmurs. Lungs: Very faint end expiratory wheezing. Breath sounds are diminished bilateral bases. On nasal cannula. Skin: No jaundice. No rashes. Abdomen: Normal bowel sounds, abdomen soft and nontender. Genito Urinary: Genital exam not performed since complaints not related. Rectal: Rectal exam not performed since no symptoms indicated blood loss. Extremities: No cyanosis or clubbing. Musculoskeletal: No swollen or erythematous joints. Neurological: Moves all 4 extremities. No myoclonus. Data 07/05/22 03:13 07/05/22 03:13 A&P Assessment and plan (1) COPD (chronic obstructive pulmonary disease): Acute COPD exacerbation Multiple recurrent admissions Pulmonary evaluated, follow up w/ Datar on Thursday Sputum cultures ordered, unable to collect thus far Follow-up galactomannan Follow-up PCP PCR which depends on sputum cx collection Continue Pulmicort Continue DuoNebs Continue Solu-Medrol Continue Bactrim Qualifiers: COPD type: emphysema Emphysema type: panlobular Qualified Code(s): J43.1 - Panlobular emphysema (2) Respiratory failure with hypoxia and hypercapnia: Management as above Qualifiers: Chronicity: acute on chronic Qualified Code(s): J96.21 - Acute and chronic respiratory failure with hypoxia; J96.22 - Acute and chronic respiratory failure with hypercapnia; J96.22 - Acute and chronic respiratory failure with hypercapnia (3) Cardiomyopathy: Status post cardiac cath on 07/03 Cardiology has signed off Continue lisinopril (4) Depression, controlled: Continue Elavil Continue venlafaxine (5) Chronic low back pain: Tramadol as needed Qualifiers: Back pain laterality: midline Sciatica presence: without sciatica Qualified Code(s): M54.5 - Low back pain; G89.29 - Other chronic pain (6) Peripheral neuropathy: Continue to monitor (7) Diabetes mellitus type 2, noninsulin dependent: Sliding-scale insulin correction (8) Dyslipidemia: Continue statin Plan DVT prophylaxis: SCD CODE STATUS: Full code Attestations Medical Necessity Statement*: Patient requires ongoing hospitalization of IV steroids, nebulizing therapies, pulmonary evaluation, and supportive care. Coding Level of Care Code Acute Code for [facility] Diagnoses COPD (chronic obstructive pulmonary disease) J43.1 COPD type: emphysema Emphysema type: panlobular Respiratory failure with hypoxia and hypercapnia J96.21; J96.22; J96.22 Chronicity: acute on chronic Cardiomyopathy I42.9 Depression, controlled F32.9 Chronic low back pain M54.5; G89.29 Back pain laterality: midline Sciatica presence: without sciatica Peripheral neuropathy G62.9 Diabetes mellitus type 2, noninsulin dependent E11.9 Dyslipidemia E78.5
[2022-07-05 17:22] LABS: Glucose Point of Care 240 mg/dL (70-110)
[2022-07-05 20:14] LABS: Glucose Point of Care 317 mg/dL (70-110)
[2022-07-05] MEDS: atorvastatin 40 mg Tablet 20 MG PO (21:15)
[2022-07-05] MEDS: amitriptyline 25 mg Tablet PO (21:17)
[2022-07-06] VITALS (34 sets, daily range): BP systolic 129–163; BP diastolic 48–78; PULSE 71–124; RESP 16–30; TEMP 36.5–37.1; O2SAT 90–96
[2022-07-06] MEDS: sulfamethoxazole-trimeth DS 160-800 mg Tablet 1 TAB PO ×3 (05:24→21:38)
[2022-07-06 06:20] LABS: Glucose Point of Care 273 mg/dL (70-110)
[2022-07-06 07:24] LABS: Glucose Point of Care 277 mg/dL (70-110)
[2022-07-06] MEDS: insulin lispro 100 unit/1 mL SUBCUT ×4 (08:04→21:11)
[2022-07-06] MEDS: ipratropium-albuterol 3 mL Neb INHALATION ×4 (08:18→21:04)
[2022-07-06] MEDS: budesonide 0.5 mg/2 mL Neb INHALATION ×2 (08:18→21:04)
--- NOTE | 2022-07-06 09:27 | PC.SOCIAL ---
IMM update IMM updated with patient. Verbalized an understanding. Copy Pg 2 provided. Initialled, dated, timed, and placed in chart.
[2022-07-06] MEDS: tamsulosin 0.4 mg Capsule 0.8 MG PO (09:44)
[2022-07-06] MEDS: lisinopril 2.5 mg Tablet PO (09:45)
[2022-07-06] MEDS: aspirin 81 mg EC Tablet PO (09:45)
--- NOTE | 2022-07-06 10:31 | PM.PN ---
Subjective Subjective: Patient reports his breathing is about the same. He states he continues to get very short of breath with minimal exertion. Endorses continued dry cough. Reports he ambulated in his room yesterday. He agrees to try to ambulate in hallway today with assistance. He denies fevers, nausea or emesis. Medications: Reviewed: Yes Vitals/I&O/Wt Last Vital Signs Temp 98.7 F 07/06/22 07:44 Pulse 103 H 07/06/22 08:24 Resp 16 07/06/22 08:20 BP 129/76 07/06/22 07:44 Pulse Ox 95 07/06/22 08:20 O2 Del Method Nasal Cannula 07/06/22 08:20 O2 Flow Rate 2 07/06/22 08:20 07/05/22 07/06/22 07/06/22 22:59 06:59 14:59 Intake Total 250 / 1210 240 / 1450 Output Total 350 / 350 Balance 250 / 1210 -110 / 1100 Physical Exam Narrative: General: Patient is awake. Alert. Lying in bed. Head: Normocephalic. Atraumatic. EOM intact. Neck: No JVD. Cardiovascular: No gallops. No murmurs. Lungs: Adequate air movement. Breath sounds are diminished bilateral bases. On nasal cannula. Skin: No jaundice. No rashes. Abdomen: Normal bowel sounds, abdomen soft and nontender. Genito Urinary: Genital exam not performed since complaints not related. Rectal: Rectal exam not performed since no symptoms indicated blood loss. Extremities: No cyanosis or clubbing. Musculoskeletal: No swollen or erythematous joints. Neurological: Moves all 4 extremities. No myoclonus. Data 07/05/22 03:13 07/05/22 03:13 A&P Assessment and plan (1) COPD (chronic obstructive pulmonary disease): Acute COPD exacerbation Multiple recurrent admissions Pulmonary evaluated, follow up w/ Datar on Thursday Sputum cultures ordered, unable to collect thus far Follow-up galactomannan Follow-up PCP PCR which depends on sputum cx collection Continue Pulmicort Continue DuoNebs Continue Solu-Medrol Continue Bactrim Qualifiers: COPD type: emphysema Emphysema type: panlobular Qualified Code(s): J43.1 - Panlobular emphysema (2) Respiratory failure with hypoxia and hypercapnia: Management as above Qualifiers: Chronicity: acute on chronic Qualified Code(s): J96.21 - Acute and chronic respiratory failure with hypoxia; J96.22 - Acute and chronic respiratory failure with hypercapnia; J96.22 - Acute and chronic respiratory failure with hypercapnia (3) Cardiomyopathy: Status post cardiac cath on 07/03 Cardiology has signed off Continue lisinopril (4) Depression, controlled: Continue Elavil Continue venlafaxine (5) Chronic low back pain: Tramadol as needed Qualifiers: Back pain laterality: midline Sciatica presence: without sciatica Qualified Code(s): M54.5 - Low back pain; G89.29 - Other chronic pain (6) Peripheral neuropathy: Continue to monitor (7) Diabetes mellitus type 2, noninsulin dependent: Sliding-scale insulin correction (8) Dyslipidemia: Continue statin Plan DVT prophylaxis: SCD CODE STATUS: Full code Attestations Medical Necessity Statement*: Patient requires ongoing hospitalization of IV steroids, nebulizing therapies, pulmonary evaluation, and supportive care. Coding Level of Care Code Acute Code for [facility] Diagnoses COPD (chronic obstructive pulmonary disease) J43.1 COPD type: emphysema Emphysema type: panlobular Respiratory failure with hypoxia and hypercapnia J96.21; J96.22; J96.22 Chronicity: acute on chronic Cardiomyopathy I42.9 Depression, controlled F32.9 Chronic low back pain M54.5; G89.29 Back pain laterality: midline Sciatica presence: without sciatica Peripheral neuropathy G62.9 Diabetes mellitus type 2, noninsulin dependent E11.9 Dyslipidemia E78.5
[2022-07-06 11:15] LABS: Glucose Point of Care 217 mg/dL (70-110)
[2022-07-06] MEDS: TRAMadol 50 mg Tablet PO ×2 (14:50→21:33)
[2022-07-06 16:43] LABS: Glucose Point of Care 440 mg/dL (70-110)
[2022-07-06 21:02] LABS: Glucose Point of Care 277 mg/dL (70-110)
[2022-07-06] MEDS: amitriptyline 25 mg Tablet PO (21:10)
[2022-07-06] MEDS: atorvastatin 40 mg Tablet 20 MG PO (21:10)
[2022-07-07] VITALS (21 sets, daily range): BP systolic 123–166; BP diastolic 64–73; PULSE 57–120; RESP 17–34; TEMP 36.4–36.8; O2SAT 86–97
[2022-07-07 04:32] LABS: Albumin Level 3.3 g/dL (3.5-5.2); Anion Gap 15.3 (5-19); Blood Urea Nitrogen 23 mg/dL (8-23); Calcium 9.4 mg/dL (8.5-10.5); Carbon Dioxide 28 mmol/L (22-29); Chloride 90 mmol/L (98-107); Glucose 303 mg/dL (65-115); Phosphorus 5.1 mg/dL (2.5-4.5); Potassium 5.3 mmol/L (3.5-5.1); Sodium 128 mmol/L (136-145)
[2022-07-07] MEDS: sulfamethoxazole-trimeth DS 160-800 mg Tablet 1 TAB PO ×2 (05:05→15:59)
[2022-07-07 05:19] LABS: Basophils # 0.1 10^3/uL (0.0-0.1); Basophils % 0.4 %; Hematocrit 41.4 % (42.0-52.0); Hemoglobin 12.8 g/dL (11.7-16.6); Lymphocytes # 1.6 10^3/uL (0.8-4.8); Mean Corpuscular HGB Conc 30.9 g/dL (30.0-36.0); Mean Corpuscular Hemoglobin 28.4 pg (28.0-34.0); Monocytes # 0.8 10^3/uL (0.2-0.9); Monocytes % 2.5 %; Neutrophils # 28.15 10^3/uL (1.8-7.7); Nucleated Red Blood Cells % 0 %; Platelet Count 350 10^3/cmm (130-400); Red Cell Distribution Width 12.5 % (12.1-15.1)
[2022-07-07 06:32] LABS: Glucose Point of Care 320 mg/dL (70-110)
[2022-07-07] MEDS: budesonide 0.5 mg/2 mL Neb INHALATION ×2 (08:36→20:25)
[2022-07-07] MEDS: ipratropium-albuterol 3 mL Neb INHALATION ×4 (08:36→20:25)
[2022-07-07] MEDS: insulin lispro 100 unit/1 mL SUBCUT ×4 (08:49→21:36)
[2022-07-07] MEDS: tamsulosin 0.4 mg Capsule 0.8 MG PO (08:50)
[2022-07-07] MEDS: lisinopril 2.5 mg Tablet PO (08:51)
[2022-07-07] MEDS: aspirin 81 mg EC Tablet PO (08:51)
[2022-07-07] MEDS: venlafaxine ER (24HR) 150 mg Capsule PO (08:51)
[2022-07-07 11:50] LABS: Glucose Point of Care 440 mg/dL (70-110)
[2022-07-07] MEDS: FUROsemide 20 mg Tablet PO (16:00)
--- NOTE | 2022-07-07 16:12 | XRR_ITS ---
PROCEDURE INFORMATION: Exam: XR Chest Exam date and time: 07/07/2022 3:17 PM Age: 71 years old Clinical indication: Condition or disease; Lung condition and disease; Pneumonia; Additional info: Evaluate pneumonia TECHNIQUE: Imaging protocol: Radiologic exam of the chest. Views: 1 view. COMPARISON: CT chest [facility] [id number] 07/02/2022 7:52 AM FINDINGS: Lungs: Comparison is made with 07/01/2022 and 06/25/2022. Continued improvement in bilateral perihilar mid to upper lobe infiltrate with prior exams. Mild linear opacity mid lateral right lung with today's exam which could indicate component of linear atelectasis or scarring and/or component of fissural thickening. Also, continued improvement in the left lung base with 07/01/2022 exam. No focal consolidation. Pleural spaces: No significant effusion or pneumothorax. Heart/Mediastinum: Unremarkable. No cardiomegaly. Bones/joints: No acute osseous abnormality. XR/XR chest 1V portable [id number] IMPRESSION: Continued interval improvement in the chest from 07/01/2022 exam suggesting interval improvement in pneumonia with minimal residual linear type opacity mid lateral right lung and left lung base which could indicate minimal residual and/or scarring.
[2022-07-07 16:49] LABS: Glucose Point of Care 192 mg/dL (70-110)
[2022-07-07] MEDS: TRAMadol 50 mg Tablet PO (18:51)
--- NOTE | 2022-07-07 18:59 | P.PN_ITS ---
Subjective Subjective: more SOB today, difuse hweezing on exam, patient has just returned from the bathroom and appears dyspneic. On NC 3lpm currently. Medications: Reviewed: Yes Vitals/I&O/Wt Last Vital Signs Temp 98.3 F 07/07/22 15:18 Pulse 57 L 07/07/22 15:22 Resp 20 H 07/07/22 15:22 BP 145/72 07/07/22 15:18 Pulse Ox 94 07/07/22 15:22 O2 Del Method Nasal Cannula 07/07/22 15:22 O2 Flow Rate 2 07/07/22 15:22 07/07/22 07/07/22 07/07/22 06:59 14:59 22:59 Intake Total 960 / 960 240 / 1200 Balance 960 / 960 240 / 1200 Physical Exam Narrative: General: No acute distress, AO x3 HEENT: PERRLA, pupils bilaterally equal and reactive, pallors not present Chest: Diffuse wheezing to auscultation B/L CVS: S1-S2 regular, no murmurs, no tachycardia, no gallops, no rubs Abdomen: Soft, nontender, no organomegaly, bowel sounds present Neuro: No focal deficits, no facial deformity, AO x3, power 5/5 in all limbs . Data 07/07/22 03:19 07/07/22 03:19 Micro: Microbiology 07/01/22 22:17 Blood Culture - Final Blood NO GROWTH AFTER 5 DAYS 07/01/22 22:13 Blood Culture - Final Blood NO GROWTH AFTER 5 DAYS A&P Assessment and plan (1) COPD (chronic obstructive pulmonary disease): Acute COPD exacerbation Multiple recurrent admissions Continue duoneb and budesonide scheduled inhalations CXR repeated today due to increasing leukocytsosi- shows interval improvement He is afebrile, suspect leukocytsois worsened due to high dose steroids Currently on solumedrol 40mg iv BID and 30mg iv daily change to 60mg iv TID Also adding lasix trial 40mg iv q12h as suspect elevated right sided pressures and component of cor pulmonale d/c lasix 20mg po daily monitor I/O recent TTEs have been unable to assess rigth sided pressures, technically diffuclt study Patient on presumptive bactrim due to suspected PJP however suboptimal dosing at 1tab TID. Currently lower suspicion for PJP given lack of characteristic infiltrates. However given he is on chronic steroids, cannot exclude this possibility. BDG elevated at 76, very non specific, typically expect level > 500 in PJP will check PJP PCR from induced sputum If no improvement, may need bronchoscopy Will d/c bactrim as developing hyperkalemia and hyponatremia , will switch to atovaquone while pending PJP PCR Qualifiers: COPD type: emphysema Emphysema type: panlobular Qualified Code(s): J43.1 - Panlobular emphysema (2) Respiratory failure with hypoxia and hypercapnia: Management as above Qualifiers: Chronicity: acute on chronic Qualified Code(s): J96.21 - Acute and chronic respiratory failure with hypoxia; J96.22 - Acute and chronic respiratory failure with hypercapnia; J96.22 - Acute and chronic respiratory failure with hypercapnia (3) Cardiomyopathy: Status post cardiac cath on 07/03 Cardiology has signed off Continue lisinopril (4) Depression, controlled: Continue Elavil Continue venlafaxine (5) Chronic low back pain: Tramadol as needed Qualifiers: Back pain laterality: midline Sciatica presence: without sciatica Qualified Code(s): M54.5 - Low back pain; G89.29 - Other chronic pain (6) Peripheral neuropathy: Continue to monitor (7) Diabetes mellitus type 2, noninsulin dependent: Sliding-scale insulin correction (8) Dyslipidemia: Continue statin Plan DVT prophylaxis: SCD CODE STATUS: Full code Attestations Medical Necessity Statement*: start iv diuretic. worsening respiratory status today Coding Level of Care Code Acute Code for [facility] Diagnoses COPD (chronic obstructive pulmonary disease) J43.1 COPD type: emphysema Emphysema type: panlobular Respiratory failure with hypoxia and hypercapnia J96.21; J96.22; J96.22 Chronicity: acute on chronic Cardiomyopathy I42.9 Depression, controlled F32.9 Chronic low back pain M54.5; G89.29 Back pain laterality: midline Sciatica presence: without sciatica Peripheral neuropathy G62.9 Diabetes mellitus type 2, noninsulin dependent E11.9 Dyslipidemia E78.5
[2022-07-07] MEDS: FUROsemide 10 mg/mL SDV 4mL 40 MG IVP (20:27)
[2022-07-07] MEDS: amitriptyline 25 mg Tablet PO (20:32)
[2022-07-07] MEDS: atorvastatin 40 mg Tablet 20 MG PO (20:32)
[2022-07-07 20:51] LABS: Glucose Point of Care 377 mg/dL (70-110)
[2022-07-08] VITALS (15 sets, daily range): BP systolic 93–150; BP diastolic 54–75; PULSE 55–114; RESP 15–20; TEMP 36.4–36.7; O2SAT 92–98
[2022-07-08] MEDS: FUROsemide 10 mg/mL SDV 4mL 40 MG IVP ×2 (06:16→17:29)
[2022-07-08 06:35] LABS: Glucose Point of Care 321 mg/dL (70-110)
[2022-07-08] MEDS: lisinopril 2.5 mg Tablet PO (08:37)
[2022-07-08] MEDS: insulin lispro 100 unit/1 mL SUBCUT ×4 (08:37→20:19)
[2022-07-08] MEDS: tamsulosin 0.4 mg Capsule 0.8 MG PO (08:37)
[2022-07-08] MEDS: aspirin 81 mg EC Tablet PO (08:37)
[2022-07-08] MEDS: ipratropium-albuterol 3 mL Neb INHALATION ×4 (08:45→20:58)
[2022-07-08] MEDS: budesonide 0.5 mg/2 mL Neb INHALATION ×2 (08:45→20:57)
--- NOTE | 2022-07-08 10:30 | PC.SOCIAL ---
IMM Update pg 2 of IMM Updated and reviewed w/ patient. Copy provided and copy in chart dated, and initialed.
[2022-07-08 11:31] LABS: Glucose Point of Care 419 mg/dL (70-110)
--- NOTE | 2022-07-08 16:01 | P.PN_ITS ---
Subjective Subjective: Started on trial of IV Lasix yesterday, breathing appears to be improved today. Patient is less tachypneic, able to hold a conversation and complete sentences. He has not yet been able to provide a sputum for testing, refused to do sputum this morning. Medications: Reviewed: Yes Vitals/I&O/Wt Last Vital Signs Temp 97.8 F 07/08/22 15:43 Pulse 77 07/08/22 15:54 Resp 18 07/08/22 15:46 BP 150/64 07/08/22 12:00 Pulse Ox 93 07/08/22 15:46 O2 Del Method Nasal Cannula 07/08/22 15:46 O2 Flow Rate 2 07/08/22 15:46 07/08/22 07/08/22 07/08/22 06:59 14:59 22:59 Intake Total 120 / 1560 600 / 600 Output Total 1125 / 1125 650 / 650 Balance -1005 / 435 -50 / -50 Physical Exam Narrative: General: No acute distress, AO x3 HEENT: PERRLA, pupils bilaterally equal and reactive, pallors not present Chest: Normal vesicular breath sounds, no added sounds, equal good air entry bilaterally CVS: S1-S2 regular, no murmurs, no tachycardia, no gallops, no rubs Abdomen: Soft, nontender, no organomegaly, bowel sounds present Neuro: No focal deficits, no facial deformity, AO x3, power 5/5 in all limbs Data 07/07/22 03:19 07/07/22 03:19 A&P Assessment and plan (1) COPD (chronic obstructive pulmonary disease): Acute COPD exacerbation Multiple recurrent admissions Continue duoneb and budesonide scheduled inhalations CXR repeated today due to increasing leukocytsosi- shows interval improvement He is afebrile, suspect leukocytsois worsened due to high dose steroids Currently on Solu-Medrol 60mg iv TID ---> breathing appears to be improving today change to prednisone 40 mg p.o. twice daily Since starting trial of lasix 40mg iv q12h for suspected increased right heart pressures, patient appears to be improving clinically. he is less tachypneic today. Able to ambulate more. Able to hold a conversation. monitor I/O recent TTEs have been unable to assess rigth sided pressures, technically diffuclt study Patient on presumptive bactrim due to suspected PJP however suboptimal dosing at 1tab TID and developing complications of hyponatremia and hyperkalemia from this. Bactrim has been discontinued. Currently lower suspicion for PJP given lack of characteristic infiltrates. However given he is on chronic steroids, cannot exclude this possibility. Bactrim has been changed to atovaquone 750 mg p.o. twice daily BDG elevated at 76, very non specific, typically expect level > 500 in PJP will check PJP PCR from induced sputum, patient refused to do sputum testing today, after extensively explaining the need to exclude pneumocystis as a contributing factor here, he is agreeable to proceed. Qualifiers: COPD type: emphysema Emphysema type: panlobular Qualified Code(s): J43.1 - Panlobular emphysema (2) Respiratory failure with hypoxia and hypercapnia: Management as above Qualifiers: Chronicity: acute on chronic Qualified Code(s): J96.21 - Acute and chronic respiratory failure with hypoxia; J96.22 - Acute and chronic respiratory failure with hypercapnia; J96.22 - Acute and chronic respiratory failure with hypercapnia (3) Cardiomyopathy: Status post cardiac cath on 07/03 Cardiology has signed off Continue lisinopril (4) Depression, controlled: Continue Elavil Continue venlafaxine (5) Chronic low back pain: Tramadol as needed Qualifiers: Back pain laterality: midline Sciatica presence: without sciatica Qualified Code(s): M54.5 - Low back pain; G89.29 - Other chronic pain (6) Peripheral neuropathy: Continue to monitor (7) Diabetes mellitus type 2, noninsulin dependent: Sliding-scale insulin correction, change from low dose to high dose scale (8) Dyslipidemia: Continue statin Plan DVT prophylaxis: SCD CODE STATUS: Full code Attestations Medical Necessity Statement*: change iv to po steroids, continue iv lasix, check electrolytes and cr, change to high dose insulin Coding Level of Care Code Acute Code for [facility] Fwd Diagnoses COPD (chronic obstructive pulmonary disease) J43.1 COPD type: emphysema Emphysema type: panlobular Respiratory failure with hypoxia and hypercapnia J96.21; J96.22; J96.22 Chronicity: acute on chronic Cardiomyopathy I42.9 Depression, controlled F32.9 Chronic low back pain M54.5; G89.29 Back pain laterality: midline Sciatica presence: without sciatica Peripheral neuropathy G62.9 Diabetes mellitus type 2, noninsulin dependent E11.9 Dyslipidemia E78.5
[2022-07-08 17:18] LABS: Glucose Point of Care 291 mg/dL (70-110)
[2022-07-08] MEDS: predniSONE 20 mg Tablet 40 MG PO (17:29)
[2022-07-08 20:14] LABS: Glucose Point of Care 255 mg/dL (70-110)
[2022-07-08] MEDS: atorvastatin 40 mg Tablet 20 MG PO (20:19)
[2022-07-08] MEDS: amitriptyline 25 mg Tablet PO (20:19)
[2022-07-09] VITALS (16 sets, daily range): BP systolic 90–142; BP diastolic 50–78; PULSE 78–115; RESP 16–18; TEMP 36.4–37.1; O2SAT 92–98
[2022-07-09] MEDS: acetaminophen 500 mg Tablet PO (00:45)
[2022-07-09] MEDS: TRAMadol 50 mg Tablet PO (00:45)
[2022-07-09 05:10] LABS: Basophils # 0.1 10^3/uL (0.0-0.1); Basophils % 0.2 %; Hematocrit 38.3 % (42.0-52.0); Lymphocytes % 3.8 %; Mean Corpuscular HGB Conc 31.3 g/dL (30.0-36.0); Mean Corpuscular Hemoglobin 28.1 pg (28.0-34.0); Mean Corpuscular Volume 89.7 fl (80-94); Mean Platelet Volume 9.2 fL (7.4-10.4); Monocytes # 0.8 10^3/uL (0.2-0.9); Neutrophils # 23.13 10^3/uL (1.8-7.7); Neutrophils % 90.6 %; Nucleated Red Blood Cells % 0 %; Platelet Count 339 10^3/cmm (130-400); Red Blood Count 4.27 10^6/uL (4.1-5.3); Red Cell Distribution Width 12.6 % (12.1-15.1); White Blood Count 25.6 10^3/uL (4.0-10.0)
[2022-07-09 05:24] LABS: Alanine Aminotransferase 30 U/L (0-41); Albumin Level 3.3 g/dL (3.5-5.2); Alkaline Phosphatase 71 U/L (40-130); Aspartate Amino Transferase 12 U/L (0-40); Blood Urea Nitrogen 49 mg/dL (8-23); Calcium 9.4 mg/dL (8.5-10.5); Carbon Dioxide 31 mmol/L (22-29); Chloride 88 mmol/L (98-107); Globulin 2.3 g/dL (1.3-4.6); Glucose 326 mg/dL (65-115); Osmolality Calculated 290 mOsm/kg (285-295); Sodium 127 mmol/L (136-145); Total Bilirubin 0.4 mg/dL (0.15-1.2); Total Protein 5.6 g/dL (6.6-8.7)
--- NOTE | 2022-07-09 06:11 | PC.NURSE ---
pt bp 99/57, dr booker notified d/t pt having scheduled 40mg lasix due. dr order given to hold this dose.
[2022-07-09 06:20] LABS: Glucose Point of Care 381 mg/dL (70-110)
[2022-07-09] MEDS: ipratropium-albuterol 3 mL Neb INHALATION ×4 (07:26→21:29)
[2022-07-09] MEDS: budesonide 0.5 mg/2 mL Neb INHALATION ×2 (07:26→21:29)
[2022-07-09] MEDS: aspirin 81 mg EC Tablet PO (08:38)
[2022-07-09] MEDS: tamsulosin 0.4 mg Capsule 0.8 MG PO (08:39)
[2022-07-09] MEDS: lisinopril 2.5 mg Tablet PO (08:39)
[2022-07-09] MEDS: venlafaxine ER (24HR) 150 mg Capsule PO (08:39)
[2022-07-09] MEDS: insulin lispro 100 unit/1 mL SUBCUT ×4 (08:39→20:44)
[2022-07-09] MEDS: predniSONE 20 mg Tablet 40 MG PO ×2 (08:39→17:19)
[2022-07-09 11:57] LABS: Glucose Point of Care 332 mg/dL (70-110)
[2022-07-09 16:38] LABS: Glucose Point of Care 327 mg/dL (70-110)
[2022-07-09] MEDS: amitriptyline 25 mg Tablet PO (20:39)
[2022-07-09] MEDS: atorvastatin 40 mg Tablet 20 MG PO (20:39)
[2022-07-09 20:45] LABS: Glucose Point of Care 266 mg/dL (70-110)
--- NOTE | 2022-07-09 23:34 | PM.PN ---
Subjective Subjective: Patient's breathing is improving ,he feels subjectively better . Urine output is not accurately charted. improving leukocytosis, worsening renal function Medications: Reviewed: Yes Vitals/I&O/Wt Last Vital Signs Temp 98.1 F 07/09/22 19:23 Pulse 107 H 07/09/22 21:38 Resp 18 07/09/22 20:00 BP 127/64 07/09/22 19:23 Pulse Ox 92 07/09/22 20:00 O2 Del Method Nasal Cannula 07/09/22 20:00 O2 Flow Rate 2 07/09/22 20:00 07/09/22 07/09/22 07/10/22 14:59 22:59 06:59 Intake Total 960 / 960 480 / 1440 Balance 960 / 960 480 / 1440 Physical Exam Narrative: General: No acute distress, AO x3 HEENT: PERRLA, pupils bilaterally equal and reactive, pallors not present Chest: Normal vesicular breath sounds, no added sounds, equal good air entry bilaterally CVS: S1-S2 regular, no murmurs, no tachycardia, no gallops, no rubs Abdomen: Soft, nontender, no organomegaly, bowel sounds present Neuro: No focal deficits, no facial deformity, AO x3, power 5/5 in all limbs Data 07/09/22 04:25 07/09/22 04:25 Micro: Microbiology 07/08/22 15:52 Gram Stain - Final Sputum - Expectorated Sputum Sputum Culture - Preliminary A&P Assessment and plan (1) COPD (chronic obstructive pulmonary disease): Acute COPD exacerbation Multiple recurrent admissions Continue duoneb and budesonide scheduled inhalations CXR repeated today due to increasing leukocytsosi- shows interval improvement He is afebrile, suspect leukocytsois worsened due to high dose steroids Currently on Solu-Medrol 60mg iv TID ---> breathing appears to be improving today change to prednisone 40 mg p.o. twice daily Since starting trial of lasix 40mg iv q12h for suspected increased right heart pressures, patient appears to be improving clinically. he is less tachypneic today. Able to ambulate more. Able to hold a conversation. monitor I/O recent TTEs have been unable to assess rigth sided pressures, technically diffuclt study Patient on presumptive bactrim due to suspected PJP however suboptimal dosing at 1tab TID and developing complications of hyponatremia and hyperkalemia from this. Bactrim has been discontinued. Currently lower suspicion for PJP given lack of characteristic infiltrates. However given he is on chronic steroids, cannot exclude this possibility. Bactrim has been changed to atovaquone 750 mg p.o. twice daily BDG elevated at 76, very non specific, typically expect level > 500 in PJP will check PJP PCR from induced sputum, patient refused to do sputum testing today, after extensively explaining the need to exclude pneumocystis as a contributing factor here, he is agreeable to proceed. Qualifiers: COPD type: emphysema Emphysema type: panlobular Qualified Code(s): J43.1 - Panlobular emphysema (2) Respiratory failure with hypoxia and hypercapnia: Management as above Qualifiers: Chronicity: acute on chronic Qualified Code(s): J96.21 - Acute and chronic respiratory failure with hypoxia; J96.22 - Acute and chronic respiratory failure with hypercapnia; J96.22 - Acute and chronic respiratory failure with hypercapnia (3) Cardiomyopathy: Status post cardiac cath on 07/03 Cardiology has signed off Continue lisinopril (4) Depression, controlled: Continue Elavil Continue venlafaxine (5) Chronic low back pain: Tramadol as needed Qualifiers: Back pain laterality: midline Sciatica presence: without sciatica Qualified Code(s): M54.5 - Low back pain; G89.29 - Other chronic pain (6) Peripheral neuropathy: Continue to monitor (7) Diabetes mellitus type 2, noninsulin dependent: Sliding-scale insulin correction, change from low dose to high dose scale (8) Dyslipidemia: Continue statin Plan DVT prophylaxis: SCD CODE STATUS: Full code Plan for today: Hold lasix given worsening renal function, cr up to 1.5, closely monitor renal function. NA still at 127. pending PJP PCR. Attestations Medical Necessity Statement*: Hold lasix, monitor renal function with holding lasix and off bactrim Coding Level of Care Code Acute Code for [facility] Fwd Diagnoses COPD (chronic obstructive pulmonary disease) J43.1 COPD type: emphysema Emphysema type: panlobular Respiratory failure with hypoxia and hypercapnia J96.21; J96.22; J96.22 Chronicity: acute on chronic Cardiomyopathy I42.9 Depression, controlled F32.9 Chronic low back pain M54.5; G89.29 Back pain laterality: midline Sciatica presence: without sciatica Peripheral neuropathy G62.9 Diabetes mellitus type 2, noninsulin dependent E11.9 Dyslipidemia E78.5
[2022-07-10] VITALS (16 sets, daily range): BP systolic 107–154; BP diastolic 51–83; PULSE 58–113; RESP 16–22; TEMP 36.5–37; O2SAT 93–99
[2022-07-10 06:32] LABS: Glucose Point of Care 275 mg/dL (70-110)
[2022-07-10] MEDS: insulin glargine 100 units/1 mL 10 UNIT SUBCUT (06:45)
[2022-07-10 06:51] LABS: Basophils % 0.2 %; Hematocrit 40.4 % (42.0-52.0); Lymphocytes # 1.4 10^3/uL (0.8-4.8); Lymphocytes % 6.4 %; Mean Corpuscular HGB Conc 32.2 g/dL (30.0-36.0); Mean Corpuscular Hemoglobin 29.1 pg (28.0-34.0); Mean Corpuscular Volume 90.4 fl (80-94); Mean Platelet Volume 8.9 fL (7.4-10.4); Monocytes % 4.4 %; Neutrophils # 18.82 10^3/uL (1.8-7.7); Neutrophils % 86.8 %; Nucleated Red Blood Cells % 0 %; Platelet Count 314 10^3/cmm (130-400); Red Blood Count 4.47 10^6/uL (4.1-5.3); Red Cell Distribution Width 12.7 % (12.1-15.1); White Blood Count 21.7 10^3/uL (4.0-10.0)
[2022-07-10 07:08] LABS: Estmated Average Glucose 206; Hemoglobin A1C 8.8 % (4.0-6.0)
[2022-07-10 07:11] LABS: Alanine Aminotransferase 32 U/L (0-41); Albumin Level 3.3 g/dL (3.5-5.2); Alkaline Phosphatase 73 U/L (40-130); Blood Urea Nitrogen 32 mg/dL (8-23); Calcium 8.9 mg/dL (8.5-10.5); Carbon Dioxide 33 mmol/L (22-29); Chloride 90 mmol/L (98-107); Creatinine Clr Calc Pharmacy 85.5805; Globulin 2.5 g/dL (1.3-4.6); Glucose 279 mg/dL (65-115); Osmolality Calculated 287 mOsm/kg (285-295); Sodium 130 mmol/L (136-145); Total Bilirubin 0.5 mg/dL (0.15-1.2); Total Protein 5.8 g/dL (6.6-8.7)
[2022-07-10 07:16] LABS: Anion Gap 12.3 (5-19); Aspartate Amino Transferase 14 U/L (0-40); Potassium 5.3 mmol/L (3.5-5.1)
[2022-07-10] MEDS: budesonide 0.5 mg/2 mL Neb INHALATION ×2 (07:56→21:04)
[2022-07-10] MEDS: ipratropium-albuterol 3 mL Neb INHALATION ×4 (07:56→21:04)
[2022-07-10] MEDS: insulin lispro 100 unit/1 mL SUBCUT ×4 (08:07→22:09)
[2022-07-10] MEDS: aspirin 81 mg EC Tablet PO (09:35)
[2022-07-10] MEDS: lisinopril 2.5 mg Tablet PO (09:35)
[2022-07-10] MEDS: predniSONE 20 mg Tablet 40 MG PO ×2 (09:43→17:18)
[2022-07-10] MEDS: tamsulosin 0.4 mg Capsule 0.8 MG PO (09:44)
--- NOTE | 2022-07-10 10:26 | PC.SOCIAL ---
IMM Updated Updated pt on IMM. No questions voiced. Provided pt a copy. Initialed, dated, & timed copy in chart.
[2022-07-10 12:17] LABS: Glucose Point of Care 296 mg/dL (70-110)
--- NOTE | 2022-07-10 15:29 | P.PN_ITS ---
Subjective Subjective: Patient is more short of breath today since holding his Lasix. He is dyspneic in conversation. Oxygen requirement is stable at 2 L/min. Medications: Reviewed: Yes Vitals/I&O/Wt Last Vital Signs Temp 98.1 F 07/10/22 11:53 Pulse 96 07/10/22 11:53 Resp 17 07/10/22 11:53 BP 151/69 07/10/22 11:53 Pulse Ox 94 07/10/22 11:53 O2 Del Method Nasal Cannula 07/10/22 11:14 O2 Flow Rate 2 07/10/22 11:14 07/10/22 07/10/22 07/10/22 06:59 14:59 22:59 Intake Total 120 / 1560 260 / 260 Output Total 475 / 475 Balance 120 / 1560 -215 / -215 Physical Exam Narrative: General: No acute distress, AO x3 HEENT: PERRLA, pupils bilaterally equal and reactive, pallors not present Chest: Normal vesicular breath sounds, no added sounds, equal good air entry bilaterally CVS: S1-S2 regular, no murmurs, no tachycardia, no gallops, no rubs Abdomen: Soft, nontender, no organomegaly, bowel sounds present Neuro: No focal deficits, no facial deformity, AO x3, power 5/5 in all limbs Data 07/10/22 06:29 07/10/22 06:29 Micro: Microbiology 07/08/22 15:52 Gram Stain - Final Sputum - Expectorated Sputum Sputum Culture - Final A&P Assessment and plan (1) COPD (chronic obstructive pulmonary disease): Acute COPD exacerbation Multiple recurrent admissions Continue duoneb and budesonide scheduled inhalations Leukocytosis is improving Continue prednisone 40 mg p.o. twice daily Since starting trial of lasix 40mg iv q12h for suspected increased right heart pressures, patient appears to be improving clinically. Lasix was held on July 09, 2022 due to development of JEANNETTE with creatinine bump to 1.5. Creatinine has now normalized today at 0.9. Hyponatremia is also improving. We will restart Lasix since patient is dyspneic after discontinuation of this medication. 40 mg IV Lasix today. Thereafter followed by 40 mg p.o. every 12 hours. recent TTEs have been unable to assess rigth sided pressures, technically diffuclt study Patient was on presumptive bactrim due to suspected PJP however developed complications of hyponatremia, JEANNETTE and hyperkalemia from this. Bactrim has been discontinued. Currently lower suspicion for PJP given lack of characteristic infiltrates. However given he is on chronic steroids, cannot exclude this possibility altogether. Bactrim has been changed to atovaquone 750 mg p.o. twice daily. BDG elevated at 76, very non specific, typically expect level > 500 in PJP Sputum culture and Gram stain is negative. PJP PCR has been ordered, however it appears that the induced sputum sent to the lab has been drawn for a sputum Gram stain and culture without being PCP testing performed. I have reached out to the lab today to get this testing facilitated. Qualifiers: COPD type: emphysema Emphysema type: panlobular Qualified Code(s): J43.1 - Panlobular emphysema (2) Respiratory failure with hypoxia and hypercapnia: Management as above Qualifiers: Chronicity: acute on chronic Qualified Code(s): J96.21 - Acute and chronic respiratory failure with hypoxia; J96.22 - Acute and chronic respiratory failure with hypercapnia; J96.22 - Acute and chronic respiratory failure with hypercapnia (3) Cardiomyopathy: Status post cardiac cath on 07/03 Cardiology has signed off Continue lisinopril (4) Depression, controlled: Continue Elavil Continue venlafaxine (5) Chronic low back pain: Tramadol as needed Qualifiers: Back pain laterality: midline Sciatica presence: without sciatica Qualified Code(s): M54.5 - Low back pain; G89.29 - Other chronic pain (6) Peripheral neuropathy: Continue to monitor (7) Diabetes mellitus type 2, noninsulin dependent: Sliding-scale insulin correction, change from low dose to high dose scale Lantus 10 units daily was added this morning. HbA1c of 8.8. With increase Lantus to 15 units every morning. (8) Dyslipidemia: Continue statin Plan DVT prophylaxis: SCD CODE STATUS: Full code Attestations Medical Necessity Statement*: more dyspneic today since holding Lasix. resume today. Awaiting PJP PCR Coding Level of Care Code Acute Code for [facility] Fwd Diagnoses COPD (chronic obstructive pulmonary disease) J43.1 COPD type: emphysema Emphysema type: panlobular Respiratory failure with hypoxia and hypercapnia J96.21; J96.22; J96.22 Chronicity: acute on chronic Cardiomyopathy I42.9 Depression, controlled F32.9 Chronic low back pain M54.5; G89.29 Back pain laterality: midline Sciatica presence: without sciatica Peripheral neuropathy G62.9 Diabetes mellitus type 2, noninsulin dependent E11.9 Dyslipidemia E78.5
[2022-07-10] MEDS: FUROsemide 10 mg/mL SDV 4mL 40 MG IVP (15:48)
[2022-07-10 17:05] LABS: Glucose Point of Care 352 mg/dL (70-110)
[2022-07-10] MEDS: TRAMadol 50 mg Tablet PO (20:06)
[2022-07-10] MEDS: atorvastatin 40 mg Tablet 20 MG PO (20:06)
[2022-07-10] MEDS: amitriptyline 25 mg Tablet PO (20:06)
[2022-07-10 21:16] LABS: Glucose Point of Care 270 mg/dL (70-110)
[2022-07-11] VITALS (17 sets, daily range): BP systolic 118–153; BP diastolic 58–78; PULSE 52–104; RESP 16–27; TEMP 36.2–36.8; O2SAT 91–99
[2022-07-11] MEDS: FUROsemide 40 mg Tablet PO ×2 (05:09→17:29)
[2022-07-11] MEDS: insulin glargine 100 units/1 mL 15 UNIT SUBCUT (05:11)
[2022-07-11 05:53] LABS: Alanine Aminotransferase 37 U/L (0-41); Albumin Level 3.6 g/dL (3.5-5.2); Alkaline Phosphatase 76 U/L (40-130); Aspartate Amino Transferase 15 U/L (0-40); Blood Urea Nitrogen 26 mg/dL (8-23); Calcium 9.1 mg/dL (8.5-10.5); Carbon Dioxide 36 mmol/L (22-29); Chloride 93 mmol/L (98-107); Creatinine Clr Calc Pharmacy 85.5805; Globulin 1.8 g/dL (1.3-4.6); Glucose 231 mg/dL (65-115); Osmolality Calculated 292 mOsm/kg (285-295); Sodium 135 mmol/L (136-145); Total Bilirubin 0.5 mg/dL (0.15-1.2); Total Protein 5.4 g/dL (6.6-8.7)
[2022-07-11 06:47] LABS: Glucose Point of Care 238 mg/dL (70-110)
[2022-07-11] MEDS: ipratropium-albuterol 3 mL Neb INHALATION ×4 (07:31→21:19)
[2022-07-11] MEDS: budesonide 0.5 mg/2 mL Neb INHALATION ×2 (07:31→21:19)
[2022-07-11] MEDS: lisinopril 2.5 mg Tablet PO (08:47)
[2022-07-11] MEDS: aspirin 81 mg EC Tablet PO (08:47)
[2022-07-11] MEDS: venlafaxine ER (24HR) 150 mg Capsule PO (08:47)
[2022-07-11] MEDS: tamsulosin 0.4 mg Capsule 0.8 MG PO (08:47)
[2022-07-11] MEDS: predniSONE 20 mg Tablet 40 MG PO ×2 (08:48→17:29)
[2022-07-11] MEDS: insulin lispro 100 unit/1 mL SUBCUT ×4 (08:51→22:26)
[2022-07-11 11:56] LABS: Glucose Point of Care 228 mg/dL (70-110)
--- NOTE | 2022-07-11 16:43 | PM.PN ---
Subjective Subjective: improving today since resuming lasix, less tachypneic. Scattered wheezing to auscultation left lung Medications: Reviewed: Yes Vitals/I&O/Wt Last Vital Signs Temp 98.1 F 07/11/22 15:51 Pulse 76 07/11/22 15:51 Resp 18 07/11/22 15:51 BP 132/71 07/11/22 15:51 Pulse Ox 95 07/11/22 15:51 O2 Del Method Nasal Cannula 07/11/22 15:51 O2 Flow Rate 2 07/11/22 15:19 07/11/22 07/11/22 07/11/22 06:59 14:59 22:59 Intake Total 960 / 960 Output Total 400 / 875 900 / 900 Balance -400 / -135 60 / 60 Physical Exam Narrative: General: No acute distress, AO x3 HEENT: PERRLA, pupils bilaterally equal and reactive, pallors not present Chest: Normal vesicular breath sounds, no added sounds, equal good air entry bilaterally CVS: S1-S2 regular, no murmurs, no tachycardia, no gallops, no rubs Abdomen: Soft, nontender, no organomegaly, bowel sounds present Neuro: No focal deficits, no facial deformity, AO x3, power 5/5 in all limbs Extremities: no edema, clubbing, cyanosis Data 07/10/22 06:29 07/11/22 05:07 Micro: Microbiology 07/08/22 15:52 Gram Stain - Final Sputum - Expectorated Sputum Sputum Culture - Final A&P Assessment and plan (1) COPD (chronic obstructive pulmonary disease): Acute COPD exacerbation Multiple recurrent admissions Continue duoneb and budesonide scheduled inhalations Continue prednisone 40 mg p.o. twice daily Continue Lasix 40mg po BID Creatinine has now normalized today at 0.9. Hyponatremia is resolved now at 135. recent TTEs have been unable to assess rigth sided pressures, technically diffuclt study. Continue atovaquone 750 mg p.o. twice daily. while pending PJP PCR BDG elevated at 76, very non specific, typically expect level > 500 in PJP Sputum culture and Gram stain is negative. Qualifiers: COPD type: emphysema Emphysema type: panlobular Qualified Code(s): J43.1 - Panlobular emphysema (2) Respiratory failure with hypoxia and hypercapnia: Management as above Qualifiers: Chronicity: acute on chronic Qualified Code(s): J96.21 - Acute and chronic respiratory failure with hypoxia; J96.22 - Acute and chronic respiratory failure with hypercapnia; J96.22 - Acute and chronic respiratory failure with hypercapnia (3) Cardiomyopathy: Status post cardiac cath on 07/03 Cardiology has signed off Continue lisinopril (4) Depression, controlled: Continue Elavil Continue venlafaxine (5) Chronic low back pain: Tramadol as needed Qualifiers: Back pain laterality: midline Sciatica presence: without sciatica Qualified Code(s): M54.5 - Low back pain; G89.29 - Other chronic pain (6) Peripheral neuropathy: Continue to monitor (7) Diabetes mellitus type 2, noninsulin dependent: Sliding-scale insulin correction, change from low dose to high dose scale Lantus 10 units daily was added this morning. HbA1c of 8.8. continue Lantus to 15 units every morning. blood sugar better controlled (8) Dyslipidemia: Continue statin Plan DVT prophylaxis: SCD CODE STATUS: Full code Attestations Medical Necessity Statement*: continue po lasix and po prednisone today, if continues to do well on po meddications, planned discharge over next 24 hrs Coding Level of Care Code Acute Code for [facility] Diagnoses COPD (chronic obstructive pulmonary disease) J43.1 COPD type: emphysema Emphysema type: panlobular Respiratory failure with hypoxia and hypercapnia J96.21; J96.22; J96.22 Chronicity: acute on chronic Cardiomyopathy I42.9 Depression, controlled F32.9 Chronic low back pain M54.5; G89.29 Back pain laterality: midline Sciatica presence: without sciatica Peripheral neuropathy G62.9 Diabetes mellitus type 2, noninsulin dependent E11.9 Dyslipidemia E78.5
[2022-07-11 17:06] LABS: Glucose Point of Care 259 mg/dL (70-110)
[2022-07-11 17:14] LABS: Histoplasma Galactomannan Ag <0.2 ng/mL
[2022-07-11] MEDS: FUROsemide 10 mg/mL SDV 2mL 20 MG IVP (17:29)
[2022-07-11] MEDS: amitriptyline 25 mg Tablet PO (21:43)
[2022-07-11] MEDS: atorvastatin 40 mg Tablet 20 MG PO (21:43)
[2022-07-11 21:48] LABS: Glucose Point of Care 259 mg/dL (70-110)
[2022-07-12] VITALS (7 sets, daily range): BP systolic 126–148; BP diastolic 68–88; PULSE 57–111; RESP 15–16; TEMP 36.5–36.7; O2SAT 95–99
[2022-07-12] MEDS: TRAMadol 50 mg Tablet PO (00:34)
[2022-07-12] MEDS: FUROsemide 40 mg Tablet PO (05:19)
[2022-07-12] MEDS: insulin glargine 100 units/1 mL 15 UNIT SUBCUT (06:45)
[2022-07-12 06:48] LABS: Glucose Point of Care 211 mg/dL (70-110)
[2022-07-12] MEDS: ipratropium-albuterol 3 mL Neb INHALATION ×2 (07:36→11:20)
[2022-07-12] MEDS: budesonide 0.5 mg/2 mL Neb INHALATION (07:36)
[2022-07-12] MEDS: tamsulosin 0.4 mg Capsule 0.8 MG PO (08:34)
[2022-07-12] MEDS: lisinopril 2.5 mg Tablet PO (08:34)
[2022-07-12] MEDS: predniSONE 20 mg Tablet 40 MG PO (08:34)
[2022-07-12] MEDS: aspirin 81 mg EC Tablet PO (08:34)
[2022-07-12] MEDS: insulin lispro 100 unit/1 mL SUBCUT (08:34)
--- NOTE | 2022-07-12 09:45 | P.DS_ITS ---
Discharge Providers Date of Admission: 07/01/22 20:38 Date of Discharge: July 12, 2022 Attending Provider at Admission: Mickie Wall MD Attending Provider at Discharge: Katerin Benton MD Primary Care Provider: Courtney Reich DO Diagnoses at Discharge Discharge Diagnosis (1) COPD (chronic obstructive pulmonary disease): Status: Chronic Qualifiers: COPD type: emphysema Emphysema type: panlobular Qualified Code(s): J43.1 - Panlobular emphysema (2) Respiratory failure with hypoxia and hypercapnia: Status: Chronic Qualifiers: Chronicity: acute on chronic Qualified Code(s): J96.21 - Acute and chronic respiratory failure with hypoxia; J96.22 - Acute and chronic respiratory failure with hypercapnia; J96.22 - Acute and chronic respiratory failure with hypercapnia (3) Cardiomyopathy: Status: Acute (4) Depression, controlled: Status: Chronic (5) Chronic low back pain: Status: Chronic Qualifiers: Back pain laterality: midline Sciatica presence: without sciatica Qualified Code(s): M54.5 - Low back pain; G89.29 - Other chronic pain (6) Peripheral neuropathy: Status: Chronic Permanent problem details: Primarily involving hands, related to ulnar nerve interventions (7) Diabetes mellitus type 2, noninsulin dependent: Status: Chronic (8) Dyslipidemia: Status: Chronic Reason for Visit Reason for Visit: SOB Hospital Course Hospital Course Hernan Beckman JR is a 71 year old male with past medical history of BPH, chronic low back pain, migraine, diabetes type 2, COPD 2 L of oxygen at home, depression, peripheral neuropathy-presented to ED on 06/23/2022 for worsening shortness of breath associated with sputum production.? He had several hospital admissions for COPD exacerbation associated with recurrent pneumonia. He is currently admitted since 07/01 after presenting with worsening dyspnea. He was admitted to the hospital in view of acute on chronic hypoxic respiratory failure, mutlifactorial related to COPD exacerbation, CHF with reduced ejection fraction, acute on chronic. Recently he had an sestamibi examination did not reveal any ischemia and showed a small reversible defect in the LAD.?He underwent coronary angiogram. Please see matlab developer report for details. Lisinopril was added to his regimen. He has not had any chest pain thereafter. Other hospital course as below: (1) COPD (chronic obstructive pulmonary disease): Acute COPD exacerbation Multiple recurrent admissions Continued duoneb and budesonide inhalation in the hospital Continued prednisone 40 mg p.o. twice daily at discharge Continue Lasix 40mg po BID at discharge, added for suspecon for right heart failue. IVC dilated. Echo unable to estimate right sided pressures. Clinically symptomatically much improved with addition of lasix. Follow up with cardiology NETWORK PROFESSIONAL in one week. Creatinine has now normalized today at 0.9.? Hyponatremia is resolved now at 135. recent TTEs have been unable to assess rigth sided pressures, technically diffuclt study. Continue atovaquone 750 mg p.o. twice daily. while pending PJP PCR. Lower suspiscion now. Will follow up pending results. BDG elevated at 76, very non specific, typically expect level > 500 in PJP Sputum culture and Gram stain is negative. ? ? (2) Respiratory failure with hypoxia and hypercapnia: Management as above multifactorial ? ? (3) Cardiomyopathy: Status post cardiac cath on 07/03 Continue lisinopril (4) Depression, controlled: Continue Elavil Continue venlafaxine (5) Chronic low back pain: Tramadol as needed ? ? (7) Diabetes mellitus type 2, noninsulin dependent: Sliding-scale insulin correction, change from low dose to high dose scale ? HbA1c of 8.8. Follow up with PCP For better glycemic cotnrol (8) Dyslipidemia: Continue statin Physical Exam Narrative: General: No acute distress, AO x3 HEENT: PERRLA, pupils bilaterally equal and reactive, pallors not present Chest: Normal vesicular breath sounds, no added sounds, equal good air entry bilaterally CVS: S1-S2 regular, no murmurs, no tachycardia, no gallops, no rubs Abdomen: Soft, nontender, no organomegaly, bowel sounds present Neuro: No focal deficits, no facial deformity, AO x3, power 5/5 in all limbs Extremities: no edema, clubbing or cyanosis Discharge Data Studies Completed and Pending Completed Studies During Hospitalization Category Date Time Status CT chest wo con [id number] Routine Cat Scan 07/02/22 06:42 Completed APPAREL PATTERN MAKER request for service Routine Exams 07/03/22 06:00 Completed CXRP [XR chest 1V portable [id number]] Stat Exams 07/07/22 16:12 Completed XR chest 1V portable [id number] Stat Exams 07/01/22 15:36 Completed Pending at discharge Category Date Time Status Pneumocystis jiroveci Qual PCR Routine Lab 07/10/22 13:55 Received Radiology Impressions Chest CT 07/02/22 06:42 IMPRESSION: 1. Improving bilateral pulmonary infiltrates compared to June 25, 2022. 2. Chronic emphysematous changes. 3. No pleural fluid. 4. Vascular calcification including coronary. 5. No other significant interval changes. Chest X-Ray 07/07/22 16:12 IMPRESSION: Continued interval improvement in the chest from 07/01/2022 exam suggesting interval improvement in pneumonia with minimal residual linear type opacity mid lateral right lung and left lung base which could indicate minimal residual and/or scarring. Laboratory Results WBC 21.7 10^3/uL (4.0-10.0) H 07/10/22 06:29 RBC 4.47 10^6/uL (4.1-5.3) 07/10/22 06:29 Hgb 13.0 g/dL (11.7-16.6) 07/10/22 06:29 Hct 40.4 % (42.0-52.0) L 07/10/22 06:29 MCV 90.4 fl (80-94) 07/10/22 06:29 MCH 29.1 pg (28.0-34.0) 07/10/22 06:29 MCHC 32.2 g/dL (30.0-36.0) 07/10/22 06:29 RDW 12.7 % (12.1-15.1) 07/10/22 06:29 Plt Count 314 10^3/cmm (130-400) 07/10/22 06:29 MPV 8.9 fL (7.4-10.4) 07/10/22 06:29 Neut % (Auto) 86.8 % 07/10/22 06:29 Lymph % (Auto) 6.4 % 07/10/22 06:29 [place] % (Auto) 4.4 % 07/10/22 06:29 Eos % (Auto) 0.0 % 07/10/22 06:29 Baso % (Auto) 0.2 % 07/10/22 06:29 Neut # (Auto) 18.82 10^3/uL (1.8-7.7) H 07/10/22 06:29 Lymph # (Auto) 1.4 10^3/uL (0.8-4.8) 07/10/22 06:29 [place] # (Auto) 1.0 10^3/uL (0.2-0.9) H 07/10/22 06:29 Eos # (Auto) 0.0 10^3/uL (0.0-0.8) 07/10/22 06:29 Baso # (Auto) 0.0 10^3/uL (0.0-0.1) 07/10/22 06:29 Nucleated RBC % (auto) 0 % 07/10/22 06:29 Total Counted 100 (0-100) 07/01/22 16:31 Atypical Lymphs % 0.0 % (0-5) 07/01/22 16:31 Absolute Neutrophils 12.3 10^3/cmm (1.4-6.5) H 07/01/22 16:31 Segmented Neutrophils 62 % 07/01/22 16:31 Abs Segm Neuts (Man) 12.3 10/cmm (1.6-7.1) H 07/01/22 16:31 Band Neutrophils 0.0 % 07/01/22 16:31 Abs Band Neuts (Man) 0.0 10^3/cmm (0.0-1.2) 07/01/22 16:31 Absolute Lymphocytes 3.6 10^3/cmm (1.2-3.4) H 07/01/22 16:31 Lymphocytes (Manual) 18 % 07/01/22 16:31 Monocytes (Manual) 11.0 % 07/01/22 16:31 Absolute Monocytes 2.2 10^3/cmm (0.1-0.6) H 07/01/22 16:31 Eosinophils (Manual) 6 % 07/01/22 16:31 Absolute Eosinophils 1.1 10^3/cmm (0.0-0.7) H 07/01/22 16:31 Basophils (Manual) 0.0 % 07/01/22 16: Absolute Basophils 0.0 10^3/cmm (0.0-0.2) 07/01/22 16:31 Metamyelocytes 1.0 % 07/01/22 16: Myelocytes 2.0 % 07/01/22 16:31 Nucleated RBCs # 0.0 /100WBC 07/10/22 06:29 Platelet Estimate Normal (Normal) 07/01/22 16:31 APTT 24.3 SECONDS (23.9-36.7) 07/03/22 09:39 Specimen Type Arterial 07/01/22 16:20 Sample Site Radial, left 07/01/22 16:20 ABG pH 7.44 (7.35-7.45) 07/01/22 16:20 ABG pCO2 58.5 mmHg (35-45) H 07/01/22 16:20 ABG pO2 85.6 mmHg (80.0-100.0) 07/01/22 16:20 ABG HCO3 40.1 mmol/L (22-26) H 07/01/22 16:20 ABG Base Excess 13.4 mmol/L (-2.0-2.0) H 07/01/22 16:20 Luis Fernando Test Pos 07/01/22 16:20 Hematocrit 40.8 % (42-52) L 07/01/22 16:20 O2 Delivery Device Nc 07/01/22 16:20 O2 Liters/Min 3.0 % 07/01/22 16:20 Stringed Instrument Assembler ID [place] 07/01/22 16:20 Sodium 135 mmol/L (136-145) L 07/11/22 05:07 Potassium 5.0 mmol/L (3.5-5.1) 07/11/22 05:07 Chloride 93 mmol/L (98-107) L 07/11/22 05:07 Carbon Dioxide 36 mmol/L (22-29) H 07/11/22 05:07 Anion Gap 11.0 (5-19) 07/11/22 05:07 BUN 26 mg/dL (8-23) H 07/11/22 05:07 Creatinine 0.9 mg/dL (0.7-1.2) 07/11/22 05:07 GFR Calculation Not Reportable 07/11/22 05:07 Glucose 231 mg/dL (65-115) H 07/11/22 05:07 POC Glucose 211 mg/dL (70-110) H 07/12/22 06:37 Estimat Average Glucose 206 07/10/22 06:29 Hemoglobin A1c 8.8 % (4.0-6.0) H 07/10/22 06:29 Calculated Osmolality 292 mOsm/kg (285-295) 07/11/22 05:07 Calcium 9.1 mg/dL (8.5-10.5) 07/11/22 05:07 Phosphorus 5.1 mg/dL (2.5-4.5) H 07/07/22 03:19 Magnesium 2.1 mg/dL (1.7-2.3) 07/05/22 03:13 Total Bilirubin 0.5 mg/dL (0.15-1.2) 07/11/22 05:07 AST 15 U/L (0-40) 07/11/22 05:07 ALT 37 U/L (0-41) 07/11/22 05:07 Alkaline Phosphatase 76 U/L (40-130) 07/11/22 05:07 Troponin T Baseline 28 ng/L (0-15) H 07/01/22 16:31 Troponin T 120 Minute 27.11 ng/L (0-15) H 07/01/22 18:06 Delta Troponin T -0.89 ABS# (0-10) L 07/01/22 18:06 Troponin T Hi Sens 6Hr 21.15 ng/L (0-15) H 07/01/22 22:13 Troponin T Hi Sens 6Hr Delta -6.85 ng/L (0-12) L 07/01/22 22:13 NT-Pro-B Natriuret Pep 260 pg/mL (0-125) H 07/01/22 16:31 Total Protein 5.4 g/dL (6.6-8.7) L 07/11/22 05:07 Albumin 3.6 g/dL (3.5-5.2) 07/11/22 05:07 Globulin 1.8 g/dL (1.3-4.6) 07/11/22 05:07 Procalcitonin 0.08 ng/mL (0-0.5) 07/01/22 16:31 U Histop Galact Ag Qnt <0.2 ng/mL 07/02/22 19:40 Vitals Last Vital Signs Temp 98.0 F 07/12/22 08:00 Pulse 61 07/12/22 08:00 Resp 15 07/12/22 08:00 BP 133/88 07/12/22 08:00 Pulse Ox 98 05/06/23 08:00 O2 Del Method Nasal Cannula 05/06/23 08:00 O2 Flow Rate 2 07/12/22 07:37 Discharge Plan Discharge Patient Disposition: Home Health Service Condition: Stable Prescriptions: New atovaquone 750 mg/5 mL suspension 750 mg PO Q12H Qty: 200 0RF Rx Instructions: must administer with food, preferably a high-fat meal lisinopril 2.5 mg Tablet 2.5 mg PO DAILY 30 Days Qty: 30 0RF Continued acetaminophen [Tylenol Extra Strength] 500 mg tablet 500 mg PO Q4H PRN (Reason: Pain) epinephrine 0.3 mg/0.3 mL auto-injector 0.3 mg IM ONCE PRN (Reason: Allergic Reaction) (DME) Four wheeled walker with a seat Qty: 1 0RF Rx Instructions: As directed albuterol sulfate 2.5 mg /3 mL (0.083 %) solution for nebulization 2.5 mg INHALATION BID PRN (Reason: Shortness Of Breath) prednisone 5 mg tablet 5 mg PO DAILY 90 Days Qty: 90 0RF Hold Instructions: Resume on 03/26/22. Flomax 0.4 mg capsule 0.8 mg PO DAILY Qty: 180 1RF budesonide [Pulmicort] 0.5 mg/2 mL suspension for nebulization 0.5 mg INHALATION BID Qty: 120 2RF Rx Instructions: NEEDS APPT PRIOR TO FURTHER REFILLS Perforomist 20 mcg/2 mL solution for nebulization 2 ml INHALATION Q12H 90 Days Qty: 120 2RF Rx Instructions: NEEDS APPT PRIOR TO FURTHER REFILLS albuterol sulfate 90 mcg/actuation HFA aerosol inhaler 2 inh inhalation Q6H PRN (Reason: shortness of breath or wheezing) Qty: 18 2RF Januvia 100 mg tablet 100 mg PO DAILY Qty: 90 1RF Rx Instructions: 340 B tramadol 50 mg tablet 50 mg PO TID PRN (Reason: pain) Qty: 90 0RF venlafaxine 150 mg capsule,extended release 24hr See Rx Instructions .ROUTE .COMPLEX Qty: 30 3RF Dose Instruction: TAKE 1 CAPSULE BY MOUTH EVERY DAY Rx Instructions: TAKE 1 CAPSULE BY MOUTH EVERY DAY Yupelri 175 mcg/3 mL solution for nebulization 175 mcg inhalation DAILY Qty: 90 2RF Rx Instructions: NEEDS APPT PRIOR TO FRUTHER REFILLS amitriptyline 25 mg tablet 25 mg PO BEDTIME aspirin 81 mg tablet,delayed release (DR/EC) 81 mg PO DAILY Qty: 30 0RF atorvastatin 20 mg tablet 20 mg PO BEDTIME azithromycin 250 mg tablet 250 mg PO EVERY OTHER DAY Men's Daily Gummies 200 mcg Tablet,Chewable 1 tab PO DAILY Changed furosemide 20 mg tablet 40 mg PO BIDWM Qty: 30 0RF Discharge Orders: Discharge Order (Routine); Ordered 07/12/22 Ordered By: Katerin Benton [place] [facility] [place] [Outside] Courtney Reich DO [Primary Care Provider] - 07/18/22 8:15 am () Bree Frye FNP [Nurse Practitioner] - 07/16/22 10:15 am Discharge Diet: Usual diet Discharge Activity: Resume usual activity Patient Instructions: Heart Catheterization (DC), Opioid Safety, Post Angiogram Home Care Instructions Discharge Attestations Time Spent in Discharge Care*: greater than 30 min Status at Discharge: Cognitive status at discharge: cognitively intact , Behavioral status at discharge: can be uncooperative and independent in ADL's , Quality Metrics Clinical Quality Measures [ No reported AMI, CVA or VTE this stay] Coding Level of Care Code Acute Code for [facility] Fwd Diagnoses COPD (chronic obstructive pulmonary disease) J43.1 COPD type: emphysema Emphysema type: panlobular Respiratory failure with hypoxia and hypercapnia J96.21; J96.22; J96.22 Chronicity: acute on chronic Cardiomyopathy I42.9 Depression, controlled F32.9 Chronic low back pain M54.5; G89.29 Back pain laterality: midline Sciatica presence: without sciatica Peripheral neuropathy G62.9 Diabetes mellitus type 2, noninsulin dependent E11.9 Dyslipidemia E78.5
--- NOTE | 2022-07-12 10:38 | PC.SOCIAL ---
IMM Update pg 2 of IMM updated and reviewed w/ patient. Copy provided and Copy in chart dated, and initialed.
[2022-07-12 11:09] LABS: Glucose Point of Care 143 mg/dL (70-110)
--- NOTE | 2022-07-12 14:20 | PC.NURSE ---
IV removed intact. Patient tolerated well. Reviewed discharge paper work patient at this time. Patient verbalized understanding of discharge instructions, medications, and follow up appointments. Patient verbalized understanding.
[2022-07-18 15:09] LABS: P. Jirovecii DNA QL PCR NOT DETECTED; P. Jirovecii DNA QL PCR Source INDUCED SPUTUM
== END 2022-07-12 14:20 | disposition home health service (06) | DRG 286 ==
LOC: ER 20:23 → MEDSURG 07-02 00:37 → CSU 07-03 07:16 → MEDSURG 07-07 14:02
PROVIDERS: Internal Medicine; Internal Medicine Cardiovascular Disease; Physician Assistant; Admitting Provider Internal Medicine; Emergency Provider Emergency Medicine; PCP Family Medicine; Visit Provider Student in an Organized Health Care Education/Training Program
PROC: 4A023N7 Measurement of Cardiac Sampling and Pressure, Left Heart, Percutaneous Approach (ICD-10-PCS; principal; 2022-07-03 06:00)
DX: I50.23 Acute on chronic systolic (congestive) heart failure (principal); J18.9 Pneumonia, unspecified organism; J96.22 Acute and chronic respiratory failure with hypercapnia; J96.21 Acute and chronic respiratory failure with hypoxia; I42.9 Cardiomyopathy, unspecified; N13.8 Other obstructive and reflux uropathy; E87.1 Hypo-osmolality and hyponatremia; I25.10 Atherosclerotic heart disease of native coronary artery without angina pectoris; J43.1 Panlobular emphysema; F32.A Depression, unspecified; G89.29 Other chronic pain; M54.50 Low back pain, unspecified; E11.42 Type 2 diabetes mellitus with diabetic polyneuropathy; E78.5 Hyperlipidemia, unspecified; N40.1 Benign prostatic hyperplasia with lower urinary tract symptoms; Z99.81 Dependence on supplemental oxygen; Z79.51 Long term (current) use of inhaled steroids; R94.39 Abnormal result of other cardiovascular function study; Z87.891 Personal history of nicotine dependence; Z96.651 Presence of right artificial knee joint; G43.709 Chronic migraine without aura, not intractable, without status migrainosus; Z79.82 Long term (current) use of aspirin; Z79.891 Long term (current) use of opiate analgesic; Z79.84 Long term (current) use of oral hypoglycemic drugs
CPT/HCPCS: 36415; 36416; 36600; 71045; 71250; 80048; 80053; 80069; 82803; 82962; 83036; 83735; 83880; 84145; 84484; 85007; 85025; 85730; 87040; 87070; 87205; 87385; 87641; 87798; 93005; 93458; 94640; 96365; 96372; 96374; 96375; 99152; 99153; 99285; C1769; C1887; C1894; J1644; J1815; J1940; J1956; J2250; J2920; J2930; J3010; J3490; J7030; J7512; J7613; J7626; Q0163; Q9967

== ENCOUNTER → 2022-07-16 10:03 | Outpatient (BNVA) | payer MEDICARE, BC, SELFPAY | PROVIDERS: PCP Family Medicine; Visit Provider Nurse Practitioner Family | DX: I25.10 Atherosclerotic heart disease of native coronary artery without angina pectoris (principal); Z87.891 Personal history of nicotine dependence | CPT/HCPCS: 36415; 80048; 83880; 99214 ==

== ENCOUNTER → 2022-07-24 09:35 | Outpatient (BNVA) | payer MEDICARE, BC, SELFPAY | PROVIDERS: PCP Family Medicine; Visit Provider Specialist | DX: G43.711 Chronic migraine without aura, intractable, with status migrainosus (principal) | CPT/HCPCS: 64615; J0585 ==

== ENCOUNTER 2022-09-21 17:22 | Inpatient (IN) | payer MEDICARE, BC, SELFPAY ==
[2022-09-21] VITALS (10 sets, daily range): BP systolic 125–146; BP diastolic 79–84; PULSE 94–105; RESP 16–41; TEMP 36.8; O2SAT 91–97; BMI 38.0
--- NOTE | 2022-09-21 19:32 | XRR_ITS ---
PROCEDURE INFORMATION: Exam: XR Chest Exam date and time: 09/21/2022 8:26 PM Age: 72 years old Clinical indication: Shortness of breath; Additional info: SOB TECHNIQUE: Imaging protocol: Radiologic exam of the chest. Views: 1 view. COMPARISON: CR XR chest 1V portable [id number] 07/07/2022 3:17 PM FINDINGS: Lungs: Mild left basilar pneumonia. Pleural spaces: Unremarkable. No pleural effusion. No pneumothorax. Heart/Mediastinum: Unremarkable. No cardiomegaly. Bones/joints: Unremarkable. XR/XR chest 1V portable [id number] IMPRESSION: Mild left basilar pneumonia.
--- NOTE | 2022-09-21 19:32 | ECG_ITS ---
[facility] Test Date: 2022-09-21 Pat Name: Hernan Beckman Department: Room: Gender: Male Broomcorn Sorter: : 1950 Requested By: Sam Veliz Order Number: [id number] Xochitl MD: Hardik Betts M.D. Measurements Intervals Lissie Rate: 106 P: 55 WY: 175 QRS: 18 QRSD: 92 T: 75 QT: 339 QTc: 452 Interpretive Statements SINUS TACHYCARDIA WITH FREQUENT SUPRAVENTRICULAR PREMATURE COMPLEXES ABNORMAL RHYTHM ECG Compared to ECG 07/02/2022 04:37:17 Sinus rhythm no longer present Sinus arrhythmia no longer present T-wave abnormality no longer present Electronically Signed On 09-21-2022 21:06:12 CDT by Hardik Betts M.D. [email or web address]
[2022-09-21 20:17] LABS: Basophils # 0.1 10^3/uL (0.0-0.1); Basophils % 0.7 %; Eosinophils # 0.2 10^3/uL (0.0-0.8); Eosinophils % 0.8 %; Hematocrit 38.3 % (42.0-52.0); Hemoglobin 12.2 g/dL (11.7-16.6); Lymphocytes # 4.3 10^3/uL (0.8-4.8); Lymphocytes % 19.8 %; Mean Corpuscular HGB Conc 31.9 g/dL (30.0-36.0); Mean Corpuscular Hemoglobin 28.7 pg (28.0-34.0); Mean Corpuscular Volume 90.1 fl (80-94); Mean Platelet Volume 8.4 fL (7.4-10.4); Monocytes # 1.7 10^3/uL (0.2-0.9); Neutrophils # 15.04 10^3/uL (1.8-7.7); Neutrophils % 69.9 %; Nucleated Red Blood Cells % 0 %; Platelet Count 324 10^3/cmm (130-400); Red Blood Count 4.25 10^6/uL (4.1-5.3); Red Cell Distribution Width 12.8 % (12.1-15.1); White Blood Count 21.5 10^3/uL (4.0-10.0)
[2022-09-21 20:36] LABS: Alanine Aminotransferase 15 U/L (0-41); Albumin Level 3.6 g/dL (3.5-5.2); Alkaline Phosphatase 80 U/L (40-130); Anion Gap 16.3 (5-19); Aspartate Amino Transferase 11 U/L (0-40); Blood Urea Nitrogen 7 mg/dL (8-23); Calcium 8.9 mg/dL (8.5-10.5); Carbon Dioxide 27 mmol/L (22-29); Chloride 97 mmol/L (98-107); Creatinine Clr Calc Pharmacy 98.9991; Globulin 3.3 g/dL (1.3-4.6); Glucose 122 mg/dL (65-115); Osmolality Calculated 281 mOsm/kg (285-295); Potassium 4.3 mmol/L (3.5-5.1); Sodium 136 mmol/L (136-145); Total Bilirubin 0.3 mg/dL (0.15-1.2); Total Protein 6.9 g/dL (6.6-8.7)
[2022-09-21 20:56] LABS: Troponin(5th) Baseline 25 ng/L (0-15)
[2022-09-21] MEDS: dexamethasone 10 mg/mL INJ IVP (21:00)
--- NOTE | 2022-09-21 21:07 | ED_ITS ---
HPI - SOB/Dyspnea General: Chief Complaint: Shortness of Breath/Dyspnea Stated Complaint: weakness, low O2 Time Seen by Provider: 09/21/22 20:32 Source: patient History of Present Illness: HPI Narrative: 72-year-old diabetic gentleman with a history of COPD. He presents with increasing shortness of breath for the past couple of days. He has been using his nebulizer treatments at home with some transient relief. Increase in sputum production that is yellow. No fever. No significant chest discomfort. MD elicited complaint: shortness of breath and cough Pertinent past history: COPD Onset (ago): day(s) Timing: constant and progressively worsening Severity: moderate Exacerbating factors: lying flat and exertion Relieving factors: oxygen and bronchodilators Known history of: COPD Associated symptoms: Reports chest congestion, cough and orthopnea; Deny abdominal pain, chest pain, diaphoresis, fever(s), hemoptysis or vomiting Treatment prior to arrival: oxygen and bronchodilator Review of Systems Const: Denies: fever(s) or diaphoresis ENMT: Denies: throat pain Card: Reports: orthopnea; Denies: chest pain Resp: Reports: chest congestion; Denies: hemoptysis GI: Denies: abdominal pain or vomiting Skin/Breast: Denies: rash PFSH ED PFSH: Medical History Atherosclerosis of coronary artery 60-70% prox 1st OM stenosis 07/03/22 BPH loc w urin obs/LUTS Chronic low back pain Has had nerve ablations and follows at pain clinic in [place] Chronic migraine Controlled diabetes mellitus without long-term current use of insulin COPD (chronic obstructive pulmonary disease) Depression, controlled Dyslipidemia Elevated prostate specific antigen [PSA] Enrolled in chronic care management History of multiple allergies Xolair injections monthly Hx of migraine headaches Has a triptan prescription and another medication Obstructive sleep apnea Peripheral neuropathy Primarily involving hands, related to ulnar nerve interventions Respiratory failure with hypoxia and hypercapnia Systolic congestive heart failure Surgical History H/O decompression of ulnar nerve bilateral H/O elbow surgery bilateral H/O rotator cuff surgery bilateral H/O total knee replacement right History of cataract surgery History of repair of rotator cuff Bilateral History of surgery on wrist Bilateral ulnar nerve release History of tonsillectomy and adenoidectomy Status post colonoscopy (07/21/19) normal , poor prep, repeat in 5 years Family History Mother , at age 66 Cancer uterine Aneurysm intracranial Father , at age 76 Lung disease asthma with allergies Asthma Other CAD (coronary artery disease) Social History Smoking and tobacco status: former smoker Quit status (tobacco): has quit using tobacco Year quit tobacco: 2021 Former quit date comment: 2ppd X 59 years Second hand smoke exposure: Yes Smoking risk assessment/counseling performed?: Yes Alcohol intake: former Counseling given: No Substance/Drug Use: never Counseling given: No Lives independently: Yes Household members: spouse Marital status: service: Yes Current occupational status: retired Do you think of yourself as: Straight/Heterosexual Current gender identity: Male Physical Exam Const: GENERAL APPEARANCE: cooperative and ill appearing HENMT: COMMON NORMALS: normocephalic and Normal external nose present HEAD & SCALP: normocephalic FACE & SINUS: normal facial exam and face symmetric NOSE: Normal external nose present Eye: COMMON NORMALS: Equal, round and reactive pupils present and EOMs intact bilaterally PUPIL: Yes Equal, round and reactive pupils present Neck/C-Spine: GENERAL: Yes trachea midline Chest: CHEST: Yes Symmetrical chest wall rise Resp: EFFORT & INSPECTION: Yes symmetric chest movement and Yes labored AUSCULTATION: diminished lung sounds Cardio: COMMON NORMALS: regular rhythm RATE: tachycardic RHYTHM: regular rhythm GI: COMMON NORMALS: Normal to inspection, nondistended, normoactive bowel sounds present Extremity: GENERAL: No cyanosis and Yes edema Course Vital Signs: Vital signs: Vital Signs Temperature 98.3 F 09/22/22 16:00 Pulse Rate 84 09/22/22 16:00 Respiratory Rate 18 09/22/22 16:00 Blood Pressure 143/76 09/22/22 16:00 Pulse Oximetry 98 09/22/22 16:00 Oxygen Delivery Me thod Nasal Cannula 09/22/22 16:00 Oxygen Flow Rate 3 09/22/22 14:04 MDM - SOB/Dyspnea Medical Decision Making 72 year old oxygen dependent male with increased shortness of breath. Is oxygen demand is increased by two liters. He's somewhat improved after Iv steroids and nebulizer treatments here, but still short of breath. Chest X-ray shows left basilar pneumonia. White blood cell count is 21.5. BMP is not remarkable. Blood gas pH 7.37. PCO two is 57. Troponin did not change at two hours. He'll be admit omer for hypoxic, hypercapnic respiratory failure with pneumonia Lab Data 09/21/22 20:07 09/21/22 20:07 Labs/Radiology: Radiology Impressions Chest X-Ray 09/21/22 19:32 IMPRESSION: Mild left basilar pneumonia. Laboratory Results WBC 21.5 10^3/uL (4.0-10.0) H 09/21/22 20:07 RBC 4.25 10^6/uL (4.1-5.3) 09/21/22 20:07 Hgb 12.2 g/dL (11.7-16.6) 09/21/22 20:07 Hct 38.3 % (42.0-52.0) L 09/21/22 20:07 MCV 90.1 fl (80-94) 09/21/22 20:07 MCH 28.7 pg (28.0-34.0) 09/21/22 20:07 MCHC 31.9 g/dL (30.0-36.0) 09/21/22 20:07 RDW 12.8 % (12.1-15.1) 09/21/22 20:07 Plt Count 324 10^3/cmm (130-400) 09/21/22 20:07 MPV 8.4 fL (7.4-10.4) 09/21/22 20:07 Neut % (Auto) 69.9 % 09/21/22 20:07 Lymph % (Auto) 19.8 % 09/21/22 20:07 [place] % (Auto) 8.0 % 09/21/22 20:07 Eos % (Auto) 0.8 % 09/21/22 20:07 Baso % (Auto) 0.7 % 09/21/22 20:07 Neut # (Auto) 15.04 10^3/uL (1.8-7.7) H 09/21/22 20:07 Lymph # (Auto) 4.3 10^3/uL (0.8-4.8) 09/21/22 20:07 [place] # (Auto) 1.7 10^3/uL (0.2-0.9) H 09/21/22 20:07 Eos # (Auto) 0.2 10^3/uL (0.0-0.8) 09/21/22 20:07 Baso # (Auto) 0.1 10^3/uL (0.0-0.1) 09/21/22 20:07 Nucleated RBC % (auto) 0 % 09/21/22 20:07 Nucleated RBCs # 0.0 /100WBC 09/21/22 20:07 Specimen Type Arterial 09/21/22 21:06 Sample Site Brachial, left 09/21/22 21:06 ABG pH 7.37 (7.35-7.45) 09/21/22 21:06 ABG pCO2 56.7 mmHg (35-45) H 09/21/22 21:06 ABG pO2 94.9 mmHg (80.0-100.0) 09/21/22 21:06 ABG HCO3 33.0 mmol/L (22-26) H 09/21/22 21:06 ABG Base Excess 6.3 mmol/L (-2.0-2.0) H 09/21/22 21:06 Luis Fernando Test Pos 09/21/22 21:06 Hematocrit 36.3 % (42-52) L 09/21/22 21:06 O2 Delivery Device Nc 09/21/22 21:06 O2 Liters/Min 2.5 % 09/21/22 21:06 Log Handling Equipment Operator ID [email or web address] 09/21/22 21:06 Sodium 136 mmol/L (136-145) 09/21/22 20:07 Potassium 4.3 mmol/L (3.5-5.1) 09/21/22 20:07 Chloride 97 mmol/L (98-107) L 09/21/22 20:07 Carbon Dioxide 27 mmol/L (22-29) 09/21/22 20:07 Anion Gap 16.3 (5-19) 09/21/22 20:07 BUN 7 mg/dL (8-23) L 09/21/22 20:07 Creatinine 0.8 mg/dL (0.7-1.2) 09/21/22 20:07 GFR Calculation Not Reportable 09/21/22 20:07 Glucose 122 mg/dL (65-115) H 09/21/22 20:07 Calculated Osmolality 281 mOsm/kg (285-295) L 09/21/22 20:07 Calcium 8.9 mg/dL (8.5-10.5) 09/21/22 20:07 Total Bilirubin 0.3 mg/dL (0.15-1.2) 09/21/22 20:07 AST 11 U/L (0-40) 09/21/22 20:07 ALT 15 U/L (0-41) 09/21/22 20:07 Alkaline Phosphatase 80 U/L (40-130) 09/21/22 20:07 Troponin T Baseline 25 ng/L (0-15) H 09/21/22 20:07 Troponin T 120 Minute 25.16 ng/L (0-15) H 09/21/22 22:40 Delta Troponin T 0.16 ABS# (0-10) 09/21/22 22:40 NT-Pro-B Natriuret Pep 545 pg/mL (0-125) H 09/21/22 20:07 Total Protein 6.9 g/dL (6.6-8.7) 09/21/22 20:07 Albumin 3.6 g/dL (3.5-5.2) 09/21/22 20:07 Globulin 3.3 g/dL (1.3-4.6) 09/21/22 20:07 Discharge Plan Discharge Patient Disposition: Admitted As Inpatient Admit Provider: Katerin Benton Clinical Impression: Respiratory failure with hypoxia and hypercapnia, Recurrent pneumonia Condition: Stable Coding Level of Care Code ED Processing Spec for Owen Rico
[2022-09-21 21:15] LABS: ABG PCO2 56.7 mmHg (35-45); ABG PH Result 7.37 (7.35-7.45); Arterial Blood Gas Hematocrit 36.3 % (42-52); Base Excess ABG 6.3 mmol/L (-2.0-2.0); Blood Gas Allen Test Pos; Blood Gas LPM 2.5 %; Blood Gas Sample Site Brachial, left; Blood Gas Sample Type Arterial; Oxygen Device NC; PO2 ABG 94.9 mmHg (80.0-100.0)
[2022-09-21 21:32] LABS: NT Pro B Type Natriuretic Pept 545 pg/mL (0-125)
[2022-09-21] MEDS: ipratropium-albuterol 3 mL Neb INHALATION (21:49)
[2022-09-21 23:13] LABS: Troponin 5 2HR 25.16 ng/L (0-15)
[2022-09-21 23:15] LABS: Troponin 5 2HR Delta 0.16 ABS# (0-10)
[2022-09-22] VITALS (18 sets, daily range): BP systolic 112–146; BP diastolic 68–84; PULSE 78–98; RESP 16–32; TEMP 36.4–36.8; O2SAT 93–99
--- NOTE | 2022-09-22 01:10 | P.HP_ITS ---
Providers/Chief Complaint Admitting Physician: Katerin Benton MD Primary Care Provider: Courtney Reich DO Chief Complaint: weakness, low O2 History of Present Illness Hernan Beckman JR is a 72 year old male with past medical history of BPH, chronic low back pain, migraine, diabetes type 2, COPD 2 L of oxygen at home, depression, peripheral neuropathy-presented to ED on 06/23/2022 for worsening shortness of breath associated with sputum production.? He had several hospital admissions for COPD exacerbation associated with recurrent pneumonia. Most recently he was admitted here in late June 2022 for acute on chronic respiratory failure, multifactorial related to COPD exacerbation, CHF with reduced ejection fraction. He had undergone a coronary angiogram, which showed 60 to 70% stenosis of the proximal first obtuse marginal branch of the left circumflex.? No significant stenosis in the other vessels.? iFR was not available at the time of cath.? Medical management advised.? LVEF 45% by LV gram. He presents to the emergency room today with increasing shortness of breath. He has been using his nebulizers at home without any significant relief. He is also noted an increase in his sputum production. There is noted to be wheezing upon presentation Review of Systems General: Reports: 10 or more systems reviewed and unremarkable except in HPI and below Const: Denies: fever(s), chills or body aches Eyes: Denies: change in vision, blurry vision or photophobia ENMT: Reports: hoarseness; Denies: throat pain, enlarged tonsils, odynophagia or nasal congestion Card: Denies: chest pain, palpitations, irregular heart rhythm, edema, swelling of feet/ankles, lightheadedness, pre-syncope, dyspnea on exertion or orthopnea Resp: Denies: dyspnea, productive cough, non-productive cough, wheezing, stridor, pain on inspiration, change in phlegm color, hemoptysis or chest congestion GI: Denies: abdominal pain, nausea, vomiting, hematemesis, coffee ground emesis, dysphagia, heartburn, diarrhea, constipation, GI cramping, change in stool character, hematochezia or melena : Denies: flank pain, dysuria, urinary frequency, urinary urgency, urinary hesitancy or hematuria Musc: Denies: neck pain, back pain, extremity pain, joint swelling, joint warmth or deformity Neuro: Denies: headache(s), numbness in extremities, weakness in extremities, sensory changes, difficulty walking, frequent falls, dizziness, vertigo, behavioral changes, Slurred speech present or seizure-like activity Psych: Denies: anxiety, depression, suicidal ideation or homicidal ideation Endo: Denies: polyuria, polydipsia, tired all the time, cold intolerance or hot flashes Jonathan/Lymph: Denies: easy bruising or easy bleeding Medications/Allergies Home Medications Medication Instructions Recorded Confirmed Last Taken Type Four wheeled walker with a seat #1 ea 03/24/19 09/04/22 Unknown Rx acetaminophen 500 mg tablet 500 mg PO Q4H PRN Pain 03/24/19 09/04/22 07/18/19 History (Tylenol Extra Strength) epinephrine 0.3 mg/0.3 mL 0.3 mg IM ONCE PRN Allergic 03/24/19 09/04/22 Unknown History injection, auto-injector Reaction albuterol sulfate 2.5 mg/3 mL 2.5 mg inhalation BID PRN 04/05/19 09/04/22 07/21/19 History (0.083 %) solution for nebulization Shortness Of Breath albuterol sulfate 90 mcg/actuation 2 inh inhalation Q6H PRN shortness 01/10/22 09/04/22 Unknown Rx aerosol inhaler of breath or wheezing #18 grams budesonide 0.5 mg/2 mL suspension 0.5 mg (2 mL) inhalation BID #120 01/10/22 09/04/22 Unknown Rx for nebulization (Pulmicort) mL formoterol fumarate 20 mcg/2 mL 2 ml inhalation Q12H 90 days #120 01/10/22 09/04/22 Unknown Rx solution for nebulization mL (Perforomist) sitagliptin phosphate 100 mg 100 mg PO DAILY #90 tabs 02/14/22 09/04/22 Unknown Rx tablet (Januvia) tramadol 50 mg tablet 50 mg PO TID PRN pain #90 tabs 04/10/22 09/04/22 Unknown Rx tamsulosin 0.4 mg capsule (Flomax) 0.8 mg PO DAILY #180 caps 04/24/22 09/04/22 Unknown Rx venlafaxine 150 mg See Rx Instructions .Route 05/31/22 09/04/22 Unknown Rx capsule,extended release 24 hr .COMPLEX #30 caps amitriptyline 25 mg tablet 25 mg PO BEDTIME 06/23/22 09/04/22 Unknown History aspirin 81 mg tablet,delayed 81 mg PO DAILY #30 tabs 06/30/22 09/04/22 Unknown Rx release multivitamin with minerals-folic 1 tab PO DAILY 07/02/22 09/04/22 Unknown History acid 200 mcg chewable tablet (Men's Daily Gummies) atovaquone 750 mg/5 mL oral 750 mg (5 mL) PO Q12H #200 mL 07/08/22 09/04/22 Unknown Rx suspension azithromycin 250 mg tablet 250 mg PO EVERY OTHER DAY PRN 07/16/22 09/04/22 Unknown History prednisone 5 mg tablet 5 mg PO DAILY 90 days #90 tabs 08/08/22 09/04/22 Unknown Rx atorvastatin 20 mg tablet 20 mg PO BEDTIME #90 tabs 08/19/22 09/04/22 Unknown Rx furosemide 20 mg tablet 20 mg PO DAILY #90 tabs 08/19/22 09/04/22 Unknown Rx revefenacin 175 mcg/3 mL solution 175 mcg (3 mL) inhalation DAILY 09/15/22 Unknown Rx for nebulization (Yupelri) #90 mL Allergies Allergy/AdvReac Type Severity Reaction Status Date / Time bee venom protein (honey bee) Allergy ALGY-Swell Verified 09/21/22 17:36 Lip/Tongue/Throat metformin Allergy ADR-Nausea Verified 09/21/22 17:36 PFSH Acute PFSH: Medical History Atherosclerosis of coronary artery 60-70% prox 1st OM stenosis 07/03/22 BPH loc w urin obs/LUTS Chronic low back pain Has had nerve ablations and follows at pain clinic in [place] Chronic migraine Controlled diabetes mellitus without long-term current use of insulin COPD (chronic obstructive pulmonary disease) Depression, controlled Dyslipidemia Elevated prostate specific antigen [PSA] Enrolled in chronic care management History of multiple allergies Xolair injections monthly Hx of migraine headaches Has a triptan prescription and another medication Obstructive sleep apnea Peripheral neuropathy Primarily involving hands, related to ulnar nerve interventions Respiratory failure with hypoxia and hypercapnia Systolic congestive heart failure Surgical History H/O decompression of ulnar nerve bilateral H/O elbow surgery bilateral H/O rotator cuff surgery bilateral H/O total knee replacement right History of cataract surgery History of repair of rotator cuff Bilateral History of surgery on wrist Bilateral ulnar nerve release History of tonsillectomy and adenoidectomy Status post colonoscopy (07/21/19) normal , poor prep, repeat in 5 years Family History Mother , at age 66 Cancer uterine Aneurysm intracranial Father , at age 76 Lung disease asthma with allergies Asthma Other CAD (coronary artery disease) Social History Smoking and tobacco status: former smoker Quit status (tobacco): has quit using tobacco Year quit tobacco: 2021 Former quit date comment: 2ppd X 59 years Second hand smoke exposure: Yes Smoking risk assessment/counseling performed?: Yes Alcohol intake: former Counseling given: No Substance/Drug Use: never Counseling given: No Lives independently: Yes Household members: spouse Marital status: service: Yes Current occupational status: retired Do you think of yourself as: Straight/Heterosexual Current gender identity: Male Vitals/I&O/Wt Last Vital Signs Temp 98.2 F 09/21/22 17:36 Pulse 92 09/22/22 00:30 Resp 32 H 09/22/22 00:30 BP 146/84 09/22/22 00:30 Pulse Ox 93 09/22/22 00:30 O2 Del Method Nasal Cannula 09/21/22 21:49 O2 Flow Rate 2.5 09/21/22 21:49 Weight last 48 hrs Weight 113.398 kg Physical Exam Narrative: General: No acute distress, AO x3 HEENT: PERRLA, pupils bilaterally equal and reactive, pallors not present Chest: Wheezing to auscultation bilaterally CVS: S1-S2 regular, no murmurs, no tachycardia, no gallops, no rubs Abdomen: Soft, nontender, no organomegaly, bowel sounds present Neuro: No focal deficits, no facial deformity, AO x3, power 5/5 in all limbs Data 09/21/22 20:07 09/21/22 20:07 Other Labs: Radiology Impressions Chest X-Ray 09/21/22 19:32 IMPRESSION: Mild left basilar pneumonia. Laboratory Results WBC 21.5 10^3/uL (4.0-10.0) H 09/21/22 20:07 RBC 4.25 10^6/uL (4.1-5.3) 09/21/22 20:07 Hgb 12.2 g/dL (11.7-16.6) 09/21/22 20:07 Hct 38.3 % (42.0-52.0) L 09/21/22 20:07 MCV 90.1 fl (80-94) 09/21/22 20:07 MCH 28.7 pg (28.0-34.0) 09/21/22 20:07 MCHC 31.9 g/dL (30.0-36.0) 09/21/22 20:07 RDW 12.8 % (12.1-15.1) 09/21/22 20:07 Plt Count 324 10^3/cmm (130-400) 09/21/22 20:07 MPV 8.4 fL (7.4-10.4) 09/21/22 20:07 Neut % (Auto) 69.9 % 09/21/22 20:07 Lymph % (Auto) 19.8 % 09/21/22 20:07 Ballard % (Auto) 8.0 % 09/21/22 20:07 Eos % (Auto) 0.8 % 09/21/22 20:07 Baso % (Auto) 0.7 % 09/21/22 20:07 Neut # (Auto) 15.04 10^3/uL (1.8-7.7) H 09/21/22 20:07 Lymph # (Auto) 4.3 10^3/uL (0.8-4.8) 09/21/22 20:07 Ballard # (Auto) 1.7 10^3/uL (0.2-0.9) H 09/21/22 20:07 Eos # (Auto) 0.2 10^3/uL (0.0-0.8) 09/21/22 20:07 Baso # (Auto) 0.1 10^3/uL (0.0-0.1) 09/21/22 20:07 Nucleated RBC % (auto) 0 % 09/21/22 20:07 Nucleated RBCs # 0.0 /100WBC 09/21/22 20:07 Specimen Type Arterial 07/16/23 21:06 Sample Site Brachial, left 09/21/22 21:06 ABG pH 7.37 (7.35-7.45) 09/21/22 21:06 ABG pCO2 56.7 mmHg (35-45) H 09/21/22 21:06 ABG pO2 94.9 mmHg (80.0-100.0) 09/21/22 21:06 ABG HCO3 33.0 mmol/L (22-26) H 09/21/22 21:06 ABG Base Excess 6.3 mmol/L (-2.0-2.0) H 09/21/22 21:06 Luis Fernando Test Pos 09/21/22 21:06 Hematocrit 36.3 % (42-52) L 09/21/22 21:06 O2 Delivery Device Nc 09/21/22 21:06 O2 Liters/Min 2.5 % 09/21/22 21:06 Complaint Evaluation Supervisor ID [email or web address] 09/21/22 21:06 Sodium 136 mmol/L (136-145) 09/21/22 20:07 Potassium 4.3 mmol/L (3.5-5.1) 09/21/22 20:07 Chloride 97 mmol/L (98-107) L 09/21/22 20:07 Carbon Dioxide 27 mmol/L (22-29) 09/21/22 20:07 Anion Gap 16.3 (5-19) 09/21/22 20:07 BUN 7 mg/dL (8-23) L 09/21/22 20:07 Creatinine 0.8 mg/dL (0.7-1.2) 09/21/22 20:07 GFR Calculation Not Reportable 09/21/22 20:07 Glucose 122 mg/dL (65-115) H 09/21/22 20:07 Calculated Osmolality 281 mOsm/kg (285-295) L 09/21/22 20:07 Calcium 8.9 mg/dL (8.5-10.5) 09/21/22 20:07 Total Bilirubin 0.3 mg/dL (0.15-1.2) 09/21/22 20:07 AST 11 U/L (0-40) 09/21/22 20:07 ALT 15 U/L (0-41) 09/21/22 20:07 Alkaline Phosphatase 80 U/L (40-130) 09/21/22 20:07 Troponin T Baseline 25 ng/L (0-15) H 09/21/22 20:07 Troponin T 120 Minute 25.16 ng/L (0-15) H 09/21/22 22:40 Delta Troponin T 0.16 ABS# (0-10) 09/21/22 22:40 NT-Pro-B Natriuret Pep 545 pg/mL (0-125) H 09/21/22 20:07 Total Protein 6.9 g/dL (6.6-8.7) 09/21/22 20:07 Albumin 3.6 g/dL (3.5-5.2) 09/21/22 20:07 Globulin 3.3 g/dL (1.3-4.6) 09/21/22 20:07 ABG Interpretation 1: 09/21/22 21:06 ABG pH 7.37 ABG pCO2 56.7 H ABG pO2 94.9 ABG HCO3 33.0 H ABG Base Excess 6.3 H A&P Assessment and plan (1) Pneumonia: (2) Cardiomyopathy: (3) COPD (chronic obstructive pulmonary disease): Qualifiers: COPD type: emphysema Emphysema type: panlobular Qualified Code(s): J43.1 - Panlobular emphysema (4) Obstructive sleep apnea: (5) Respiratory failure with hypoxia and hypercapnia: Qualifiers: Chronicity: acute on chronic Qualified Code(s): J96.21 - Acute and chronic respiratory failure with hypoxia; J96.22 - Acute and chronic respiratory failure with hypercapnia; J96.22 - Acute and chronic respiratory failure with hypercapnia Plan (1) COPD exacerbation Acute COPD exacerbation Multiple recurrent admissions Scheduled duoneb and budesonide inhalation in the hospital? Dexamethasone 6mg IVP q12h (2) Pneumonia CXR showing possible left side infiltrate empriic ceftriaxone and azithromycin check sputum cx recent elevated BDG in 06/2022, suspicion for PJP eventually ruled out by negative PCR. had presumptively received bactrim--> atovaquone ? ? (2) Respiratory failure with hypoxia and hypercapnia: Management as above multifactorial from pneumonia and COPD ? ? (3) Cardiomyopathy: Status post cardiac cath on 07/03 results as above ? ? (4) Diabetes mellitus type 2, noninsulin dependent: Sliding-scale insulin correction (8) Dyslipidemia: Continue statin Attestations Medical Necessity Statement*: anticipate . 2 midnight admission for management of pneumonia, COPD execarbation Coding Level of Care Code Acute Code for Chg Fwd Moderate MDM includes number and complexity of problems actively addressed during encounter, amount and/or complexity of data reviewed/ordered and described risk of complication, morbidity or mortality of management as documented Diagnoses Pneumonia J18.9 Cardiomyopathy I42.9 COPD (chronic obstructive pulmonary disease) J43.1 COPD type: emphysema Emphysema type: panlobular Obstructive sleep apnea G47.33 Respiratory failure with hypoxia and hypercapnia J96.21; J96.22; J96.22 Chronicity: acute on chronic
[2022-09-22] MEDS: dexamethasone 4 mg/mL INJ 6 MG IVP (01:30)
[2022-09-22] MEDS: cefTRIAXone 1,000 MG in sodium chloride 0.9% (plus) 50 ML 100 MG IV (01:36)
[2022-09-22] MEDS: azithromycin 500 MG in sodium chloride 0.9% 250 ML 250 MG PO ×3 (01:57→03:26)
[2022-09-22 03:03] LABS: Troponin 5 6HR 19.69 ng/L (0-15)
[2022-09-22 03:07] LABS: Troponin 5 6HR Delta -5.31 ng/L (0-12)
[2022-09-22 04:26] LABS: Adenovirus Not Detected (NOT DETECT); Chlamydia Pneumoniae Not Detected (NOT DETECT); Coronavirus 229E,HKU1,NL63,OC4 Not Detected (NOT DETECT); Human Metapneumovirus Not Detected (NOT DETECT); Human Rhinovirus/Enterovirus Not Detected (NOT DETECT); Influenza A Not Detected (NOT DETECT); Influenza A H1 Not Detected (NOT DETECT); Influenza A H1-2009 Not Detected (NOT DETECT); Influenza A H3 Not Detected (NOT DETECT); Influenza B Not Detected (NOT DETECT); Mycoplasma Pneumoniae Not Detected (NOT DETECT); Parainfluenza Virus Type 1 Not Detected (NOT DETECT); Parainfluenza Virus Type 2 Not Detected (NOT DETECT); Parainfluenza Virus Type 3 Not Detected (NOT DETECT); Parainfluenza Virus Type 4 Not Detected (NOT DETECT); Respiratory Syncytial Virus A Not Detected (NOT DETECT); Respiratory Syncytial Virus B Not Detected (NOT DETECT); SARS-COV-2 Not Detected (NOT DETECT)
[2022-09-22] MEDS: ipratropium-albuterol 3 mL Neb INHALATION ×4 (04:37→21:41)
--- NOTE | 2022-09-22 04:40 | ECG_ITS ---
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 Measurements Intervals Mertens Rate: 87 P: 34 OK: 188 QRS: 33 QRSD: 97 T: 31 QT: 389 QTc: 469 Interpretive Statements SINUS RHYTHM Compared to ECG 09/21/2022 20:38:55 Sinus tachycardia no longer present Electronically Signed On 09-22-2022 21:43:44 CDT by Hardik Betts M.D. [email or web address]
[2022-09-22 06:57] LABS: Glucose Point of Care 203 mg/dL (70-110)
[2022-09-22] MEDS: budesonide 0.5 mg/2 mL Neb INHALATION ×2 (08:26→21:41)
[2022-09-22] MEDS: insulin lispro 100 unit/1 mL SUBCUT ×4 (08:50→21:18)
[2022-09-22] MEDS: pantoprazole DR 40 mg Tablet PO (08:51)
[2022-09-22] MEDS: aspirin 81 mg EC Tablet PO (08:51)
[2022-09-22] MEDS: venlafaxine ER (24HR) 150 mg Capsule PO (08:51)
[2022-09-22] MEDS: tamsulosin 0.4 mg Capsule 0.8 MG PO (08:52)
--- NOTE | 2022-09-22 08:53 | PC.PHAR ---
pt states he takes care of his own medications- pt states he needs a refill on his lisinopril 2.5mg daily ext shows last filled 07/23/22 30d/s pt states he last took on thu09/17/22 pt states his was on the same medication so he has been taking it-notes are made in the pharmacy comments
--- NOTE | 2022-09-22 10:11 | P.PN_ITS ---
Vitals/I&O/Wt Last Vital Signs Temp 97.6 F 09/22/22 08:21 Pulse 79 09/22/22 08:35 Resp 18 09/22/22 08:28 BP 135/80 09/22/22 08:21 Pulse Ox 97 09/22/22 08:28 O2 Del Method Nasal Cannula 09/22/22 08:28 O2 Flow Rate 3 09/22/22 08:28 09/21/22 09/22/22 09/22/22 22:59 06:59 14:59 Intake Total 279.167 / 279.167 300 / 300 Output Total 400 / 400 Balance -120.833 / -120.833 300 / 300 Weight last 48 hrs Weight 113.398 kg Physical Exam Const: COMMON NORMALS: patient oriented x3 and alert GENERAL APPEARANCE: cooperative ORIENTATION/CONSCIOUSNESS: Yes awake HENMT: COMMON NORMALS: oropharynx normal Neck/C-Spine: COMMON NORMALS: no JVD Resp: AUSCULTATION: rhonchi OTHER: 3L NC Cardio: COMMON NORMALS: no JVD, regular rhythm, S1 normal heart sound present, S2 normal heart sound present and No murmurs present (Cardio) RHYTHM: regular rhythm HEART SOUNDS: S1 normal heart sound present and S2 normal heart sound present GI: COMMON NORMALS: Normal to inspection, nondistended, normoactive bowel sounds present, Soft to palpation and non-tender PALPATION: Yes Soft to palpation Extremity: COMMON NORMALS: no joint enlargement and no pedal edema Neuro: COMMON NORMALS: patient oriented x3 and moves all extremities SENSORIUM/ORIENTATION: Yes alert Skin: COMMON NORMALS: no rashes or lesions noted GENERAL SKIN EXAM: no rashes or lesions noted Data 09/21/22 20:07 09/21/22 20:07 A&P Assessment and plan (1) Pneumonia: (2) Cardiomyopathy: (3) COPD (chronic obstructive pulmonary disease): Qualifiers: COPD type: emphysema Emphysema type: panlobular Qualified Code(s): J43.1 - Panlobular emphysema (4) Obstructive sleep apnea: (5) Respiratory failure with hypoxia and hypercapnia: Qualifiers: Chronicity: acute on chronic Qualified Code(s): J96.21 - Acute and chronic respiratory failure with hypoxia; J96.22 - Acute and chronic respiratory failure with hypercapnia; J96.22 - Acute and chronic respiratory failure with hypercapnia Plan (1) COPD exacerbation Dyspnea, rhonchi, cough productive of greenish colored phlegm. With systemic symptoms, generalized weakness. Continue treatment of severe exacerbation of COPD. Viral panel noted negative. Influenza PCR noted negative. Leukocytosis 21.5. Predominantly neutrophilic 15. Afebrile. Continue Decadron, ceftriaxone, budesonide, DuoNebs. Monitor blood glucose, at risk of hyperglycemia with steroid. Continue Accu- Cheks. Sliding scale insulin. Collect sputum culture. (2) Pneumonia CXR showing possible left side infiltrate Continue empriic ceftriaxone and azithromycin Add sputum culture. Urine bacterial antigens. recent elevated BDG in 06/2022, suspicion for PJP eventually ruled out by negative PCR. had presumptively received bactrim--> atovaquone ? ? (2) Respiratory failure with hypoxia and hypercapnia: Management as above multifactorial from pneumonia and COPD ? ? (3) Cardiomyopathy: Status post cardiac cath on 07/03 results as above ? ? (4) Diabetes mellitus type 2, noninsulin dependent: Sliding-scale insulin correction (8) Dyslipidemia: Continue statin At home has oxygen. Normally 2-3 L. Discussed with case management. Attestations Medical Necessity Statement*: Continue admission for assessment management of severe exacerbation of COPD. Diagnoses Pneumonia J18.9 Cardiomyopathy I42.9 COPD (chronic obstructive pulmonary disease) J43.1 COPD type: emphysema Emphysema type: panlobular Obstructive sleep apnea G47.33 Respiratory failure with hypoxia and hypercapnia J96.21; J96.22; J96.22 Chronicity: acute on chronic
[2022-09-22 11:40] LABS: Glucose Point of Care 234 mg/dL (70-110)
[2022-09-22 17:02] LABS: Glucose Point of Care 151 mg/dL (70-110)
[2022-09-22 20:36] LABS: Glucose Point of Care 195 mg/dL (70-110)
[2022-09-22] MEDS: atorvastatin 40 mg Tablet 20 MG PO (20:38)
[2022-09-22] MEDS: amitriptyline 25 mg Tablet PO (20:38)
[2022-09-22] MEDS: TRAMadol 50 mg Tablet PO (21:24)
[2022-09-23] VITALS (11 sets, daily range): BP systolic 104–149; BP diastolic 63–79; PULSE 62–91; RESP 18–20; TEMP 36.4–37; O2SAT 94–98
[2022-09-23] MEDS: dexamethasone 4 mg/mL INJ 6 MG IVP (00:58)
[2022-09-23] MEDS: cefTRIAXone 1,000 MG in sodium chloride 0.9% (plus) 50 ML 100 MG IV (00:58)
[2022-09-23] MEDS: ipratropium-albuterol 3 mL Neb INHALATION ×3 (02:16→14:16)
[2022-09-23 05:31] LABS: Basophils % 0.2 %; Hematocrit 38.9 % (42.0-52.0); Hemoglobin 12.2 g/dL (11.7-16.6); Lymphocytes # 1.8 10^3/uL (0.8-4.8); Mean Corpuscular HGB Conc 31.4 g/dL (30.0-36.0); Mean Corpuscular Hemoglobin 28.8 pg (28.0-34.0); Mean Platelet Volume 9.1 fL (7.4-10.4); Monocytes # 0.6 10^3/uL (0.2-0.9); Monocytes % 2.9 %; Neutrophils # 17.57 10^3/uL (1.8-7.7); Neutrophils % 87.1 %; Nucleated Red Blood Cells % 0 %; Platelet Count 310 10^3/cmm (130-400); Red Blood Count 4.23 10^6/uL (4.1-5.3); Red Cell Distribution Width 12.7 % (12.1-15.1); White Blood Count 20.2 10^3/uL (4.0-10.0)
[2022-09-23 05:53] LABS: Alanine Aminotransferase 14 U/L (0-41); Albumin Level 3.7 g/dL (3.5-5.2); Alkaline Phosphatase 76 U/L (40-130); Aspartate Amino Transferase 11 U/L (0-40); Blood Urea Nitrogen 12 mg/dL (8-23); Calcium 9.1 mg/dL (8.5-10.5); Carbon Dioxide 33 mmol/L (22-29); Chloride 97 mmol/L (98-107); Creatinine Clr Calc Pharmacy 98.9991; Globulin 2.3 g/dL (1.3-4.6); Glucose 191 mg/dL (65-115); Osmolality Calculated 291 mOsm/kg (285-295); Sodium 138 mmol/L (136-145); Total Bilirubin 0.2 mg/dL (0.15-1.2)
[2022-09-23 05:58] LABS: Anion Gap 12.9 (5-19); Potassium 4.9 mmol/L (3.5-5.1)
[2022-09-23 06:30] LABS: Glucose Point of Care 194 mg/dL (70-110)
[2022-09-23] MEDS: budesonide 0.5 mg/2 mL Neb INHALATION (08:22)
[2022-09-23] MEDS: venlafaxine ER (24HR) 150 mg Capsule PO (08:43)
[2022-09-23] MEDS: tamsulosin 0.4 mg Capsule 0.8 MG PO (08:43)
[2022-09-23] MEDS: insulin lispro 100 unit/1 mL SUBCUT ×3 (08:44→21:32)
[2022-09-23] MEDS: aspirin 81 mg EC Tablet PO (08:44)
[2022-09-23] MEDS: pantoprazole DR 40 mg Tablet PO (08:44)
[2022-09-23] MEDS: TRAMadol 50 mg Tablet PO (08:46)
--- NOTE | 2022-09-23 10:01 | PC.CHAP ---
Pastoral Care Encounter/Spiritual Assessment Type of Contact [] Declined pnp visit [] Patient/Family/Request visit [] Outpatient visit [] Follow-up visit [] Physician referral [] Code/Alert [x] Routine visit [] Staff referral [] Actively dying [] Patient sleeping [] Family support [] [] Out of room [] Palliative care [] [] Receiving care in room [] Pre-surgical visit [] Trauma [] Long length of stay [] ICU visit [] Other: Relational/Emotional Strength [x] Patient feels connected with others/family/visitors/staff [] Distress [] Loneliness/isolation [] Abandonment Spirituality of Patient [x] Person of Julia [x] Attends Druze of their Julia [x] Believes in Prayer [x] Reads Bible or Church materials [] There are Spiritual issues to be addressed Compliance Review Officer Interventions [x] Prayer [x] Active listening [] Non-anxious presence [x] Spiritual/emotional support [] Crisis/trauma care [] Spiritual counseling [] Bereavement support [] Provided bereavement packet [] Provided Bible/devotional materials [] Provided toy/stuffed animal, coloring book to patient or family member [] Provided Communion [] Anointing/[place] [] Salvation [x] Completed spiritual assessment [] Other: Impact on Illness or Injury [] Angry [] Fearful [] Anxious [] Often cries [] Exhaustion [] Unable to work [] Unable to attend pentecostal [] Unable to walk/stand [] Unable to read [] Unable to drive [] Unable to eat/drink [] Unable to sleep [] Unable to be with family [] Patient intubated [] Other: Summary Time spent with patient 15 min
[2022-09-23 10:58] LABS: Glucose Point of Care 248 mg/dL (70-110)
[2022-09-23 17:02] LABS: Glucose Point of Care 134 mg/dL (70-110)
[2022-09-23] MEDS: amitriptyline 25 mg Tablet PO (20:29)
[2022-09-23] MEDS: atorvastatin 40 mg Tablet 20 MG PO (20:29)
[2022-09-23 21:42] LABS: Glucose Point of Care 198 mg/dL (70-110)
--- NOTE | 2022-09-23 21:46 | PM.PN ---
Subjective Subjective: He is feeling slightly better today, but concerned about going home, still gets dyspnea, has not gotten up to get around very much. Feels he went home too early last admission, states that he would just come right back the next day. Vitals/I&O/Wt Last Vital Signs Temp 98.4 F 09/23/22 20:00 Pulse 88 09/23/22 20:00 Resp 18 09/23/22 20:00 BP 149/79 09/23/22 20:00 Pulse Ox 97 09/23/22 20:00 O2 Del Method Nasal Cannula 09/23/22 14:00 O2 Flow Rate 2 09/23/22 20:00 09/23/22 09/23/22 09/23/22 06:59 14:59 22:59 Intake Total 240 / 1260 1030 / 1030 480 / 1510 Output Total 800 / 800 Balance 240 / 860 1030 / 1030 -320 / 710 Physical Exam Const: COMMON NORMALS: patient oriented x3 and alert GENERAL APPEARANCE: cooperative ORIENTATION/CONSCIOUSNESS: Yes awake HENMT: COMMON NORMALS: oropharynx normal Neck/C-Spine: COMMON NORMALS: no JVD Resp: AUSCULTATION: rhonchi OTHER: 2L NC Cardio: COMMON NORMALS: no JVD, regular rhythm, S1 normal heart sound present, S2 normal heart sound present and No murmurs present (Cardio) RHYTHM: regular rhythm HEART SOUNDS: S1 normal heart sound present and S2 normal heart sound present GI: COMMON NORMALS: Normal to inspection, nondistended, normoactive bowel sounds present, Soft to palpation and non-tender PALPATION: Yes Soft to palpation Extremity: COMMON NORMALS: no joint enlargement and no pedal edema Neuro: COMMON NORMALS: patient oriented x3 and moves all extremities SENSORIUM/ORIENTATION: Yes alert Skin: COMMON NORMALS: no rashes or lesions noted GENERAL SKIN EXAM: no rashes or lesions noted Data 09/23/22 04:39 09/23/22 04:39 Micro: Microbiology 09/23/22 08:30 Gram Stain - Final Sputum - Expectorated Sputum 09/22/22 11:57 Legionella Urinary Antigen - Final Urine,Voided Bacterial Antigens - Final A&P Assessment and plan (1) Pneumonia: (2) Cardiomyopathy: (3) COPD (chronic obstructive pulmonary disease): Qualifiers: COPD type: emphysema Emphysema type: panlobular Qualified Code(s): J43.1 - Panlobular emphysema (4) Obstructive sleep apnea: (5) Respiratory failure with hypoxia and hypercapnia: Plan (1) COPD exacerbation He feels he is improving, but slowly, still getting dyspneic easily. Coughing. Continue IV steroid for now. Continue antibiotic coverage. Pending sputum culture noted. Few WBC. Few GPC in pairs chains and clusters. Few GPR. Few GNR. Follow-up culture. Today noted leukocytosis 20.2. Predominantly neutrophilic 17.57. He is afebrile. Follow-up CBC. Dyspnea, rhonchi, cough productive of greenish colored phlegm. With systemic symptoms, generalized weakness. Continue treatment of severe exacerbation of COPD. Viral panel noted negative. Influenza PCR noted negative. Continue Decadron, ceftriaxone, budesonide, DuoNebs. Monitor blood glucose, at risk of hyperglycemia with steroid. Glucose noted 191. Continue Accu-Cheks. Sliding scale insulin. Discussed with case management. (2) Pneumonia Continue current antibiotics. Follow-up sputum culture. CXR showing possible left side infiltrate Continue empriic ceftriaxone and azithromycin Add sputum culture. Urine bacterial antigens. recent elevated BDG in 06/2022, suspicion for PJP eventually ruled out by negative PCR. had presumptively received bactrim--> atovaquone ? ? (2) Respiratory failure with hypoxia and hypercapnia: Management as above multifactorial from pneumonia and COPD ? ? (3) Cardiomyopathy: Currently without appearance of fluid overload/CHF. Renal function normal. Follow-up chemistry. Status post cardiac cath on 07/03 results as above ? ? (4) Diabetes mellitus type 2, noninsulin dependent: Sliding-scale insulin correction (8) Dyslipidemia: Continue statin He states that for chronic pain addition of Tylenol helps together with tramadol. Requesting Tylenol. Added as needed. At home has oxygen. Normally 2-3 L. Attestations Medical Necessity Statement*: Continue admission for assessment management of severe exacerbation of COPD. Diagnoses Pneumonia J18.9 Cardiomyopathy I42.9 COPD (chronic obstructive pulmonary disease) J43.1 COPD type: emphysema Emphysema type: panlobular Obstructive sleep apnea G47.33 Respiratory failure with hypoxia and hypercapnia J96.91; J96.92
[2022-09-24] VITALS (18 sets, daily range): BP systolic 115–144; BP diastolic 65–79; PULSE 73–116; RESP 16–19; TEMP 36.4–37.1; O2SAT 93–99
[2022-09-24] MEDS: dexamethasone 4 mg/mL INJ 6 MG IVP (00:30)
[2022-09-24] MEDS: cefTRIAXone 1,000 MG in sodium chloride 0.9% (plus) 50 ML 100 MG IV (00:31)
[2022-09-24] MEDS: ipratropium-albuterol 3 mL Neb INHALATION ×4 (03:09→21:28)
[2022-09-24 05:40] LABS: Basophils # 0.1 10^3/uL (0.0-0.1); Basophils % 0.3 %; Eosinophils % 0.1 %; Hematocrit 36.3 % (42.0-52.0); Hemoglobin 11.4 g/dL (11.7-16.6); Lymphocytes # 1.3 10^3/uL (0.8-4.8); Lymphocytes % 8.5 %; Mean Corpuscular HGB Conc 31.4 g/dL (30.0-36.0); Mean Corpuscular Hemoglobin 28.1 pg (28.0-34.0); Mean Corpuscular Volume 89.4 fl (80-94); Mean Platelet Volume 9.2 fL (7.4-10.4); Monocytes # 0.2 10^3/uL (0.2-0.9); Monocytes % 1.5 %; Neutrophils # 13.07 10^3/uL (1.8-7.7); Neutrophils % 88.9 %; Nucleated Red Blood Cells % 0 %; Platelet Count 339 10^3/cmm (130-400); Red Blood Count 4.06 10^6/uL (4.1-5.3); Red Cell Distribution Width 12.8 % (12.1-15.1); White Blood Count 14.7 10^3/uL (4.0-10.0)
[2022-09-24 06:38] LABS: Glucose Point of Care 180 mg/dL (70-110)
[2022-09-24] MEDS: budesonide 0.5 mg/2 mL Neb INHALATION ×2 (08:24→21:28)
[2022-09-24 08:28] LABS: Anion Gap 11.9 (5-19); Blood Urea Nitrogen 13 mg/dL (8-23); Calcium 8.7 mg/dL (8.5-10.5); Carbon Dioxide 32 mmol/L (22-29); Chloride 96 mmol/L (98-107); Creatinine Clr Calc Pharmacy 98.9991; Glucose 187 mg/dL (65-115); Osmolality Calculated 285 mOsm/kg (285-295); Potassium 4.9 mmol/L (3.5-5.1); Sodium 135 mmol/L (136-145)
[2022-09-24] MEDS: venlafaxine ER (24HR) 150 mg Capsule PO (08:49)
[2022-09-24] MEDS: aspirin 81 mg EC Tablet PO (08:49)
[2022-09-24] MEDS: pantoprazole DR 40 mg Tablet PO (08:49)
[2022-09-24] MEDS: tamsulosin 0.4 mg Capsule 0.8 MG PO (08:49)
[2022-09-24] MEDS: insulin lispro 100 unit/1 mL SUBCUT ×3 (08:49→21:28)
[2022-09-24 13:21] LABS: Glucose Point of Care 283 mg/dL (70-110)
[2022-09-24 16:36] LABS: Glucose Point of Care 120 mg/dL (70-110)
--- NOTE | 2022-09-24 19:31 | P.PN_ITS ---
Subjective Subjective: He feels he is slowly improving but breathing is still not feeling right . Still gets easily dyspneic with minimal exertion. States would like to keep going with treatment in the hospital for additional day as he worries he will deteriorate if he leaves home now. Vitals/I&O/Wt Last Vital Signs Temp 98.2 F 09/24/22 16:00 Pulse 96 09/24/22 16:00 Resp 18 09/24/22 16:00 BP 138/77 09/24/22 16:00 Pulse Ox 98 09/24/22 16:00 O2 Del Method Nasal Cannula 09/24/22 13:52 O2 Flow Rate 2 09/24/22 13:52 09/24/22 09/24/22 09/24/22 06:59 14:59 22:59 Intake Total 600 / 600 480 / 1080 Balance 600 / 600 480 / 1080 Physical Exam Narrative: Accompanied by his . Const: COMMON NORMALS: patient oriented x3 and alert GENERAL APPEARANCE: cooperative ORIENTATION/CONSCIOUSNESS: Yes awake HENMT: COMMON NORMALS: oropharynx normal Neck/C-Spine: COMMON NORMALS: no JVD Resp: AUSCULTATION: wheezes and diminished lung sounds OTHER: 2L NC Cardio: COMMON NORMALS: no JVD, regular rhythm, S1 normal heart sound present, S2 normal heart sound present and No murmurs present (Cardio) RHYTHM: regular rhythm HEART SOUNDS: S1 normal heart sound present and S2 normal heart sound present GI: COMMON NORMALS: Normal to inspection, nondistended, normoactive bowel sounds present, Soft to palpation and non-tender PALPATION: Yes Soft to palpation Extremity: COMMON NORMALS: no joint enlargement and no pedal edema Neuro: COMMON NORMALS: patient oriented x3 and moves all extremities SENSORIUM/ORIENTATION: Yes alert Skin: COMMON NORMALS: no rashes or lesions noted GENERAL SKIN EXAM: no rashes or lesions noted Data 09/24/22 05:30 09/24/22 07:54 Micro: Microbiology 09/23/22 08:30 Gram Stain - Final Sputum - Expectorated Sputum Sputum Culture - Preliminary Gram Negative Rods A&P Assessment and plan (1) Pneumonia: (2) Cardiomyopathy: (3) COPD (chronic obstructive pulmonary disease): Qualifiers: COPD type: emphysema Emphysema type: panlobular Qualified Code(s): J43.1 - Panlobular emphysema (4) Obstructive sleep apnea: (5) Respiratory failure with hypoxia and hypercapnia: Plan (1) COPD exacerbation Slow improvement. Oxygenation is better. Does get significantly dyspneic with minimal exertion with severely impression of COPD and superimposed pneumonia. Coughing. Continue IV steroid for now. Continue antibiotic coverage. Add M ucinex. Sputum culture with gram-negative rods on day 1, follow-up. WBC noted improved to 14.7. Predominantly neutrophilic 13. Afebrile. Discussed with case management. Dyspnea, rhonchi, cough productive of greenish colored phlegm. With systemic symptoms, generalized weakness. Continue treatment of severe exacerbation of COPD. Viral panel noted negative. Influenza PCR noted negative. Continue Decadron, ceftriaxone, budesonide, DuoNebs. Monitor blood glucose, at risk of hyperglycemia with steroid. Glucose noted 191. Continue Accu-Cheks. Sliding scale insulin. Discussed with case management. (2) Pneumonia Leukocytosis noted better down to 14.7. Afebrile. Sinus tachycardia in the 90s. Sputum culture with gram-negative rods on day 1, follow-up. Dyspnea with minimal exertion. Continue current antibiotics. CXR showing possible left side infiltrate recent elevated BDG in 06/2022, suspicion for PJP eventually ruled out by negative PCR. had presumptively received bactrim--> atovaquone ? ? (2) Respiratory failure with hypoxia and hypercapnia: Management as above multifactorial from pneumonia and COPD ? ? (3) Cardiomyopathy: At risk of CHF/volume overload with steroid. Monitor volume status. So far appears compensated. Currently without appearance of fluid overload/CHF. Renal function normal. Follow-up chemistry. Status post cardiac cath on 07/03 results as above ? ? (4) Diabetes mellitus type 2, noninsulin dependent: At risk of hyperglycemia with steroid. Continue monitor Accu-Cheks. Glucose 187. Sliding-scale insulin correction (8) Dyslipidemia: Continue statin At home has oxygen. Normally 2-3 L. Attestations Medical Necessity Statement*: Continue admission for assessment management of severe COPD exacerbation, pneumonia. Diagnoses Pneumonia J18.9 Cardiomyopathy I42.9 COPD (chronic obstructive pulmonary disease) J43.1 COPD type: emphysema Emphysema type: panlobular Obstructive sleep apnea G47.33 Respiratory failure with hypoxia and hypercapnia J96.91; J96.92
[2022-09-24 21:26] LABS: Glucose Point of Care 299 mg/dL (70-110)
[2022-09-24] MEDS: atorvastatin 40 mg Tablet 20 MG PO (21:29)
[2022-09-24] MEDS: guaiFENesin 600 mg Tablet PO (21:29)
[2022-09-24] MEDS: amitriptyline 25 mg Tablet PO (21:29)
[2022-09-25] VITALS (9 sets, daily range): BP systolic 115–122; BP diastolic 72–77; PULSE 88–99; RESP 16–18; TEMP 36.6–36.9; O2SAT 87–98
[2022-09-25] MEDS: ipratropium-albuterol 3 mL Neb INHALATION ×2 (01:38→09:18)
[2022-09-25] MEDS: cefTRIAXone 1,000 MG in sodium chloride 0.9% (plus) 50 ML 100 MG IV (01:52)
[2022-09-25] MEDS: dexamethasone 4 mg/mL INJ 6 MG IVP (01:52)
[2022-09-25 06:15] LABS: Basophils # 0.1 10^3/uL (0.0-0.1); Basophils % 0.4 %; Eosinophils % 0.1 %; Hemoglobin 11.7 g/dL (11.7-16.6); Lymphocytes # 1.3 10^3/uL (0.8-4.8); Lymphocytes % 7.3 %; Mean Corpuscular HGB Conc 31.6 g/dL (30.0-36.0); Mean Corpuscular Hemoglobin 28.7 pg (28.0-34.0); Mean Corpuscular Volume 90.9 fl (80-94); Mean Platelet Volume 8.8 fL (7.4-10.4); Monocytes # 0.5 10^3/uL (0.2-0.9); Monocytes % 2.8 %; Neutrophils # 15.52 10^3/uL (1.8-7.7); Neutrophils % 88.4 %; Nucleated Red Blood Cells % 0 %; Platelet Count 323 10^3/cmm (130-400); Red Blood Count 4.07 10^6/uL (4.1-5.3); Red Cell Distribution Width 12.9 % (12.1-15.1); White Blood Count 17.6 10^3/uL (4.0-10.0)
[2022-09-25 07:08] LABS: Glucose Point of Care 233 mg/dL (70-110)
[2022-09-25 07:11] LABS: Anion Gap 10.7 (5-19); Blood Urea Nitrogen 14 mg/dL (8-23); Calcium 8.9 mg/dL (8.5-10.5); Carbon Dioxide 34 mmol/L (22-29); Chloride 98 mmol/L (98-107); Creatinine Clr Calc Pharmacy 98.9991; Glucose 206 mg/dL (65-115); Osmolality Calculated 292 mOsm/kg (285-295); Potassium 4.7 mmol/L (3.5-5.1); Sodium 138 mmol/L (136-145)
[2022-09-25] MEDS: aspirin 81 mg EC Tablet PO (08:41)
[2022-09-25] MEDS: venlafaxine ER (24HR) 150 mg Capsule PO (08:41)
[2022-09-25] MEDS: tamsulosin 0.4 mg Capsule 0.8 MG PO (08:41)
[2022-09-25] MEDS: pantoprazole DR 40 mg Tablet PO (08:41)
[2022-09-25] MEDS: insulin lispro 100 unit/1 mL SUBCUT ×2 (08:42→13:41)
[2022-09-25] MEDS: guaiFENesin 600 mg Tablet PO (08:44)
[2022-09-25] MEDS: budesonide 0.5 mg/2 mL Neb INHALATION (09:18)
--- NOTE | 2022-09-25 10:06 | PM.DCS ---
Discharge Providers Date of Admission: 09/22/22 00:09 Date of Discharge: September 25, 2022 Attending Provider at Admission: Katerin Benton MD Attending Provider at Discharge: Jace Contreras Primary Care Provider: Courtney Reich DO Diagnoses at Discharge Discharge Diagnosis (1) Pneumonia: Status: Acute (2) Cardiomyopathy: Status: Acute (3) COPD (chronic obstructive pulmonary disease): Status: Chronic Qualifiers: COPD type: emphysema Emphysema type: panlobular Qualified Code(s): J43.1 - Panlobular emphysema (4) Obstructive sleep apnea: Status: Acute (5) Respiratory failure with hypoxia and hypercapnia: Status: Chronic Reason for Visit Reason for Visit: weakness, low O2 Hospital Course Hospital Course Pleasant 72-year-old gentleman with history of COPD, chronically on prednisone 5 mg, azithromycin 3 times a week, was admitted for assessment management due to COPD exacerbation, mild left basilar pneumonia, initially with worse oxygen requirement compared to usual requiring up to 4 L, dyspneic on minimal exertion, with productive cough, wheezing, diminished air entry with severe exacerbation. Treated with IV steroid, empiric antibiotic coverage with ceftriaxone, azithromycin, breathing treatments. Condition gradually improved. He has history of cardiomyopathy, however, remained compensated without signs of CHF. Urine bacterial antigens negative for Legionella, GBS, haemophilus, strep pneumo, sputum culture with gram-negative gissell, culture pending. Please follow-up. He was weaned down to his usual oxygen requirement of about 2-3 L nasal cannula, today finally feels he is gradually continue to improve in terms of exertional tolerance. Still mild wheeze on exam, but air entry with improvement. He will be returning home with course of antibiotic and steroid taper. 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 Physical Exam Narrative: Visited by his . Const: COMMON NORMALS: patient oriented x3 and alert GENERAL APPEARANCE: cooperative ORIENTATION/CONSCIOUSNESS: Yes awake HENMT: COMMON NORMALS: oropharynx normal Neck/C-Spine: COMMON NORMALS: no JVD Resp: COMMON NORMALS: normal respiratory effort AUSCULTATION: wheezes (Mild wheeze) Cardio: COMMON NORMALS: no JVD, regular rhythm, S1 normal heart sound present, S2 normal heart sound present and No murmurs present (Cardio) RHYTHM: regular rhythm HEART SOUNDS: S1 normal heart sound present and S2 normal heart sound present GI: COMMON NORMALS: Normal to inspection, nondistended, normoactive bowel sounds present, Soft to palpation and non-tender PALPATION: Yes Soft to palpation Extremity: COMMON NORMALS: no joint enlargement and no pedal edema Neuro: COMMON NORMALS: patient oriented x3 and moves all extremities SENSORIUM/ORIENTATION: Yes alert Skin: COMMON NORMALS: no rashes or lesions noted GENERAL SKIN EXAM: no rashes or lesions noted Discharge Data Studies Completed and Pending Completed Studies During Hospitalization Category Date Time Status XR chest 1V portable [id number] Stat Exams 09/21/22 19:32 Completed Pending at discharge Category Date Time Status Basic Metabolic Panel AM LABS Lab 09/26/22 04:00 Ordered Complete Blood Count w/Auto AM LABS Lab 09/26/22 04:00 Ordered Sputum Culture and Gram Stain Routine Lab 09/23/22 08:30 Results Radiology Impressions Chest X-Ray 09/21/22 19:32 IMPRESSION: Mild left basilar pneumonia. Laboratory Results WBC 17.6 10^3/uL (4.0-10.0) H 09/25/22 05:39 RBC 4.07 10^6/uL (4.1-5.3) L 09/25/22 05:39 Hgb 11.7 g/dL (11.7-16.6) 09/25/22 05:39 Hct 37.0 % (42.0-52.0) L 09/25/22 05:39 MCV 90.9 fl (80-94) 09/25/22 05:39 MCH 28.7 pg (28.0-34.0) 09/25/22 05:39 MCHC 31.6 g/dL (30.0-36.0) 09/25/22 05:39 RDW 12.9 % (12.1-15.1) 09/25/22 05:39 Plt Count 323 10^3/cmm (130-400) 09/25/22 05:39 MPV 8.8 fL (7.4-10.4) 09/25/22 05:39 Neut % (Auto) 88.4 % 09/25/22 05:39 Lymph % (Auto) 7.3 % 09/25/22 05:39 [place] % (Auto) 2.8 % 09/25/22 05:39 Eos % (Auto) 0.1 % 09/25/22 05:39 Baso % (Auto) 0.4 % 09/25/22 05:39 Neut # (Auto) 15.52 10^3/uL (1.8-7.7) H 09/25/22 05:39 Lymph # (Auto) 1.3 10^3/uL (0.8-4.8) 09/25/22 05:39 [place] # (Auto) 0.5 10^3/uL (0.2-0.9) 09/25/22 05:39 Eos # (Auto) 0.0 10^3/uL (0.0-0.8) 09/25/22 05:39 Baso # (Auto) 0.1 10^3/uL (0.0-0.1) 09/25/22 05:39 Nucleated RBC % (auto) 0 % 09/25/22 05:39 Nucleated RBCs # 0.0 /100WBC 09/25/22 05:39 Specimen Type Arterial 09/21/22 21:06 Sample Site Brachial, left 09/21/22 21:06 ABG pH 7.37 (7.35-7.45) 09/21/22 21:06 ABG pCO2 56.7 mmHg (35-45) H 09/21/22 21:06 ABG pO2 94.9 mmHg (80.0-100.0) 09/21/22 21:06 ABG HCO3 33.0 mmol/L (22-26) H 09/21/22 21:06 ABG Base Excess 6.3 mmol/L (-2.0-2.0) H 09/21/22 21:06 Luis Fernando Test Pos 09/21/22 21:06 Hematocrit 36.3 % (42-52) L 09/21/22 21:06 O2 Delivery Device Nc 09/21/22 21:06 O2 Liters/Min 2.5 % 09/21/22 21:06 Die Engraving Supervisor ID [email or web address] 09/21/22 21:06 Sodium 138 mmol/L (136-145) 09/25/22 05:39 Potassium 4.7 mmol/L (3.5-5.1) 09/25/22 05:39 Chloride 98 mmol/L (98-107) 09/25/22 05:39 Carbon Dioxide 34 mmol/L (22-29) H 09/25/22 05:39 Anion Gap 10.7 (5-19) 09/25/22 05:39 BUN 14 mg/dL (8-23) 09/25/22 05:39 Creatinine 0.8 mg/dL (0.7-1.2) 09/25/22 05:39 GFR Calculation Not Reportable 09/25/22 05:39 Glucose 206 mg/dL (65-115) H 09/25/22 05:39 POC Glucose 233 mg/dL (70-110) H 09/25/22 06:43 Calculated Osmolality 292 mOsm/kg (285-295) 09/25/22 05:39 Calcium 8.9 mg/dL (8.5-10.5) 09/25/22 05:39 Total Bilirubin 0.2 mg/dL (0.15-1.2) 09/23/22 04:39 AST 11 U/L (0-40) 09/23/22 04:39 ALT 14 U/L (0-41) 09/23/22 04:39 Alkaline Phosphatase 76 U/L (40-130) 09/23/22 04:39 Troponin T Baseline 25 ng/L (0-15) H 09/21/22 20:07 Troponin T 120 Minute 25.16 ng/L (0-15) H 09/21/22 22:40 Delta Troponin T 0.16 ABS# (0-10) 09/21/22 22:40 Troponin T Hi Sens 6Hr 19.69 ng/L (0-15) H 09/22/22 02:25 Troponin T Hi Sens 6Hr Delta -5.31 ng/L (0-12) L 09/22/22 02:25 NT-Pro-B Natriuret Pep 545 pg/mL (0-125) H 09/21/22 20:07 Total Protein 6.0 g/dL (6.6-8.7) L 09/23/22 04:39 Albumin 3.7 g/dL (3.5-5.2) 09/23/22 04:39 Globulin 2.3 g/dL (1.3-4.6) 09/23/22 04:39 Nasal Influ A H1 2008 PCR Not detected (NOT DETECT) 09/22/22 02:35 Adenovirus (PCR) Not detected (NOT DETECT) 09/22/22 02:35 C. pneumoniae DNA (PCR) Not detected (NOT DETECT) 09/22/22 02:35 Coronavirus 229E (PCR) Not detected (NOT DETECT) 09/22/22 02:35 Human Metapneumovir PCR Not detected (NOT DETECT) 09/22/22 02:35 Influenza A (H1) PCR Not detected (NOT DETECT) 09/22/22 02:35 Influenza A (H3) PCR Not detected (NOT DETECT) 09/22/22 02:35 Influenza Type A (PCR) Not detected (NOT DETECT) 09/22/22 02:35 Influenza Type B (PCR) Not detected (NOT DETECT) 09/22/22 02:35 M. pneumoniae (PCR) Not detected (NOT DETECT) 09/22/22 02:35 Parainfluenza 1 (PCR) Not detected (NOT DETECT) 09/22/22 02:35 Parainfluenza 2 (PCR) Not detected (NOT DETECT) 09/22/22 02:35 Parainfluenza 3 (PCR) Not detected (NOT DETECT) 09/22/22 02:35 Parainfluenza 4 (PCR) Not detected (NOT DETECT) 09/22/22 02:35 RSV Type A (PCR) Not detected (NOT DETECT) 09/22/22 02:35 RSV Type B (PCR) Not detected (NOT DETECT) 09/22/22 02:35 Entero/Rhino (PCR) Not detected (NOT DETECT) 09/22/22 02:35 SARS-CoV-2 (PCR) Not detected (NOT DETECT) 09/22/22 02:35 Vitals Last Vital Signs Temp 98.4 F 09/25/22 08:00 Pulse 94 09/25/22 09:18 Resp 18 09/25/22 09:18 BP 117/77 09/25/22 08:00 Pulse Ox 96 09/25/22 09:18 O2 Del Method Nasal Cannula 09/25/22 09:18 O2 Flow Rate 2 09/25/22 09:18 Discharge Plan Discharge Patient Disposition: Home Condition: Stable Prescriptions: New cefdinir 300 mg capsule 300 mg PO BID 4 Days Qty: 8 0RF prednisone 20 mg tablet 20 mg PO DAILY Qty: 20 0RF Rx Instructions: 3 tab daily for 3 days, then 2 tab for 3 days, then 1 tab for 3 days, then 1/2 tab for 4 days. Continued acetaminophen [Tylenol Extra Strength] 500 mg tablet 1,000 mg PO Q4H PRN (Reason: Pain) (DME) Four wheeled walker with a seat Qty: 1 0RF Rx Instructions: As directed albuterol sulfate 2.5 mg /3 mL (0.083 %) solution for nebulization 2.5 mg INHALATION BEDTIME budesonide [Pulmicort] 0.5 mg/2 mL suspension for nebulization 0.5 mg INHALATION BID Qty: 120 2RF Rx Instructions: NEEDS APPT PRIOR TO FURTHER REFILLS Perforomist 20 mcg/2 mL solution for nebulization 2 ml INHALATION Q12H 90 Days Qty: 120 2RF Rx Instructions: NEEDS APPT PRIOR TO FURTHER REFILLS albuterol sulfate 90 mcg/actuation HFA aerosol inhaler 2 inh inhalation Q6H PRN (Reason: shortness of breath or wheezing) Qty: 18 2RF tramadol 50 mg tablet 50 mg PO TID PRN (Reason: pain) Qty: 90 0RF atorvastatin 20 mg tablet 20 mg PO BEDTIME Qty: 90 0RF amitriptyline 25 mg tablet 25 mg PO BEDTIME azithromycin 250 mg tablet 250 mg PO EVERY OTHER DAY prednisone 5 mg tablet 5 mg PO QAM venlafaxine 150 mg capsule,extended release 24hr 150 mg PO BEDTIME Aspir-81 81 mg Tablet,Delayed Release (Dr/Ec) 81 mg PO BEDTIME tamsulosin 0.4 mg capsule 0.8 mg PO BEDTIME furosemide 20 mg tablet 20 mg PO QAM EpiPen 0.3 mg/0.3 mL Auto-Injector 0.3 mg IM . DIRECTED PRN (Reason: Allergic Reaction) lisinopril 2.5 mg tablet 2.5 mg PO DAILY Januvia 100 mg tablet 100 mg PO QAM Yupelri 175 mcg/3 mL solution for nebulization 175 mcg INHALATION BEDTIME Discharge Orders: Discharge Order (Routine); Ordered 09/25/22 Ordered By: Jace Contreras Referrals: Lonny Varela MD [Physician] - 2 weeks Courtney Reich DO [Primary Care Provider] - 10/03/22 11:15 am Discharge Diet: Cardiac Discharge Activity: Increase activity as tolerated Activity Restrictions/Additional Instructions: Continue nebulizer treatments at home. Completed tabetic course. Complete steroid taper until you are back down to the usual prednisone 5 mg daily. Continue azithromycin 3 times weekly as per your lung specialist. Follow-up with Dr. Varela. Discharge Attestations Time Spent in Discharge Care*: greater than 30 min Status at Discharge: Cognitive status at discharge: cognitively intact, Behavioral status at discharge: can be uncooperative and independent in ADL's, Quality Metrics Clinical Quality Measures [ No reported AMI, CVA or VTE this stay] Coding Level of Care Code 51444 Total time (in minutes) for Discharge: 45 Diagnoses Pneumonia J18.9 Cardiomyopathy I42.9 COPD (chronic obstructive pulmonary disease) J43.1 COPD type: emphysema Emphysema type: panlobular Obstructive sleep apnea G47.33 Respiratory failure with hypoxia and hypercapnia J96.91; J96.92
--- NOTE | 2022-09-25 10:10 | PC.SOCIAL ---
[facility] updated with patient at bedside. Copy of page 2 provided. Patient verbalized understanding. Copy in chart initialed, dated and timed.
[2022-09-25 11:01] LABS: Glucose Point of Care 272 mg/dL (70-110)
--- NOTE | 2022-09-29 16:28 | PC.SOCIAL ---
Sputum Culture Sputum culture positive for ESBL; telephone order for minocycline 200mg PO Once, then 100mg Q12H for 7days, no refills, called in to [facility] in [place] per Dr. Contreras.
== END 2022-09-25 14:30 | disposition home or self-care (01) | DRG 190 ==
LOC: ER 09-22 00:24 → MEDSURG 09-22 00:47
PROVIDERS: Admitting Provider Student in an Organized Health Care Education/Training Program; Emergency Provider Emergency Medicine; PCP Family Medicine; Visit Provider Internal Medicine
DX: J43.1 Panlobular emphysema (principal); J18.9 Pneumonia, unspecified organism; I42.9 Cardiomyopathy, unspecified; I50.22 Chronic systolic (congestive) heart failure; J96.12 Chronic respiratory failure with hypercapnia; J96.11 Chronic respiratory failure with hypoxia; Z79.52 Long term (current) use of systemic steroids; Z99.81 Dependence on supplemental oxygen; Z79.51 Long term (current) use of inhaled steroids; Z79.891 Long term (current) use of opiate analgesic; Z79.82 Long term (current) use of aspirin; G47.33 Obstructive sleep apnea (adult) (pediatric); N40.1 Benign prostatic hyperplasia with lower urinary tract symptoms; G89.29 Other chronic pain; M54.50 Low back pain, unspecified; E11.42 Type 2 diabetes mellitus with diabetic polyneuropathy; Z79.84 Long term (current) use of oral hypoglycemic drugs; F32.A Depression, unspecified; I25.10 Atherosclerotic heart disease of native coronary artery without angina pectoris; E78.5 Hyperlipidemia, unspecified; Z87.891 Personal history of nicotine dependence; Z96.651 Presence of right artificial knee joint
CPT/HCPCS: 36415; 36416; 36600; 71045; 80048; 80053; 82803; 82962; 83880; 84484; 85025; 86403; 87070; 87077; 87186; 87205; 87449; 87486; 87581; 87633; 93005; 94640; 94760; 96372; 96374; 99285; J0456; J0696; J1100; J1815; J7050; J7626

== ENCOUNTER → 2022-10-23 09:43 | Outpatient (BNVA) | payer MEDICARE, BC, SELFPAY | PROVIDERS: PCP Family Medicine; Visit Provider Specialist | DX: G43.709 Chronic migraine without aura, not intractable, without status migrainosus (principal) | CPT/HCPCS: 64615; J0585 ==

== ENCOUNTER → 2022-11-17 10:12 | Outpatient (BNVA) | payer MEDICARE, BC, SELFPAY | PROVIDERS: PCP Family Medicine; Visit Provider Internal Medicine Pulmonary Disease | DX: Z09 Encounter for follow-up examination after completed treatment for conditions other than malignant neoplasm (principal); J43.1 Panlobular emphysema; J96.11 Chronic respiratory failure with hypoxia; Z91.89 Other specified personal risk factors, not elsewhere classified; G47.33 Obstructive sleep apnea (adult) (pediatric); Z99.81 Dependence on supplemental oxygen; F17.210 Nicotine dependence, cigarettes, uncomplicated | CPT/HCPCS: 99214 ==

== ENCOUNTER → 2022-12-23 11:15 | Outpatient (BNVA) | payer MEDICARE, BC, SELFPAY | PROVIDERS: PCP Family Medicine; Visit Provider Family Medicine | DX: N40.1 Benign prostatic hyperplasia with lower urinary tract symptoms (principal); E11.9 Type 2 diabetes mellitus without complications; E78.5 Hyperlipidemia, unspecified | CPT/HCPCS: 83036 ==

== ENCOUNTER → 2023-01-22 09:50 | Outpatient (BNVA) | payer MEDICARE, BC, SELFPAY | PROVIDERS: PCP Family Medicine; Visit Provider Specialist | DX: R42 Dizziness and giddiness (principal); G43.709 Chronic migraine without aura, not intractable, without status migrainosus | CPT/HCPCS: 64615; 95911; 99213; J0585 ==

== ENCOUNTER 2023-01-24 17:35 | Emergency (ER) | payer MEDICARE, BC, SELFPAY ==
[2023-01-24] VITALS (7 sets, daily range): BP systolic 86–121; BP diastolic 62–84; PULSE 78–92; RESP 16–21; TEMP 36.5; O2SAT 90–96; BMI 38.0
--- NOTE | 2023-01-24 17:39 | XRR_ITS ---
PROCEDURE INFORMATION: Exam: XR Chest Exam date and time: 01/24/2023 6:17 PM Age: 72 years old Clinical indication: Cough and shortness of breath; Patient HX: Dyspnea; Cough TECHNIQUE: Imaging protocol: Radiologic exam of the chest. Views: 1 view. COMPARISON: CR (CHEST, ) 09/21/2022 8:26 PM FINDINGS: Lungs: Subtle opacities in the lung bases. Pleural spaces: Unremarkable. No pleural effusion. No pneumothorax. Heart/Mediastinum: Unremarkable. No cardiomegaly. Bones/joints: Unremarkable. XR/XR chest 1V portable [id number] IMPRESSION: Subtle opacities in the lung bases.
--- NOTE | 2023-01-24 17:50 | W.ED.SOB ---
Documented by User: Constantine Cisneros DO 02/02/23 11:14 HPI - SOB/Dyspnea General: Chief Complaint: Shortness of Breath/Dyspnea Stated Complaint: SOB Time Seen by Provider: 01/24/23 17:38 Source: patient Mode of arrival: ambulatory History of Present Illness: HPI Narrative: 72-year-old male presents to the emergency room with complaints of shortness of breath and wheezing. Is been going on all day he last used albuterol treatment earlier this morning. He is on his usual 2 L of oxygen. He did have some mild chest discomfort earlier he does not have productive cough denies any hemoptysis no fever MD elicited complaint: shortness of breath and cough Pertinent past history: COPD Onset (ago): day(s) Severity: mild Known history of: COPD Associated symptoms: Reports chest congestion and cough; Deny abdominal pain, chest pain, diaphoresis, dizziness, extremity pain, fever(s), hemoptysis, lightheadedness, myalgias, nausea, orthopnea, palpitations, paresthesias, polydipsia, polyuria, rash, sense of impending doom, syncope or vomiting Treatment prior to arrival: oxygen and bronchodilator Review of Systems Const: Denies: fever(s) or diaphoresis Card: Denies: chest pain, palpitations, lightheadedness, syncope or orthopnea Resp: Reports: chest congestion; Denies: hemoptysis GI: Denies: abdominal pain, nausea or vomiting : Denies: dysuria, urinary frequency or urinary urgency Musc: Denies: extremity pain Skin/Breast: Denies: rash Neuro: Denies: dizziness Endo: Denies: polyuria or polydipsia PFS ED PFSH: Medical History Atherosclerosis of coronary artery 60-70% prox 1st OM stenosis 07/03/22 BPH loc w urin obs/LUTS Chronic low back pain Has had nerve ablations and follows at pain clinic in [place] Chronic migraine Controlled diabetes mellitus without long-term current use of insulin COPD (chronic obstructive pulmonary disease) Depression, controlled Dyslipidemia Elevated prostate specific antigen [PSA] Enrolled in chronic care management History of multiple allergies Xolair injections monthly Hx of migraine headaches Has a triptan prescription and another medication Obstructive sleep apnea Peripheral neuropathy Primarily involving hands, related to ulnar nerve interventions Respiratory failure with hypoxia and hypercapnia Systolic congestive heart failure Surgical History H/O decompression of ulnar nerve bilateral H/O elbow surgery bilateral H/O rotator cuff surgery bilateral H/O total knee replacement right History of cataract surgery History of repair of rotator cuff Bilateral History of surgery on wrist Bilateral ulnar nerve release History of tonsillectomy and adenoidectomy Status post colonoscopy (07/21/19) normal , poor prep, repeat in 5 years Family History Mother , at age 66 Cancer uterine Aneurysm intracranial Father , at age 76 Lung disease asthma with allergies Asthma Other CAD (coronary artery disease) Social History Smoking and tobacco/nicotine status: former use of tobacco/nicotine Quit status (tobacco/nicotine): has quit using Year quit tobacco: 2021 Former quit date comment: 2ppd X 59 years Second hand smoke exposure: Yes Alcohol intake: former Substance/Drug Use: never Lives independently: Yes Household members: spouse Marital status: service: Yes Current occupational status: retired Do you think of yourself as: Straight/Heterosexual Current gender identity: Male Physical Exam Const: GENERAL APPEARANCE: cooperative and comfortable ORIENTATION/CONSCIOUSNESS: Yes awake, Yes oriented to person, Yes oriented to place and Yes oriented to time HENMT: COMMON NORMALS: normocephalic, atraumatic and hearing grossly normal bilaterally HEAD & SCALP: normocephalic and atraumatic Resp: AUSCULTATION: rhonchi and wheezes Cardio: COMMON NORMALS: regular rate, regular rhythm and No murmurs present (Cardio) RATE: regular rate RHYTHM: regular rhythm GI: COMMON NORMALS: Soft to palpation and No hepatosplenomegaly present AUSCULTATION: Yes normoactive bowel sounds PALPATION: Yes Soft to palpation, No Tenderness to palpation present (GI), No Guarding due to palpation present (GI) and Yes No hepatosplenomegaly present Extremity: COMMON NORMALS: normal to inspection, capillary refill normal, no clubbing, cyanosis or edema, no calf tenderness and no pedal edema Neuro: SENSORIUM/ORIENTATION: Yes oriented to person, Yes oriented to place and Yes oriented to time Skin: COMMON NORMALS: no rashes or lesions noted GENERAL SKIN EXAM: no rashes or lesions noted Course Vital Signs: Vital signs: Vital Signs Temperature 97.7 F 01/24/23 17:48 Pulse Rate 82 01/24/23 21:00 Respiratory Rate 18 01/24/23 21:00 Blood Pressure 121/63 01/24/23 21:00 Pulse Oximetry 94 01/24/23 21:00 Oxygen Delivery Me thod Nasal Cannula 01/24/23 20:51 Oxygen Flow Rate 2 01/24/23 20:51 MDM - SOB/Dyspnea Medical Decision Making Care signed out to Dr. Peoples at change of shift. See final notes for diagnosis and disposition. 72-year-old male gentleman checked out to me by Dr. Cisneros at shift change. This patient is experiencing a COPD exacerbation. White blood cell count is 11.5, CBC otherwise normal. BMP is not remarkable. EKG shows sinus rhythm with sinus arrhythmia normal axis, rate of 85, no acute ST wave changes. Troponin is 26 on presentation 33 at 2 hours. The patient has no chest pain. He is feeling improved after dexamethasone and breathing treatments. He will get 1 more albuterol treatment. Steroid burst. He does have subtle opacities located in the lung bases. We will perform rapid COVID on the patient. Antibiotic coverage. Nebulizer treatments at home. Lab Data 01/24/23 18:00 01/24/23 18:00 Labs/Radiology: Radiology Impressions Chest X-Ray 01/24/23 17:39 IMPRESSION: Subtle opacities in the lung bases. Laboratory Results WBC 11.52 10^3/uL (3.29-11.43) H 01/24/23 18:00 RBC 4.49 10^6/uL (3.85-5.65) 01/24/23 18:00 Hgb 11.90 g/dL (11.27-16.99) 01/24/23 18:00 Hct 40.4 % (37-53) 01/24/23 18:00 MCV 90.0 fl (82-101) 01/24/23 18:00 MCH 26.5 pg (27-33) L 01/24/23 18:00 MCHC 29.5 g/dL (30-55) L 01/24/23 18:00 RDW 13.5 % (12.1-15.1) 01/24/23 18:00 Plt Count 196 10^3/cmm (157-399) 01/24/23 18:00 MPV 10.2 fL (7.4-10.4) 01/24/23 18:00 Neut % (Auto) 74.1 % 01/24/23 18:00 Lymph % (Auto) 16.1 % 01/24/23 18:00 Evangeline % (Auto) 7.8 % 01/24/23 18:00 Eos % (Auto) 0.9 % 01/24/23 18:00 Baso % (Auto) 0.7 % 01/24/23 18:00 Neut # (Auto) 8.53 10^3/uL (1.8-7.7) H 01/24/23 18:00 Lymph # (Auto) 1.9 10^3/uL (0.8-4.8) 01/24/23 18:00 Evangeline # (Auto) 0.9 10^3/uL (0.2-0.9) 01/24/23 18:00 Eos # (Auto) 0.1 10^3/uL (0.0-0.8) 01/24/23 18:00 Baso # (Auto) 0.1 10^3/uL (0.0-0.1) 01/24/23 18:00 Nucleated RBC % (auto) 0 % 01/24/23 18:00 Nucleated RBCs # 0.0 /100WBC 01/24/23 18:00 Sodium 141 mmol/L (136-145) 01/24/23 18:00 Potassium 4.7 mmol/L (3.5-5.1) 01/24/23 18:00 Chloride 102 mmol/L (98-107) 01/24/23 18:00 Carbon Dioxide 30 mmol/L (22-29) H 01/24/23 18:00 Anion Gap 13.7 (5-19) 01/24/23 18:00 BUN 10 mg/dL (8-23) 01/24/23 18:00 Creatinine 0.8 mg/dL (0.7-1.2) 01/24/23 18:00 GFR Calculation Not Reportable 01/24/23 18:00 Glucose 100 mg/dL (65-115) 01/24/23 18:00 Calculated Osmolality 291 mOsm/kg (285-295) 01/24/23 18:00 Calcium 8.8 mg/dL (8.5-10.5) 01/24/23 18:00 Total Bilirubin 0.3 mg/dL (0.15-1.2) 01/24/23 18:00 AST 10 U/L (0-40) 01/24/23 18:00 ALT 10 U/L (0-41) 01/24/23 18:00 Alkaline Phosphatase 75 U/L (40-130) 01/24/23 18:00 Troponin T Baseline 26 ng/L (0-15) H 01/24/23 18:00 Troponin T 120 Minute 33.09 ng/L (0-15) H 01/24/23 19:56 Delta Troponin T 7.09 ABS# (0-10) 01/24/23 19:56 Total Protein 6.1 g/dL (6.6-8.7) L 01/24/23 18:00 Albumin 3.7 g/dL (3.5-5.2) 01/24/23 18:00 Globulin 2.4 g/dL (1.3-4.6) 01/24/23 18:00 SARS-CoV-2 Ag (Rapid) negative (Negative) 01/24/23 19:45 Discharge Plan Discharge Patient Disposition: Home Clinical Impression: Acute exacerbation of chronic obstructive airways disease Condition: Stable Prescriptions: No Action acetaminophen [Tylenol Extra Strength] 500 mg tablet 1,000 mg PO Q4H PRN (Reason: Pain) (DME) Four wheeled walker with a seat Qty: 1 0RF Rx Instructions: As directed Xolair 75 mg/0.5 mL syringe SUBCUT fluticasone propionate [Flonase Allergy Relief] 50 mcg/actuation spray,suspension 1 spray intranasal DAILY Qty: 16 6RF Rx Instructions: administer into each nostril atorvastatin 20 mg tablet 20 mg PO BEDTIME Qty: 90 1RF budesonide [Pulmicort] 0.5 mg/2 mL suspension for nebulization 0.5 mg INHALATION BID Qty: 120 2RF Perforomist 20 mcg/2 mL solution for nebulization 2 ml INHALATION Q12H 90 Days Qty: 120 3RF albuterol sulfate 2.5 mg /3 mL (0.083 %) solution for nebulization 2.5 mg INHALATION BEDTIME Qty: 90 3RF amitriptyline 25 mg tablet 25 mg PO BEDTIME Qty: 90 3RF venlafaxine 150 mg capsule,extended release 24hr 150 mg PO BEDTIME Qty: 90 3RF Yupelri 175 mcg/3 mL solution for nebulization 175 mcg INHALATION BEDTIME Qty: 90 6RF prednisone 5 mg tablet 5 mg PO QAM Qty: 90 0RF tamsulosin 0.4 mg capsule 0.8 mg PO BEDTIME Qty: 180 1RF tramadol 50 mg tablet 50 mg PO TID PRN (Reason: pain) Qty: 90 0RF albuterol sulfate 90 mcg/actuation HFA aerosol inhaler See Rx Instructions .ROUTE .COMPLEX Qty: 18 0RF Dose Instruction: INHALE 2 PUFFS BY MOUTH EVERY 6 HOURS NEEDED FOR SHORTNESS OF BREATH OR WHEEZING Rx Instructions: INHALE 2 PUFFS BY MOUTH EVERY 6 HOURS NEEDED FOR SHORTNESS OF BREATH OR WHEEZING Januvia 100 mg tablet 100 mg PO QAM Qty: 90 0RF Rx Instructions: 340 B aspirin 81 mg Tablet,Delayed Release (Dr/Ec) 81 mg PO BEDTIME furosemide 20 mg tablet 20 mg PO QAM EpiPen 0.3 mg/0.3 mL Auto-Injector 0.3 mg IM . DIRECTED PRN (Reason: Allergic Reaction) Discharge Orders: Discharge ED (Routine); Ordered 01/24/23 Ordered By: Sam Peoples Referrals: Courtney Reich DO [Primary Care Provider] - 1-3 days Patient Instructions: COPD (Chronic Obstructive Pulmonary Disease) (ED), Opioid Safety, Pain Management Activity Restrictions/Additional Instructions: Use your albuterol nebulizer every 4 hours while awake at home for the next 48 hours scheduled whether you are feeling short of breath or not. You may use as needed after that. Stop your prednisone 5 mg, in favor of increased dosage to 60 mg daily as noted. Return for worsening shortness of breath despite treatment, fever despite 2-3 doses of antibiotics, worsening chest pain, any other concerning symptoms. Coding Level of Care Code ED Prompt Care Rn for Chg Fwd Documented by User: Sam Peoples DO 01/25/23 17:33 HPI - SOB/Dyspnea General: Chief Complaint: Shortness of Breath/Dyspnea Stated Complaint: SOB Time Seen by Provider: 01/24/23 17:38 PFSH ED PFSH: Medical History Atherosclerosis of coronary artery 60-70% prox 1st OM stenosis 07/03/22 BPH loc w urin obs/LUTS Chronic low back pain Has had nerve ablations and follows at pain clinic in [place] Chronic migraine Controlled diabetes mellitus without long-term current use of insulin COPD (chronic obstructive pulmonary disease) Depression, controlled Dyslipidemia Elevated prostate specific antigen [PSA] Enrolled in chronic care management History of multiple allergies Xolair injections monthly Hx of migraine headaches Has a triptan prescription and another medication Obstructive sleep apnea Peripheral neuropathy Primarily involving hands, related to ulnar nerve interventions Respiratory failure with hypoxia and hypercapnia Systolic congestive heart failure Surgical History H/O decompression of ulnar nerve bilateral H/O elbow surgery bilateral H/O rotator cuff surgery bilateral H/O total knee replacement right History of cataract surgery History of repair of rotator cuff Bilateral History of surgery on wrist Bilateral ulnar nerve release History of tonsillectomy and adenoidectomy Status post colonoscopy (07/21/19) normal , poor prep, repeat in 5 years Family History Mother , at age 66 Cancer uterine Aneurysm intracranial Father , at age 76 Lung disease asthma with allergies Asthma Other CAD (coronary artery disease) Social History Smoking and tobacco/nicotine status: former use of tobacco/nicotine Quit status (tobacco/nicotine): has quit using Year quit tobacco: 2021 Former quit date comment: 2ppd X 59 years Second hand smoke exposure: Yes Alcohol intake: former Substance/Drug Use: never Lives independently: Yes Household members: spouse Marital status: service: Yes Current occupational status: retired Do you think of yourself as: Straight/Heterosexual Current gender identity: Male Course Vital Signs: Vital signs: Vital Signs Temperature 97.7 F 01/24/23 17:48 Pulse Rate 82 01/24/23 21:00 Respiratory Rate 18 01/24/23 21:00 Blood Pressure 121/63 01/24/23 21:00 Pulse Oximetry 94 01/24/23 21:00 Oxygen Delivery Me thod Nasal Cannula 01/24/23 20:51 Oxygen Flow Rate 2 01/24/23 20:51 MDM - SOB/Dyspnea Medical Decision Making 72-year-old male gentleman checked out to me by Dr. Cisneros at shift change. This patient is experiencing a COPD exacerbation. White blood cell count is 11.5, CBC otherwise normal. BMP is not remarkable. EKG shows sinus rhythm with sinus arrhythmia normal axis, rate of 85, no acute ST wave changes. Troponin is 26 on presentation 33 at 2 hours. The patient has no chest pain. He is feeling improved after dexamethasone and breathing treatments. He will get 1 more albuterol treatment. Steroid burst. He does have subtle opacities located in the lung bases. We will perform rapid COVID on the patient. Antibiotic coverage. Nebulizer treatments at home. Lab Data 01/24/23 18:00 01/24/23 18:00 Labs/Radiology: Radiology Impressions Chest X-Ray 01/24/23 17:39 IMPRESSION: Subtle opacities in the lung bases. Laboratory Results WBC 11.52 10^3/uL (3.29-11.43) H 01/24/23 18:00 RBC 4.49 10^6/uL (3.85-5.65) 01/24/23 18:00 Hgb 11.90 g/dL (11.27-16.99) 01/24/23 18:00 Hct 40.4 % (37-53) 01/24/23 18:00 MCV 90.0 fl (82-101) 01/24/23 18:00 MCH 26.5 pg (27-33) L 01/24/23 18:00 MCHC 29.5 g/dL (30-55) L 01/24/23 18:00 RDW 13.5 % (12.1-15.1) 01/24/23 18:00 Plt Count 196 10^3/cmm (157-399) 01/24/23 18:00 MPV 10.2 fL (7.4-10.4) 01/24/23 18:00 Neut % (Auto) 74.1 % 01/24/23 18:00 Lymph % (Auto) 16.1 % 01/24/23 18:00 Evangeline % (Auto) 7.8 % 01/24/23 18:00 Eos % (Auto) 0.9 % 01/24/23 18:00 Baso % (Auto) 0.7 % 01/24/23 18:00 Neut # (Auto) 8.53 10^3/uL (1.8-7.7) H 01/24/23 18:00 Lymph # (Auto) 1.9 10^3/uL (0.8-4.8) 01/24/23 18:00 Evangeline # (Auto) 0.9 10^3/uL (0.2-0.9) 01/24/23 18:00 Eos # (Auto) 0.1 10^3/uL (0.0-0.8) 01/24/23 18:00 Baso # (Auto) 0.1 10^3/uL (0.0-0.1) 01/24/23 18:00 Nucleated RBC % (auto) 0 % 01/24/23 18:00 Nucleated RBCs # 0.0 /100WBC 01/24/23 18:00 Sodium 141 mmol/L (136-145) 01/24/23 18:00 Potassium 4.7 mmol/L (3.5-5.1) 01/24/23 18:00 Chloride 102 mmol/L (98-107) 01/24/23 18:00 Carbon Dioxide 30 mmol/L (22-29) H 01/24/23 18:00 Anion Gap 13.7 (5-19) 01/24/23 18:00 BUN 10 mg/dL (8-23) 01/24/23 18:00 Creatinine 0.8 mg/dL (0.7-1.2) 01/24/23 18:00 GFR Calculation Not Reportable 01/24/23 18:00 Glucose 100 mg/dL (65-115) 01/24/23 18:00 Calculated Osmolality 291 mOsm/kg (285-295) 01/24/23 18:00 Calcium 8.8 mg/dL (8.5-10.5) 01/24/23 18:00 Total Bilirubin 0.3 mg/dL (0.15-1.2) 01/24/23 18:00 AST 10 U/L (0-40) 01/24/23 18:00 ALT 10 U/L (0-41) 01/24/23 18:00 Alkaline Phosphatase 75 U/L (40-130) 01/24/23 18:00 Troponin T Baseline 26 ng/L (0-15) H 01/24/23 18:00 Troponin T 120 Minute 33.09 ng/L (0-15) H 01/24/23 19:56 Delta Troponin T 7.09 ABS# (0-10) 01/24/23 19:56 Total Protein 6.1 g/dL (6.6-8.7) L 01/24/23 18:00 Albumin 3.7 g/dL (3.5-5.2) 01/24/23 18:00 Globulin 2.4 g/dL (1.3-4.6) 01/24/23 18:00 SARS-CoV-2 Ag (Rapid) negative (Negative) 01/24/23 19:45 All radiology interpretation(s) finalized by discharge Discharge Plan Discharge Patient Disposition: Home Clinical Impression: Acute exacerbation of chronic obstructive airways disease Condition: Stable Prescriptions: No Action acetaminophen [Tylenol Extra Strength] 500 mg tablet 1,000 mg PO Q4H PRN (Reason: Pain) (DME) Four wheeled walker with a seat Qty: 1 0RF Rx Instructions: As directed Xolair 75 mg/0.5 mL syringe SUBCUT fluticasone propionate [Flonase Allergy Relief] 50 mcg/actuation spray,suspension 1 spray intranasal DAILY Qty: 16 6RF Rx Instructions: administer into each nostril atorvastatin 20 mg tablet 20 mg PO BEDTIME Qty: 90 1RF budesonide [Pulmicort] 0.5 mg/2 mL suspension for nebulization 0.5 mg INHALATION BID Qty: 120 2RF Perforomist 20 mcg/2 mL solution for nebulization 2 ml INHALATION Q12H 90 Days Qty: 120 3RF albuterol sulfate 2.5 mg /3 mL (0.083 %) solution for nebulization 2.5 mg INHALATION BEDTIME Qty: 90 3RF amitriptyline 25 mg tablet 25 mg PO BEDTIME Qty: 90 3RF venlafaxine 150 mg capsule,extended release 24hr 150 mg PO BEDTIME Qty: 90 3RF Yupelri 175 mcg/3 mL solution for nebulization 175 mcg INHALATION BEDTIME Qty: 90 6RF prednisone 5 mg tablet 5 mg PO QAM Qty: 90 0RF tamsulosin 0.4 mg capsule 0.8 mg PO BEDTIME Qty: 180 1RF tramadol 50 mg tablet 50 mg PO TID PRN (Reason: pain) Qty: 90 0RF albuterol sulfate 90 mcg/actuation HFA aerosol inhaler See Rx Instructions .ROUTE .COMPLEX Qty: 18 0RF Dose Instruction: INHALE 2 PUFFS BY MOUTH EVERY 6 HOURS NEEDED FOR SHORTNESS OF BREATH OR WHEEZING Rx Instructions: INHALE 2 PUFFS BY MOUTH EVERY 6 HOURS NEEDED FOR SHORTNESS OF BREATH OR WHEEZING Januvia 100 mg tablet 100 mg PO QAM Qty: 90 0RF Rx Instructions: 340 B aspirin 81 mg Tablet,Delayed Release (Dr/Ec) 81 mg PO BEDTIME furosemide 20 mg tablet 20 mg PO QAM EpiPen 0.3 mg/0.3 mL Auto-Injector 0.3 mg IM . DIRECTED PRN (Reason: Allergic Reaction) Discharge Orders: Discharge ED (Routine); Ordered 01/24/23 Ordered By: Sam Peoples Referrals: Courtney Reich DO [Primary Care Provider] - 1-3 days Patient Instructions: COPD (Chronic Obstructive Pulmonary Disease) (ED), Opioid Safety, Pain Management Activity Restrictions/Additional Instructions: Use your albuterol nebulizer every 4 hours while awake at home for the next 48 hours scheduled whether you are feeling short of breath or not. You may use as needed after that. Stop your prednisone 5 mg, in favor of increased dosage to 60 mg daily as noted. Return for worsening shortness of breath despite treatment, fever despite 2-3 doses of antibiotics, worsening chest pain, any other concerning symptoms. Coding Level of Care Code ED Prompt Care Rn for Owen Rico
--- NOTE | 2023-01-24 17:51 | ECG_ITS ---
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 Measurements Intervals [place] Rate: 91 P: 43 CO: 174 QRS: -17 QRSD: 84 T: 93 QT: 334 QTc: 413 Interpretive Statements SINUS RHYTHM WITH MARKED SINUS ARRHYTHMIA LOW QRS VOLTAGE IN PRECORDIAL LEADS [QRS DEFLECTION < 1.0 mV IN CHEST LEADS] NONSPECIFIC ST & T-WAVE ABNORMALITY Poor R wave progression Compared to ECG 09/22/2022 04:40:37 Low QRS voltage now present T-wave abnormality now present Electronically Signed On 01-25-2023 21:54:16 BUILDER OPERATOR by Hardik Betts M.D. [id number]
[2023-01-24] MEDS: ipratropium-albuterol 3 mL Neb INHALATION (18:07)
[2023-01-24 18:16] LABS: Basophils # 0.1 10^3/uL (0.0-0.1); Basophils % 0.7 %; Eosinophils # 0.1 10^3/uL (0.0-0.8); Eosinophils % 0.9 %; Hematocrit 40.4 % (37-53); Lymphocytes # 1.9 10^3/uL (0.8-4.8); Lymphocytes % 16.1 %; Mean Corpuscular HGB Conc 29.5 g/dL (30-55); Mean Corpuscular Hemoglobin 26.5 pg (27-33); Mean Platelet Volume 10.2 fL (7.4-10.4); Monocytes # 0.9 10^3/uL (0.2-0.9); Monocytes % 7.8 %; Neutrophils # 8.53 10^3/uL (1.8-7.7); Neutrophils % 74.1 %; Nucleated Red Blood Cells % 0 %; Platelet Count 196 10^3/cmm (157-399); Red Blood Count 4.49 10^6/uL (3.85-5.65); Red Cell Distribution Width 13.5 % (12.1-15.1); White Blood Count 11.52 10^3/uL (3.29-11.43)
[2023-01-24 18:27] LABS: Troponin(5th) Baseline 26 ng/L (0-15)
[2023-01-24 18:35] LABS: Alanine Aminotransferase 10 U/L (0-41); Albumin Level 3.7 g/dL (3.5-5.2); Alkaline Phosphatase 75 U/L (40-130); Anion Gap 13.7 (5-19); Aspartate Amino Transferase 10 U/L (0-40); Blood Urea Nitrogen 10 mg/dL (8-23); Calcium 8.8 mg/dL (8.5-10.5); Carbon Dioxide 30 mmol/L (22-29); Chloride 102 mmol/L (98-107); Creatinine Clr Calc Pharmacy 98.9991; Globulin 2.4 g/dL (1.3-4.6); Glucose 100 mg/dL (65-115); Osmolality Calculated 291 mOsm/kg (285-295); Potassium 4.7 mmol/L (3.5-5.1); Sodium 141 mmol/L (136-145); Total Bilirubin 0.3 mg/dL (0.15-1.2); Total Protein 6.1 g/dL (6.6-8.7)
[2023-01-24] MEDS: dexamethasone 10 mg/mL INJ IM (18:49)
--- NOTE | 2023-01-24 19:44 | ECG_ITS ---
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 Measurements Intervals [place] Rate: 88 P: 29 WI: 156 QRS: -12 QRSD: 88 T: 74 QT: 351 QTc: 426 Interpretive Statements SINUS RHYTHM WITH MARKED SINUS ARRHYTHMIA NONSPECIFIC T-WAVE ABNORMALITY Compared to ECG 01/24/2023 17:51:00 No significant changes Electronically Signed On 01-25-2023 22:16:58 RIDING COACH by Hardik Betts M.D. [id number]
[2023-01-24 20:21] LABS: Troponin 5 2HR 33.09 ng/L (0-15)
[2023-01-24 20:25] LABS: Troponin 5 2HR Delta 7.09 ABS# (0-10)
[2023-01-24] MEDS: doxycycline 100 mg Tablet PO (20:45)
[2023-01-24] MEDS: albuterol 2.5 mg/3 mL Neb INHALATION (20:50)
[2023-01-24 21:34] LABS: SARS Covid-2 Antigen negative (Negative)
== END 2023-01-24 21:04 | disposition home or self-care (01) ==
PROVIDERS: Family Medicine; Emergency Provider Emergency Medicine; PCP Family Medicine
DX: J44.1 Chronic obstructive pulmonary disease with (acute) exacerbation (principal); Z79.82 Long term (current) use of aspirin; Z11.52 Encounter for screening for COVID-19; E11.42 Type 2 diabetes mellitus with diabetic polyneuropathy; I25.10 Atherosclerotic heart disease of native coronary artery without angina pectoris; E78.5 Hyperlipidemia, unspecified; I50.9 Heart failure, unspecified; Z87.891 Personal history of nicotine dependence
CPT/HCPCS: 36415; 71045; 80053; 84484; 85025; 87426; 93005; 94640; 96372; 99285; J1100; J7613

== ENCOUNTER 2023-02-04 08:57 | Outpatient (CLI) | payer MEDICARE, BC, SELFPAY ==
--- NOTE | 2023-02-04 09:45 | USCV_ITS ---
Hernan Beckman Age: 72 Gender: M : 1950 Exam Date: 02/04/2023 09:18 Ordering Phys: Karissa Street MD Technologist: DOMI Exam Location: [facility] [place] Indication: DIZZINESS Risk Factors: Previous Vascular Surgery: Right Brachial BP: / Left Brachial BP: / Right Left Velocity (cm/s) Spectral Plaque Velocity (cm/s) Spectral Plaque Syst/Diast Broadening Syst/Diast Broadening 73.90/ 13.20 None Prox CCA 83.70 / 18.10 57.50/ 16.30 None Mid CCA 73.90 / 16.60 76.20/ 19.80 Distal CCA 55.80 / 10.60 57.00/ 12.50 Prox ICA 64.90 / 15.10 120.20/36.60 PST Mid ICA 80.70 / 27.10 113.60/28.10 Distal ICA 74.00 / 21.80 92.40 ECA 73.20 1.58 ICA/CCA 0.96 Antegrade Vertebral Not Visualized 37.30/ 7.80 cm/s / cm/s Tri Subclavian Tri 84.50 87.20 FINDINGS TDS CONCLUSIONS Right ICA stenosis <50%. Moderate calcified atheromatous plaque right carotid bulb/ICA. Left ICA stenosis <50%. Moderate calcified atheromatous plaque left carotid bulb/ICA. Normal antegrade Doppler flow noted in the right vertebral artery. Normal antegrade Doppler flow noted in the left vertebral artery. Ajith Hart MD (Electronically Signed) Final Date: 04 February 2023 10:40 S
== END 2023-02-04 08:58 | disposition home or self-care (01) ==
LOC: RAD 08:57
PROVIDERS: PCP Family Medicine; Visit Provider Specialist
DX: R42 Dizziness and giddiness (principal); I65.23 Occlusion and stenosis of bilateral carotid arteries
CPT/HCPCS: 93880

== ENCOUNTER 2023-04-03 11:41 | Outpatient (CLI) | payer OTHER, SELFPAY ==
--- NOTE | 2023-04-03 12:45 | CT_ITS ---
WS: [id number] LDCT LUNG CANCER SCREENING TECHNIQUE: Noncontrast CT of the chest with coronal and sagittal reformatted images. CLINICAL INFORMATION: Cancer Screen COMPARISON: CT lung screening 04/06/2020. CT chest 07/02/2022 DLP: 106.19 mGy.cm DIvol: Mean CTDIvol: 2.20 (mGy) All CT scans at [facility] use at least one of these dose optimization techniques: automat ed exposure control; mA and/or kV adjustment per patient size (includes targeted exams where dose is matched to clinical indication); or iterative reconstruction. FINDINGS: Bronchiectasis LEFT lower lobe with patchy airspace infiltrates. Trace pleural fluid. Tree- in-bud opacities LEFT lower lobe. Infiltrates are progressed compared to 07/02/2022. Progressed tree-in-bud opacities RIGHT upper lobe and RIGHT lower lobe. Pleural parenchymal scarring in the lingula. A few calcified granulomas. Nodular LEFT thyroid. Normal caliber thoracic aorta. Aortic calcification coronary calcification. No mediastinal or hilar lymphadenopathy. Calcified RIGHT hilar and subcarinal lymph nodes. No axillary l ymphadenopathy. Small LEFT adrenal adenoma. Small exophytic RIGHT renal cyst. Mild thoracic curve. Hypertrophic changes thoracic spine with endplate Schmorl's nodes. Mild thoracic kyphosis. IMPRESSION: Bronchiectasis with patchy airspace infiltrates in the LEFT lower lobe progressed compare d to 07/02/2022. Recommend correlation for pneumonia. Tree-in-bud nodularity LEFT lower lobe. Recommen d 3-month follow-up chest CT. CT/CT lung screening [id number] LUNG-RADS: 2S-Benign Appearance or Behavior with Significant Findings FOLLOW UP: See Report
== END 2023-04-03 11:42 | disposition home or self-care (01) ==
LOC: RAD 11:42
PROVIDERS: PCP Family Medicine; Visit Provider Internal Medicine Pulmonary Disease
DX: Z12.2 Encounter for screening for malignant neoplasm of respiratory organs (principal); Z87.891 Personal history of nicotine dependence; J47.9 Bronchiectasis, uncomplicated; J98.4 Other disorders of lung
CPT/HCPCS: 71271

== ENCOUNTER → 2023-04-22 10:50 | Outpatient (BNVA) | payer MEDICARE, BC, SELFPAY | PROVIDERS: PCP Family Medicine; Visit Provider Internal Medicine Cardiovascular Disease | DX: J43.1 Panlobular emphysema (principal); E78.5 Hyperlipidemia, unspecified; I42.9 Cardiomyopathy, unspecified; Z87.891 Personal history of nicotine dependence; I50.20 Unspecified systolic (congestive) heart failure; I25.10 Atherosclerotic heart disease of native coronary artery without angina pectoris; E11.9 Type 2 diabetes mellitus without complications; N62 Hypertrophy of breast; G43.711 Chronic migraine without aura, intractable, with status migrainosus; R06.03 Acute respiratory distress; G47.33 Obstructive sleep apnea (adult) (pediatric); Z79.4 Long term (current) use of insulin | CPT/HCPCS: 99215 ==

== ENCOUNTER 2023-04-29 07:01 | Outpatient (CLI) | payer MEDICARE, BC, SELFPAY ==
--- NOTE | 2023-04-29 07:45 | USCV_ITS ---
Rk Hernan Age: 72 Gender: M : 1950 Exam Date: 04/29/2023 07:22 Ordering Phys: Rick Beverly MD ([email or web address]) Technologist: Exam [place] [facility] [place]: hx of cad mi BP: 105 / 62 HR: 0 Rhythm: Sinus Technical Quality: Adequate MEASUREMENTS (Male / Female) Normal Values 2D ECHO LV Diastolic Diameter PLAX 5.8 cm 4.2 - 5.9 / 3.9 - 5.3 cm LV Systolic Diameter PLAX 3.8 cm IVS Diastolic Thickness 1.3 cm 0.6 - 1.0 / 0.6 - 0.9 cm IVS Systolic Thickness 1.6 cm LVPW Diastolic Thickness 1.1 cm 0.6 - 1.0 / 0.6 - 0.9 cm LVPW Systolic Thickness 1.5 cm LVOT Diameter 2.1 cm LV Ejection Fraction 2D Teich 62.3 % LV Ejection Fraction MOD 2C 56.1 % IVC Diameter 1.9 cm M-MODE LA Ao Ratio MM 0.9 AV Cusp Separation MM 2.5 cm DOPPLER AV Peak Velocity 114.0 cm/s LVOT Peak Velocity 85.0 cm/s AV Area Cont Eq vti 2.7 cm squared AV Area Cont Eq pk 2.5 cm squared MV Peak Velocity 111.5 cm/s MV Area PHT 7.2 cm squared Mitral E to A Ratio 0.7 FINDINGS Left Ventricle Diffuse hypokinesia of the left ventricular ejection fraction of around 45% (visual). Mildly dilated LV cavity. Right Ventricle The right ventricle is normal in size and function. Right Atrium The right atrium is normal in size. Left Atrium Mildly increased left atrial size. Mitral Valve No gross abnormalities noted . Aortic Valve No gross abnormalities noted . Tricuspid Valve No gross abnormalities noted . Pulmonic Valve No gross abnormalities noted Pericardium Normal pericardium without effusion. Aorta Normal ascending aorta dimension. IVC The inferior vena cava appears normal. CONCLUSIONS Diffuse hypokinesia of the left ventricular ejection fraction of around 45% (visual). Mildly dilated LV cavity. No intracardiac masses. No pericardial effusion. Compared to the study from 05/26/2022 there is definite decline in the LV ejection fraction from 60% to 45%. Dr Hardik Betts MD [facility] (Electronically Signed) Final Date: 02 May 2023 12:03 S
== END 2023-04-29 07:02 | disposition home or self-care (01) ==
LOC: RAD 07:02
PROVIDERS: PCP Family Medicine; Visit Provider Internal Medicine Cardiovascular Disease
DX: I42.9 Cardiomyopathy, unspecified (principal)
CPT/HCPCS: 93306

== ENCOUNTER → 2023-04-30 10:11 | Outpatient (BNVA) | payer MEDICARE, BC, SELFPAY | PROVIDERS: PCP Family Medicine; Visit Provider Specialist | DX: G43.711 Chronic migraine without aura, intractable, with status migrainosus (principal); R42 Dizziness and giddiness | CPT/HCPCS: 64615; 99213; J0585 ==

== ENCOUNTER → 2023-05-29 12:43 | Outpatient (BNVA) | payer MEDICARE, BC, SELFPAY | PROVIDERS: PCP Family Medicine; Visit Provider Family Medicine | DX: I42.9 Cardiomyopathy, unspecified (principal); E11.9 Type 2 diabetes mellitus without complications | CPT/HCPCS: 80053; 83036; 85025 ==

== ENCOUNTER → 2023-06-23 11:13 | Outpatient (BNVA) | payer MEDICARE, BC, SELFPAY | PROVIDERS: PCP Family Medicine; Visit Provider Internal Medicine Cardiovascular Disease | DX: R06.02 Shortness of breath (principal); I25.10 Atherosclerotic heart disease of native coronary artery without angina pectoris; I42.8 Other cardiomyopathies; I50.20 Unspecified systolic (congestive) heart failure; E78.5 Hyperlipidemia, unspecified; E11.9 Type 2 diabetes mellitus without complications | CPT/HCPCS: 36415; 80048; 83880; 99214 ==

== ENCOUNTER → 2023-07-17 10:16 | Outpatient (BNVA) | payer MEDICARE, BC, SELFPAY | PROVIDERS: PCP Family Medicine; Visit Provider Internal Medicine Pulmonary Disease | DX: J44.89 Other specified chronic obstructive pulmonary disease (principal); Z91.89 Other specified personal risk factors, not elsewhere classified; G47.33 Obstructive sleep apnea (adult) (pediatric); Z87.891 Personal history of nicotine dependence; Z99.89 Dependence on other enabling machines and devices | CPT/HCPCS: 99214 ==

== ENCOUNTER → 2023-07-30 09:58 | Outpatient (BNVA) | payer MEDICARE, BC, SELFPAY | PROVIDERS: PCP Family Medicine; Visit Provider Specialist | DX: G43.711 Chronic migraine without aura, intractable, with status migrainosus (principal); J44.89 Other specified chronic obstructive pulmonary disease; I50.22 Chronic systolic (congestive) heart failure; R42 Dizziness and giddiness; Z13.6 Encounter for screening for cardiovascular disorders; E78.49 Other hyperlipidemia; E11.9 Type 2 diabetes mellitus without complications | CPT/HCPCS: 64615; 80053; 80061; 83036; J0585 ==

== ENCOUNTER 2023-08-06 14:28 | Outpatient (CLI) | payer MEDICARE, BC, SELFPAY ==
[2023-08-06 15:45] LABS: Anion Gap 12.1 (5-19); Blood Urea Nitrogen 11 mg/dL (8-23); Calcium 8.7 mg/dL (8.5-10.5); Carbon Dioxide 30 mmol/L (22-29); Chloride 98 mmol/L (98-107); Glucose 107 mg/dL (65-115); NT Pro B Type Natriuretic Pept 269 pg/mL (0-125); Osmolality Calculated 280 mOsm/kg (285-295); Potassium 5.1 mmol/L (3.5-5.1); Sodium 135 mmol/L (136-145)
== END 2023-08-06 14:29 | disposition home or self-care (01) ==
LOC: LAB 15:00
PROVIDERS: PCP Family Medicine; Visit Provider Internal Medicine Cardiovascular Disease
DX: I50.20 Unspecified systolic (congestive) heart failure (principal); I42.8 Other cardiomyopathies; J43.1 Panlobular emphysema
CPT/HCPCS: 80048; 83880

== ENCOUNTER 2023-10-01 13:37 | Outpatient (CLI) | payer MEDICARE, BC, SELFPAY ==
[2023-10-01 14:24] LABS: Anion Gap 15.8 (5-19); Blood Urea Nitrogen 12 mg/dL (8-23); Calcium 8.7 mg/dL (8.5-10.5); Carbon Dioxide 28 mmol/L (22-29); Chloride 101 mmol/L (98-107); Glucose 79 mg/dL (65-115); NT Pro B Type Natriuretic Pept 313 pg/mL (0-450); Osmolality Calculated 289 mOsm/kg (285-295); Potassium 4.8 mmol/L (3.5-5.1); Sodium 140 mmol/L (136-145)
== END 2023-10-01 13:38 | disposition home or self-care (01) ==
LOC: LAB 13:40
PROVIDERS: PCP Family Medicine; Visit Provider Internal Medicine Cardiovascular Disease
DX: I50.20 Unspecified systolic (congestive) heart failure (principal); I42.8 Other cardiomyopathies
CPT/HCPCS: 36415; 80048; 83880

== ENCOUNTER → 2023-11-12 08:21 | Outpatient (BNVA) | payer MEDICARE, BC, SELFPAY | PROVIDERS: PCP Family Medicine; Visit Provider Specialist | DX: G43.709 Chronic migraine without aura, not intractable, without status migrainosus (principal); G43.711 Chronic migraine without aura, intractable, with status migrainosus; R42 Dizziness and giddiness | CPT/HCPCS: 64615; J0585 ==

== ENCOUNTER → 2023-11-27 08:24 | Outpatient (BNVA) | payer MEDICARE, BC, SELFPAY | PROVIDERS: PCP Family Medicine; Visit Provider Internal Medicine Critical Care Medicine | DX: J96.11 Chronic respiratory failure with hypoxia; Z99.81 Dependence on supplemental oxygen; J43.1 Panlobular emphysema; E66.09 Other obesity due to excess calories; Z68.33 Body mass index [BMI] 33.0-33.9, adult; F17.210 Nicotine dependence, cigarettes, uncomplicated; Z71.6 Tobacco abuse counseling; Z71.89 Other specified counseling; Z71.82 Exercise counseling; Z71.3 Dietary counseling and surveillance | CPT/HCPCS: 99214 ==

== ENCOUNTER → 2023-12-24 11:35 | Outpatient (BNVA) | payer MEDICARE, BC, SELFPAY | PROVIDERS: PCP Family Medicine; Visit Provider Internal Medicine Cardiovascular Disease | DX: R06.02 Shortness of breath (principal) | CPT/HCPCS: 36415; 80048; 83880 ==

== ENCOUNTER → 2024-01-25 10:32 | Outpatient (BNVA) | payer MEDICARE, BC, SELFPAY | PROVIDERS: PCP Family Medicine; Visit Provider Nurse Practitioner Family | DX: I11.0 Hypertensive heart disease with heart failure (principal); I50.22 Chronic systolic (congestive) heart failure; I25.10 Atherosclerotic heart disease of native coronary artery without angina pectoris; G47.33 Obstructive sleep apnea (adult) (pediatric); F17.210 Nicotine dependence, cigarettes, uncomplicated | CPT/HCPCS: 36415; 80048; 83880; 99214 ==

== ENCOUNTER → 2024-04-01 11:50 | Outpatient (BNVA) | payer MEDICARE, BC, SELFPAY | PROVIDERS: PCP Family Medicine; Visit Provider Specialist | DX: G43.711 Chronic migraine without aura, intractable, with status migrainosus (principal) | CPT/HCPCS: 64615; J0585 ==

== ENCOUNTER → 2024-04-14 09:39 | Outpatient (BNVA) | payer MEDICARE, BC, SELFPAY | PROVIDERS: PCP Family Medicine; Visit Provider Family Medicine | DX: I50.22 Chronic systolic (congestive) heart failure (principal); E11.9 Type 2 diabetes mellitus without complications; J43.1 Panlobular emphysema; J44.9 Chronic obstructive pulmonary disease, unspecified | CPT/HCPCS: 80053; 80061; 83036; 85025 ==

== ENCOUNTER → 2024-07-11 13:39 | Outpatient (BNVA) | payer MEDICARE, BC, SELFPAY | PROVIDERS: PCP Family Medicine; Visit Provider Specialist | DX: G43.711 Chronic migraine without aura, intractable, with status migrainosus (principal) | CPT/HCPCS: 64615; J0585; J9999 ==

== ENCOUNTER → 2024-07-28 16:15 | Outpatient (BNVA) | payer MEDICARE, BC, SELFPAY | PROVIDERS: PCP Family Medicine; Visit Provider Internal Medicine Cardiovascular Disease | DX: R06.02 Shortness of breath (principal) | CPT/HCPCS: 36415; 80048; 83880 ==

== ENCOUNTER 2024-09-07 12:47 | Outpatient (CLI) | payer MEDICARE, BC, SELFPAY ==
--- NOTE | 2024-09-07 13:30 | USCV_ITS ---
Hernan Beckman Age: 73 Gender: M : 1950 Exam Date: 09/07/2024 13:21 Ordering Phys: Hardik Betts MD ([email or web address]) Technologist: Exam Location: [facility] – [place] Indication: ef BP: 134 / 75 HR: Rhythm: Sinus Technical Quality: Adequate MEASUREMENTS (Male / Female) Normal Values 2D ECHO LV Diastolic Diameter PLAX 4.8 cm 4.2 - 5.9 / 3.9 - 5.3 cm IVS Diastolic Thickness 1.1 cm 0.6 - 1.0 / 0.6 - 0.9 cm IVS Systolic Thickness 1.2 cm LVPW Diastolic Thickness 1.2 cm 0.6 - 1.0 / 0.6 - 0.9 cm LVPW Systolic Thickness 2.0 cm LVOT Diameter 2.3 cm LV Ejection Fraction 2D Teich 34.0 % LV Ejection Fraction MOD 4C 37.7 % LV Ejection Fraction MOD 2C 41.6 % LV Ejection Fraction 2C AL 40.6 % LA Diameter 3.9 cm RA Systolic Volume 4C AL 45.9 ml RA Systolic Volume 4C MOD 43.9 ml Aorta at Sinotubular Diameter 3.2 cm M-MODE LA Ao Ratio MM 1.1 AV Cusp Separation MM 2.2 cm FINDINGS Left Ventricle Diffuse hypokinesis of the left ventricular ejection fraction of 38%. The LV cavity, upper limit of normal size Right Ventricle Right ventricular appears to be normal size and ejection fraction. Right Atrium Normal right atrial size. Left Atrium Normal left atrial size. Mitral Valve Minimally thickened anterior mitral leaflet Aortic Valve Thickened aortic valve. Tricuspid Valve No gross morphologic abnormalities Pulmonic Valve Pulmonic valve not well visualized. Pericardium No pericardial effusion. Aorta Normal aortic annulus size. IVC Inferior vena cava not visualized. CONCLUSIONS Diffuse hypokinesis of the left ventricular ejection fraction of 38%. The LV cavity, upper limit of normal size. Minimally thickened anterior mitral leaflet. Thickened aortic valve. There is no pericardial effusion. There are no intracardiac masses. Compared to the study from 04/29/2023, the left ventricular ejection fraction has decreased from 45% to 38% Dr Hardik Betts MD [facility] (Electronically Signed) Final Date: 12 September 2024 08:42 S
== END 2024-09-07 12:48 | disposition home or self-care (01) ==
LOC: RAD 12:48
PROVIDERS: PCP Family Medicine; Visit Provider Internal Medicine Cardiovascular Disease
DX: I42.9 Cardiomyopathy, unspecified (principal)
CPT/HCPCS: 93308

== ENCOUNTER 2024-10-25 08:58 | Outpatient (CLI) | payer MEDICARE, BC, SELFPAY ==
--- NOTE | 2024-10-25 | ECG_ITS ---
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 Interpretive Statements Lung unchanged pre/post procedure; Intraprocedure shortess of breath; Symptoms resoled by discharge PROCEDURE: At the baseline, the blood pressure was 85/54 with a heart rate of 70. The electrocardiogram showed normal sinus rhythm with poor R wave progression. Some nonspecific T wave changes.. The dobutamine was infused over a period of 12 minutes and 55 seconds. The maximum heart rate obtained was 144 (94% of the maximum predicted heart rate). The blood pressure at that time was 76/38 mmHg. The patient did not have any chest pain or any significant electrocardiogram changes with the dobutamine infusion. Occasional PVCs were noted. The physical examination remained unchanged. No arrhythmias were seen on the monitor. During the recovery phase, the patient did not have any specific symptoms. The event EKG reverted back to baseline. The blood pressure at the end of the recovery phase was 83/45 with a heart rate of 99 per minute. CONCLUSION: 1. Normal heart rate response to dobutamine fusion. The blood pressure remained unchanged with the dobutamine infusion 2. No dobutamine used chest pain or any significant cardiac arrhythmia 3. No significant EKG changes with reviewed infusion 4. Low probability for coronary ischemia, based on the EKG response Electronically Signed On 11-14-2024 08:08:25 CDT by Hardik Betts M.D. [email or web address]
[2024-10-25 09:25] VITALS: BMI 28.5
--- NOTE | 2024-10-25 09:27 | NMCV_ITS ---
NM bjorn perf SPECT r/s* [id number] Rk Hernan Age: 74 Gender: M : 1950 Exam Date: 10/25/2024 10:11 Ordering Phys: Hardik Betts MD ([email or web address]) Technologist: MANDY Amaya Exam Location: [facility] Indications: cp STRESS TEST [facility] IMAGE PROTOCOL Rest/Stress 1 Dobutamine Day Radiopharmaceutical Dose (mCi) Administration Site Administered by Rest: Tc-99m 11 IV MANDY Amaya Sestamibi Stress:Tc-99m 32.9 IV MANDY Olsen Sestamibi Rest: 25-Oct-2024 60 Discovery 630 Stress: 25-Oct-2024 15 Discovery 630 Radiopharmaceutical was injected at 85 % maximum heart rate. Supine position only as patient was unable to lay prone. SPECT RESULTS Technical Quality: Good Raw Data Analysis: Normal Image Corrections: No attenuation or motion correction applied Summed Stress Score: 10 Summed Rest Score: 13 Summed Difference Score: 1 PERFUSION FINDINGS Medium sized fixed perfusion defect noted in distal apical wall suggestive of old myocardial infarction versus scarring in distal LAD territory. Large area of fixed perfusion defect noted in basal to distal inferior and inferolateral wall suggestive of old myocardial infarction surrounded by small to medium sized area of mild to moderate reversibility suggestive of ischemia in jorge- infarct zone of inferior inferolateral wall. FUNCTIONAL RESULTS (calculated via Gated SPECT) Stress Image LV EF (%): 45 Stress EDV (mL):128 TID: 0.88 Stress ESV (mL):71 FUNCTIONAL FINDINGS: There appeared to be distal apical and inferior wall akinesis IMPRESSIONS Medium sized fixed perfusion defect noted in distal apical wall suggestive of old myocardial infarction versus scarring in distal LAD territory. Large area of fixed perfusion defect noted in basal to distal inferior and inferolateral wall suggestive of old myocardial infarction surrounded by small to medium sized area of mild to moderate reversibility suggestive of ischemia in jorge- infarct zone of inferior inferolateral wall. Shira Osborne MD (Electronically Signed) Final Date: 25 October 2024 20:59 S
--- NOTE | 2024-10-25 11:20 | PC.NURSE ---
pt bp low. after multiple attempts to check, it continues to be low. called physician and received orders to change lexiscan to dobutamine mibi and 500ml bolus of ns.
[2024-10-25] MEDS: DOBUTtamine 200 MG in sodium chloride 0.9% 34 ML 13 MG IV (11:36)
[2024-10-25] MEDS: atropine 0.1 mg/mL Syr 10 mL 0.5 MG IVP (11:47)
[2024-10-25 12:06] VITALS: BP 83/45; PULSE 99
== END 2024-10-25 08:59 | disposition home or self-care (01) ==
LOC: CDL 09:01
PROVIDERS: PCP Family Medicine; Visit Provider Internal Medicine Cardiovascular Disease
DX: R07.9 Chest pain, unspecified (principal); I25.2 Old myocardial infarction; I25.9 Chronic ischemic heart disease, unspecified; R94.31 Abnormal electrocardiogram [ECG] [EKG]
CPT/HCPCS: 36415; 78452; 93017; A9500; J0461; J1250; J2785; J7030; J7050

== ENCOUNTER → 2024-10-27 08:34 | Outpatient (BNVA) | payer MEDICARE, BC, SELFPAY | PROVIDERS: PCP Family Medicine; Visit Provider Specialist | DX: G43.711 Chronic migraine without aura, intractable, with status migrainosus (principal) | CPT/HCPCS: 64615; J0585; J9999 ==

== ENCOUNTER → 2024-11-18 08:16 | Outpatient (BNVA) | payer MEDICARE, BC, SELFPAY | PROVIDERS: PCP Family Medicine; Visit Provider Internal Medicine | DX: J44.89 Other specified chronic obstructive pulmonary disease (principal); J47.9 Bronchiectasis, uncomplicated; J96.11 Chronic respiratory failure with hypoxia; Z99.81 Dependence on supplemental oxygen; G47.33 Obstructive sleep apnea (adult) (pediatric); Z99.89 Dependence on other enabling machines and devices; Z91.89 Other specified personal risk factors, not elsewhere classified; F17.219 Nicotine dependence, cigarettes, with unspecified nicotine-induced disorders | CPT/HCPCS: 99214 ==

== ENCOUNTER → 2024-12-23 11:42 | Outpatient (BNVA) | payer MEDICARE, BC, SELFPAY | PROVIDERS: PCP Family Medicine; Visit Provider Nurse Practitioner | DX: M19.011 Primary osteoarthritis, right shoulder (principal); M79.621 Pain in right upper arm; S46.911A Strain of unspecified muscle, fascia and tendon at shoulder and upper arm level, right arm, initial encounter; W01.0XXA Fall on same level from slipping, tripping and stumbling without subsequent striking against object, initial encounter | CPT/HCPCS: 73030; 73060 ==

== ENCOUNTER → 2025-01-26 08:34 | Outpatient (BNVA) | payer MEDICARE, BC, SELFPAY | PROVIDERS: PCP Family Medicine; Visit Provider Specialist | DX: G43.711 Chronic migraine without aura, intractable, with status migrainosus (principal) | CPT/HCPCS: 64615; J0585; J9999 ==

== ENCOUNTER → 2025-02-09 10:14 | Outpatient (BNVA) | payer MEDICARE, BC, SELFPAY | PROVIDERS: PCP Family Medicine; Visit Provider Nurse Practitioner Family | DX: I11.0 Hypertensive heart disease with heart failure (principal); I50.23 Acute on chronic systolic (congestive) heart failure; I42.8 Other cardiomyopathies; E78.5 Hyperlipidemia, unspecified; I25.10 Atherosclerotic heart disease of native coronary artery without angina pectoris; R94.39 Abnormal result of other cardiovascular function study; E11.9 Type 2 diabetes mellitus without complications; F17.210 Nicotine dependence, cigarettes, uncomplicated; Z79.84 Long term (current) use of oral hypoglycemic drugs | CPT/HCPCS: 99214 ==

== ENCOUNTER → 2025-02-16 10:18 | Outpatient (BNVA) | payer MEDICARE, BC, SELFPAY | PROVIDERS: PCP Family Medicine; Visit Provider Family Medicine | DX: I50.22 Chronic systolic (congestive) heart failure (principal); I11.0 Hypertensive heart disease with heart failure; E11.9 Type 2 diabetes mellitus without complications | CPT/HCPCS: 80053; 83036 ==

== ENCOUNTER 2025-03-01 18:34 | Emergency (ER) | payer MEDICARE, BC, SELFPAY ==
[2025-03-01 18:39] VITALS: BP 123/76; PULSE 103; RESP 20; TEMP 37.5; O2SAT 95; BMI 30.1
--- OUTSIDE RECORDS SUMMARY | 2025-03-01 18:41 | XMS_ITS | Clinical Summary ---
Author Organization [facility] Address [address] [place] [address] Phone Care Team Providers Care Pricing Director Name Role Phone Courtney Reich Primary Care Provider [phone] Allergies No known active allergies Medications aspirin (ECOTRIN EC) 81 mg Tablet, Delayed Release (E.C.) Take 1 Tablet (81 mg) by mouth daily. 3 Active atorvastatin (LIPITOR) 40 mg tablet Take 1 Tablet (40 mg) by mouth daily at bedtime. 3 Active docusate sodium (COLACE) 100 mg capsule Take 1 Capsule (100 mg) by mouth 2 times daily. 3 Active empagliflozin (JARDIANCE) 10 mg tablet Take 1 Tablet (10 mg) by mouth daily in the morning. 3 Active furosemide (LASIX) 40 mg tablet Take 1 Tablet (40 mg) by mouth daily. 3 Active insulin glargine-yfgn (Semglee,insulin glarg-yfgn,Pen) 100 unit/mL pen syringe Inject 5 Units by subcutaneous injection 2 times daily. 15 mL 3 Active insulin lispro (HumaLOG) 100 unit/mL pen syringe Inject 0-12 Units by subcutaneous injection 4 times daily with meals and at bedtime. 15 mL 3 Active ipratropium-albu teroL (DUONEB) 0.5 mg-3 mg(2.5 mg base)/3 mL Solution for Nebulization Take 3 mL by inhalation every 6 hours. 3 Active albuterol (PROVENTIL,SUN TANA) 2.5 mg /3 mL (0.083 %) Solution for Nebulization Take 3 mL (2.5 mg) by inhalation every 6 hours as needed for Shortness of Breath or Wheezing. 3 Active montelukast (SINGULAIR) 10 mg tablet Take 1 Tablet (10 mg) by mouth daily at bedtime. 3 Active polyethylene glycol (MIRALAX) 17 gram Powder in Packet Take 1 Packet (17 Grams) by mouth 1 time daily as needed for Constipation. 3 Active sacubitriL-valsa rtan (ENTRESTO) 24-26 mg Tablet Take 1 Tablet by mouth 2 times daily. 3 Active spironolactone (ALDACTONE) 25 mg tablet Take 1 Tablet (25 mg) by mouth daily. 3 Active tamsulosin (FLOMAX) 0.4 mg capsule Take 1 Capsule (0.4 mg) by mouth daily after supper. 3 Active venlafaxine (EFFEXOR XR) 150 mg Extended Release 24 hour capsule Take 1 Capsule (150 mg) by mouth daily with breakfast. 1 3 Active traMADoL (ULTRAM) 50 mg tabletIndication s:Chronic midline low back pain with bilateral sciatica Take 1 Tablet (50 mg) by mouth 3 times daily as needed for Pain. 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 05/03/2023 Recurrent pneumonia 05/03/2023 Recurrent major depressive disorder, in full rem ission 05/03/2023 Atherosclerosis of [place] co ronary artery of [place] heart without angina pectoris 02/18/2023 Hypokalemia 02/18/2023 Hyperlipidemia 02/15/2023 HFrEF (heart failure with reduced ejection fract ion) 02/15/2023 BPH (benign prostatic hyperplasia) 02/15/2023 Current chronic use of systemic steroids 023 Pseudomonas pneumonia 02/14/2023 Chronic obstructive pulmonar y disease with acute exacerbation 02/14/2023 Chronic obstructive pulmonary disease 02/10/2023 NICM (nonischemic cardiomyopathy) 02/10/2023 Social History Tobacco Use Types Packs/Day Years Used Date Smoking Tobacco: Former Cigarettes Smokeless Tobacco: Never Tobacco Cessation:Counseling Given: Not Answered Alcohol Use Standard Drinks/Week Comments Not Currently 0 (1 standard drink = 0.6 oz pur e alcohol) Feeling Safe Answer Date Recorded Are you in a relationship wi th someone who hurts you emotionally and/or physically? 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 Gender Identity Not on file Sexual Orientation Not on file Last Filed Vital Signs Vital Sign Reading Time Taken Comments Blood Pressure 133/60 02/25/2023 9:00 PM HEEL PAINTER Pulse 99 02/25/2023 9:00 PM HEEL PAINTER Temperature 36.2 C (97.2 F) 02/19/2023 8:37 AM HEEL PAINTER Respiratory Rate 38 02/25/2023 9:00 PM HEEL PAINTER Oxygen Saturation 93% 02/25/2023 9:00 PM HEEL PAINTER Inhaled Oxygen Concentration - - Weight 103.1 kg (227 lb 3 oz) 02/18/2023 2:02 PM HEEL PAINTER Height 175.3 cm (5' 9 ) 02/15/2023 2:12 PM HEEL PAINTER Body Mass Index 33.55 02/15/2023 2:12 PM HEEL PAINTER Plan of Treatment Health Maintenance Due Date Last Done Comments DIABETES ANNUAL FOOT EXAM 1966 DIABETES ANNUAL RETINAL EXAM 1966 DIABETES HBA1C Q 6 MONTHS 1966 DIABETES MICROALBUMIN ANNUAL SCREEN 1966 LDL CHOLESTEROL ANNUAL 1966 DTAP/TDAP/TD VACCINES (1 - Tdap) 09/18/1967 PNEUMOCOCCAL VACCINE 50+ YEA RS (1 of 2 - PCV) 09/18/1967 ZOSTER VACCINE (1 of 2) 1998 RSV VACCINE (60+ or ) (1 - 1-dose 75+ series) 09/18/2023 INFLUENZA VACCINE (#1) 2024 02/13/2022, 2018 Medical Devices Implanted Type Area Die Sizer Device Identifier Shelf Expiration Date Model / Serial / Lot Dev Closure Angioseal 6fr Vip [id number] - [id number] Implanted:Qty: 1 on 02/17/2023 at [facility] Closure Device Right: [employer] 06/07/2023 [id number] / / [id number] Insurance MEDICARE PART A AND B [facility] FEDERAL Advance Directives For more information, please contact: [phone] * Full Code (Latest Code Status on File) Date Activated Date Inactivated Comments 02/10/2023 12:20 PM 02/19/2023 9:53 PM Care Teams Pricing Director Relationship Specialty Start Date End Date Courtney Reich DO PCP - General Family Practice 02/25/23
--- OUTSIDE RECORDS SUMMARY | 2025-03-01 18:41 | XMS_ITS | Clinical Summary ---
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
[2025-03-01 19:05] LABS: Glucose Urine UA 3+ (Normal); Nitrate Urine Negative (Negative); Specific Gravity, Urine 1.026 (1.005-1.030)
[2025-03-01 19:10] LABS: Add Urine Microscopic? YES
[2025-03-01 19:17] VITALS: BP 99/70; PULSE 81; O2SAT 97
[2025-03-01 19:30] VITALS: BP 123/67; PULSE 106; O2SAT 96
[2025-03-01] MEDS: tetanus-dipt-pertussis 0.5 mL SDV IM (19:32)
[2025-03-01 21:16] VITALS: BP 133/74; PULSE 102; O2SAT 94
== END 2025-03-01 20:52 | disposition home or self-care (01) ==
PROVIDERS: Emergency Provider Physician Assistant; PCP Family Medicine
DX: S00.03XA Contusion of scalp, initial encounter (principal); S29.8XXA Other specified injuries of thorax, initial encounter; V89.2XXA Person injured in unspecified motor-vehicle accident, traffic, initial encounter; Z79.82 Long term (current) use of aspirin; F17.210 Nicotine dependence, cigarettes, uncomplicated; E78.5 Hyperlipidemia, unspecified; I25.10 Atherosclerotic heart disease of native coronary artery without angina pectoris; E11.42 Type 2 diabetes mellitus with diabetic polyneuropathy; I50.20 Unspecified systolic (congestive) heart failure; J44.9 Chronic obstructive pulmonary disease, unspecified
CPT/HCPCS: 70450; 70486; 71045; 72125; 81001; 87086; 90715; 99284